=== PATIENT | female | born 1955 | race Caucasian/White ===

== ENCOUNTER 2019-01-04 14:58 | Inpatient (IN) | payer OTHER ==
[~2019-01-04] VITALS: Ht 154.9 cm; Wt 56.3 kg
[2019-01-04] MEDS ORDERED: PIPER-TAZO 3.375 GM IV (PMX) 100 ML IVPB STA (15:16)
[2019-01-04] MEDS ORDERED: SODIUM CHLORIDE 0.9% 1L BAG IV* STA (15:16)
[2019-01-04] MEDS ORDERED: VANCOMYCIN 1 GM (PMX) 250 ML IVPB STA (15:16)
[2019-01-04] MEDS ORDERED: ACETAMINOPHEN 325 MG TAB PO PRN ×2 (18:00→18:30)
[2019-01-04] MEDS ORDERED: INSULIN LISPRO 100 UNIT/ML VIAL SC ONE (18:00)
[2019-01-04] MEDS ORDERED: ONDANSETRON 4 MG INJ IV PRN ×2 (18:00→18:30)
[2019-01-04] MEDS ORDERED: VANCOMYCIN IV PER PHARMACY XX SCH (18:30)
[2019-01-04] MEDS ORDERED: NACL 0.9% 3 ML SYG IV SCH (18:30)
--- NOTE | 2019-01-04 18:31 | HP ---
Date/Time of Note Date/Time of Note DATE: 01/04/19 TIME: 18:13 Assessment/Plan VTE Prophylaxis Pharmacological prophylaxis: NA/contraindicated Pharm contraindication: low risk/ambulating Assessment/Plan Assessment/Plan 63 yo woman with uncontrolled diabetes presents hyperglycemic with foot wounds. #Hyperglycemia #Insulin-dependent diabetes - Aggressive IV fluids, subQ insulin in ED - Unknown home insulin dose. - Will start moderate intensity long-acting and mealtime insulin, titrate up as needed - Check HgbA1C #Foot wounds - Patient says her surgeons are Dr. Perez and Dr. Luis. - For now will consult Dr. Leyva - Link donahue and deon, although on my initial exam there is no evidence of wound infection and she has no signs or symptoms of sepsis on admission. #Peripheral vascular disease - She has a R leg surgical wound which appears to be vascular surgery - Likely needs aspirin and statin. - Will consult case management to determine her living situation and home meds. DVT: heparin GI: None Result Diagram: 01/04/19 1543 01/04/19 1543 HPI/ROS Admit Date/Time Admit Date/Time 04 January 2019 Hx of Present Illness Ms. Tariq is a 63 yo woman with unknown past medical history brought in to the ED by a "friend" who presents with hyperglycemia and chronic foot wounds. The patient is confused and unable to give a reliable history. She reports a friend brought her to the emergency room because "I need insulin and my feet are infected". Apparently in her current living situation she is supposed to be given medicines which she self-administers, but apparently "they haven't given me meds in a week". Normally the patient takes mealtime and long-acting insulin, but hasn't gotten this in a week either. She does report mild fever and chills over the last few days. She has chronic foot wounds including a L foot amputatation and R leg vascular surgery. In the ED she was afebrile, vitals unremarkable. Very hyperglycemic to 600s. Otherwise labs unremarkable. ROS Patient confused, unable to give reliable history. PMH/Family/Social Past Medical History Medical History: diabetes Medications Current Medications Ondansetron HCl (Zofran Inj) 4 mg ER BRIDGE PRN IV NAUSEA/VOMITING; Start 01/04/19 at 18:00; Stop 01/05/19 at 17:59 Acetaminophen (Tylenol Tab) 650 mg ER BRIDGE PRN PO .MILD PAIN 1-3 OR TEMP; Start 01/04/19 at 18:00; Stop 01/05/19 at 17:59 Coded Allergies: No Known Allergy (Unverified , 01/04/19) Past Surgical History L foot amputation R leg vascular surgery Social History Alcohol Use: none Smoking Status: Current every day smoker (Apparently she "quit today". Unknown how many cigarettes per day. ) Drug Use: none Exam/Review of Systems Vital Signs Vitals Vital Signs Date Temp Pulse Resp B/P (MAP) Pulse Ox O2 O2 Flow FiO2 Time Delivery Rate 01/04/19 98.5 85 20 106/58 99 15:05 (74) Exam Exam Gen: Thin elderly woman in no acute distress, lying in bed. Eyes: PERRL, no icterus HEENT: Moist mucous membranes, clear oropharynx. Ketone smell on her breath. Neck: No JVD, no lymphadenopathy, supple Card: Regular rate and rhythm, no murmurs Pulm: Clear to auscultation bilaterally Abd: Soft, nontender, nondistended. Ext: L foot amputation, bandaged. R foot with Achilles tendon wound, scab, crusted dressing in place. Palpable R foot peripheral pulse Skin: warm, dry, well perfused. SAVANNAH SELBY MD Jan 04, 2019 18:26
--- NOTE | 2019-01-04 18:45 | ERD ---
ER Documentation Chief Complaint Chief Complaint R FOOT INFECTION AND NEEDS WOUND CARE AND FEELS LIKE BLOOD SUGAR IS HIGH HPI Patient is a 63-year-old female with diabetes who presents for something about her feet. Please note the history and physical exam is limited as the patient is a poor historian. Her blood sugar was high. She says "they brought me in because of my feet". She says "I need antibiotics". She denies fevers. She has right ankle wound which is foul-smelling and has had previous amputation of her left foot. 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 ROS All systems reviewed and are negative except as per history of present illness. Medications Home Meds Unable to Obtain Active Prescriptions or Reported Meds Allergies Allergies: Coded Allergies: No Known Allergy (Unverified , 01/04/19) PMhx/Soc Positive for diabetes Smoking Status: Current every day smoker (Apparently she "quit today". Unknown how many cigarettes per day. ) FmHx Family History: No diabetes Physical Exam Vitals Vital Signs Date Temp Pulse Resp B/P (MAP) Pulse Ox O2 O2 Flow FiO2 Time Delivery Rate 01/04/19 98.5 85 20 106/58 99 15:05 (74) Physical Exam Const: No acute distress Head: Atraumatic Eyes: Normal Conjunctiva ENT: Normal External Ears, Nose and Mouth. Neck: Full range of motion. No meningismus. Resp: Clear to auscultation bilaterally Cardio: Regular rate and rhythm, no murmurs Abd: Soft, non tender, non distended. Normal bowel sounds Skin: Foul-smelling wound with discharge to the right posterior ankle with cellulitis Back: No midline or flank tenderness Ext: No cyanosis, or edema Neur: Awake and alert Psych: Normal Mood and Affect Result Diagram: 01/04/19 1543 01/04/19 1543 Results 24 hrs Laboratory Tests Test 01/04/19 14:50 01/04/19 15:08 01/04/19 15:43 01/04/19 17:48 Urine Color STRAW Urine Clarity SLIGHTLY CLOUDY Urine pH 6.0 Urine Specific 1.025 [place] Urine Ketones 2+ mg/dL Urine Nitrite NEGATIVE mg/dL Urine Bilirubin NEGATIVE mg/dL Urine NEGATIVE mg/dL Urobilinogen Urine Leukocyte NEGATIVE Marlee/ul Esterase Urine Microscopic 7 /HPF RBC Urine Microscopic 6 /HPF WBC Urine Hemoglobin 1+ mg/dL Urine Glucose 3+ mg/dL Urine Total 1+ mg/dl Protein Bedside Glucose 579 mg/dL 508 mg/dL White Blood Count 7.1 10^3/ul Red Blood Count 4.82 10^6/ul Hemoglobin 13.3 g/dl Hematocrit 42.3 % Mean Corpuscular 87.8 fl Volume Mean Corpuscular 27.6 pg Hemoglobin Mean Corpuscular 31.4 g/dl Hemoglobin Concen t Red Cell 16.4 % Distribution Width Platelet Count 298 10^3/UL Mean Platelet 8.6 fl Volume Immature 0.900 % Granulocytes % Neutrophils % 78.6 % Lymphocytes % 14.3 % Monocytes % 5.5 % Eosinophils % 0.3 % Basophils % 0.4 % Nucleated Red 0.0 /100WBC Blood Cells % Immature 0.060 10^3/ul Granulocytes # Neutrophils # 5.5 10^3/ul Lymphocytes # 1.0 10^3/ul Monocytes # 0.4 10^3/ul Eosinophils # 0.0 10^3/ul Basophils # 0.0 10^3/ul Nucleated Red 0.0 10^3/ul Blood Cells # Prothrombin Time 11.7 Sec Prothrombin Time 0.9 Ratio INR International 0.85 Normalized Ratio Activated 25.8 Sec Partial Thrombopl ast Time Sodium Level 135 mmol/L Potassium Level 3.8 mmol/L Chloride Level 98 mmol/L Carbon Dioxide 18 mmol/L Level Anion Gap 19 Blood Urea 14 mg/dl Nitrogen Creatinine 0.63 mg/dl Est Glomerular > 60 mL/min Filtrat Rate mL/min Glucose Level 604 mg/dl Lactic Acid Level 1.5 mmol/L Calcium Level 9.5 mg/dl Total Bilirubin 0.1 mg/dl Direct Bilirubin 0.00 mg/dl Indirect 0.1 mg/dl Bilirubin Aspartate Amino 155 IU/L Transf (AST/SGOT) Alanine 92 IU/L Aminotransferase (ALT/SGPT) Alkaline 239 IU/L Phosphatase Troponin I < 0.012 ng/ml Total Protein 8.3 g/dl Albumin 3.7 g/dl Globulin 4.60 g/dl Albumin/Globulin 0.80 Ratio Current Medications Medications Dose Sig/Omar Start Time Status Last (Trade) Ordered Route PRN Stop Time Admin Dose Reason Admin Sodium 1,690 ml BOLUS OVER 2 01/04/19 DC 01/04/19 Chloride HOURS STAT 15:16 15:45 (NS) IV* 01/04/19 15:17 Vancomycin 250 ml @ ONCE STAT 01/04/19 DC 01/04/19 HCl 125 mls/hr IVPB 15:16 17:52 01/04/19 17:15 Piperacillin 100 ml @ ONCE STAT 01/04/19 DC 01/04/19 Sod/ 200 mls/hr IVPB 15:16 15:45 Tazobactam 01/04/19 15:45 Sod Insulin 20 unit ONCE ONCE 01/04/19 DC 01/04/19 Human SC 18:00 17:53 Lispro 01/04/19 18:01 (Humalog) Ondansetron 4 mg ER BRIDGE 01/04/19 DC HCl (Zofran PRN IV 18:00 Inj) NAUSEA/VOMITI 01/04/19 18:33 NG 650 mg ER BRIDGE 01/04/19 DC Acetaminophen PRN PO 18:00 (Tylenol .MILD PAIN 01/04/19 18:33 Tab) 1-3 OR TEMP IV Flush 3 ml PER 01/04/19 (NS 3 ml) PROTOCOL IV 18:30 Ondansetron 4 mg Q6H PRN 01/04/19 HCl (Zofran IV 18:30 Inj) NAUSEA/VOMITI NG 650 mg Q6H PRN 01/04/19 Acetaminophen PO .PAIN 1-3 18:30 (Tylenol OR TEMP Tab) Heparin 5,000 unit Q8 SC 01/04/19 Sodium 22:00 (Porcine) (Heparin (5000 Units/1ml)) Piperacillin 100 ml @ Q8 IVPB 01/04/19 Sod/ 200 mls/hr 22:00 Tazobactam Sod Vancomycin VANCOMYCIN PER 01/04/19 UNV HCl (Vanco PER PHARMACY PROTOCOL XX 18:30 Iv Per Pharmacy) Diagnostic 1 ea 02 XX 01/05/19 Test (Pha) 02:00 (Accu-Chek) Insulin 15 units DAILY@199901/04/19 Glargine SC 20:00 (Lantus) Insulin 5 unit WITH MEALS 01/05/19 Aspart SC 08:00 (Novolog Insulin Pen) ONCE ONCE 01/04/19 DC Miscellaneous HYPOGLYCEMIA XX 18:30 PROTOCOL 01/04/19 18:35 Information w... (* Miscellaneous Pharmacy Order) Insulin NOVOLOG WITH MEALS 01/04/19 Aspart *MODERATE* BEDTIME SC 21:00 (Novolog ALGORITHM Insulin Pen) 1 ea NOTE XX 01/04/19 Miscellaneous 19:00 Information Glucose 15 gm Q15M PRN 01/04/19 (Glutose) PO DECREASED 19:00 GLUCOSE Glucose 22.5 gm Q15M PRN 01/04/19 (Glutose) PO DECREASED 19:00 GLUCOSE Dextrose 25 ml Q15M PRN 01/04/19 (D50w IV DECREASED 19:00 Syringe) GLUCOSE Dextrose 50 ml Q15M PRN 01/04/19 (D50w IV DECREASED 19:00 Syringe) GLUCOSE Glucagon 1 mg Q15M PRN 01/04/19 (Glucagen) IM DECREASED 19:00 GLUCOSE Glucose 15 gm Q15M PRN 01/04/19 (Glutose) BUCCAL 19:00 DECREASED GLUCOSE Procedures/MDM Chest x-ray and right ankle x-ray read by radiology. Smoking Cessation Therapy: Pt. was lectured for greater than 3 minutes on the health risks of continued smoking and the benefits of cessation. Patient is a 63-year-old female with diabetes who presents with diabetic leg ulcer and cellulitis. The patient was given broad-spectrum antibiotics with vancomycin and Zosyn. I doubt sepsis at this time. There is no obvious sign of osteomyelitis. The patient will need continued antibiotics and wound care. The patient has hyperglycemia with a sugar of over 600. However at this point I doubt true diabetic ketoacidosis. Bicarbonate was 18 and gap was 19. The patient was given Humalog 20 units subcutaneous and will be admitted to a telemetry bed to the care of Dr. Young. Departure Diagnosis: Primary Impression: Cellulitis Site of cellulitis: extremity Site of cellulitis of extremity: lower extremity Laterality: right Qualified Codes: L03.115 - Cellulitis of right lower limb Additional Impressions: Diabetic foot ulcer Diabetic foot ulcer location: heel Diabetes mellitus type: type 1 Laterality: right Non-pressure ulcer stage: unspecified non-pressure ulcer stage Qualified Codes: E10.621 - Type 1 diabetes mellitus with foot ulcer; L97.419 - Non-pressure chronic ulcer of right heel and midfoot with unspecified severity Hyperglycemia Condition: LESLIE Castillo MD Jan 04, 2019 18:45
[2019-01-04] MEDS ORDERED: GLUCOSE GEL 15 GRAM TUBE BUCCAL PRN (19:00)
[2019-01-04] MEDS ORDERED: DEXTROSE 50% 50 ML SYRINGE IV PRN ×2 (19:00)
[2019-01-04] MEDS ORDERED: GLUCOSE GEL 15 GRAM TUBE PO PRN ×2 (19:00)
[2019-01-04] MEDS ORDERED: GLUCAGON 1 MG INJ IM PRN (19:00)
[2019-01-04] MEDS: INSULIN GLARGINE [LANTus] (100 UNITS/ML) SYG SC SCH (20:03)
[2019-01-04] MEDS: INSULIN ASPART [NOVOLOG] 3 ML PEN SC SCH (20:05)
[2019-01-04 21:59] VITALS: PULSE 63
[2019-01-04 22:47] VITALS: Ht 154.9 cm; Wt 56.3 kg
[2019-01-05] VITALS (12 sets, daily range): BP systolic 105–130; BP diastolic 64–75; PULSE 59–67; RESP 16–18
[2019-01-05] MEDS: PIPER-TAZO 3.375 GM IV (PMX) 100 ML IVPB SCH ×4 (00:50→22:41)
[2019-01-05] MEDS: traMADol 50 MG TAB PO PRN ×3 (00:50→20:59)
[2019-01-05] MEDS: HEPARIN 5,000 UNIT/1 ML VIAL SC SCH ×2 (01:08→06:22)
[2019-01-05] MEDS: ACCU-CHEK XX SCH (02:02)
[2019-01-05] MEDS ORDERED: INSULIN ASPART [NOVOLOG] 3 ML PEN SC ONE ×2 (04:00→08:00)
[2019-01-05] MEDS: VANCOMYCIN 750 MG (PMX) 250 ML IVPB SCH ×2 (06:12→15:44)
[2019-01-05] MEDS: INSULIN ASPART [NOVOLOG] 3 ML PEN SC SCH ×7 (07:56→21:04)
[2019-01-05] MEDS ORDERED: SOD CHLORIDE 0.9% 500 ML IV ONE (08:00)
--- NOTE | 2019-01-05 10:15 | CONS ---
Assessment/Plan Assessment/Plan Assessment/Plan (Daily) bilateral diabetic ulcerations lower extremity Localized cellulitis Concern for osteomyelitis left foot DM2 with peripheral neuropathy PAD Plan: Consent was obtained and performed excisional debridement of skin/subQ of bilateral ulceration sites. Fibrotic tissue, hyperkeratotic tissue, and biofilm was removed from the ulceration sites. Left foot ulcer probes to bone and concern for osteomyelitis. Wound cultures were obtained. Recommend daily dressing changes. Bilateral MRI, X-rays and non invasive arterial studies ordered. Recommend vascular evaluation. Consultation Date/Type/Reason Admit Date/Time 04 January 2019 Date/Time of Note DATE: 01/05/19 TIME: 10:11 Hx of Present Illness 63 y/o diabetic female presents to the floor with bilateral lower extremity ulceration sites. Patient provides an unclear history regarding the etiology of the wounds. Patient states the right foot ulcer has been present for 6-8 months and the left lower extremity ulcer is present for approximately for a year. Patient states she had seen multiple doctors regarding the wounds. Patient reports mild pain to the left lower extremity. She has a previous right lower extremity vascular procedure, but does not know the details. ROS Low grade fevers otherwise negative except for HPI Past Medical History Medical History: diabetes Home Meds Unable to Obtain Active Prescriptions or Reported Meds Medications Current Medications IV Flush (NS 3 ml) 3 ml PER PROTOCOL IV ; Start 01/04/19 at 18:30 Ondansetron HCl (Zofran Inj) 4 mg Q6H PRN IV NAUSEA/VOMITING; Start 01/04/19 at 18:30 Acetaminophen (Tylenol Tab) 650 mg Q6H PRN PO .PAIN 1-3 OR TEMP; Start 01/04/19 at 18:30 Heparin Sodium (Porcine) (Heparin (5000 Units/1ml)) 5,000 unit Q8 SC Last administered on 01/05/19at 06:22; Admin Dose 5,000 UNIT; Start 01/04/19 at 22:00 Piperacillin Sod/ Tazobactam Sod 100 ml @ 200 mls/hr Q8 IVPB Last administered on 01/05/19at 06:13; Admin Dose 200 MLS/HR; Start 01/04/19 at 22:00 Vancomycin HCl (Vanco Iv Per Pharmacy) VANCOMYCIN PER PHARMACY PER PROTOCOL XX ; Start 01/04/19 at 18:30 Diagnostic Test (Pha) (Accu-Chek) XX Last administered on 01/05/19at 02:02; Admin Dose 1 EA; Start 01/05/19 at 02:00 Insulin Glargine (Lantus) 15 units DAILY@2000 SC Last administered on 01/04/19at 20:03; Admin Dose 15 UNITS; Start 01/04/19 at 20:00 Insulin Aspart (Novolog Insulin Pen) 5 unit WITH MEALS SC Last administered on 01/05/19at 07:57; Admin Dose 5 UNIT; Start 01/05/19 at 07:55 Insulin Aspart (Novolog Insulin Pen) NOVOLOG *MODERATE* ALGORITHM WITH MEALS BEDTIME SC Last administered on 01/05/19at 07:56; Admin Dose 12 UNIT; Start 01/04/19 at 21:00 Miscellaneous Information 1 ea NOTE XX ; Start 01/04/19 at 19:00 Glucose (Glutose) 15 gm Q15M PRN PO DECREASED GLUCOSE; Start 01/04/19 at 19:00 Glucose (Glutose) 22.5 gm Q15M PRN PO DECREASED GLUCOSE; Start 01/04/19 at 1 9:00 Dextrose (D50w Syringe) 25 ml Q15M PRN IV DECREASED GLUCOSE; Start 01/04/19 at 19:00 Dextrose (D50w Syringe) 50 ml Q15M PRN IV DECREASED GLUCOSE; Start 01/04/19 at 19:00 Glucagon (Glucagen) 1 mg Q15M PRN IM DECREASED GLUCOSE; Start 01/04/19 at 19:00 Glucose (Glutose) 15 gm Q15M PRN BUCCAL DECREASED GLUCOSE; Start 01/04/19 at 19:00 Vancomycin/Sodium Chloride 250 ml @ 125 mls/hr Q12H IVPB Last administered on 01/05/19at 06:12; Admin Dose 125 MLS/HR; Start 01/05/19 at 04:00 Tramadol HCl (Ultram) 50 mg Q6H PRN PO MODERATE PAIN LEVEL 4-6 Last administered on 01/05/19at 07:41; Admin Dose 50 MG; Start 01/04/19 at 23:30 Influenza Virus Vaccine Quadrival (Fluzone) 0.5 ml ONCE ONCE IM* ; Start 01/07/19 at 10:00; Stop 01/07/19 at 10:01 Allergies: Coded Allergies: No Known Allergy (Unverified , 01/04/19) Past Surgical History right lower extremity vascular bypass surgery Social History Alcohol Use: none Smoking Status: Never smoker Drug Use: none Exam/Review of Systems Exam Vitals Vital Signs Date Temp Pulse Resp B/P (MAP) Pulse Ox O2 O2 Flow FiO2 Time Delivery Rate 01/05/19 59 08:02 01/05/19 99.6 17 129/69 98 07:50 (89) 01/05/19 Room Air 04:25 Intake and Output 01/04/19 01/04/19 01/05/19 1515:00 23:00 07:00 IntakeIntake Total 850 ml BalanceBalance 850 ml Exam Unable to palpate DP/PT and popliteal pulses Skin temperature gradient warm to warm Absent protective sensations Left proximal foot amputation site appreciated Right Posterior Achilles ulceration site fibrogranular wound base does not probe to bone and no tendon sheath exposed measured 3 x 3 x 0.3cm Left plantar foot ulceration site with surrounding hyperkeratotic tissue foul odor and mixed fibrogranular wound with seropurulent drainage appreciated. Measures 5 x 4 x 0.4cm, wound probes to bone Sanguinous drainage noted with debridement Right lower extremity surgical site noted corresponding with a vascular bypass procedure Right proximal anterior leg dry granular wound site 0.5 x 0.2 x 0.1cm no drainage no probing No proximal streaking appreciated, localized erythema to the right foot noted. There is a dried callus hematoma site to the right heel Right X-ray IMPRESSION: Osteopenia. No evidence of osteomyelitis. Results Result Diagram: 01/05/19 0535 01/05/19 0535 Results 24hrs Laboratory Tests Test 01/04/19 14:50 01/04/19 15:08 01/04/19 15:43 01/04/19 17:48 Urine Color STRAW Urine Clarity SLIGHTLY CLOUDY A Urine pH 6.0 Urine Specific 1.025 [place] Urine Ketones 2+ H Urine Nitrite NEGATIVE Urine Bilirubin NEGATIVE Urine NEGATIVE Urobilinogen Urine Leukocyte NEGATIVE Esterase Urine Microscopic 7 H RBC Urine Microscopic 6 H WBC Urine Hemoglobin 1+ H Urine Glucose 3+ H Urine Total 1+ H Protein Bedside Glucose 579 *H 508 *H White Blood Count 7.1 Red Blood Count 4.82 Hemoglobin 13.3 Hematocrit 42.3 Mean Corpuscular 87.8 Volume Mean Corpuscular 27.6 L Hemoglobin Mean Corpuscular 31.4 L Hemoglobin Concen t Red Cell 16.4 H Distribution Width Platelet Count 298 Mean Platelet 8.6 Volume Immature 0.900 H Granulocytes % Neutrophils % 78.6 H Lymphocytes % 14.3 L Monocytes % 5.5 Eosinophils % 0.3 Basophils % 0.4 Nucleated Red 0.0 Blood Cells % Immature 0.060 H Granulocytes # Neutrophils # 5.5 Lymphocytes # 1.0 Monocytes # 0.4 Eosinophils # 0.0 Basophils # 0.0 Nucleated Red 0.0 Blood Cells # Prothrombin Time 11.7 L Prothrombin Time 0.9 Ratio INR International 0.85 Normalized Ratio Activated 25.8 Partial Thrombopl ast Time Sodium Level 135 Potassium Level 3.8 Chloride Level 98 Carbon Dioxide 18 L Level Anion Gap 19 H Blood Urea 14 Nitrogen Creatinine 0.63 Est Glomerular > 60 Filtrat Rate mL/min Glucose Level 604 *H Lactic Acid Level 1.5 Calcium Level 9.5 Total Bilirubin 0.1 L Direct Bilirubin 0.00 Indirect 0.1 Bilirubin Aspartate Amino 155 H Transf (AST/SGOT) Alanine 92 H Aminotransferase (ALT/SGPT) Alkaline 239 H Phosphatase Troponin I < 0.012 Total Protein 8.3 H Albumin 3.7 Globulin 4.60 H Albumin/Globulin 0.80 Ratio Test 01/04/19 19:11 01/04/19 19:32 01/04/19 20:00 01/04/19 21:26 Bedside Glucose 496 *H 426 *H 341 H Lactic Acid Level 2.0 Test 01/04/19 21:37 01/05/19 01:25 01/05/19 05:35 01/05/19 07:41 Lactic Acid Level 2.3 *H Bedside Glucose 372 H 438 *H White Blood Count 6.0 Red Blood Count 4.36 Hemoglobin 12.0 Hematocrit 38.2 Mean Corpuscular 87.6 Volume Mean Corpuscular 27.5 L Hemoglobin Mean Corpuscular 31.4 L Hemoglobin Concen t Red Cell 16.5 H Distribution Width Platelet Count 259 Mean Platelet 9.3 Volume Immature 0.800 H Granulocytes % Neutrophils % 77.7 H Lymphocytes % 14.6 L Monocytes % 6.1 Eosinophils % 0.5 Basophils % 0.3 Nucleated Red 0.0 Blood Cells % Immature 0.050 H Granulocytes # Neutrophils # 4.6 Lymphocytes # 0.9 Monocytes # 0.4 Eosinophils # 0.0 Basophils # 0.0 Nucleated Red 0.0 Blood Cells # Sodium Level 133 L Potassium Level 3.8 Chloride Level 95 L Carbon Dioxide 26 Level Anion Gap 12 # Blood Urea 17 Nitrogen Creatinine 0.63 Est Glomerular > 60 Filtrat Rate mL/min Glucose Level 535 *H Hemoglobin A1c 12.6 H Calcium Level 8.8 Phosphorus Level 3.5 Magnesium Level 1.5 L Total Bilirubin 0.1 L Direct Bilirubin 0.00 Indirect 0.1 Bilirubin Aspartate Amino 158 H Transf (AST/SGOT) Alanine 96 H Aminotransferase (ALT/SGPT) Alkaline 192 H Phosphatase Total Protein 7.0 # Albumin 3.1 L Globulin 3.90 H Albumin/Globulin 0.79 Ratio Thyroid 1.680 Stimulating Hormone (TSH) Test 01/05/19 08:59 Bedside Glucose 369 H Medications Medication Current Medications IV Flush (NS 3 ml) 3 ml PER PROTOCOL IV ; Start 01/04/19 at 18:30 Ondansetron HCl (Zofran Inj) 4 mg Q6H PRN IV NAUSEA/VOMITING; Start 01/04/19 at 18:30 Acetaminophen (Tylenol Tab) 650 mg Q6H PRN PO .PAIN 1-3 OR TEMP; Start 01/04/19 at 18:30 Heparin Sodium (Porcine) (Heparin (5000 Units/1ml)) 5,000 unit Q8 SC Last administered on 01/05/19at 06:22; Admin Dose 5,000 UNIT; Start 01/04/19 at 22:00 Piperacillin Sod/ Tazobactam Sod 100 ml @ 200 mls/hr Q8 IVPB Last administered on 01/05/19at 06:13; Admin Dose 200 MLS/HR; Start 01/04/19 at 22:00 Vancomycin HCl (Vanco Iv Per Pharmacy) VANCOMYCIN PER PHARMACY PER PROTOCOL XX ; Start 01/04/19 at 18:30 Diagnostic Test (Pha) (Accu-Chek) 1 ea 02 XX Last administered on 01/05/19at 02:02; Admin Dose 1 EA; Start 01/05/19 at 02:00 Insulin Glargine (Lantus) 15 units DAILY@2000 SC Last administered on 01/04/19at 20:03; Admin Dose 15 UNITS; Start 01/04/19 at 20:00 Insulin Aspart (Novolog Insulin Pen) 5 unit WITH MEALS SC Last administered on 01/05/19at 07:57; Admin Dose 5 UNIT; Start 01/05/19 at 07:55 Insulin Aspart (Novolog Insulin Pen) NOVOLOG *MODERATE* ALGORITHM WITH MEALS BEDTIME SC Last administered on 01/05/19at 07:56; Admin Dose 12 UNIT; Start 01/04/19 at 21:00 Miscellaneous Information 1 ea NOTE XX ; Start 01/04/19 at 19:00 Glucose (Glutose) 15 gm Q15M PRN PO DECREASED GLUCOSE; Start 01/04/19 at 19:00 Glucose (Glutose) 22.5 gm Q15M PRN PO DECREASED GLUCOSE; Start 01/04/19 at 19:00 Dextrose (D50w Syringe) 25 ml Q15M PRN IV DECREASED GLUCOSE; Start 01/04/19 at 19:00 Dextrose (D50w Syringe) 50 ml Q15M PRN IV DECREASED GLUCOSE; Start 01/04/19 at 19:00 Glucagon (Glucagen) 1 mg Q15M PRN IM DECREASED GLUCOSE; Start 01/04/19 at 19:00 Glucose (Glutose) 15 gm Q15M PRN BUCCAL DECREASED GLUCOSE; Start 01/04/19 at 19:00 Vancomycin/Sodium Chloride 250 ml @ 125 mls/hr Q12H IVPB Last administered on 01/05/19at 06:12; Admin Dose 125 MLS/HR; Start 01/05/19 at 04:00 Tramadol HCl (Ultram) 50 mg Q6H PRN PO MODERATE PAIN LEVEL 4-6 Last administered on 01/05/19at 07:41; Admin Dose 50 MG; Start 01/04/19 at 23:30 Influenza Virus Vaccine Quadrival (Fluzone) 0.5 ml ONCE ONCE IM* ; Start 9 at 10:00; Stop 01/07/19 at 10:01 QASIM CHAPA DPM Jan 05, 2019 10:14
--- NOTE | 2019-01-05 13:00 | PN ---
Date/Time of Note Date/Time of Note DATE: 01/05/19 TIME: 12:55 Assessment/Plan VTE Prophylaxis Risk score (from Ns)>0 risk: 3 SCD applied (from Ns): No SCD contraindicated: low risk/ambulating Pharmacological prophylaxis: LMWH Lines/Catheters IV Catheter Type (from Nrs): Peripheral IV Assessment/Plan Hospital Course Assessment and plan 1. DFI/ ssti, bilat lwr ext; status post local debridement, stable continue wound care 2. Nonadherence, high risk of limb loss. Will re-cosmetic counselor 3. PAD chronic, sp rt lower extremity surgery. mod stable, recheck circulation 4. Tobacco abuse status post counseling offered patch 5. Likely COPD 6. Delirium, presently stable observe 7. 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 Imaging ordered 8. Right foot heel ulcer status post debridement, follow-up on cultures 9. Chronic type 2 diabetes A1c 12.9, 10. Failure to thrive, apparently moving around with friends/family? Recommend sniff for wound care Subjective: No distress mild pain. Oriented to [facility]. Not oriented to city. No cough or diarrhea. Objective: Vital signs stable Physical exam No pallor droop adenopathy regular no murmur rub gallop Clear Bowel sounds present nt nd; no r/r/g; no abd bruits Left TMA status; right foot heel ulcer. Poor pulses bilaterally Result Diagram: 01/05/19 0535 01/05/19 0535 Results 24hrs Laboratory Tests Test 01/04/19 14:50 01/04/19 15:08 01/04/19 15:43 01/04/19 17:48 Urine Color STRAW Urine Clarity SLIGHTLY CLOUDY A Urine pH 6.0 Urine Specific 1.025 [place] Urine Ketones 2+ H Urine Nitrite NEGATIVE Urine Bilirubin NEGATIVE Urine NEGATIVE Urobilinogen Urine Leukocyte NEGATIVE Esterase Urine Microscopic 7 H RBC Urine Microscopic 6 H WBC Urine Hemoglobin 1+ H Urine Glucose 3+ H Urine Total 1+ H Protein Bedside Glucose 579 *H 508 *H White Blood Count 7.1 Red Blood Count 4.82 Hemoglobin 13.3 Hematocrit 42.3 Mean Corpuscular 87.8 Volume Mean Corpuscular 27.6 L Hemoglobin Mean Corpuscular 31.4 L Hemoglobin Concen t Red Cell 16.4 H Distribution Width Platelet Count 298 Mean Platelet 8.6 Volume Immature 0.900 H Granulocytes % Neutrophils % 78.6 H Lymphocytes % 14.3 L Monocytes % 5.5 Eosinophils % 0.3 Basophils % 0.4 Nucleated Red 0.0 Blood Cells % Immature 0.060 H Granulocytes # Neutrophils # 5.5 Lymphocytes # 1.0 Monocytes # 0.4 Eosinophils # 0.0 Basophils # 0.0 Nucleated Red 0.0 Blood Cells # Prothrombin Time 11.7 L Prothrombin Time 0.9 Ratio INR International 0.85 Normalized Ratio Activated 25.8 Partial Thrombopl ast Time Sodium Level 135 Potassium Level 3.8 Chloride Level 98 Carbon Dioxide 18 L Level Anion Gap 19 H Blood Urea 14 Nitrogen Creatinine 0.63 Est Glomerular > 60 Filtrat Rate mL/min Glucose Level 604 *H Lactic Acid Level 1.5 Calcium Level 9.5 Total Bilirubin 0.1 L Direct Bilirubin 0.00 Indirect 0.1 Bilirubin Aspartate Amino 155 H Transf (AST/SGOT) Alanine 92 H Aminotransferase (ALT/SGPT) Alkaline 239 H Phosphatase Troponin I < 0.012 Total Protein 8.3 H Albumin 3.7 Globulin 4.60 H Albumin/Globulin 0.80 Ratio Test 01/04/19 19:11 01/04/19 19:32 01/04/19 20:00 01/04/19 21:26 Bedside Glucose 496 *H 426 *H 341 H Lactic Acid Level 2.0 Test 01/04/19 21:37 01/05/19 01:25 01/05/19 05:35 01/05/19 07:41 Lactic Acid Level 2.3 *H Bedside Glucose 372 H 438 *H White Blood Count 6.0 Red Blood Count 4.36 Hemoglobin 12.0 Hematocrit 38.2 Mean Corpuscular 87.6 Volume Mean Corpuscular 27.5 L Hemoglobin Mean Corpuscular 31.4 L Hemoglobin Concen t Red Cell 16.5 H Distribution Width Platelet Count 259 Mean Platelet 9.3 Volume Immature 0.800 H Granulocytes % Neutrophils % 77.7 H Lymphocytes % 14.6 L Monocytes % 6.1 Eosinophils % 0.5 Basophils % 0.3 Nucleated Red 0.0 Blood Cells % Immature 0.050 H Granulocytes # Neutrophils # 4.6 Lymphocytes # 0.9 Monocytes # 0.4 Eosinophils # 0.0 Basophils # 0.0 Nucleated Red 0.0 Blood Cells # Sodium Level 133 L Potassium Level 3.8 Chloride Level 95 L Carbon Dioxide 26 Level Anion Gap 12 # Blood Urea 17 Nitrogen Creatinine 0.63 Est Glomerular > 60 Filtrat Rate mL/min Glucose Level 535 *H Hemoglobin A1c 12.6 H Calcium Level 8.8 Phosphorus Level 3.5 Magnesium Level 1.5 L Total Bilirubin 0.1 L Direct Bilirubin 0.00 Indirect 0.1 Bilirubin Aspartate Amino 158 H Transf (AST/SGOT) Alanine 96 H Aminotransferase (ALT/SGPT) Alkaline 192 H Phosphatase Total Protein 7.0 # Albumin 3.1 L Globulin 3.90 H Albumin/Globulin 0.79 Ratio Thyroid 1.680 Stimulating Hormone (TSH) Test 01/05/19 08:59 01/05/19 10:22 01/05/19 11:27 01/05/19 11:37 Bedside Glucose 369 H 146 Lactic Acid Level 5.6 *H C-Reactive 1.7 H Protein Exam/Review of Systems Exam Vitals Vital Signs Date Temp Pulse Resp B/P (MAP) Pulse Ox O2 O2 Flow FiO2 Time Delivery Rate 01/05/19 98.7 62 17 115/64 97 11:41 (81) 01/05/19 Room Air 04:25 Intake and Output 01/04/19 01/04/19 01/05/19 1515:00 23:00 07:00 IntakeIntake Total 850 ml BalanceBalance 850 ml Results Results 24hrs Laboratory Tests Test 01/04/19 14:50 01/04/19 15:08 01/04/19 15:43 01/04/19 17:48 Urine Color STRAW Urine Clarity SLIGHTLY CLOUDY A Urine pH 6.0 Urine Specific 1.025 [place] Urine Ketones 2+ H Urine Nitrite NEGATIVE Urine Bilirubin NEGATIVE Urine NEGATIVE Urobilinogen Urine Leukocyte NEGATIVE Esterase Urine Microscopic 7 H RBC Urine Microscopic 6 H WBC Urine Hemoglobin 1+ H Urine Glucose 3+ H Urine Total 1+ H Protein Bedside Glucose 579 *H 508 *H White Blood Count 7.1 Red Blood Count 4.82 Hemoglobin 13.3 Hematocrit 42.3 Mean Corpuscular 87.8 Volume Mean Corpuscular 27.6 L Hemoglobin Mean Corpuscular 31.4 L Hemoglobin Concen t Red Cell 16.4 H Distribution Width Platelet Count 298 Mean Platelet 8.6 Volume Immature 0.900 H Granulocytes % Neutrophils % 78.6 H Lymphocytes % 14.3 L Monocytes % 5.5 Eosinophils % 0.3 Basophils % 0.4 Nucleated Red 0.0 Blood Cells % Immature 0.060 H Granulocytes # Neutrophils # 5.5 Lymphocytes # 1.0 Monocytes # 0.4 Eosinophils # 0.0 Basophils # 0.0 Nucleated Red 0.0 Blood Cells # Prothrombin Time 11.7 L Prothrombin Time 0.9 Ratio INR International 0.85 Normalized Ratio Activated 25.8 Partial Thrombopl ast Time Sodium Level 135 Potassium Level 3.8 Chloride Level 98 Carbon Dioxide 18 L Level Anion Gap 19 H Blood Urea 14 Nitrogen Creatinine 0.63 Est Glomerular > 60 Filtrat Rate mL/min Glucose Level 604 *H Lactic Acid Level 1.5 Calcium Level 9.5 Total Bilirubin 0.1 L Direct Bilirubin 0.00 Indirect 0.1 Bilirubin Aspartate Amino 155 H Transf (AST/SGOT) Alanine 92 H Aminotransferase (ALT/SGPT) Alkaline 239 H Phosphatase Troponin I < 0.012 Total Protein 8.3 H Albumin 3.7 Globulin 4.60 H Albumin/Globulin 0.80 Ratio Test 01/04/19 19:11 01/04/19 19:32 01/04/19 20:00 01/04/19 21:26 Bedside Glucose 496 *H 426 *H 341 H Lactic Acid Level 2.0 Test 01/04/19 21:37 01/05/19 01:25 01/05/19 05:35 01/05/19 07:41 Lactic Acid Level 2.3 *H Bedside Glucose 372 H 438 *H White Blood Count 6.0 Red Blood Count 4.36 Hemoglobin 12.0 Hematocrit 38.2 Mean Corpuscular 87.6 Volume Mean Corpuscular 27.5 L Hemoglobin Mean Corpuscular 31.4 L Hemoglobin Concen t Red Cell 16.5 H Distribution Width Platelet Count 259 Mean Platelet 9.3 Volume Immature 0.800 H Granulocytes % Neutrophils % 77.7 H Lymphocytes % 14.6 L Monocytes % 6.1 Eosinophils % 0.5 Basophils % 0.3 Nucleated Red 0.0 Blood Cells % Immature 0.050 H Granulocytes # Neutrophils # 4.6 Lymphocytes # 0.9 Monocytes # 0.4 Eosinophils # 0.0 Basophils # 0.0 Nucleated Red 0.0 Blood Cells # Sodium Level 133 L Potassium Level 3.8 Chloride Level 95 L Carbon Dioxide 26 Level Anion Gap 12 # Blood Urea 17 Nitrogen Creatinine 0.63 Est Glomerular > 60 Filtrat Rate mL/min Glucose Level 535 *H Hemoglobin A1c 12.6 H Calcium Level 8.8 Phosphorus Level 3.5 Magnesium Level 1.5 L Total Bilirubin 0.1 L Direct Bilirubin 0.00 Indirect 0.1 Bilirubin Aspartate Amino 158 H Transf (AST/SGOT) Alanine 96 H Aminotransferase (ALT/SGPT) Alkaline 192 H Phosphatase Total Protein 7.0 # Albumin 3.1 L Globulin 3.90 H Albumin/Globulin 0.79 Ratio Thyroid 1.680 Stimulating Hormone (TSH) Test 01/05/19 08:59 01/05/19 10:22 01/05/19 11:27 01/05/19 11:37 Bedside Glucose 369 H 146 Lactic Acid Level 5.6 *H C-Reactive 1.7 H Protein Medications Medication Current Medications IV Flush (NS 3 ml) 3 ml PER PROTOCOL IV ; Start 01/04/19 at 18:30 Ondansetron HCl (Zofran Inj) 4 mg Q6H PRN IV NAUSEA/VOMITING; Start 01/04/19 at 18:30 Acetaminophen (Tylenol Tab) 650 mg Q6H PRN PO .PAIN 1-3 OR TEMP; Start 01/04/19 at 18:30 Heparin Sodium (Porcine) (Heparin (5000 Units/1ml)) 5,000 unit Q8 SC Last administered on 01/05/19at 06:22; Admin Dose 5,000 UNIT; Start 01/04/19 at 22:00 Piperacillin Sod/ Tazobactam Sod 100 ml @ 200 mls/hr Q8 IVPB Last administered on 01/05/19at 06:13; Admin Dose 200 MLS/HR; Start 01/04/19 at 22:00 Vancomycin HCl (Vanco Iv Per Pharmacy) VANCOMYCIN PER PHARMACY PER PROTOCOL XX ; Start 01/04/19 at 18:30 Diagnostic Test (Pha) (Accu-Chek) 1 ea 02 XX Last administered on 01/05/19at 02:02; Admin Dose 1 EA; Start 01/05/19 at 02:00 Insulin Glargine (Lantus) 15 units DAILY@2000 SC Last administered on 01/04/19at 20:03; Admin Dose 15 UNITS; Start 01/04/19 at 20:00 Insulin Aspart (Novolog Insulin Pen) 5 unit WITH MEALS SC Last administered on 01/05/19at 11:45; Admin Dose 5 UNIT; Start 01/05/19 at 07:55 Insulin Aspart (Novolog Insulin Pen) NOVOLOG *MODERATE* ALGORITHM WITH MEALS BEDTIME SC Last administered on 01/05/19at 11:45; Admin Dose 2 UNIT; Start 01/04/19 at 21:00 Miscellaneous Information 1 ea NOTE XX ; Start 01/04/19 at 19:00 Glucose (Glutose) 15 gm Q15M PRN PO DECREASED GLUCOSE; Start 01/04/19 at 19:00 Glucose (Glutose) 22.5 gm Q15M PRN PO DECREASED GLUCOSE; Start 01/04/19 at 19:00 Dextrose (D50w Syringe) 25 ml Q15M PRN IV DECREASED GLUCOSE; Start 01/04/19 at 19:00 Dextrose (D50w Syringe) 50 ml Q15M PRN IV DECREASED GLUCOSE; Start 01/04/19 at 19:00 Glucagon (Glucagen) 1 mg Q15M PRN IM DECREASED GLUCOSE; Start 01/04/19 at 19:00 Glucose (Glutose) 15 gm Q15M PRN BUCCAL DECREASED GLUCOSE; Start 01/04/19 at 19 :00 Vancomycin/Sodium Chloride 250 ml @ 125 mls/hr Q12H IVPB Last administered on 01/05/19at 06:12; Admin Dose 125 MLS/HR; Start 01/05/19 at 04:00 Tramadol HCl (Ultram) 50 mg Q6H PRN PO MODERATE PAIN LEVEL 4-6 Last administered on 01/05/19at 07:41; Admin Dose 50 MG; Start 01/04/19 at 23:30 Influenza Virus Vaccine Quadrival (Fluzone) 0.5 ml ONCE ONCE IM* ; Start 01/07/19 at 10:00; Stop 01/07/19 at 10:01 Sodium Hypochlorite (Dakin'S (Dilute 40)) 1 applic DAILY IRR ; Start 01/06/19 at 09:00 Miscellaneous Information (*Rx Drug Level Order Reminder*) 1 ONCE ONCE XX ; Start 01/06/19 at 03:00; Stop 01/06/19 at 03:01 KYLIE STARKEY MD Jan 05, 2019 13:00
[2019-01-05] MEDS: ASPIRIN (EC) 81 MG TAB PO SCH (13:13)
--- NOTE | 2019-01-05 17:06 | CONS ---
DATE OF ADMISSION: 01/04/2019 DATE OF CONSULTATION: 01/05/2019 TYPE OF CONSULTATION: Vascular. REFERRING PHYSICIAN: Qasim Chapa DPM REASON FOR CONSULTATION: Bilateral lower extremity PAD and foot ulcers. HISTORY OF PRESENT ILLNESS: This is a 63-year-old diabetic woman with a long history of peripheral arterial disease and diabetes, very poorly controlled. Hemoglobin A1c is 12.9. She has had a right fem-pop bypass that was done about 6 months ago [facility] by Dr. Camarillo. She has had a left Chopart amputation that has been even longer ago than the bypass. She has an ulcer on the right posterior Achilles region. It is not clear how she got here to [facility]. She has been getting her care at [facility], but it sounds like she is staying with someone who lives here in the [place]. Currently the left foot has gotten worse and had a foul odor. There is a big ulcer on the plantar surface of Chopart and so she came into the emergency room. PAST MEDICAL HISTORY: Significant for diabetes poorly controlled, peripheral arterial disease. She is a long time smoker. She said she stopped today. She has COPD. It is not clear if she is homeless, although she has had trouble with finding a long-term place to stay, but she is currently living in [place]. MEDICATIONS: Consist of: 1. Dakin's. 2. Subcutaneous Lovenox. 3. Aspirin. 4. Insulin. 5. Vancomycin. 6. Tramadol. 7. Zosyn. ALLERGIES: SHE HAS NO KNOWN DRUG ALLERGIES. SOCIAL HISTORY: She is a long-term smoker. She said she stopped it. I asked her when, she said she stopped today because she has not smoked today. She is pack a day smoker for many years prior. PAST SURGICAL HISTORY: Again, significant for the left Chopart amputation, right fem-pop bypass. Denies ever having had any coronary interventions. FAMILY HISTORY: Noncontributory. REVIEW OF SYSTEMS: Denies any chest pain, shortness of breath, nausea, vomiting, diarrhea. No fevers, no chills, no recent weight gain or weight loss. No abdominal or back pain. PHYSICAL EXAMINATION: GENERAL: She is an elderly woman. She speaks [place] fluently. VITAL SIGNS: she has been afebrile. Blood pressure is 105/64, heart rate 66, respiratory rate 18, 96% sat on room air. PERIPHERAL VASCULAR: She has 2+ carotid, radial and brachial pulses bilaterally. LUNGS: Clear. HEART: Regular rate and rhythm. ABDOMEN: Soft, nontender, nondistended. EXTREMITIES: She has 2+ femoral pulses bilaterally. I do not feel popliteal, DP or PT pulses in either lower extremity of the right foot. There is ulcer on the Achilles region. The toes are all intact. There is dependent rubor and elevation pallor. No palpable pedal pulse. On the left, she has Chopart amputation but the entire plantar surface is just all fungating and eating the way, foul odor coming from it. There does not appear to be bone exposed, but it is kind of close to it. DIAGNOSTIC DATA: She had some arterial studies pending. X-ray of the right ankle did not suggest any osteomyelitis of the right foot. LABORATORY DATA: Creatinine is normal. IMPRESSION: Bilateral lower extremity peripheral arterial disease with open ulcers on both feet and left Chopart amputation. I am sure if it is salvageable. It looks really bad on the plantar surface. On the right at the Achilles ulcer is actually fairly clean looking, granulating and has been there for at least 6 months. It is not clear if the bypass is patent. It is possible it is bypass with peroneal runoff, but there are no palpable pedal pulses. I will see her again after the arterial duplex. In the meantime, the left Chopart needs debridement and Dr. Chapa is seeing her and will deal with that. Dictated By: SAVANNAH TERRAZAS/MAIRA Conf#: [id number] DID#: [id number] CC: SAVANNAH SELBY MD; KYLIE STARKEY MD; KURT HENSLEY DPM; QASIM CHAPA DPM;*EndCC* MTDD
[2019-01-05] MEDS: INSULIN GLARGINE [LANTus] (100 UNITS/ML) SYG SC SCH (20:00)
[2019-01-05] MEDS: LACTOBACILLUS RHAMNOSUS CAP PO SCH (20:56)
[2019-01-05] MEDS: ESCITALOPRAM 10 MG TAB PO SCH (20:56)
[2019-01-06] VITALS (11 sets, daily range): BP systolic 108–129; BP diastolic 61–76; PULSE 58–66; RESP 16–18
[2019-01-06] MEDS: ACCU-CHEK XX SCH (02:00)
[2019-01-06] MEDS: VANCOMYCIN 750 MG (PMX) 250 ML IVPB SCH (03:22)
[2019-01-06] MEDS: PIPER-TAZO 3.375 GM IV (PMX) 100 ML IVPB SCH ×3 (05:35→21:41)
[2019-01-06] MEDS: SODIUM HYPOCHLORITE (1/40) 1 LITER BTL IRR SCH (07:54)
[2019-01-06] MEDS: ASPIRIN (EC) 81 MG TAB PO SCH (07:54)
[2019-01-06] MEDS: ESCITALOPRAM 10 MG TAB PO SCH (07:54)
[2019-01-06] MEDS: LACTOBACILLUS RHAMNOSUS CAP PO SCH ×2 (07:54→20:31)
[2019-01-06] MEDS: INSULIN ASPART [NOVOLOG] 3 ML PEN SC SCH ×7 (08:15→20:42)
[2019-01-06] MEDS: ENOXAPARIN 30 MG/0.3 ML SYG SC SCH (08:23)
--- NOTE | 2019-01-06 11:59 | PN ---
Date/Time of Note Date/Time of Note DATE: 01/06/19 TIME: 11:43 Assessment/Plan VTE Prophylaxis Risk score (from Ns)>0 risk: 3 SCD applied (from Ns): No SCD contraindicated: bilateral LE trauma Pharmacological prophylaxis: NA/contraindicated Pharm contraindication: surgical contra Lines/Catheters IV [facility]from [facility] [place] Assessment/Plan Hospital Course Assessment and plan 1. DFI/ ssti, bilat lwr ext; status post local debridement, stable cont wound care 2. Nonadherence, high risk of limb loss. Re-counselled 3. PAD chronic, sp rt lower ext bypass- [facility] ?. mod stable, Angio soon 4. Tobacco abuse status post counseling offered patch 5. Likely COPD 6. Delirium, presently stable observe 7. Lt lower ankle amputation status, stump may have osteo?. Imaging ordered/ refused. 8. Rt heel/Achilles ulcer, sp debridement, follow-up on cultures 9. Chronic type 2 diabetes A1c 12.9! unfortunately not at goal 10. Ftt, moving around in [facility] transitional facilities? Refuses snf. Difficult to break the cycle. Risk of limb loss discussed. Recommend snf for wound care 11. Left plantar ulcer/fungating lesion, continue serial debridement. Line 12. Anemia stable observe S: 01/05: No distress mild pain. Oriented to 2018. Not oriented to city. No cough or diarrhea. 01/06: Mod pain from her extremities. Foul smelling discharge noted. No chest pain dyspnea. oriented to year and month but not city, although she has been mov ing around. Appreciate social service assistance. No family/ friends at bedside. Patient is very vague when asked about any details. Possibly due to rapport. States her family is in [place] but has "health issues." States she is in a transitional facility - [facility]? on and off, but previously had surgery maybe at [facility]. Asked her to consider snf but she refuses/ ~worried about long-term care/ loss of independence? Not sure if we can break what seems to be an ongoing cycle of nonadherence. Poor wound healing and her risk factors of smoking and diabetes are worrisome. High risk of limb loss discussed with patient. Not sure if she is a great candidate for any medical therapy but we can attempt and give her options. At this time since she is oriented, she is free to make her decisions whether they are right or wrong. O: Vital signs stable PE No pallor droop reg no m/r/g Clear Bs+ nt nd; no r/r/g; no abd bruits Lt lwr ankle amputation status; rt foot heel/Achilles ulcer. Poor pulses bilaterally Result Diagram: 01/06/19 0733 01/06/19 0733 Results 24hrs Laboratory Tests Test 01/05/19 16:46 01/05/19 20:53 01/06/19 01:29 01/06/19 02:52 Bedside Glucose 327 H 302 H 291 H Vancomycin Level 9.7 L Trough Test 01/06/19 07:33 01/06/19 07:54 01/06/19 11:40 White Blood Count 5.2 Red Blood Count 4.25 Hemoglobin 11.6 L Hematocrit 36.4 L Mean Corpuscular 85.6 Volume Mean Corpuscular 27.3 L Hemoglobin Mean Corpuscular 31.9 L Hemoglobin Concent Red Cell 16.7 H Distribution Width Platelet Count 233 Mean Platelet Volume 9.2 Immature 1.000 H Granulocytes % Neutrophils % 67.4 Lymphocytes % 22.6 Monocytes % 7.4 Eosinophils % 1.0 Basophils % 0.6 Nucleated Red Blood 0.0 Cells % Immature 0.050 H Granulocytes # Neutrophils # 3.5 Lymphocytes # 1.2 Monocytes # 0.4 Eosinophils # 0.1 Basophils # 0.0 Nucleated Red Blood 0.0 Cells # Sodium Level 135 Potassium Level 3.3 L Chloride Level 98 Carbon Dioxide Level 26 Anion Gap 11 Blood Urea Nitrogen 15 Creatinine 0.52 Est Glomerular > 60 Filtrat Rate mL/min Glucose Level 346 #H Calcium Level 8.6 Total Bilirubin 0.1 L Direct Bilirubin 0.00 Indirect Bilirubin 0.1 Aspartate Amino 179 H Transf (AST/SGOT) Alanine 108 H Aminotransferase (AL T/SGPT) Alkaline Phosphatase 180 H Total Protein 7.0 Albumin 3.1 L Globulin 3.90 H Albumin/Globulin 0.79 Ratio Triglycerides Level 154 H Cholesterol Level 134 LDL Cholesterol, 62 Calculated HDL Cholesterol 41 Cholesterol/HDL 3.2 Ratio Bedside Glucose 310 H 329 H Exam/Review of Systems Exam Vitals Vital Signs Date Temp Pulse Resp B/P (MAP) Pulse Ox O2 O2 Flow FiO2 Time Delivery Rate 01/06/19 58 08:01 01/06/19 98.7 16 129/76 94 Room Air 07:23 (93) Intake and Output 01/05/19 01/05/19 01/06/19 1515:00 23:00 07:00 IntakeIntake Total 1200 ml 1100 ml BalanceBalance 1200 ml 1100 ml Results Results 24hrs Laboratory Tests Test 01/05/19 16:46 01/05/19 20:53 01/06/19 01:29 01/06/19 02:52 Bedside Glucose 327 H 302 H 291 H Vancomycin Level 9.7 L Trough Test 01/06/19 07:33 01/06/19 07:54 01/06/19 11:40 White Blood Count 5.2 Red Blood Count 4.25 Hemoglobin 11.6 L Hematocrit 36.4 L Mean Corpuscular 85.6 Volume Mean Corpuscular 27.3 L Hemoglobin Mean Corpuscular 31.9 L Hemoglobin Concent Red Cell 16.7 H Distribution Width Platelet Count 233 Mean Platelet Volume 9.2 Immature 1.000 H Granulocytes % Neutrophils % 67.4 Lymphocytes % 22.6 Monocytes % 7.4 Eosinophils % 1.0 Basophils % 0.6 Nucleated Red Blood 0.0 Cells % Immature 0.050 H Granulocytes # Neutrophils # 3.5 Lymphocytes # 1.2 Monocytes # 0.4 Eosinophils # 0.1 Basophils # 0.0 Nucleated Red Blood 0.0 Cells # Sodium Level 135 Potassium Level 3.3 L Chloride Level 98 Carbon Dioxide Level 26 Anion Gap 11 Blood Urea Nitrogen 15 Creatinine 0.52 Est Glomerular > 60 Filtrat Rate mL/min Glucose Level 346 #H Calcium Level 8.6 Total Bilirubin 0.1 L Direct Bilirubin 0.00 Indirect Bilirubin 0.1 Aspartate Amino 179 H Transf (AST/SGOT) Alanine 108 H Aminotransferase (AL T/SGPT) Alkaline Phosphatase 180 H Total Protein 7.0 Albumin 3.1 L Globulin 3.90 H Albumin/Globulin 0.79 Ratio Triglycerides Level 154 H Cholesterol Level 134 LDL Cholesterol, 62 Calculated HDL Cholesterol 41 Cholesterol/HDL 3.2 Ratio Bedside Glucose 310 H 329 H Medications Medication Current Medications IV Flush (NS 3 ml) 3 ml PER PROTOCOL IV ; Start 01/04/19 at 18:30 Ondansetron HCl (Zofran Inj) 4 mg Q6H PRN IV NAUSEA/VOMITING; Start 01/04/19 at 18:30 Acetaminophen (Tylenol Tab) 650 mg Q6H PRN PO .PAIN 1-3 OR TEMP; Start 01/04/19 at 18:30 Piperacillin Sod/ Tazobactam Sod 100 ml @ 200 mls/hr Q8 IVPB Last administered on 01/06/19at 05:35; Admin Dose 200 MLS/HR; Start 01/04/19 at 22:00 Vancomycin HCl (Vanco Iv Per Pharmacy) VANCOMYCIN PER PHARMACY PER PROTOCOL XX ; Start 01/04/19 at 18:30 Diagnostic Test (Pha) (Accu-Chek) 1 ea 02 XX Last administered on 01/05/19at 02:02; Admin Dose 1 EA; Start 01/05/19 at 02:00 Insulin Glargine (Lantus) 15 units DAILY@2000 SC Last administered on 01/05/19at 20:00; Admin Dose 15 UNITS; Start 01/04/19 at 20:00 Insulin Aspart (Novolog Insulin Pen) 5 unit WITH MEALS SC Last administered on 01/06/19at 08:15; Admin Dose 5 UNIT; Start 01/05/19 at 07:55 Insulin Aspart (Novolog Insulin Pen) NOVOLOG *MODERATE* ALGORITHM WITH MEALS BEDTIME SC Last administered on 01/06/19at 08:15; Admin Dose 10 UNIT; Start 01/04/19 at 21:00 Miscellaneous Information 1 ea NOTE XX ; Start 01/04/19 at 19:00 Glucose (Glutose) 15 gm Q15M PRN PO DECREASED GLUCOSE; Start 01/04/19 at 19:00 Glucose (Glutose) 22.5 gm Q15M PRN PO DECREASED GLUCOSE; Start 01/04/19 at 19:00 Dextrose (D50w Syringe) 25 ml Q15M PRN IV DECREASED GLUCOSE; Start 01/04/19 at 19:00 Dextrose (D50w Syringe) 50 ml Q15M PRN IV DECREASED GLUCOSE; Start 01/04/19 at 19:00 Glucagon (Glucagen) 1 mg Q15M PRN IM DECREASED GLUCOSE; Start 01/04/19 at 19:00 Glucose (Glutose) 15 gm Q15M PRN BUCCAL DECREASED GLUCOSE; Start 01/04/19 at 19:00 Vancomycin/Sodium Chloride 250 ml @ 125 mls/hr Q12H IVPB Last administered on 01/06/19at 03:22; Admin Dose 125 MLS/HR; Start 01/05/19 at 04:00 Tramadol HCl (Ultram) 50 mg Q6H PRN PO MODERATE PAIN LEVEL 4-6 Last administered on 01/05/19at 20:59; Admin Dose 50 MG; Start 01/04/19 at 23:30 Influenza Virus Vaccine Quadrival (Fluzone) 0.5 ml ONCE ONCE IM* ; Start 01/07/19 at 10:00; Stop 01/07/19 at 10:01 Sodium Hypochlorite (Dakin'S (Dilute )) 1 applic DAILY IRR Last administered on 01/06/19at 07:54; Admin Dose 1 APPLIC; Start 01/06/19 at 09:00 Aspirin (Halfprin) 81 mg DAILY PO Last administered on 01/06/19 07:54; Admin Dose 81 MG; Start 01/05/19 at 13:00 Lactobacillus Acidophilus/ Rhamnosus (Culturelle) 1 cap BID PO Last administ ered on 01/06/19 07:54; Admin Dose 1 CAP; Start 01/05/19 at 21:00 Enoxaparin Sodium (Lovenox) 30 mg DAILY SC Last administered on 01/06/19at 08:23; Admin Dose 30 MG; Start 01/06/19 at 09:00 Escitalopram Oxalate (Lexapro) 10 mg DAILY PO Last administered on 01/06/19 07:54; Admin Dose 10 MG; Start 01/05/19 at 21:00 Vancomycin HCl 250 ml @ 125 mls/hr Q12H IVPB ; Start 01/06/19 at 16:00 KYLIE STARKEY MD Jan 06, 2019 11:58
[2019-01-06] MEDS ORDERED: NICOTINE (14 MG/24 HR) PATCH TRANSDERM PRN (12:00)
[2019-01-06] MEDS: traMADol 50 MG TAB PO PRN ×2 (12:15→20:31)
[2019-01-06] MEDS: POTASSIUM CHLORIDE 20 MEQ POWDER FOR ORAL SOLN PO SCH (12:46)
--- NOTE | 2019-01-06 13:07 | CONS ---
DATE OF ADMISSION: 01/04/2019 DATE OF CONSULTATION: 01/06/2019 TYPE OF CONSULTATION: Infectious disease. REASON FOR CONSULTATION: Antibiotic management. HISTORY OF PRESENT ILLNESS: Saskia Campa is a 63-year-old female with history of diabetes who prese nts with right foot infection and is being seen for antibiotic management. 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 PAST MEDICAL HISTORY: Essentially as outlined. FAMILY HISTORY: Noncontributory. LABORATORY DATA: On admission, white count 7.1, H and H of 13.3 and 42.3, platelet count 298,000. B UN and creatinine 14/0.63, glucose random was 604. Catheter urine showed mixed gram-positive organis ms. Left foot mixed gram-positive organisms. ANCILLARY LABORATORY DATA: White count today is 5.2. Urinalysis showed negative leukocyte esterase, ankle MRI plantar soft tissue ulceration at the level of the anterior calcaneal margin, findings of cellulitis, evidence of early osteomyelitis at the anterior inferior calcaneal margin underlying the ulceration, abnormal bone marrow signal at the navicular seen; early osteomyelitis in this region can not be excluded. Small thin focal area of subcutaneous hyperintensity superficial to the medial liborio cular, which could represent adventitial bursitis versus less likely a small phlegmonous collection. Chest x-ray: Mild increased interstitial changes throughout the lung. No focal infiltrate. HOSPITAL COURSE: The patient was seen by Dr. Lakhani in podiatric consultation. Consent was obtai shanda and she had excisional debridement of skin and subcutaneous bilateral ulceration sites. Left paz t ulcer that probes to bone and concern for osteomyelitis. The patient has bilateral diabetic ulcera tion, localized cellulitis, concern for osteo, diabetes mellitus with peripheral neuropathy, peripher al artery disease. PAST SURGICAL HISTORY: Right lower extremity vascular bypass surgery. SOCIAL HISTORY: She does not smoke, drink or abuse drugs. ALLERGIES: None to penicillin, sulfa or foods. MEDICATIONS: Per chart. REVIEW OF SYSTEMS: As per HPI. PHYSICAL EXAMINATION: GENERAL: The patient is awake, responsive, in no acute distress. VITAL SIGNS: Stable. She is afebrile. SKIN: Without generalized rash. HEENT: Within normal limits. NECK: Supple. LYMPH NODES: None palpable. CHEST: Decreased breath sounds at the bases. HEART: Without murmur or gallop. ABDOMEN: Soft, nontender, without organosplenomegaly or masses. EXTREMITIES: Unable to palpate dorsalis pedis and posterior tibial pulses, popliteal pulses. Skin i s warm to the touch. Extremities otherwise without cyanosis, clubbing, or edema. She has left proxi mal foot amputation, right posterior Achilles ulceration does not probe to bone, left plantar foot ul ceration site with surrounding hyperkeratotic tissue, sanguineous drainage. Right lower extremity hardin rgical site noted corresponding with vascular bypass procedure, right proximal anterior leg dry granu lar wound site 0.5 x 0.2 x 0.1 cm. No proximal streaking appreciated. Osteopenia on x-ray. IMPRESSION AND PLAN: Patient has foul smelling discharge. She has evidence from what we see of oste omyelitis. We will continue her on vancomycin and Zosyn. I will dictate my findings to the hospital ist and Dr. Lakhani. Dictated By: LISA MARCOS MD, JD/MAIRA Conf#: [id number] DID#: [id number] CC: SAVANNAH SELBY MD;*EndCC*
--- NOTE | 2019-01-06 16:03 | CONS ---
Assessment/Plan Assessment/Plan Assessment/Plan (Daily) bilateral diabetic ulcerations lower extremity Localized cellulitis - R foot improving Concern for osteomyelitis left foot DM2 with peripheral neuropathy PAD Plan: Patient refused right ankle MRI, reviewed images for left foot and there are signs of osteomyelitis to the calcaneal region. Wound Cx showing R foot with diptheroids and L foot with mix gram positive cultures. Reviewed non invasive studies and appreciate vascular input. There is a plan for angiogram with Dr. Camacho and appreciate his findings. Patient will likely need PICC line IV abx and appreciate ID recommendations. Patient will be planned for OR debridement after angiogram. Continue with daily dressing changes and offload heels with pillows. Consultation Date/Type/Reason Admit Date/Time Jan 04, 2019 at 17:33 Initial Consult Date Date/Time of Note DATE: 01/06/19 TIME: 16:03 24 HR Interval Summary Free Text/Dictation No acute events overnight. Exam/Review of Systems Exam Vitals Vital Signs Date Temp Pulse Resp B/P (MAP) Pulse Ox O2 O2 Flow FiO2 Time Delivery Rate 01/06/19 98.3 62 16 119/68 99 Room Air 15:36 (85) Intake and Output 01/05/19 01/05/19 01/06/19 1515:00 23:00 07:00 IntakeIntake Total 1200 ml 1100 ml BalanceBalance 1200 ml 1100 ml Exam Unable to palpate DP/PT and popliteal pulses Skin temperature gradient warm to warm Absent protective sensations Left proximal foot amputation site appreciated Right Posterior Achilles ulceration site fibrogranular wound base does not probe to bone and no tendon sheath exposed measured 3 x 3 x 0.3cm Left plantar foot ulceration site with surrounding hyperkeratotic tissue foul odor and mixed fibrogranular wound with seropurulent drainage appreciated. Measures 5 x 4 x 0.4cm, wound probes to bone Sanguinous drainage noted with debridement Right lower extremity surgical site noted corresponding with a vascular bypass procedure Right proximal anterior leg dry granular wound site 0.5 x 0.2 x 0.1cm no drainage no probing No proximal streaking appreciated, localized erythema to the right foot noted. There is a dried callus hematoma site to the right heel Right X-ray IMPRESSION: Osteopenia. No evidence of osteomyelitis. L ankle MRI IMPRESSION: 1. Plantar soft tissue ulceration at the level of the anterior calcaneal margin and findings of cellulitis. 2. Evidence of early osteomyelitis at the anterior inferior calcaneal margin underlying the ulceration. Abnormal bone marrow signal at the navicular seen, early osteomyelitis in this region cannot be excluded. 3. Small, thin focal area of subcutaneous hyperintensity superficial to the medial navicular, which could represent adventitial bursitis versus less likely a small phlegmonous collection. L ankle X-ray IMPRESSION: Question of erosive changes at the anterior inferior calcaneus. Consider MRI if there is concern for osteomyelitis. Non invasive arterial studies IMPRESSION: 1. Diffuse monophasic waveforms in the right lower extremity may be secondary to less severe inflow stenosis in the right iliac arteries. 2. Patent right common femoral artery to popliteal artery bypass graft. 3. Proximally occluded left superficial femoral artery with collateral flow to the distal superficial femoral artery. Consider follow-up imaging with CT angiogram or MR angiogram of the aorta with bilateral lower extremity run off to better characterize. Results Result Diagram: 01/06/19 0733 01/06/19 0733 Results 24hrs Laboratory Tests Test 01/05/19 16:46 01/05/19 20:53 01/06/19 01:29 01/06/19 02:52 Bedside Glucose 327 H 302 H 291 H Vancomycin Level 9.7 L Trough Test 01/06/19 07:33 01/06/19 07:54 01/06/19 11:40 White Blood Count 5.2 Red Blood Count 4.25 Hemoglobin 11.6 L Hematocrit 36.4 L Mean Corpuscular 85.6 Volume Mean Corpuscular 27.3 L Hemoglobin Mean Corpuscular 31.9 L Hemoglobin Concent Red Cell 16.7 H Distribution Width Platelet Count 233 Mean Platelet Volume 9.2 Immature 1.000 H Granulocytes % Neutrophils % 67.4 Lymphocytes % 22.6 Monocytes % 7.4 Eosinophils % 1.0 Basophils % 0.6 Nucleated Red Blood 0.0 Cells % Immature 0.050 H Granulocytes # Neutrophils # 3.5 Lymphocytes # 1.2 Monocytes # 0.4 Eosinophils # 0.1 Basophils # 0.0 Nucleated Red Blood 0.0 Cells # Sodium Level 135 Potassium Level 3.3 L Chloride Level 98 Carbon Dioxide Level 26 Anion Gap 11 Blood Urea Nitrogen 15 Creatinine 0.52 Est Glomerular > 60 Filtrat Rate mL/min Glucose Level 346 #H Calcium Level 8.6 Total Bilirubin 0.1 L Direct Bilirubin 0.00 Indirect Bilirubin 0.1 Aspartate Amino 179 H Transf (AST/SGOT) Alanine 108 H Aminotransferase (AL T/SGPT) Alkaline Phosphatase 180 H Total Protein 7.0 Albumin 3.1 L Globulin 3.90 H Albumin/Globulin 0.79 Ratio Triglycerides Level 154 H Cholesterol Level 134 LDL Cholesterol, 62 Calculated HDL Cholesterol 41 Cholesterol/HDL 3.2 Ratio Bedside Glucose 310 H 329 H Medications Medication Current Medications IV Flush (NS 3 ml) 3 ml PER PROTOCOL IV ; Start 01/04/19 at 18:30 Ondansetron HCl (Zofran Inj) 4 mg Q6H PRN IV NAUSEA/VOMITING; Start 01/04/19 at 18:30 Acetaminophen (Tylenol Tab) 650 mg Q6H PRN PO .PAIN 1-3 OR TEMP; Start 01/04/19 at 18:30 Piperacillin Sod/ Tazobactam Sod 100 ml @ 200 mls/hr Q8 IVPB Last administered on 01/06/19at 14:13; Admin Dose 200 MLS/HR; Start 01/04/19 at 22:00 Vancomycin HCl (Vanco Iv Per Pharmacy) VANCOMYCIN PER PHARMACY PER PROTOCOL XX ; Start 01/04/19 at 18:30 Diagnostic Test (Pha) (Accu-Chek) 1 ea 02 XX Last administered on 01/05/19at 02:02; Admin Dose 1 EA; Start 01/05/19 at 02:00 Insulin Aspart (Novolog Insulin Pen) NOVOLOG *MODERATE* ALGORITHM WITH MEALS BEDTIME SC Last administered on 01/06/19at 11:56; Admin Dose 10 UNIT; Start 01/04/19 at 21:00 Miscellaneous Information 1 ea NOTE XX ; Start 01/04/19 at 19:00 Glucose (Glutose) 15 gm Q15M PRN PO DECREASED GLUCOSE; Start 01/04/19 at 19:00 Glucose (Glutose) 22.5 gm Q15M PRN PO DECREASED GLUCOSE; Start 01/04/19 at 19:00 Dextrose (D50w Syringe) 25 ml Q15M PRN IV DECREASED GLUCOSE; Start 01/04/19 at 19:00 Dextrose (D50w Syringe) 50 ml Q15M PRN IV DECREASED GLUCOSE; Start 01/04/19 at 19:00 Glucagon (Glucagen) 1 mg Q15M PRN IM DECREASED GLUCOSE; Start 01/04/19 at 19:00 Glucose (Glutose) 15 gm Q15M PRN BUCCAL DECREASED GLUCOSE; Start 01/04/19 at 19:00 Tramadol HCl (Ultram) 50 mg Q6H PRN PO MODERATE PAIN LEVEL 4-6 Last administered on 01/06/19at 12:15; Admin Dose 50 MG; Start 01/04/19 at 23:30 Influenza Virus Vaccine Quadrival (Fluzone) 0.5 ml ONCE ONCE IM* ; Start 01/07/19 at 10:00; Stop 01/07/19 at 10:01 Sodium Hypochlorite (Dakin'S (Dilute )) 1 applic DAILY IRR Last administered on 01/06/19 07:54; Admin Dose 1 APPLIC; Start 01/06/19 at 09:00 Aspirin (Halfprin) 81 mg DAILY PO Last administered on 01/06/19 07:54; Admin Dose 81 MG; Start 01/05/19 at 13:00 Lactobacillus Acidophilus/ Rhamnosus (Culturelle) 1 cap BID PO Last administered on 01/06/19at 07:54; Admin Dose 1 CAP; Start 01/05/19 at 21:00 Enoxaparin Sodium (Lovenox) 30 mg DAILY SC Last administered on 01/06/19 08:23; Admin Dose 30 MG; Start 01/06/19 at 09:00 Escitalopram Oxalate (Lexapro) 10 mg DAILY PO Last administered on 01/06/19at 07:54; Admin Dose 10 MG; Start 01/05/19 at 21:00 Vancomycin HCl 250 ml @ 125 mls/hr Q12H IVPB ; Start 01/06/19 at 16:00 Insulin Aspart (Novolog Insulin Pen) 10 unit WITH MEALS SC ; Start 01/06/19 at 17:55 Insulin Glargine (Lantus) 30 units DAILY@2000 SC ; Start 01/06/19 at 20:00 Nicotine (Nicoderm 14 Mg/ 24hr) 1 patch DAILY PRN TRANSDERM CONTROL WITHDRAWAL SYMPTOMS; Start 01/06/19 at 12:00 Potassium Chloride (Potassium Chloride Pwd/Soln) 20 meq DAILY PO Last administered on 01/06/19at 12:46; Admin Dose 20 MEQ; Start 01/06/19 at 12:30 QASIM CHAPA DPM Jan 06, 2019 16:03
[2019-01-06] MEDS: VANCOMYCIN 1 GM 250 ML IVPB SCH (16:43)
[2019-01-06] MEDS: INSULIN GLARGINE [LANTus] (100 UNITS/ML) SYG SC SCH (20:41)
[2019-01-07] VITALS (22 sets, daily range): BP systolic 104–138; BP diastolic 64–74; PULSE 23–80; RESP 11–18
[2019-01-07] MEDS: ACCU-CHEK XX SCH (02:00)
[2019-01-07] MEDS: VANCOMYCIN 1 GM 250 ML IVPB SCH ×2 (03:07→16:41)
[2019-01-07] MEDS: PIPER-TAZO 3.375 GM IV (PMX) 100 ML IVPB SCH ×3 (06:16→21:25)
[2019-01-07] MEDS: INSULIN ASPART [NOVOLOG] 3 ML PEN SC SCH ×7 (07:55→22:00)
[2019-01-07] MEDS: AMMONIUM LACTATE 12% 225 GM LOT TOP SCH (09:00)
[2019-01-07] MEDS: LACTOBACILLUS RHAMNOSUS CAP PO SCH ×2 (09:00→21:24)
[2019-01-07] MEDS: ESCITALOPRAM 10 MG TAB PO SCH (09:00)
[2019-01-07] MEDS ORDERED: AMMONIUM LACTATE 5% TOP SCH (09:00)
[2019-01-07] MEDS: POTASSIUM CHLORIDE 20 MEQ POWDER FOR ORAL SOLN PO SCH (09:00)
[2019-01-07] MEDS: ASPIRIN (EC) 81 MG TAB PO SCH (09:00)
[2019-01-07] MEDS: SODIUM HYPOCHLORITE (1/40) 1 LITER BTL IRR SCH (09:01)
[2019-01-07] MEDS ORDERED: INFLUENZA VIRUS VACCINE 0.5 ML (DISPENSING) IM* ONE (10:00)
--- NOTE | 2019-01-07 11:06 | PN ---
Date/Time of Note Date/Time of Note DATE: 01/07/19 TIME: 11:04 Assessment/Plan VTE Prophylaxis Risk score (from Nsg)>0 risk: 5 SCD applied (from Nsg): No SCD contraindicated: low risk/ambulating Pharmacological prophylaxis: NA/contraindicated Pharm contraindication: surgical contra Lines/Catheters IV Catheter Type (from Nrsg): Saline Lock Assessment/Plan Hospital Course Assessment and plan 1. DFI/ ssti, bilat lwr ext; sp local debridement, stable cont wound care 2. Nonadherence, high risk of limb loss. Re-counselled 3. PAD chronic, sp rt lower ext bypass- [facility] ?. mod stable, Angio 01/07 4. Tobacco abuse status post counseling, offered patch 5. Likely COPD 6. Delirium, presently stable observe 7. 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 MRI findings noted. Consider debridement. 8. Rt heel/Achilles ulcer, sp debridement, follow-up on cultures 9. Chronic type 2 diabetes A1c 12.9! unfortunately not at goal. Diet i ndiscretion 10. Ftt, moving around in [facility] transitional facilities? Refuses snf. Difficult to break the cycle. Risk of limb loss discussed. Recommend snf for wound care 11. Left plantar ulcer/fungating lesion, continue serial debridement. 12. Anemia stable observe 13. Hepatitis C? Confirmatory testing pending. 14. Abnormal LFTs possibly #13. Antibiotic of Zosyn noted. S: 01/05: No distress mild pain. Oriented to 2018. Not oriented to city. No cough or diarrhea. 01/06: Mod pain from her extremities. Foul smelling discharge noted. No chest pain dyspnea. oriented to year and month but not city, although she has been moving around. Appreciate social service assistance. No family/ friends at bedside. Patient is very vague when asked about any details. Possibly due to rapport. States her family is in [place] but has "health issues." States she is in a transitional facility - [facility]? on and off, but previously had surgery maybe at [facility]. Asked her to consider snf but she refuses/ ~worried about long-term care/ loss of independence? Not sure if we can break w hat seems to be an ongoing cycle of nonadherence. Poor wound healing and her risk factors of smoking and diabetes are worrisome. High risk of limb loss discussed with patient. Not sure if she is a great candidate for any medical therapy but we can attempt and give her options. At this time since she is oriented, she is free to make her decisions whether they are right or wrong. 01/07: Not adherent to dietary/medical therapy. No fever or chest pain dyspnea O: Vital signs stable PE No pallor reg no m/r/g Clear Bs+ nt nd; no r/r/g; no abd bruits Lt lwr ankle amputation status; rt foot heel/Achilles ulcer. Poor pulses bilaterally Result Diagram: 01/07/19 0536 01/07/19 0536 Results 24hrs Laboratory Tests Test 01/06/19 11:40 01/06/19 16:44 01/06/19 20:30 01/07/19 02:13 Bedside Glucose 329 H 116 366 H 238 H Test 01/07/19 05:36 01/07/19 08:08 White Blood Count 5.1 Red Blood Count 4.06 L Hemoglobin 11.2 L Hematocrit 35.8 L Mean Corpuscular 88.2 Volume Mean Corpuscular 27.6 L Hemoglobin Mean Corpuscular 31.3 L Hemoglobin Concent Red Cell 16.9 H Distribution Width Platelet Count 207 Mean Platelet Volume 8.9 Immature 1.000 H Granulocytes % Neutrophils % 62.8 Lymphocytes % 25.0 Monocytes % 9.6 Eosinophils % 1.0 Basophils % 0.6 Nucleated Red Blood 0.0 Cells % Immature 0.050 H Granulocytes # Neutrophils # 3.2 Lymphocytes # 1.3 Monocytes # 0.5 Eosinophils # 0.1 Basophils # 0.0 Nucleated Red Blood 0.0 Cells # Sodium Level 136 Potassium Level 3.3 L Chloride Level 103 Carbon Dioxide Level 27 Anion Gap 6 Blood Urea Nitrogen 15 Creatinine 0.55 Est Glomerular > 60 Filtrat Rate mL/min Glucose Level 169 # Calcium Level 8.6 Total Bilirubin 0.1 L Direct Bilirubin 0.00 Indirect Bilirubin 0.1 Aspartate Amino 174 H Transf (AST/SGOT) Alanine 113 H Aminotransferase (AL T/SGPT) Alkaline Phosphatase 161 H Ammonia < 9 L Total Protein 6.8 Albumin 2.9 L Globulin 3.90 H Albumin/Globulin 0.74 Ratio Hepatitis B Surface NEGATIVE Antigen Hepatitis B Core NEGATIVE Total Antibody Hepatitis C Antibody REACTIVE H Bedside Glucose 164 Exam/Review of Systems Exam Vitals Vital Signs Date Temp Pulse Resp B/P (MAP) Pulse Ox O2 O2 Flow FiO2 Time Delivery Rate 01/07/19 98.2 80 18 122/72 95 11:03 (89) 01/07/19 Room Air 07:19 Intake and Output 01/06/19 01/06/19 01/07/19 1515:00 23:00 07:00 IntakeIntake Total 650 ml 480 ml BalanceBalance 650 ml 480 ml Results Results 24hrs Laboratory Tests Test 01/06/19 11:40 01/06/19 16:44 01/06/19 20:30 01/07/19 02:13 Bedside Glucose 329 H 116 366 H 238 H Test 01/07/19 05:36 01/07/19 08:08 White Blood Count 5.1 Red Blood Count 4.06 L Hemoglobin 11.2 L Hematocrit 35.8 L Mean Corpuscular 88.2 Volume Mean Corpuscular 27.6 L Hemoglobin Mean Corpuscular 31.3 L Hemoglobin Concent Red Cell 16.9 H Distribution Width Platelet Count 207 Mean Platelet Volume 8.9 Immature 1.000 H Granulocytes % Neutrophils % 62.8 Lymphocytes % 25.0 Monocytes % 9.6 Eosinophils % 1.0 Basophils % 0.6 Nucleated Red Blood 0.0 Cells % Immature 0.050 H Granulocytes # Neutrophils # 3.2 Lymphocytes # 1.3 Monocytes # 0.5 Eosinophils # 0.1 Basophils # 0.0 Nucleated Red Blood 0.0 Cells # Sodium Level 136 Potassium Level 3.3 L Chloride Level 103 Carbon Dioxide Level 27 Anion Gap 6 Blood Urea Nitrogen 15 Creatinine 0.55 Est Glomerular > 60 Filtrat Rate mL/min Glucose Level 169 # Calcium Level 8.6 Total Bilirubin 0.1 L Direct Bilirubin 0.00 Indirect Bilirubin 0.1 Aspartate Amino 174 H Transf (AST/SGOT) Alanine 113 H Aminotransferase (AL T/SGPT) Alkaline Phosphatase 161 H Ammonia < 9 L Total Protein 6.8 Albumin 2.9 L Globulin 3.90 H Albumin/Globulin 0.74 Ratio Hepatitis B Surface NEGATIVE Antigen Hepatitis B Core NEGATIVE Total Antibody Hepatitis C Antibody REACTIVE H Bedside Glucose 164 Medications Medication Current Medications IV Flush (NS 3 ml) 3 ml PER PROTOCOL IV ; Start 01/04/19 at 18:30 Ondansetron HCl (Zofran Inj) 4 mg Q6H PRN IV NAUSEA/VOMITING; Start 01/04/19 at 18:30 Acetaminophen (Tylenol Tab) 650 mg Q6H PRN PO .PAIN 1-3 OR TEMP; Start 01/04/19 at 18:30 Piperacillin Sod/ Tazobactam Sod 100 ml @ 200 mls/hr Q8 IVPB Last administered on 01/07/19at 06:16; Admin Dose 200 MLS/HR; Start 01/04/19 at 22:00 Vancomycin HCl (Vanco Iv Per Pharmacy) VANCOMYCIN PER PHARMACY PER PROTOCOL XX ; Start 01/04/19 at 18:30 Diagnostic Test (Pha) (Accu-Chek) 1 ea 02 XX Last administered on 01/05/19at 02: 02; Admin Dose 1 EA; Start 01/05/19 at 02:00 Insulin Aspart (Novolog Insulin Pen) NOVOLOG *MODERATE* ALGORITHM WITH MEALS BEDTIME SC Last administered on 01/06/19at 20:42; Admin Dose 4 UNIT; Start at 21:00 Miscellaneous Information 1 ea NOTE XX ; Start 01/04/19 at 19:00 Glucose (Glutose) 15 gm Q15M PRN PO DECREASED GLUCOSE; Start 01/04/19 at 19:00 Glucose (Glutose) 22.5 gm Q15M PRN PO DECREASED GLUCOSE; Start 01/04/19 at 19:00 Dextrose (D50w Syringe) 25 ml Q15M PRN IV DECREASED GLUCOSE; Start 01/04/19 at 19:00 Dextrose (D50w Syringe) 50 ml Q15M PRN IV DECREASED GLUCOSE; Start 01/04/19 at 19:00 Glucagon (Glucagen) 1 mg Q15M PRN IM DECREASED GLUCOSE; Start 01/04/19 at 19:00 Glucose (Glutose) 15 gm Q15M PRN BUCCAL DECREASED GLUCOSE; Start 01/04/19 at 19:00 Tramadol HCl (Ultram) 50 mg Q6H PRN PO MODERATE PAIN LEVEL 4-6 Last administered on 01/06/19at 20:31; Admin Dose 50 MG; Start 01/04/19 at 23:30 Sodium Hypochlorite (Dakin'S (Dilute )) 1 applic DAILY IRR Last adminis tered on 01/07/19at 09:01; Admin Dose 1 APPLIC; Start 01/06/19 at 09:00 Aspirin (Halfprin) 81 mg DAILY PO Last administered on 01/06/19 07:54; Admin Dose 81 MG; Start 01/05/19 at 13:00 Lactobacillus Acidophilus/ Rhamnosus (Culturelle) 1 cap BID PO Last administered on 01/06/19 20:31; Admin Dose 1 CAP; Start 01/05/19 at 21:00 Enoxaparin Sodium (Lovenox) 30 mg DAILY SC Last administered on 01/06/19 08:23; Admin Dose 30 MG; Start 01/06/19 at 09:00 Escitalopram Oxalate (Lexapro) 10 mg DAILY PO Last administered on 01/06/19 07:54; Admin Dose 10 MG; Start 01/05/19 at 21:00 Vancomycin HCl 250 ml @ 125 mls/hr Q12H IVPB Last administered on 01/07/19 03:07; Admin Dose 125 MLS/HR; Start 01/06/19 at 16:00 Insulin Aspart (Novolog Insulin Pen) 10 unit WITH MEALS SC ; Start 01/06/19 at 17:55 Insulin Glargine (Lantus) 30 units DAILY@2000 SC Last administered on 01/06/19 20:41; Admin Dose 30 UNITS; Start 01/06/19 at 20:00 Nicotine (Nicoderm 14 Mg/ 24hr) 1 patch DAILY PRN TRANSDERM CONTROL WITHDRAWAL SYMPTOMS; Start 01/06/19 at 12:00 Potassium Chloride (Potassium Chloride Pwd/Soln) 20 meq DAILY PO Last administered on 01/06/19 12:46; Admin Dose 20 MEQ; Start 01/06/19 at 12:30 Ammonium Lactate (Lac-Hydrin 12% Lotion) 1 applic DAILY TOP Last administered on 01/07/19 09:00; Admin Dose 1 APPLIC; Start 01/07/19 at 09:00 KYLIE STARKEY MD Jan 07, 2019 11:06
[2019-01-07] MEDS ORDERED: POTASSIUM CHLORIDE 100 ML IVPB ONE (11:30)
[2019-01-07] MEDS ORDERED: MIDAZOLAM 1 MG/ML 2 ML INJ ONE ×2 (11:44→12:58)
[2019-01-07] MEDS ORDERED: FENTAnyl 50 MCG/ML VIAL ONE (11:44)
[2019-01-07] MEDS ORDERED: HEPARIN 1000 UNITS/ML 10 ML INJ ONE (11:57)
[2019-01-07] MEDS ORDERED: LIDOCAINE 1% (MDV) 20 ML INJ ONE (12:06)
[2019-01-07] MEDS ORDERED: IODIXANOL LOCM 100 ML BTL ONE (12:06)
[2019-01-07] MEDS ORDERED: HEPARIN 1000 UNITS/NS (A-LINE) 1,000 ML ONE (12:06)
--- NOTE | 2019-01-07 12:46 | SIPON ---
Date/Time of Note Date/Time of Note DATE: 01/07/19 TIME: 12:45 Operative Report Preoperative Diagnosis bilateral foot ulcers Postoperative Diagnosis same Operation/Procedure Performed aortogram, BLE runoff, R common femoral artery angioplasty Surgeon see signature line purchasing assistant none Anesthesia: moderate sedation Estimated blood loss: minimal Transfusion Required none Specimen none Grafts/Implants none Complications none SAVANNAH CAROLINA MD Jan 07, 2019 12:46
[2019-01-07] MEDS ORDERED: MIDAZOLAM 1 MG/ML 2 ML INJ IV ONE (13:30)
--- NOTE | 2019-01-07 14:36 | OPR ---
DATE OF OPERATION: 01/07/2019 PREOPERATIVE DIAGNOSIS: Bilateral foot ulcers. POSTOPERATIVE DIAGNOSIS: Bilateral foot ulcers. PROCEDURES PERFORMED: Abdominal aortogram, bilateral lower extremity runoff, right common femoral ar andie angioplasty. SURGEON: Savannah Camacho MD ANESTHESIA: Local with sedation. ESTIMATED BLOOD LOSS: Minimal. COMPLICATIONS: No intraprocedural complications. INDICATIONS: This is a 63-year-old woman, longtime smoker with severe peripheral arterial disease. She has had a right fem-pop bypass that was done about 6 months ago for Achilles ulcer. The ulcer is still open, but she does not have any rest pain, but there were no palpable pedal pulses and the tib ial flow was really poor on the right leg. 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 She has no pedal pulses and duplex shows SFA occlusion. I brought her i n today for an aortogram, possible intervention. When I examined her right femoral pulse, it was maicol y poor. I can barely feel it so I do not want to stick to right common femoral and I want to see if there is something could be done on the right side as well as interrogating the left side, so I punct ured the left side. DESCRIPTION OF PROCEDURE: The patient was brought to the cardiac catheterization technician, placed on the table in supine pos ition. The groins were prepped and draped in the usual sterile fashion. I began by infiltrating the left common femoral artery using about 10 mL of 1% Xylocaine. I used ultrasound guidance to enter t he left common femoral artery with a micropuncture needle. An 0.018 wire was inserted through the ne edle into the artery and the micropuncture sheath was advanced over the wire into the artery. I then advanced an 0.035 Bentson wire into the abdominal aorta. I changed the micropuncture sheath for 5-F rench sheath over the wire and then advanced the rim catheter into the infrarenal aorta. I did an ao rtogram. I then advanced the rim catheter up and over the bifurcation using an Advantage wire for hardin pport. I advanced the wire down into the profunda and then did runoff down the right lower extremity . FINDINGS OF ANGIOGRAPHY: Infrarenal aorta is patent. The common external and internal iliac arterie s are patent with some mild narrowing in the external iliac, but nothing severe. The right common fe moral artery has a focal area of fairly severe stenosis. I think there may have been a dissection or something from previous angiogram or possibly clamp injury from the bypass. I was right in the prox imal common femoral and I would say visually 75%. Below that, the common femoral was patent. The hardin perficial femoral artery on the right is completely occluded. There is patent fem-pop bypass graft. Distal anastomosis is widely patent and there is 3-vessel runoff on the right and anterior and poste rior tibia was going all the way down into the foot. The left lower extremity angiography showed the common femoral was patent and the iliacs were patent. In the SFA, there was a flush occlusion. The profunda is patent on the left. The SFA is completely occluded and then the popliteal reconstitutes right above the knee. There is single vessel runoff only via the peroneal, goes down to the ankle a nd collateralized this with the posterior tibial artery which reconstitutes above the ankle, but the posterior tibial was patent into the foot. Dorsalis pedis is occluded. Anterior tibial artery looks a good segment of it reconstitutes proximally through collaterals, but it occluded somewhere in the mid calf, so it is not continuous and there is no dorsalis pedis. I decided to go ahead and treat th e right common femoral artery stenosis to improve the perfusion to the right foot to help it heal and also preserve the bypass graft which is coming off below this level. I advanced that Advantage wire . It was already down in the profunda. I gave the patient 5000 units of heparin intravenously, then exchanged the 5-Czech sheath for a 6-Czech 45 cm [place] Destination sheath. I left the tip of t hat in the right external iliac artery. I then angioplastied the common femoral artery first. I use d a 5 x 40 mm balloon to 10 atmospheres for 2 minutes. There is still some residual stenosis, so I t hink the balloon was a little bit undersized, so I went back with a 6 x 40 balloon and angioplastied the common femoral for 2 minutes at 10 atmospheres with no residual stenosis. There was now brisk fl ow into the bypass and into the profunda. I was happy with the result there. I brought the catheter back into the external iliac artery and then I did runoff down the left lower extremity which had al ready previously described. I then used a 6-Czech Angio-Seal device to close the left common femora l artery puncture site with good hemostasis. Sterile dressing was applied and the patient was transf erred to the recovery room in stable condition. We had done a vein mapping on her left leg. She has a good greater saphenous vein. It is long segment, flush occlusion of the SFA. She should do marielena r with the fem-pop. I also offered her the option of just below-knee amputation as there is a pretty extensive ulceration of the Chopart. I just really want to try and save the foot, so we are going t o schedule her for a left fem-pop bypass later in the week. Dictated By: SAVANNAH TERRAZAS/MAIRA Conf#: [id number] DID#: [id number] CC: QASIM CHAPA DPM; KYLIE STARKEY MD; KURT HENSLEY DPM; SAVANNAH SELBY MD; LISA ESPINOZA MD;*EndCC*
[2019-01-07] MEDS: traMADol 50 MG TAB PO PRN ×2 (14:37→21:17)
--- NOTE | 2019-01-07 14:51 | CONS ---
Assessment/Plan Assessment/Plan Hospital Course (Demo Recall) Patient is alert denies pain looks comfortable no fevers overnight, WBC 5.1 platelets 207 neutrophils 62.8 BUN 15 creatinine 0.55 Microbiology: Wound cultures growing gram-negative rods, strep, Corynebacterium species and enterococcus Antimicrobials: Vancomycin, Zosyn Physical examination: Well-developed chronically ill-appearing elderly woman who is alert in no distress. Head atraumatic normocephalic neck is supple chest rise symmetrical breath sounds clear. Heart: S1-S2. Abdomen soft, bowel sounds present. Extremities with bilateral lower extremities dressing intact Assessment: 1. Bilateral lower extremities chronic wounds with cellulitis 2. Left foot osteomyelitis 3. Peripheral arterial disease 4. Diabetes with diabetic neuropathy 5. Transaminitis Plan: Patient remained stable, she is being seen by podiatry and vascular team, status post abdominal aortogram with right common femoral artery angioplasty this afternoon, continue antibiotics and await for final cultures. Patient will likely require 6 weeks IV antibiotics Consultation Date/Type/Reason Admit Date/Time Jan 04, 2019 at 17:33 Initial Consult Date Type of Consult id Date/Time of Note DATE: 01/07/19 TIME: 14:51 Exam/Review of Systems Exam Vitals Vital Signs Date Temp Pulse Resp B/P (MAP) Pulse Ox O2 O2 Flow FiO2 Time Delivery Rate 01/07/19 98.1 55 18 120/64 99 13:46 (82) 01/07/19 Room Air 13:33 Intake and Output 01/06/19 01/06/19 01/07/19 1515:00 23:00 07:00 IntakeIntake Total 650 ml 480 ml BalanceBalance 650 ml 480 ml Results Result Diagram: 01/07/19 0536 01/07/19 0536 Results 24hrs Laboratory Tests Test 01/06/19 16:44 01/06/19 20:30 01/07/19 02:13 01/07/19 05:36 Bedside Glucose 116 366 H 238 H White Blood Count 5.1 Red Blood Count 4.06 L Hemoglobin 11.2 L Hematocrit 35.8 L Mean Corpuscular 88.2 Volume Mean Corpuscular 27.6 L Hemoglobin Mean Corpuscular 31.3 L Hemoglobin Concent Red Cell 16.9 H Distribution Width Platelet Count 207 Mean Platelet Volume 8.9 Immature 1.000 H Granulocytes % Neutrophils % 62.8 Lymphocytes % 25.0 Monocytes % 9.6 Eosinophils % 1.0 Basophils % 0.6 Nucleated Red Blood 0.0 Cells % Immature 0.050 H Granulocytes # Neutrophils # 3.2 Lymphocytes # 1.3 Monocytes # 0.5 Eosinophils # 0.1 Basophils # 0.0 Nucleated Red Blood 0.0 Cells # Sodium Level 136 Potassium Level 3.3 L Chloride Level 103 Carbon Dioxide Level 27 Anion Gap 6 Blood Urea Nitrogen 15 Creatinine 0.55 Est Glomerular > 60 Filtrat Rate mL/min Glucose Level 169 # Calcium Level 8.6 Total Bilirubin 0.1 L Direct Bilirubin 0.00 Indirect Bilirubin 0.1 Aspartate Amino 174 H Transf (AST/SGOT) Alanine 113 H Aminotransferase (AL T/SGPT) Alkaline Phosphatase 161 H Ammonia < 9 L Total Protein 6.8 Albumin 2.9 L Globulin 3.90 H Albumin/Globulin 0.74 Ratio Hepatitis B Surface NEGATIVE Antigen Hepatitis B Core NEGATIVE Total Antibody Hepatitis C Antibody REACTIVE H Test 01/07/19 08:08 Bedside Glucose 164 Medications Medication Current Medications IV Flush (NS 3 ml) 3 ml PER PROTOCOL IV ; Start 01/04/19 at 18:30 Ondansetron HCl (Zofran Inj) 4 mg Q6H PRN IV NAUSEA/VOMITING; Start 01/04/19 at 18:30 Acetaminophen (Tylenol Tab) 650 mg Q6H PRN PO .PAIN 1-3 OR TEMP; Start 01/04/19 at 18:30 Piperacillin Sod/ Tazobactam Sod 100 ml @ 200 mls/hr Q8 IVPB Last administered on 01/07/19at 06:16; Admin Dose 200 MLS/HR; Start 01/04/19 at 22:00 Vancomycin HCl (Vanco Iv Per Pharmacy) VANCOMYCIN PER PHARMACY PER PROTOCOL XX ; Start 01/04/19 at 18:30 Diagnostic Test (Pha) (Accu-Chek) 1 ea 02 XX Last administered on 01/05/19at 02:02; Admin Dose 1 EA; Start 01/05/19 at 02:00 Insulin Aspart (Novolog Insulin Pen) NOVOLOG *MODERATE* ALGORITHM WITH MEALS BEDTIME SC Last administered on 01/06/19at 20:42; Admin Dose 4 UNIT; Start 01/04/19 at 21:00 Miscellaneous Information 1 ea NOTE XX ; Start 01/04/19 at 19:00 Glucose (Glutose) 15 gm Q15M PRN PO DECREASED GLUCOSE; Start 01/04/19 at 19:00 Glucose (Glutose) 22.5 gm Q15M PRN PO DECREASED GLUCOSE; Start 01/04/19 at 19:00 Dextrose (D50w Syringe) 25 ml Q15M PRN IV DECREASED GLUCOSE; Start 01/04/19 at 19:00 Dextrose (D50w Syringe) 50 ml Q15M PRN IV DECREASED GLUCOSE; Start 01/04/19 at 19:00 Glucagon (Glucagen) 1 mg Q15M PRN IM DECREASED GLUCOSE; Start 01/04/19 at 19:00 Glucose (Glutose) 15 gm Q15M PRN BUCCAL DECREASED GLUCOSE; Start 01/04/19 at 19:00 Tramadol HCl (Ultram) 50 mg Q6H PRN PO MODERATE PAIN LEVEL 4-6 Last administered on 01/06/19 20:31; Admin Dose 50 MG; Start 01/04/19 at 23:30 Sodium Hypochlorite (Dakin'S (Dilute )) 1 applic DAILY IRR Last a dministered on 01/07/19 09:01; Admin Dose 1 APPLIC; Start 01/06/19 at 09:00 Aspirin (Halfprin) 81 mg DAILY PO Last administered on 01/06/19 07:54; Admin Dose 81 MG; Start 01/05/19 at 13:00 Lactobacillus Acidophilus/ Rhamnosus (Culturelle) 1 cap BID PO Last administered on 01/06/19 20:31; Admin Dose 1 CAP; Start 01/05/19 at 21:00 Enoxaparin Sodium (Lovenox) 30 mg DAILY SC Last administered on 01/06/19at 08:23; Admin Dose 30 MG; Start 01/06/19 at 09:00 Escitalopram Oxalate (Lexapro) 10 mg DAILY PO Last administered on 01/06/19 07:54; Admin Dose 10 MG; Start 01/05/19 at 21:00 Vancomycin HCl 250 ml @ 125 mls/hr Q12H IVPB Last administered on 01/07/19at 03:07; Admin Dose 125 MLS/HR; Start 01/06/19 at 16:00 Insulin Aspart (Novolog Insulin Pen) 10 unit WITH MEALS SC ; Start 01/06/19 at 17:55 Insulin Glargine (Lantus) 30 units DAILY@2000 SC Last administered on 01/06/19at 20:41; Admin Dose 30 UNITS; Start 01/06/19 at 20:00 Nicotine (Nicoderm 14 Mg/ 24hr) 1 patch DAILY PRN TRANSDERM CONTROL WITHDRAWAL SYMPTOMS; Start 01/06/19 at 12:00 Potassium Chloride (Potassium Chloride Pwd/Soln) 20 meq DAILY PO Last administered on 01/06/19at 12:46; Admin Dose 20 MEQ; Start 01/06/19 at 12:30 Ammonium Lactate (Lac-Hydrin 12% Lotion) 1 applic DAILY TOP Last administered on 01/07/19at 09:00; Admin Dose 1 APPLIC; Start 01/07/19 at 09:00 KENZIE AMBROCIO NP Jan 07, 2019 14:51
[2019-01-07] MEDS: ENOXAPARIN 30 MG/0.3 ML SYG SC SCH (15:27)
[2019-01-07] MEDS ORDERED: ZOLPIDEM 5 MG TAB PO PRN (21:30)
[2019-01-07] MEDS: INSULIN GLARGINE [LANTus] (100 UNITS/ML) SYG SC SCH (22:10)
[2019-01-08] VITALS (10 sets, daily range): BP systolic 118–132; BP diastolic 66–72; PULSE 55–67; RESP 18–20
[2019-01-08] MEDS: ACCU-CHEK XX SCH (02:36)
[2019-01-08] MEDS ORDERED: INSULIN ASPART [NOVOLOG] 3 ML PEN SC ONE (03:00)
[2019-01-08] MEDS: VANCOMYCIN 1 GM 250 ML IVPB SCH ×2 (04:17→16:12)
[2019-01-08] MEDS: PIPER-TAZO 3.375 GM IV (PMX) 100 ML IVPB SCH ×3 (06:14→22:09)
[2019-01-08] MEDS: INSULIN ASPART [NOVOLOG] 3 ML PEN SC SCH ×7 (07:36→21:00)
[2019-01-08] MEDS: LACTOBACILLUS RHAMNOSUS CAP PO SCH ×2 (08:43→20:00)
[2019-01-08] MEDS: ASPIRIN (EC) 81 MG TAB PO SCH (08:43)
[2019-01-08] MEDS: ESCITALOPRAM 10 MG TAB PO SCH (08:43)
[2019-01-08] MEDS: POTASSIUM CHLORIDE 20 MEQ POWDER FOR ORAL SOLN PO SCH (08:44)
[2019-01-08] MEDS: SODIUM HYPOCHLORITE (1/40) 1 LITER BTL IRR SCH (08:44)
[2019-01-08] MEDS: AMMONIUM LACTATE 12% 225 GM LOT TOP SCH (08:44)
[2019-01-08] MEDS: ENOXAPARIN 30 MG/0.3 ML SYG SC SCH (09:15)
[2019-01-08] MEDS: MAGNESIUM OXIDE 400 MG TAB PO SCH ×2 (12:39→20:00)
--- NOTE | 2019-01-08 13:54 | PN ---
Date/Time of Note Date/Time of Note DATE: 01/08/19 TIME: 13:51 Assessment/Plan VTE Prophylaxis Risk score (from Nsg)>0 risk: 6 SCD applied (from Nsg): No SCD contraindicated: low risk/ambulating, other Pharmacological prophylaxis: NA/contraindicated, LMWH Pharm contraindication: surgical contra Lines/Catheters IV Catheter Type (from Nrsg): Peripheral IV Assessment/Plan Hospital Course Assessment and plan 1. DFI/ ssti, bilat lwr ext; sp local debridement, stable cont wound care 2. Nonadherence, high risk of limb (s) loss. Re-counselled 3. PAD chronic, sp rt lower ext bypass- [facility] ?. mod stable, Angio 01/07. For bypass tomorrow Low intermediate intermediate perioperative risk. No active chest pain/ dyspnea. Non-cardiothoracic surgery. May proceed forward to surgery for medical management. 2D Echo ordered. 4. Tobacco abuse status post counseling, offered patch 5. Likely COPD 6. Delirium, presently stable observe 7. 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 MRI findings noted. Consider debridement /picc. 8. Rt heel/Achilles ulcer, sp debridement, follow-up on cultures 9. Chronic type 2 diabetes A1c 12.9! unfortunately not at goal. Diet indiscretion 10. [facility] Refuses snf. Difficult to break the cycle. Risk of limb loss discussed. Recommend snf for wound care 11. Left plantar ulcer/fungating lesion, continue serial debridement. 12. Anemia stable observe 13. Hepatitis C? Confirmatory testing pending. 14. Abnormal LFTs possibly #13. Antibiotic/ Zosyn noted. S: 01/05: No distress mild pain. Oriented to 2018. Not oriented to city. No cough or diarrhea. 01/06: Mod pain from her extremities. Foul smelling discharge noted. No chest pain dyspnea. oriented to year and month but not city, although she has been moving around. Appreciate social service assistance. No family/ friends at bedside. Patient is very vague when asked about any details. Possibly due to rapport. States her family is in [place] but has "health issues." States she is in a transitional facility - [facility]? on and off, but previously had surger y maybe at [facility]. Asked her to consider snf but she refuses/ ~worried about long-term care/ loss of independence? Not sure if we can break what seems to be an ongoing cycle of nonadherence. Poor wound healing and her risk factors of smoking and diabetes are worrisome. High risk of limb loss discussed with patient. Not sure if she is a great candidate for any medical therapy but we can attempt and give her options. At this time since she is oriented, she is free to make her decisions whether they are right or wrong. 01/07: Not adherent to dietary/medical therapy. No fever or chest pain dyspnea 01/08: No distress chest pain dyspnea fever. Again not adherent to dietary or activity instructions. updated regarding the npo requirement for surgery. O: Vital signs stable PE No pallor reg no m/r/g Clear Bs+ nt nd; no r/r/g; no abd bruits Lt lwr ankle amputation status; rt foot heel/Achilles ulcer. Poor pulses bilaterally Result Diagram: 01/08/19 0322 01/08/19 0322 Results 24hrs Laboratory Tests Test 01/07/19 17:46 01/07/19 20:02 01/08/19 02:08 01/08/19 03:22 Bedside Glucose 354 H 183 400 H White Blood Count 5.2 Red Blood Count 4.02 L Hemoglobin 11.0 L Hematocrit 35.6 L Mean Corpuscular 88.6 Volume Mean Corpuscular 27.4 L Hemoglobin Mean Corpuscular 30.9 L Hemoglobin Concent Red Cell 16.9 H Distribution Width Platelet Count 190 Mean Platelet Volume 9.2 Immature 0.600 H Granulocytes % Neutrophils % 73.4 Lymphocytes % 17.8 Monocytes % 6.8 Eosinophils % 1.0 Basophils % 0.4 Nucleated Red Blood 0.0 Cells % Immature 0.030 Granulocytes # Neutrophils # 3.8 Lymphocytes # 0.9 Monocytes # 0.4 Eosinophils # 0.1 Basophils # 0.0 Nucleated Red Blood 0.0 Cells # Sodium Level 137 Potassium Level 3.3 L Chloride Level 102 Carbon Dioxide Level 28 Anion Gap 7 Blood Urea Nitrogen 16 Creatinine 0.66 Est Glomerular > 60 Filtrat Rate mL/min Glucose Level 297 #H Calcium Level 8.6 Magnesium Level 1.6 L Total Bilirubin 0.1 L Direct Bilirubin 0.00 Indirect Bilirubin 0.1 Aspartate Amino 230 H Transf (AST/SGOT) Alanine 149 H Aminotransferase (AL T/SGPT) Alkaline Phosphatase 165 H Total Protein 6.8 Albumin 2.9 L Globulin 3.90 H Albumin/Globulin 0.74 Ratio Vancomycin Level 13.3 Trough Test 01/08/19 04:09 01/08/19 07:35 01/08/19 11:56 Bedside Glucose 229 H 125 147 Exam/Review of Systems Exam Vitals Vital Signs Date Temp Pulse Resp B/P (MAP) Pulse Ox O2 O2 Flow FiO2 Time Delivery Rate 01/08/19 59 12:30 01/08/19 97.7 19 132/69 98 11:19 (90) 01/08/19 Room Air 04:13 Intake and Output 01/07/19 01/07/19 01/08/19 1515:00 23:00 07:00 IntakeIntake Total 1100 ml 1200 ml BalanceBalance 1100 ml 1200 ml Results Results 24hrs Laboratory Tests Test 01/07/19 17:46 01/07/19 20:02 01/08/19 02:08 01/08/19 03:22 Bedside Glucose 354 H 183 400 H White Blood Count 5.2 Red Blood Count 4.02 L Hemoglobin 11.0 L Hematocrit 35.6 L Mean Corpuscular 88.6 Volume Mean Corpuscular 27.4 L Hemoglobin Mean Corpuscular 30.9 L Hemoglobin Concent Red Cell 16.9 H Distribution Width Platelet Count 190 Mean Platelet Volume 9.2 Immature 0.600 H Granulocytes % Neutrophils % 73.4 Lymphocytes % 17.8 Monocytes % 6.8 Eosinophils % 1.0 Basophils % 0.4 Nucleated Red Blood 0.0 Cells % Immature 0.030 Granulocytes # Neutrophils # 3.8 Lymphocytes # 0.9 Monocytes # 0.4 Eosinophils # 0.1 Basophils # 0.0 Nucleated Red Blood 0.0 Cells # Sodium Level 137 Potassium Level 3.3 L Chloride Level 102 Carbon Dioxide Level 28 Anion Gap 7 Blood Urea Nitrogen 16 Creatinine 0.66 Est Glomerular > 60 Filtrat Rate mL/min Glucose Level 297 #H Calcium Level 8.6 Magnesium Level 1.6 L Total Bilirubin 0.1 L Direct Bilirubin 0.00 Indirect Bilirubin 0.1 Aspartate Amino 230 H Transf (AST/SGOT) Alanine 149 H Aminotransferase (AL T/SGPT) Alkaline Phosphatase 165 H Total Protein 6.8 Albumin 2.9 L Globulin 3.90 H Albumin/Globulin 0.74 Ratio Vancomycin Level 13.3 Trough Test 01/08/19 04:09 01/08/19 07:35 01/08/19 11:56 Bedside Glucose 229 H 125 147 Medications Medication Current Medications IV Flush (NS 3 ml) 3 ml PER PROTOCOL IV ; Start 01/04/19 at 18:30 Ondansetron HCl (Zofran Inj) 4 mg Q6H PRN IV NAUSEA/VOMITING; Start 01/04/19 at 18:30 Acetaminophen (Tylenol Tab) 650 mg Q6H PRN PO .PAIN 1-3 OR TEMP; Start 01/04/19 at 18:30 Piperacillin Sod/ Tazobactam Sod 100 ml @ 200 mls/hr Q8 IVPB Last administered on 01/08/19at 06:14; Admin Dose 200 MLS/HR; Start 01/04/19 at 22:00 Vancomycin HCl (Vanco Iv Per Pharmacy) VANCOMYCIN PER PHARMACY PER PROTOCOL XX ; Start 01/04/19 at 18:30 Diagnostic Test (Pha) (Accu-Chek) 1 ea 02 XX Last administered on 01/08/19at 02:36; Admin Dose 1 EA; Start 01/05/19 at 02:00 Insulin Aspart (Novolog Insulin Pen) NOVOLOG *MODERATE* ALGORITHM WITH MEALS BEDTIME SC Last administered on 01/08/19at 12:23; Admin Dose 2 UNIT; Start 01/04/19 at 21:00 Miscellaneous Information 1 ea NOTE XX ; Start 01/04/19 at 19:00 Glucose (Glutose) 15 gm Q15M PRN PO DECREASED GLUCOSE; Start 01/04/19 at 19:00 Glucose (Glutose) 22.5 gm Q15M PRN PO DECREASED GLUCOSE; Start 01/04/19 at 19:00 Dextrose (D50w Syringe) 25 ml Q15M PRN IV DECREASED GLUCOSE; Start 01/04/19 at 19:00 Dextrose (D50w Syringe) 50 ml Q15M PRN IV DECREASED GLUCOSE; Start 01/04/19 at 19:00 Glucagon (Glucagen) 1 mg Q15M PRN IM DECREASED GLUCOSE; Start 01/04/19 at 19:00 Glucose (Glutose) 15 gm Q15M PRN BUCCAL DECREASED GLUCOSE; Start 01/04/19 at 19:00 Tramadol HCl (Ultram) 50 mg Q6H PRN PO MODERATE PAIN LEVEL 4-6 Last administered on 01/07/19 21:17; Admin Dose 50 MG; Start 01/04/19 at 23:30 Sodium Hypochlorite (Dakin'S (Dilute )) 1 applic DAILY IRR Last administered on 01/08/19 08:44; Admin Dose 1 APPLIC; Start 01/06/19 at 09:00 Aspirin (Halfprin) 81 mg DAILY PO Last administered on 01/08/19 08:43; Admin Dose 81 MG; Start 01/05/19 at 13:00 Lactobacillus Acidophilus/ Rhamnosus (Culturelle) 1 cap BID PO Last administered on 01/08/19 08:43; Admin Dose 1 CAP; Start 01/05/19 at 21:00 Enoxaparin Sodium (Lovenox) 30 mg DAILY SC Last administered on 01/08/19 09:15; Admin Dose 30 MG; Start 01/06/19 at 09:00 Escitalopram Oxalate (Lexapro) 10 mg DAILY PO Last administered on 01/08/19 08:43; Admin Dose 10 MG; Start 01/05/19 at 21:00 Vancomycin HCl 250 ml @ 125 mls/hr Q12H IVPB Last administered on 01/08/19 04:17; Admin Dose 125 MLS/HR; Start 01/06/19 at 16:00 Insulin Aspart (Novolog Insulin Pen) 10 unit WITH MEALS SC Last administered on 01/08/19 12:23; Admin Dose 10 UNIT; Start 01/06/19 at 17:55 Insulin Glargine (Lantus) 30 units DAILY@2000 SC Last administered on 01/07/19 22:10; Admin Dose 30 UNITS; Start 01/06/19 at 20:00 Nicotine (Nicoderm 14 Mg/ 24hr) 1 patch DAILY PRN TRANSDERM CONTROL WITHDRAWAL SYMPTOMS; Start 01/06/19 at 12:00 Potassium Chloride (Potassium Chloride Pwd/Soln) 20 meq DAILY PO Last administered on 01/08/19 08:44; Admin Dose 20 MEQ; Start 01/06/19 at 12:30 Ammonium Lactate (Lac-Hydrin 12% Lotion) 1 applic DAILY TOP Last administered on 01/08/19 08:44; Admin Dose 1 APPLIC; Start 01/07/19 at 09:00 Magnesium Oxide (Mag-Ox 400) 400 mg TID PO Last administered on 3/28/19at 12:39; Admin Dose 400 MG; Start 01/08/19 at 13:00 KYLIE STARKEY MD Jan 08, 2019 13:54
--- NOTE | 2019-01-08 15:11 | PREAC ---
Date/Time of Note Date/Time of Note DATE: 01/08/19 TIME: 15:09 Anesthesia Eval and Record Evaluation Time Pre-Procedure Interview DATE: 01/08/19 TIME: 15:09 Age 63 Sex female NPO: 8 hrs Preoperative diagnosis Bilateral lower extremities chronic wounds with cellulitis Planned procedure LEFT FEMORAL POPLITEAL BYPASS Past Medical History Past Medical History: Includes Cardio: HTN, Dyslipidemia, Other (peripheral arterial disease) Endo: Diabetes Pulm: Smoking Hx Surgery & Anesthesia Issues No known issue Meds Anticoagulation: No Beta Brinda within 24 hr: No Reason Beta Brinda not given: Pt. not on B-Brinda Unable to Obtain Active Prescriptions or Reported Meds Current Medications IV Flush (NS 3 ml) 3 ml PER PROTOCOL IV ; Start 01/04/19 at 18:30 Ondansetron HCl (Zofran Inj) 4 mg Q6H PRN IV NAUSEA/VOMITING; Start 01/04/19 at 18:30 Acetaminophen (Tylenol Tab) 650 mg Q6H PRN PO .PAIN 1-3 OR TEMP; Start 01/04/19 at 18:30 Piperacillin Sod/ Tazobactam Sod 100 ml @ 200 mls/hr Q8 IVPB Last administered on 01/08/19at 14:03; Admin Dose 200 MLS/HR; Start 01/04/19 at 22:00 Vancomycin HCl (Vanco Iv Per Pharmacy) VANCOMYCIN PER PHARMACY PER PROTOCOL XX ; Start 01/04/19 at 18:30 Diagnostic Test (Pha) (Accu-Chek) 1 ea 02 XX Last administered on 01/08/19at 02:36; Admin Dose 1 EA; Start 01/05/19 at 02:00 Insulin Aspart (Novolog Insulin Pen) NOVOLOG *MODERATE* ALGORITHM WITH MEALS BEDTIME SC Last administered on 01/08/19at 12:23; Admin Dose 2 UNIT; Start 01/04/19 at 21:00 Miscellaneous Information 1 ea NOTE XX ; Start 01/04/19 at 19:00 Glucose (Glutose) 15 gm Q15M PRN PO DECREASED GLUCOSE; Start 01/04/19 at 19:00 Glucose (Glutose) 22.5 gm Q15M PRN PO DECREASED GLUCOSE; Start 01/04/19 at 19:00 Dextrose (D50w Syringe) 25 ml Q15M PRN IV DECREASED GLUCOSE; Start 01/04/19 at 19:00 Dextrose (D50w Syringe) 50 ml Q15M PRN IV DECREASED GLUCOSE; Start 01/04/19 at 19:00 Glucagon (Glucagen) 1 mg Q15M PRN IM DECREASED GLUCOSE; Start 01/04/19 at 19:00 Glucose (Glutose) 15 gm Q15M PRN BUCCAL DECREASED GLUCOSE; Start 01/04/19 at 19:00 Tramadol HCl (Ultram) 50 mg Q6H PRN PO MODERATE PAIN LEVEL 4-6 Last administered on 01/07/19 21:17; Admin Dose 50 MG; Start 01/04/19 at 23:30 Sodium Hypochlorite (Dakin'S (Dilute )) 1 applic DAILY IRR Last administered on 01/08/19 08:44; Admin Dose 1 APPLIC; Start 01/06/19 at 09:00 Aspirin (Halfprin) 81 mg DAILY PO Last administered on 01/08/19 08:43; Admin Dose 81 MG; Start 01/05/19 at 13:00 Lactobacillus Acidophilus/ Rhamnosus (Culturelle) 1 cap BID PO Last administered on 01/08/19 08:43; Admin Dose 1 CAP; Start 01/05/19 at 21:00 Escitalopram Oxalate (Lexapro) 10 mg DAILY PO Last administered on 01/08/19 08:43; Admin Dose 10 MG; Start 01/05/19 at 21:00 Vancomycin HCl 250 ml @ 125 mls/hr Q12H IVPB Last administered on 01/08/19 04:17; Admin Dose 125 MLS/HR; Start 01/06/19 at 16:00 Insulin Aspart (Novolog Insulin Pen) 10 unit WITH MEALS SC Last administered on 01/08/19 12:23; Admin Dose 10 UNIT; Start 01/06/19 at 17:55 Insulin Glargine (Lantus) 30 units DAILY@2000 SC Last administered on 01/07/19 22:10; Admin Dose 30 UNITS; Start 01/06/19 at 20:00 Nicotine (Nicoderm 14 Mg/ 24hr) 1 patch DAILY PRN TRANSDERM CONTROL WITHDRAWAL SYMPTOMS; Start 01/06/19 at 12:00 Potassium Chloride (Potassium Chloride Pwd/Soln) 20 meq DAILY PO Last administered on 01/08/19 08:44; Admin Dose 20 MEQ; Start 01/06/19 at 12:30 Ammonium Lactate (Lac-Hydrin 12% Lotion) 1 applic DAILY TOP Last administered on 01/08/19at 08:44; Admin Dose 1 APPLIC; Start 01/07/19 at 09:00 Magnesium Oxide (Mag-Ox 400) 400 mg TID PO Last administered on 01/08/19at 12:39; Admin Dose 400 MG; Start 01/08/19 at 13:00 Meds reviewed: Yes Allergies Coded Allergies: No Known Allergy (Unverified , 01/04/19) Allergies Reviewed: Yes Labs/Studies Labs Reviewed: Reviewed by anesthesiologist (01/08 last blood sugar 147) Result Diagram: 01/08/19 0322 01/08/19 0322 Laboratory Tests 01/08/19 03:22 test: N/A Studies: CXR (Mild increased interstitial changes throughout the lungs.), 2D Echo Pre-procedure Exam Last vitals Vital Signs Date Temp Pulse Resp B/P (MAP) Pulse Ox O2 O2 Flow FiO2 Time Delivery Rate 01/08/19 59 12:30 01/08/19 97.7 19 132/69 98 11:19 (90) 01/08/19 Room Air 04:13 Airway: Adequate mouth opening Mallampati: Mallampati II Teeth: Normal Lung: Normal Heart: Normal ASA Physical Status ASA physical status: 3 Emergency: None Planned Anesthetic General/MAC: ETT Pre-operative Attestations Prior to commencing anesthesia and surgery, the patient was re-evaluated, there was verification of: *The patient's identity *The results of appropriate recent lab work and preoperative vital signs *The above evaluation not changing prior to induction *Anesthetic plan, risk benefits, alternative and complications discussed with patient/family; questions answered; patient/family understands, accepts and wishes to proceed. MARTHA CHAKRABORTY Jan 08, 2019 15:11
--- NOTE | 2019-01-08 17:23 | CONS ---
Assessment/Plan Assessment/Plan Hospital Course (Demo Recall) No acute changes patient is sleeping no fevers overnight WBC today 5.2 no shift no bands BUN 16 creatinine 0.66 Microbiology: Cultures of the wound growing Enterobacter cloaca, enterococcus species, Corynebacterium species and strep galactorrhea Antimicrobials: Vancomycin, Zosyn Physical examination: Well-developed chronically ill-appearing elderly woman who is in no distress. Head atraumatic normocephalic neck is supple chest rise symmetrical breath sounds clear. Heart: S1-S2. Abdomen soft, bowel sounds present. Extremities with bilateral lower extremities dressing intact Assessment: 1. Bilateral lower extremities chronic wounds with cellulitis 2. Left foot osteomyelitis 3. Peripheral arterial disease ==> status post abdominal aortogram with right common femoral artery angioplasty 01/07/19 4. Diabetes with diabetic neuropathy 5. Transaminitis Plan: Patient remained stable, continue antibiotics, follow podiatry and vascular surgery recommendations Consultation Date/Type/Reason Admit Date/Time Jan 04, 2019 at 17:33 Initial Consult Date Type of Consult id Date/Time of Note DATE: 01/08/19 TIME: 17:22 Exam/Review of Systems Exam Vitals Vital Signs Date Temp Pulse Resp B/P (MAP) Pulse Ox O2 O2 Flow FiO2 Time Delivery Rate 01/08/19 57 16:25 01/08/19 98.0 19 122/72 96 16:03 (89) 01/08/19 Room Air 04:13 Intake and Output 01/07/19 01/07/19 01/08/19 1414:59 22:59 06:59 IntakeIntake Total 1100 ml 1200 ml BalanceBalance 1100 ml 1200 ml Results Result Diagram: 01/08/19 0322 01/08/19 0322 Results 24hrs Laboratory Tests Test 01/07/19 17:46 01/07/19 20:02 01/08/19 02:08 01/08/19 03:22 Bedside Glucose 354 H 183 400 H White Blood Count 5.2 Red Blood Count 4.02 L Hemoglobin 11.0 L Hematocrit 35.6 L Mean Corpuscular 88.6 Volume Mean Corpuscular 27.4 L Hemoglobin Mean Corpuscular 30.9 L Hemoglobin Concent Red Cell 16.9 H Distribution Width Platelet Count 190 Mean Platelet Volume 9.2 Immature 0.600 H Granulocytes % Neutrophils % 73.4 Lymphocytes % 17.8 Monocytes % 6.8 Eosinophils % 1.0 Basophils % 0.4 Nucleated Red Blood 0.0 Cells % Immature 0.030 Granulocytes # Neutrophils # 3.8 Lymphocytes # 0.9 Monocytes # 0.4 Eosinophils # 0.1 Basophils # 0.0 Nucleated Red Blood 0.0 Cells # Sodium Level 137 Potassium Level 3.3 L Chloride Level 102 Carbon Dioxide Level 28 Anion Gap 7 Blood Urea Nitrogen 16 Creatinine 0.66 Est Glomerular > 60 Filtrat Rate mL/min Glucose Level 297 #H Calcium Level 8.6 Magnesium Level 1.6 L Total Bilirubin 0.1 L Direct Bilirubin 0.00 Indirect Bilirubin 0.1 Aspartate Amino 230 H Transf (AST/SGOT) Alanine 149 H Aminotransferase (AL T/SGPT) Alkaline Phosphatase 165 H Total Protein 6.8 Albumin 2.9 L Globulin 3.90 H Albumin/Globulin 0.74 Ratio Vancomycin Level 13.3 Trough Test 01/08/19 04:09 01/08/19 07:35 01/08/19 11:56 Bedside Glucose 229 H 125 147 Medications Medication Current Medications IV Flush (NS 3 ml) 3 ml PER PROTOCOL IV ; Start 01/04/19 at 18:30 Ondansetron HCl (Zofran Inj) 4 mg Q6H PRN IV NAUSEA/VOMITING; Start 01/04/19 at 18:30 Acetaminophen (Tylenol Tab) 650 mg Q6H PRN PO .PAIN 1-3 OR TEMP; Start 01/04/19 at 18:30 Piperacillin Sod/ Tazobactam Sod 100 ml @ 200 mls/hr Q8 IVPB Last administered on 01/08/19at 14:03; Admin Dose 200 MLS/HR; Start 01/04/19 at 22:00 Vancomycin HCl (Vanco Iv Per Pharmacy) VANCOMYCIN PER PHARMACY PER PROTOCOL XX ; Start 01/04/19 at 18:30 Diagnostic Test (Pha) (Accu-Chek) 1 ea 02 XX Last administered on 01/08/19at 0 2:36; Admin Dose 1 EA; Start 01/05/19 at 02:00 Insulin Aspart (Novolog Insulin Pen) NOVOLOG *MODERATE* ALGORITHM WITH MEALS BEDTIME SC Last administered on 01/08/19at 12:23; Admin Dose 2 UNIT; Start 01/04/19 at 21:00 Miscellaneous Information 1 ea NOTE XX ; Start 01/04/19 at 19:00 Glucose (Glutose) 15 gm Q15M PRN PO DECREASED GLUCOSE; Start 01/04/19 at 19:00 Glucose (Glutose) 22.5 gm Q15M PRN PO DECREASED GLUCOSE; Start 01/04/19 at 19:00 Dextrose (D50w Syringe) 25 ml Q15M PRN IV DECREASED GLUCOSE; Start 01/04/19 at 19:00 Dextrose (D50w Syringe) 50 ml Q15M PRN IV DECREASED GLUCOSE; Start 01/04/19 at 19:00 Glucagon (Glucagen) 1 mg Q15M PRN IM DECREASED GLUCOSE; Start 01/04/19 at 19:00 Glucose (Glutose) 15 gm Q15M PRN BUCCAL DECREASED GLUCOSE; Start 01/04/19 at 19:00 Tramadol HCl (Ultram) 50 mg Q6H PRN PO MODERATE PAIN LEVEL 4-6 Last administered on 01/07/19 21:17; Admin Dose 50 MG; Start 01/04/19 at 23:30 Sodium Hypochlorite (Dakin'S (Dilute )) 1 applic DAILY IRR Last admin istered on 01/08/19 08:44; Admin Dose 1 APPLIC; Start 01/06/19 at 09:00 Aspirin (Halfprin) 81 mg DAILY PO Last administered on 01/08/19 08:43; Admin Dose 81 MG; Start 01/05/19 at 13:00 Lactobacillus Acidophilus/ Rhamnosus (Culturelle) 1 cap BID PO Last administered on 01/08/19 08:43; Admin Dose 1 CAP; Start 01/05/19 at 21:00 Escitalopram Oxalate (Lexapro) 10 mg DAILY PO Last administered on 01/08/19 08:43; Admin Dose 10 MG; Start 01/05/19 at 21:00 Vancomycin HCl 250 ml @ 125 mls/hr Q12H IVPB Last administered on 01/08/19 16:12; Admin Dose 125 MLS/HR; Start 01/06/19 at 16:00 Insulin Aspart (Novolog Insulin Pen) 10 unit WITH MEALS SC Last administered on 01/08/19 12:23; Admin Dose 10 UNIT; Start 01/06/19 at 17:55 Insulin Glargine (Lantus) 30 units DAILY@2000 SC Last administered on 01/07/19 22:10; Admin Dose 30 UNITS; Start 01/06/19 at 20:00 Nicotine (Nicoderm 14 Mg/ 24hr) 1 patch DAILY PRN TRANSDERM CONTROL WITHDRAWAL SYMPTOMS; Start 01/06/19 at 12:00 Potassium Chloride (Potassium Chloride Pwd/Soln) 20 meq DAILY PO Last administered on 01/08/19at 08:44; Admin Dose 20 MEQ; Start 01/06/19 at 12:30 Ammonium Lactate (Lac-Hydrin 12% Lotion) 1 applic DAILY TOP Last administered on 01/08/19at 08:44; Admin Dose 1 APPLIC; Start 01/07/19 at 09:00 Magnesium Oxide (Mag-Ox 400) 400 mg TID PO Last administered on 01/08/19at 12:39; Admin Dose 400 MG; Start 01/08/19 at 13:00 KENZIE AMBROCIO NP Jan 08, 2019 17:23
--- NOTE | 2019-01-08 17:57 | RADRPT ---
Echocardiogram Report Patient Name: Peter SALEStient ID: [id number] : 1955 (63y 2m)Study Date: 01/08/2019 3:08:38 PM Gender: FAccession #: [id number] Tech: SN Location: Ref.Physician: KYLIE STARKEY Height(Cm): BSA: Weight(Kg): Quality: AdequateAccount #: Procedures: Echocardiographic Report: Transthoracic echocardiogram with complete 2D, M-Mode, and doppler examination. Indications: Pre-op. Measurements: 2D/M Mode Doppler Measurement Value Normal Range Measurement Value Normal Range LVIDd 2D 4.4 [ 3.8 - 5.2 ] cm AV Peak David 1.3 [ 100.0 - 170.0 ] cm/sec LVIDs 2D 2.7 [ 2.2 - 3.5 ] cm AV Peak PG 7.0 [ 2.0 - 9.0 ] mmHg LVPWd 2D 0.9 [ 0.6 - 0.9 ] cm LVOT Peak David 1.0 [ 70.0 - 110.0 ] cm/sec IVSd 2D 0.8 [ 0.6 - 0.9 ] cm LVOT Peak PG 4.0 [ 2.0 - 6.0 ] mmHg AoR Diam 2D 3.3 [ 2.3 - 3.1 ] cm MV E Peak David 0.7 [ 60.0 - 130.0 ] cm/sec EDV 2D 90.1 [ 46.0 - 106.0 ] ml MV A Peak David 0.7 [ 100.0 - 120.0 ] cm/sec ESV 2D 28.0 [ 14.0 - 42.0 ] ml MV E/A 1.0 [ 0.8 - 1.5 ] ratio EF 2D 68.9 [ 54.0 - 74.0 ] percent MV Decel Time 190 [ 104 - 258 ] msec LA Dimen 2D 3.4 [ 2.7 - 3.8 ] cm Lat E` David 0.2 [ 10.0 - 15.0 ] cm/sec Lateral E/E` 4.8 [ 1.0 - 2.0 ] ratio MV E/A 1.0 [ 0.8 - 1.5 ] ratio TR Peak David 2.2 [ 100.0 - 280.0 ] cm/sec TR Peak PG 19.0 mmHg RVSP 22.0 [ 10.0 - 36.0 ] mmHg Findings: Left Ventricle: Normal left ventricular systolic function. Normal left ventricular cavity size. Normal left ventricular wall thickness. Ejection fraction is visually estimated at 65 %. Abnormal Diastolic Function. Right Ventricle: Normal right ventricular size. Normal right ventricular systolic function. Left Atrium: The left atrium is normal in size. Right Atrium: The right atrium is normal in size. Mitral Valve: Mild mitral leaflet calcification. Mild mitral annular calcification. Trace mitral regurgitation. Aortic Valve: No hemodynamically significant aortic stenosis by doppler. Aortic cusps appear mildly calcified. Mild aortic valve regurgitation. Tricuspid Valve: Normal appearance of the tricuspid valve. Estimated peak PA systolic pressure 22 mmHg. There is trace tricuspid regurgitation. Pulmonic Valve: Normal pulmonic valve appearance. Pericardium: Normal pericardium with no significant pericardial effusion. Aorta: Normal aortic root. IVC: Normal size and normal respiratory collapse consistent with normal right atrial pressure. Conclusions: Normal left ventricular systolic function. Normal left ventricular cavity size. Normal left ventricular wall thickness. Ejection fraction is visually estimated at 65 %. Abnormal Diastolic Function. Normal right ventricular size. Normal right ventricular systolic function. The left atrium is normal in size. The right atrium is normal in size. No hemodynamically significant aortic stenosis by doppler. Mild aortic valve regurgitation. No significant valvular stenosis or regurgitation seen of remaining visualized valves. Normal pericardium with no significant pericardial effusion. Electronically Signed By: Barrett Trejo 2019-01-08 17:56:49 PDT
[2019-01-08] MEDS ORDERED: LORAZEPAM 2 MG INJ IV ONE (20:00)
[2019-01-08] MEDS: INSULIN GLARGINE [LANTus] (100 UNITS/ML) SYG SC SCH (21:51)
[2019-01-09] VITALS (30 sets, daily range): BP systolic 96–135; BP diastolic 44–60; PULSE 52–78; RESP 10–36
[2019-01-09] MEDS: ACCU-CHEK XX SCH (02:00)
[2019-01-09] MEDS: VANCOMYCIN 1 GM 250 ML IVPB SCH (04:15)
[2019-01-09] MEDS: PIPER-TAZO 3.375 GM IV (PMX) 100 ML IVPB SCH ×3 (06:00→21:00)
[2019-01-09] MEDS ORDERED: CA CHLORIDE 10% 10 ML SYRINGE ONE (07:00)
[2019-01-09] MEDS ORDERED: NA BICARBONATE 8.4% 50 ML SYG ONE (07:00)
[2019-01-09] MEDS ORDERED: ALBUMIN HUMAN 25% 100 ML INJ ONE (07:00)
[2019-01-09] MEDS ORDERED: CEFAZOLIN 1 GM INJ ONE (07:00)
--- NOTE | 2019-01-09 07:13 | HPN ---
Date/Time of Note Date/Time of Note DATE: 01/09/19 TIME: 07:13 Interval H&P Admission Note Pt. seen H&P reviewed: No system changes SAVANNAH CAROLINA MD Jan 09, 2019 07:13
[2019-01-09] MEDS ORDERED: HEPARIN 1000 UNITS/ML 10 ML INJ ONE ×2 (07:54→10:11)
[2019-01-09] MEDS ORDERED: GELATIN SIZE 100 SPONGE ONE (07:54)
[2019-01-09] MEDS ORDERED: THROMBIN (BOVINE) 5,000 UNIT VIAL TP ONE ×3 (07:54→11:36)
[2019-01-09] MEDS: INSULIN ASPART [NOVOLOG] 3 ML PEN SC SCH ×7 (07:55→20:59)
[2019-01-09] MEDS ORDERED: MIDAZOLAM 1 MG/ML 2 ML INJ ONE (08:05)
[2019-01-09] MEDS ORDERED: FENTAnyl 50 MCG/ML VIAL ONE (08:05)
[2019-01-09] MEDS ORDERED: LIDOCAINE 2% (SDV) 5 ML INJ ONE (08:06)
[2019-01-09] MEDS ORDERED: ETOMIDATE 20 MG INJ ONE (08:06)
[2019-01-09] MEDS ORDERED: MIDAZOLAM 1 MG/ML 2 ML INJ IV PRN (08:30)
[2019-01-09] MEDS ORDERED: LEVALBUTEROL (NEB) 1.25 MG/0.5 ML AMP HHN PRN (08:30)
[2019-01-09] MEDS ORDERED: MEPERIDINE 25 MG INJ IV PRN (08:30)
[2019-01-09] MEDS ORDERED: LABETALOL HCL 20MG INJ IV PRN (08:30)
[2019-01-09] MEDS ORDERED: DIPHENHYDRAMINE 50 MG INJ IV PRN (08:30)
[2019-01-09] MEDS ORDERED: ONDANSETRON 4 MG INJ IV PRN (08:30)
[2019-01-09] MEDS ORDERED: IPRATROPIUM (NEB) 0.5 MG/2.5 ML AMP HHN PRN (08:30)
[2019-01-09] MEDS ORDERED: HYDROmorphONE 1 MG/5 ML IV SYRINGE IV PRN ×2 (08:30)
[2019-01-09] MEDS ORDERED: hydrALAzine 20 MG INJ IV PRN (08:30)
[2019-01-09] MEDS ORDERED: FENTAnyl 50 MCG/ML VIAL IV PRN ×2 (08:30)
[2019-01-09] MEDS ORDERED: HEPARIN 1000 UNITS/ML 10 ML INJ IRR ONE (08:45)
[2019-01-09] MEDS: AMMONIUM LACTATE 12% 225 GM LOT TOP SCH (09:00)
[2019-01-09] MEDS: POTASSIUM CHLORIDE 20 MEQ POWDER FOR ORAL SOLN PO SCH ×2 (09:00→16:46)
[2019-01-09] MEDS: ESCITALOPRAM 10 MG TAB PO SCH (09:00)
[2019-01-09] MEDS: LACTOBACILLUS RHAMNOSUS CAP PO SCH ×2 (09:00→20:51)
[2019-01-09] MEDS: MAGNESIUM OXIDE 400 MG TAB PO SCH ×3 (09:00→16:46)
[2019-01-09] MEDS: SODIUM HYPOCHLORITE (1/40) 1 LITER BTL IRR SCH (09:00)
[2019-01-09] MEDS ORDERED: ROCURONIUM 50 MG INJ ONE (09:55)
[2019-01-09] MEDS ORDERED: METOCLOPRAMIDE 10 MG INJ ONE (09:55)
[2019-01-09] MEDS ORDERED: SUCCINYLCHOLINE CHLORIDE 100 MG/5 ML SYG IV ONE (09:55)
[2019-01-09] MEDS ORDERED: GELATIN SIZE 100 SPONGE TOP ONE (11:05)
[2019-01-09] MEDS ORDERED: PROTAMINE 250 MG INJ ONE (11:31)
--- NOTE | 2019-01-09 12:02 | SIPON ---
Date/Time of Note Date/Time of Note DATE: 01/09/19 TIME: 12:01 Operative Report Preoperative Diagnosis L foot non healing ulcer Postoperative Diagnosis same Operation/Procedure Performed L fem-AK pop bypass with in-situ GSV Surgeon see signature line retail administrative assistant CANDACE Giles Anesthesia: general Estimated blood loss: 150 - 200 ml's Transfusion Required none Specimen none Grafts/Implants none Complications none SAVANNAH CAROLINA MD Jan 09, 2019 12:02
--- NOTE | 2019-01-09 12:23 | PN ---
Date/Time of Note Date/Time of Note DATE: 01/09/19 TIME: 12:22 Assessment/Plan VTE Prophylaxis Risk score (from Nsg)>0 risk: 5 SCD applied (from Nsg): No SCD contraindicated: low risk/ambulating Pharmacological prophylaxis: NA/contraindicated Pharm contraindication: surgical contra Lines/Catheters IV Catheter Type (from Nrsg): Peripheral IV Assessment/Plan Hospital Course Assessment and plan 1. DFI/ ssti, bilat lwr ext; sp local debridement, stable cont wound care 2. Nonadherence, high risk of limb (s) loss. Re-counselled 3. PAD chronic, sp rt lower ext bypass- [facility] ?. mod stable, s/p Angio 01/07; POD 0: Lt Fem-AK pop bypass w in-situ GSV 4. Tobacco abuse sp counseling, offered patch 5. Likely COPD 6. Delirium, presently stable observe 7. 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 MRI findings noted. Consider debridement /picc. 8. Rt heel/Achilles ulcer, sp debridement, follow-up on cultures 9. Chronic type 2 diabetes A1c 12.9! unfortunately not at goal. Diet indiscretion 10. Ftt, moving around in [facility] transitional facilities? Refuses snf. Difficult to break the cycle. Risk of limb loss discussed. Recommend snf for wound care 11. Left plantar ulcer/fungating lesion, continue serial debridement. 12. Anemia stable observe 13. Hepatitis C? Confirmatory testing pending. 14. Abnormal LFTs possibly #13. Hep C viremia, [place]. Antibiotic/ Zosyn noted. S: 01/05: No distress mild pain. Oriented to 2018. Not oriented to city. No cough or diarrhea. 01/06: Mod pain from her extremities. Foul smelling discharge noted. No chest pain dyspnea. oriented to year and month but not city, although she has been moving around. Appreciate social service assistance. No family/ friends at [facility]. Patient is very vague when asked about any details. Possibly due to rapport. States her family is in [place] but has "health issues." States she is in a transitional facility - [facility]? on and off, but previously had surgery maybe at [facility]. Asked her to consider snf but she refuses/ ~worried about long-term care/ loss of independence? Not sure if we can break what seems to be an ongoing cycle of nonadherence. Poor wound healing and her risk factors of smoking and diabetes are worrisome. High risk of limb loss discussed with patient. Not sure if she is a great candidate for any medical therapy but we can attempt and give her options. At this time since she is espinoza ented, she is free to make her decisions whether they are right or wrong. 01/07: Not adherent to dietary/medical therapy. No fever or chest pain dyspnea 01/08: No distress chest pain dyspnea fever. Again not adherent to dietary or activity instructions. updated regarding the npo requirement for surgery. 01/09: Patient in OR O: Vital signs stable PE -Deferred patient in OR Result Diagram: 01/08/19 0322 01/08/19 0322 Results 24hrs Laboratory Tests Test 01/08/19 17:44 01/08/19 19:59 01/09/19 05:45 Bedside Glucose 226 H 152 107 Exam/Review of Systems Exam Vitals Vital Signs Date Temp Pulse Resp B/P (MAP) Pulse Ox O2 O2 Flow FiO2 Time Delivery Rate 01/09/19 52 06:19 01/09/19 98.5 18 113/59 97 04:00 (77) 01/08/19 Room Air 04:13 Intake and Output 01/08/19 01/08/19 01/09/19 1515:00 23:00 07:00 IntakeIntake Total 100 ml 800 ml 550 ml BalanceBalance 100 ml 800 ml 550 ml Results Results 24hrs Laboratory Tests Test 01/08/19 17:44 01/08/19 19:59 01/09/19 05:45 Bedside Glucose 226 H 152 107 Medications Medication Current Medications IV Flush (NS 3 ml) 3 ml PER PROTOCOL IV ; Start 01/04/19 at 18:30 Ondansetron HCl (Zofran Inj) 4 mg Q6H PRN IV NAUSEA/VOMITING; Start 01/04/19 at 18:30 Acetaminophen (Tylenol Tab) 650 mg Q6H PRN PO .PAIN 1-3 OR TEMP; Start 01/04/19 at 18:30 Piperacillin Sod/ Tazobactam Sod 100 ml @ 200 mls/hr Q8 IVPB Last administered on 01/08/19at 22:09; Admin Dose 200 MLS/HR; Start 01/04/19 at 22:00 Vancomycin HCl (Vanco Iv Per Pharmacy) VANCOMYCIN PER PHARMACY PER PROTOCOL XX ; Start 01/04/19 at 18:30 Diagnostic Test (Pha) (Accu-Chek) 1 ea 02 XX Last administered on 01/08/19at 02:36; Admin Dose 1 EA; Start 01/05/19 at 02:00 Insulin Aspart (Novolog Insulin Pen) NOVOLOG *MODERATE* ALGORITHM WITH MEALS BEDTIME SC Last administered on 01/08/19at 17:51; Admin Dose 6 UNIT; Start 01/04/19 at 21:00 Miscellaneous Information 1 ea NOTE XX ; Start 01/04/19 at 19:00 Glucose (Glutose) 15 gm Q15M PRN PO DECREASED GLUCOSE; Start 01/04/19 at 19:00 Glucose (Glutose) 22.5 gm Q15M PRN PO DECREASED GLUCOSE; Start 01/04/19 at 19:00 Dextrose (D50w Syringe) 25 ml Q15M PRN IV DECREASED GLUCOSE; Start 01/04/19 at 19:00 Dextrose (D50w Syringe) 50 ml Q15M PRN IV DECREASED GLUCOSE; Start 01/04/19 at 19:00 Glucagon (Glucagen) 1 mg Q15M PRN IM DECREASED GLUCOSE; Start 01/04/19 at 19:00 Glucose (Glutose) 15 gm Q15M PRN BUCCAL DECREASED GLUCOSE; Start 01/04/19 at 19:00 Tramadol HCl (Ultram) 50 mg Q6H PRN PO MODERATE PAIN LEVEL 4-6 Last administered on 01/07/19at 21:17; Admin Dose 50 MG; Start 01/04/19 at 23:30 Sodium Hypochlorite (Dakin'S (Dilute )) 1 applic DAILY IRR Last a dministered on 01/08/19 08:44; Admin Dose 1 APPLIC; Start 01/06/19 at 09:00 Aspirin (Halfprin) 81 mg DAILY PO Last administered on 01/08/19 08:43; Admin Dose 81 MG; Start 01/05/19 at 13:00 Lactobacillus Acidophilus/ Rhamnosus (Culturelle) 1 cap BID PO Last administered on 01/08/19at 20:00; Admin Dose 1 CAP; Start 01/05/19 at 21:00 Escitalopram Oxalate (Lexapro) 10 mg DAILY PO Last administered on 01/08/19 08:43; Admin Dose 10 MG; Start 01/05/19 at 21:00 Vancomycin HCl 250 ml @ 125 mls/hr Q12H IVPB Last administered on 01/09/19 04:15; Admin Dose 125 MLS/HR; Start 01/06/19 at 16:00 Insulin Aspart (Novolog Insulin Pen) 10 unit WITH MEALS SC Last administered on 01/08/19 17:52; Admin Dose 10 UNIT; Start 01/06/19 at 17:55 Insulin Glargine (Lantus) 30 units DAILY@2000 SC Last administered on 01/08/19 21:51; Admin Dose 30 UNITS; Start 01/06/19 at 20:00 Nicotine (Nicoderm 14 Mg/ 24hr) 1 patch DAILY PRN TRANSDERM CONTROL WITHDRAWAL SYMPTOMS; Start 01/06/19 at 12:00 Potassium Chloride (Potassium Chloride Pwd/Soln) 20 meq DAILY PO Last administered on 01/08/19 08:44; Admin Dose 20 MEQ; Start 01/06/19 at 12:30 Ammonium Lactate (Lac-Hydrin 12% Lotion) 1 applic DAILY TOP Last administered on 01/08/19 08:44; Admin Dose 1 APPLIC; Start 01/07/19 at 09:00 Magnesium Oxide (Mag-Ox 400) 400 mg TID PO Last administered on 01/08/19 20:00; Admin Dose 400 MG; Start 01/08/19 at 13:00 Hydromorphone HCl (Dilaudid) 0.2 mg PACU PRN IV MILD PAIN 1-3; Start 01/09/19 at 08:30; Stop 01/09/19 at 16:00 Hydromorphone HCl (Dilaudid) 0.4 mg PACU PRN IV MOD PAIN 4-6; Start 01/09/19 at 08:30; Stop 01/09/19 at 16:00 Fentanyl (Sublimaze) 25 mcg PACU ORDER PRN IV MILD PAIN 1-3; Start 01/09/19 at 08:30; Stop 01/09/19 at 16:00 Fentanyl (Sublimaze) 50 mcg PACU ORDER PRN IV MOD PAIN 4-6; Start 01/09/19 at 08:30; Stop 01/09/19 at 16:00 Ondansetron HCl (Zofran Inj) 4 mg PACU ORDER PRN IV NAUSEA/VOMITING; Start 01/09/19 at 08:30; Stop 01/09/19 at 16:00 Labetalol HCl (Labetalol) 5 mg PACU ORDER PRN IV HIGH BLOOD PRESSURE; Start 01/09/19 at 08:30; Stop 01/09/19 at 16:00 Hydralazine HCl (Apresoline) 5 mg PACU ORDER PRN IV HIGH BLOOD PRESSURE; Start 01/09/19 at 08:30; Stop 01/09/19 at 16:00 Levalbuterol (Xopenex Neb) 1.25 mg PACU ORDER PRN HHN .WHEEZING; Start 01/09/19 at 08:30; Stop 01/09/19 at 16:00 Ipratropium Wilson (Atrovent 0.02% (Neb)) 0.5 mg PACU ORDER PRN HHN .WHEEZING; Start 01/09/19 at 08:30; Stop 01/09/19 at 16:00 Meperidine HCl (Demerol) 25 mg PACU ORDER PRN IV .RIGORS; Start 01/09/19 at 08:30; Stop 01/09/19 at 16:00 Diphenhydramine HCl (Benadryl) 25 mg PACU ORDER PRN IV .PRURITUS; Start 01/09/19 at 08:30; Stop 01/09/19 at 16:00 Midazolam HCl (Versed) 0.5 mg PACU ORDER PRN IV .ANXIETY; Start 01/09/19 at 08:30; Stop 01/09/19 at 16:00 Aspirin (Aspirin) 325 mg DAILY PO ; Start 01/09/19 at 12:30; Status KYLIE MCPHERSON MD Jan 09, 2019 12:23
--- NOTE | 2019-01-09 12:25 | CONS ---
Assessment/Plan Assessment/Plan Hospital Course (Demo Recall) All noted, no fevers Microbiology: Cultures of the wound growing Enterobacter cloaca, enterococcus species, Corynebacterium species and strep galactorrhea Antimicrobials: Vancomycin, Zosyn Physical examination: Well-developed chronically ill-appearing elderly woman who is in no distress. Head atraumatic normocephalic neck is supple chest rise symmetrical breath sounds clear. Heart: S1-S2. Abdomen soft, bowel sounds present. Extremities with bilateral lower extremities dressing intact Assessment: 1. Bilateral lower extremities chronic wounds with cellulitis 2. Left foot osteomyelitis 3. Peripheral arterial disease ==> status post abdominal aortogram with right common femoral artery angioplasty 01/07/19 4. Diabetes with diabetic neuropathy 5. Transaminitis Plan: dc Beata, continue Zosyn, follow podiatry and vascular surgery recommendations, plan for LLE bypass surgery Consultation Date/Type/Reason Admit Date/Time Jan 04, 2019 at 17:33 Initial Consult Date Type of Consult id Date/Time of Note DATE: 01/09/19 TIME: 12:23 Exam/Review of Systems Exam Vitals Vital Signs Date Temp Pulse Resp B/P (MAP) Pulse Ox O2 O2 Flow FiO2 Time Delivery Rate 01/09/19 52 06:19 01/09/19 98.5 18 113/59 97 04:00 (77) 01/08/19 Room Air 04:13 Intake and Output 01/08/19 01/08/19 01/09/19 1515:00 23:00 07:00 IntakeIntake Total 100 ml 800 ml 550 ml BalanceBalance 100 ml 800 ml 550 ml Results Result Diagram: 01/08/19 0322 01/08/19 0322 Results 24hrs Laboratory Tests Test 01/08/19 17:44 01/08/19 19:59 01/09/19 05:45 Bedside Glucose 226 H 152 107 Medications Medication Current Medications IV Flush (NS 3 ml) 3 ml PER PROTOCOL IV ; Start 01/04/19 at 18:30 Ondansetron HCl (Zofran Inj) 4 mg Q6H PRN IV NAUSEA/VOMITING; Start 01/04/19 at 18:30 Acetaminophen (Tylenol Tab) 650 mg Q6H PRN PO .PAIN 1-3 OR TEMP; Start 01/04/19 at 18:30 Piperacillin Sod/ Tazobactam Sod 100 ml @ 200 mls/hr Q8 IVPB Last administered on 01/08/19at 22:09; Admin Dose 200 MLS/HR; Start 01/04/19 at 22:00 Vancomycin HCl (Vanco Iv Per Pharmacy) VANCOMYCIN PER PHARMACY PER PROTOCOL XX ; Start 01/04/19 at 18:30 Diagnostic Test (Pha) (Accu-Chek) 1 ea 02 XX Last administered on 01/08/19at 02:36; Admin Dose 1 EA; Start 01/05/19 at 02:00 Insulin Aspart (Novolog Insulin Pen) NOVOLOG *MODERATE* ALGORITHM WITH MEALS BEDTIME SC Last administered on 01/08/19 17:51; Admin Dose 6 UNIT; Start 01/04/19 at 21:00 Miscellaneous Information 1 ea NOTE XX ; Start 01/04/19 at 19:00 Glucose (Glutose) 15 gm Q15M PRN PO DECREASED GLUCOSE; Start 01/04/19 at 19:00 Glucose (Glutose) 22.5 gm Q15M PRN PO DECREASED GLUCOSE; Start 01/04/19 at 19:00 Dextrose (D50w Syringe) 25 ml Q15M PRN IV DECREASED GLUCOSE; Start 01/04/19 at 19:00 Dextrose (D50w Syringe) 50 ml Q15M PRN IV DECREASED GLUCOSE; Start 01/04/19 at 19:00 Glucagon (Glucagen) 1 mg Q15M PRN IM DECREASED GLUCOSE; Start 01/04/19 at 19:00 Glucose (Glutose) 15 gm Q15M PRN BUCCAL DECREASED GLUCOSE; Start 01/04/19 at 19:00 Tramadol HCl (Ultram) 50 mg Q6H PRN PO MODERATE PAIN LEVEL 4-6 Last administered on 01/07/19at 21:17; Admin Dose 50 MG; Start 01/04/19 at 23:30 Sodium Hypochlorite (Dakin'S (Dilute )) 1 applic DAILY IRR Last administered on 01/08/19at 08:44; Admin Dose 1 APPLIC; Start 01/06/19 at 09:00 Aspirin (Halfprin) 81 mg DAILY PO Last administered on 01/08/19 08:43; Admin Dose 81 MG; Start 01/05/19 at 13:00 Lactobacillus Acidophilus/ Rhamnosus (Culturelle) 1 cap BID PO Last administered on 01/08/19at 20:00; Admin Dose 1 CAP; Start 01/05/19 at 21:00 Escitalopram Oxalate (Lexapro) 10 mg DAILY PO Last administered on 01/08/19 08:43; Admin Dose 10 MG; Start 01/05/19 at 21:00 Vancomycin HCl 250 ml @ 125 mls/hr Q12H IVPB Last administered on 01/09/19at 04:15; Admin Dose 125 MLS/HR; Start 01/06/19 at 16:00 Insulin Aspart (Novolog Insulin Pen) 10 unit WITH MEALS SC Last administered on 01/08/19at 17:52; Admin Dose 10 UNIT; Start 01/06/19 at 17:55 Insulin Glargine (Lantus) 30 units DAILY@2000 SC Last administered on 01/08/19at 21:51; Admin Dose 30 UNITS; Start 01/06/19 at 20:00 Nicotine (Nicoderm 14 Mg/ 24hr) 1 patch DAILY PRN TRANSDERM CONTROL WITHDRAWAL SYMPTOMS; Start 01/06/19 at 12:00 Potassium Chloride (Potassium Chloride Pwd/Soln) 20 meq DAILY PO Last administered on 01/08/19at 08:44; Admin Dose 20 MEQ; Start 01/06/19 at 12:30 Ammonium Lactate (Lac-Hydrin 12% Lotion) 1 applic DAILY TOP Last administered on 01/08/19at 08:44; Admin Dose 1 APPLIC; Start 01/07/19 at 09:00 Magnesium Oxide (Mag-Ox 400) 400 mg TID PO Last administered on 01/08/19at 20:00; Admin Dose 400 MG; Start 01/08/19 at 13:00 Hydromorphone HCl (Dilaudid) 0.2 mg PACU PRN IV MILD PAIN 1-3; Start 01/09/19 at 08:30; Stop 01/09/19 at 16:00 Hydromorphone HCl (Dilaudid) 0.4 mg PACU PRN IV MOD PAIN 4-6; Start 01/09/19 at 08:30; Stop 01/09/19 at 16:00 Fentanyl (Sublimaze) 25 mcg PACU ORDER PRN IV MILD PAIN 1-3; Start 01/09/19 at 08:30; Stop 01/09/19 at 16:00 Fentanyl (Sublimaze) 50 mcg PACU ORDER PRN IV MOD PAIN 4-6; Start 01/09/19 at 08:30; Stop 01/09/19 at 16:00 Ondansetron HCl (Zofran Inj) 4 mg PACU ORDER PRN IV NAUSEA/VOMITING; Start 01/09/19 at 08:30; Stop 01/09/19 at 16:00 Labetalol HCl (Labetalol) 5 mg PACU ORDER PRN IV HIGH BLOOD PRESSURE; Start 01/09/19 at 08:30; Stop 01/09/19 at 16:00 Hydralazine HCl (Apresoline) 5 mg PACU ORDER PRN IV HIGH BLOOD PRESSURE; Start 01/09/19 at 08:30; Stop 01/09/19 at 16:00 Levalbuterol (Xopenex Neb) 1.25 mg PACU ORDER PRN HHN .WHEEZING; Start 01/09/19 at 08:30; Stop 01/09/19 at 16:00 Ipratropium [place] (Atrovent 0.02% (Neb)) 0.5 mg PACU ORDER PRN HHN .WHEEZING; Start 01/09/19 at 08:30; Stop 01/09/19 at 16:00 Meperidine HCl (Demerol) 25 mg PACU ORDER PRN IV .RIGORS; Start 01/09/19 at 08:30; Stop 01/09/19 at 16:00 Diphenhydramine HCl (Benadryl) 25 mg PACU ORDER PRN IV .PRURITUS; Start 01/09/19 at 08:30; Stop 01/09/19 at 16:00 Midazolam HCl (Versed) 0.5 mg PACU ORDER PRN IV .ANXIETY; Start 01/09/19 at 08:30; Stop 01/09/19 at 16:00 Aspirin (Aspirin) 325 mg DAILY PO ; Start 01/09/19 at 12:30; Status KENZIE GOFF NP Jan 09, 2019 12:25
--- NOTE | 2019-01-09 14:02 | OPR ---
DATE OF OPERATION: 01/09/2019 PREOPERATIVE DIAGNOSIS: Left foot nonhealing ulcer. POSTOPERATIVE DIAGNOSIS: Left foot nonhealing ulcer. PROCEDURE PERFORMED: Left femoral to above-knee popliteal artery bypass using in situ greater saphenous vein. SURGEON: Savannah Camacho MD OFFICE CHAIR ASSEMBLER: Lin Cheng PA-C ESTIMATED BLOOD LOSS: 150 mL. COMPLICATIONS: No intraprocedural complications. INDICATIONS: A 63-year-old long-term smoker. 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 She had a bypass about 6 months ago for in the Achilles region. The bypass in the right looks okay. It is patent and I angioplastied the severe common femoral stenosis on the right several days ago. When I did angiogram on the left leg, it showed the left SFA is completely occluded and there is popliteal artery reconstitution above the knee with single vessel runoff through the peroneal down and then it reconstitutes posterior tibial down at the ankle through the peroneal, so I brought her in today for fem-pop above knee bypass with in situ great saphenous vein. PROCEDURE IN DETAILS: The patient was brought to the operating room and placed on the table in supine position. Left leg was prepped and draped in the usual sterile fashion. I already marked the great saphenous vein on the medial aspect of the thigh all the way from the groin down to the knee, marked it on the skin and marked where all the side branches were. Once she was prepped and draped in the usual sterile fashion, I made an incision over the great saphenous vein, starting right about the knee and extending 5 cm more superiorly. I dissected out the great saphenous vein, ligated all the side branches with 3-0 silk ties and divided them, so skeletonizing the vein. I then cut the fascia overlying the medial thigh muscles and retracted them posteriorly, just came across the nerve and then there is a very scarred in popliteal vein overlying the popliteal artery as I carefully dissected it away. I was able to dissect out the popliteal artery right above the knee. It was soft and patent there. In the groin, I made an incision over the great saphenous vein extending all the way up to the groin. 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 The profunda was patent with good pulse, so I dissected out the profunda and the SFA, common femoral was so scarred in, I did not even try to dissect it out, so I decided to come off of the profunda. As I can tell, the great saphenous vein was too short to reach the common femoral as well, so I carefully dissected out the great saphenous vein and the groin and dissected down to the saphenofemoral junction. I put a Satinsky clamp across saphenofemoral junction and transected it and oversewed the venotomy and the femoral vein with 5-0 Prolene suture in a running standard vascular surgical fashion. I removed the clamp. There was good hemostasis again to the vein and then would reach over to the profunda. Now, the profunda was completely dissected out and had a good pulse. We then gave the patient 5000 units of heparin intravenously. I clamped the profunda proximally and distally. I made about a cm long anterior arteriotomy in the profunda. I spatulated the proximal end of the vein to fit the arteriotomy and anastomosed the upper end of the vein to the side of the profunda using 5-0 Prolene suture in a running standard vascular surgical fashion. I cut the first 2 valves that I could see in the great saphenous vein under direct vision prior to doing the anastomosis. I removed the clamps and there was a good pulse in the vein although there was no outflow distally. From below now, I ligated the great saphenous vein just at the knee with 2-0 silk tie and divided it. I then passed a LeMaitre valvulotome from below and made several passes and cut all the valves. There still was not much bleeding from the distal end, so I then went back where I marked the branches. I made an incision in the mid thigh where there were 3 large branches. I dissected those out and clipped them with surgical clips and divided them. I then clipped the large branch of the great saphenous vein that was stump in the upper thigh through the groin incision as well and there was excellent flow through the distal end of the great saphenous vein. I now clamped the popliteal artery just above the knee and then a little bit higher. I made an anterior arteriotomy about 1 cm in length. Surprisingly, there was some fresh thrombus there so I passed 4-Macedonian Storm down and proximally pulled out some thrombosis in the popliteal right at the knee area. It got good backflow. I then passed 3 Storm down from above as well. I passed all the way down to the foot all the way down into the distal peroneal and pulled it back. There was no thrombus and now there was good backbleeding. I instilled some heparinized saline then clamped the artery. Again, I spatulated the distal end of the vein to fit the arteriotomy and I anastomosed the distal end of vein to the side of the artery using 6-0 Prolene suture in a running standard vascular surgical fashion. I removed the clamps. There was good hemostasis. Excellent pulse in the popliteal. I listened with the Doppler. There was a good Doppler signal in the popliteal. Doppler signal went away completely when I clamped the graft. There was posterior tibial pulse. I could it hear as well on top. There was some little oozing, so we gave 50 protamine and stopped the oozing. We packed some thrombin Gelfoam around the anastomosis and then I closed all the incisions in 2 layers using an inner layer of 3-0 Vicryl. Surgical stacey were used for the thigh incisions and 4-0 Monocryl suture was used for the groin incision. Sterile dressing was applied. The patient was extubated in the operating room and transferred to the ICU in stable condition. She tolerated this procedure well without any complications. Dictated By: SAVANNAH TERRAZAS/MAIRA Conf#: [id number] DID#: [id number] CC: SAVANNAH SELBY MD; QASIM CHAPA DPM; KURT HENSLEY DPM; KYLIE STARKEY MD;*EndCC* MTDD
--- NOTE | 2019-01-09 14:55 | PAC ---
Date/Time of Note Date/Time of Note DATE: 01/09/19 TIME: 14:55 Post-Anesthesia Notes Post-Anesthesia Note Last documented vital signs Vital Signs Date Temp Pulse Resp B/P (MAP) Pulse Ox O2 O2 Flow FiO2 Time Delivery Rate 01/09/19 78 21 100 14:29 01/09/19 110/48 14:14 (68) 01/09/19 Nasal 2.0 14:08 Cannula 01/09/19 98.5 12:52 Activity: WNL Respiratory function: WNL Cardiovascular function: WNL Mental status: Baseline Pain reasonably controlled: Yes Hydration appropriate: Yes Nausea/Vomiting absent: Yes LORRAINE ESCALONA MD Jan 09, 2019 14:55
[2019-01-09] MEDS: morphine 2 MG INJ IV PRN ×3 (16:08→21:50)
[2019-01-09] MEDS: ASPIRIN 325 MG TAB PO SCH (16:46)
[2019-01-09] MEDS ORDERED: INSULIN GLARGINE [LANTus] (100 UNITS/ML) SYG SC ONE (19:00)
[2019-01-09] MEDS: INSULIN GLARGINE [LANTus] (100 UNITS/ML) SYG SC SCH (20:53)
[2019-01-10] VITALS (22 sets, daily range): BP systolic 103–133; BP diastolic 45–65; PULSE 64–76; RESP 13–21
[2019-01-10] MEDS: ACCU-CHEK XX SCH (02:51)
[2019-01-10] MEDS: PIPER-TAZO 3.375 GM IV (PMX) 100 ML IVPB SCH ×3 (05:47→20:11)
[2019-01-10] MEDS: INSULIN ASPART [NOVOLOG] 3 ML PEN SC SCH ×7 (07:35→20:11)
[2019-01-10] MEDS: MAGNESIUM OXIDE 400 MG TAB PO SCH ×3 (08:31→20:11)
[2019-01-10] MEDS: ASPIRIN 325 MG TAB PO SCH (08:31)
[2019-01-10] MEDS: LACTOBACILLUS RHAMNOSUS CAP PO SCH ×2 (08:31→20:10)
[2019-01-10] MEDS: POTASSIUM CHLORIDE 20 MEQ POWDER FOR ORAL SOLN PO SCH (08:31)
[2019-01-10] MEDS: ESCITALOPRAM 10 MG TAB PO SCH (08:31)
[2019-01-10] MEDS: AMMONIUM LACTATE 12% 225 GM LOT TOP SCH (08:40)
[2019-01-10] MEDS: SODIUM HYPOCHLORITE (1/40) 1 LITER BTL IRR SCH (08:40)
--- NOTE | 2019-01-10 09:47 | PN ---
Date/Time of Note Date/Time of Note DATE: 01/10/19 TIME: 09:44 Assessment/Plan Lines/Catheters IV Catheter Type (from Nrsg): Central Line [place] in Place (from Nrsg): Yes Assessment/Plan Assessment/Plan POD#1 s/p L fem-AK pop bypass by Dr. Camacho - doing well Plan: -Appreciate medical management -Ok to transfer to step down -Cont wound care as per podiatry recommendations -Will follow Subjective 24 Hr Interval Summary No events o/n, no complaints, pt notes less pain to LLE except for incision sites, says L foot is warmer HCT 30, good UOP Exam/Review of Systems Vital Signs Vitals Vital Signs Date Temp Pulse Resp B/P (MAP) Pulse Ox O2 O2 Flow FiO2 Time Delivery Rate 01/10/19 70 19 128/51 96 Room Air 07:00 (76) 01/10/19 98.4 04:00 01/09/19 2.0 14:08 Intake and Output 01/09/19 01/09/19 01/10/19 1515:00 23:00 07:00 IntakeIntake Total 2370 ml 1500 ml 620 ml OutputOutput Total 1220 ml 1070 ml 800 ml BalanceBalance 1150 ml 430 ml -180 ml Exam Free Text/Dictation Gen: AAOx3, NAD Heart: Reg Abd: soft, NT, ND Extr: BLE warm, R foot dressed - c/d/i; LLE incisions c/d/i w/ PATRICIO wrap, L foot warm w/ multiphasic doppler signal at L peroneal at distal lower leg Results Result Diagram: 01/09/19 1530 01/09/19 1530 DIANE BAUER MD Jan 10, 2019 09:47
[2019-01-10] MEDS: morphine 2 MG INJ IV PRN ×2 (09:54→19:05)
[2019-01-10] MEDS: ENOXAPARIN 30 MG/0.3 ML SYG SC SCH (10:30)
--- NOTE | 2019-01-10 10:35 | CONS ---
Assessment/Plan Assessment/Plan Hospital Course (Demo Recall) ID PROGRESS NOTE CURRENT ABX: DAY # 6 => Zosyn s/p Vanco IV #5 days 01/09/19 1530 01/09/19 1530 24H INTERVAL SUMMARY * POD #1 -> S/P 01/09/19 Left femoral to above-knee popliteal artery bypass using in situ greater saphenous vein. * PRE & POST-OPERATIVE DIAGNOSIS: Left foot nonhealing ulcer. * A/A/O -- reports pain in foot, coping OK, without distress * Denies all the following: f/c/n/v/d/cp/sob/dysuria/abd pain DIAGNOSTIC IMAGING * 01/10/19 CXR: MICRO/OTHER * 01/05/19 RIGHT FOOT WOUND CX (+) * WOUND CULTURE Final Organism 1 CORYNEBACTERIUM SPECIES QUANTITY 1+ Organism 2 STREP AGALACTIAE - (GROUP B) QUANTITY SCANT GROWTH * 01/05/19 LEFT FOOT WOUND CX (+) POLYMICROBIAL PATHOGENS * WOUND CULTURE Final Organism 1 ENTEROBACTER CLOACAE COMPLEX QUANTITY ISOLATED FROM BROTH ONLY Organism 2 ENTEROCOCCUS SPECIES QUANTITY 2+ Organism 3 STREP AGALACTIAE - (GROUP B) QUANTITY 2+ Organism 4 CORYNEBACTERIUM SPECIES QUANTITY 3+ Organism 5 ESCHERICHIA COLI QUANTITY ISOLATED FROM BROTH ONLY * 01/04/19 URINE Cx: Mixed GP * 01/04/19 BCx (-) PHYSICAL EXAMINATION: GENERAL: VSS, NAD, A/A/O HEENT: AT, NC, anicteric, NECK: Supple, R-IJ TLC CHEST: Equal chest rise bilaterally, without dyspnea on observation HEART: Pulse RRR ABDOMEN: Soft / NT : FC w/clear yellow urine EXTREMITIES: Warm, dry = BLE warm, R foot dressed - c/d/i; LLE incisions c/d/i w/ PATRICIO wrap, SKIN: No rash, no diaphoresis ID ASSESSMENT 63 yo F admit with: 1. Bilateral lower extremities chronic wounds with cellulitis 2. Left foot osteomyelitis per MRI 3. Peripheral arterial disease ==> status post abdominal aortogram with right common femoral artery angioplasty 01/07/19 4. Diabetes with diabetic neuropathy 5. Transaminitis (-)MRSA Nares ABX ALLERGIES: KNDA INVASIVES: PIV CURRENT ABX: DAY # 6 => Zosyn s/p Vanco IV #5 days ID RECOMMENDATIONS/PLAN: 1. Continue current ABX Consultation Date/Type/Reason Admit Date/Time Jan 04, 2019 at 17:33 Initial Consult Date Date/Time of Note DATE: 01/10/19 TIME: 10:35 Exam/Review of Systems Exam Vitals Vital Signs Date Temp Pulse Resp B/P (MAP) Pulse Ox O2 O2 Flow FiO2 Time Delivery Rate 01/10/19 67 18 104/47 97 Room Air 10:00 (66) 01/10/19 98.7 08:00 01/09/19 2.0 14:08 Intake and Output 01/09/19 01/09/19 01/10/19 1515:00 23:00 07:00 IntakeIntake Total 2370 ml 1500 ml 620 ml OutputOutput Total 1220 ml 1070 ml 800 ml BalanceBalance 1150 ml 430 ml -180 ml Results Result Diagram: 01/09/19 1530 01/09/19 1530 Results 24hrs Laboratory Tests Test 01/09/19 12:33 01/09/19 15:30 01/09/19 18:18 01/09/19 20:51 Bedside Glucose 175 324 H 217 White Blood Count 8.7 # Red Blood Count 3.43 L Hemoglobin 9.5 L Hematocrit 30.5 L Mean Corpuscular 88.9 Volume Mean Corpuscular 27.7 L Hemoglobin Mean Corpuscular 31.1 L Hemoglobin Concent Red Cell 17.0 H Distribution Width Platelet Count 129 #L Mean Platelet Volume 8.4 Immature 0.700 H Granulocytes % Neutrophils % 80.1 H Lymphocytes % 12.6 L Monocytes % 5.6 Eosinophils % 0.7 Basophils % 0.3 Nucleated Red Blood 0.0 Cells % Immature 0.060 H Granulocytes # Neutrophils # 7.0 Lymphocytes # 1.1 Monocytes # 0.5 Eosinophils # 0.1 Basophils # 0.0 Nucleated Red Blood 0.0 Cells # Prothrombin Time 13.0 Prothrombin Time 1.0 Ratio INR International 0.97 Normalized Ratio Sodium Level 138 Potassium Level 3.4 L Chloride Level 102 Carbon Dioxide Level 25 Anion Gap 11 Blood Urea Nitrogen 13 Creatinine 0.51 Est Glomerular > 60 Filtrat Rate mL/min Glucose Level 256 H Calcium Level 8.4 Test 01/10/19 02:25 01/10/19 07:46 01/10/19 08:01 Bedside Glucose 167 65 L 84 Medications Medication Current Medications IV Flush (NS 3 ml) 3 ml PER PROTOCOL IV ; Start 01/04/19 at 18:30 Ondansetron HCl (Zofran Inj) 4 mg Q6H PRN IV NAUSEA/VOMITING Last administered on 01/09/19at 13:28; Admin Dose 4 MG; Start 01/04/19 at 18:30 Acetaminophen (Tylenol Tab) 650 mg Q6H PRN PO .PAIN 1-3 OR TEMP; Start 01/04/19 at 18:30 Piperacillin Sod/ Tazobactam Sod 100 ml @ 200 mls/hr Q8 IVPB Last administered on 01/10/19 05:47; Admin Dose 200 MLS/HR; Start 01/04/19 at 22:00 Diagnostic Test (Pha) (Accu-Chek) 1 ea 02 XX Last administered on 01/10/19 02:51; Admin Dose 1 EA; Start 01/05/19 at 02:00 Insulin Aspart (Novolog Insulin Pen) NOVOLOG *MODERATE* ALGORITHM WITH MEALS BEDTIME SC Last administered on 01/09/19at 20:59; Admin Dose 1 UNIT; Start 01/04/19 at 21:00 Miscellaneous Information 1 ea NOTE XX ; Start 01/04/19 at 19:00 Glucose (Glutose) 15 gm Q15M PRN PO DECREASED GLUCOSE; Start 01/04/19 at 19:00 Glucose (Glutose) 22.5 gm Q15M PRN PO DECREASED GLUCOSE; Start 01/04/19 at 19:00 Dextrose (D50w Syringe) 25 ml Q15M PRN IV DECREASED GLUCOSE; Start 01/04/19 at 19:00 Dextrose (D50w Syringe) 50 ml Q15M PRN IV DECREASED GLUCOSE; Start 01/04/19 at 19:00 Glucagon (Glucagen) 1 mg Q15M PRN IM DECREASED GLUCOSE; Start 01/04/19 at 19:00 Glucose (Glutose) 15 gm Q15M PRN BUCCAL DECREASED GLUCOSE; Start 01/04/19 at 19:00 Tramadol HCl (Ultram) 50 mg Q6H PRN PO MODERATE PAIN LEVEL 4-6 Last administered on 01/07/19at 21:17; Admin Dose 50 MG; Start 01/04/19 at 23:30 Sodium Hypochlorite (Dakin'S (Dilute 1/40)) 1 applic DAILY IRR Last administered on 01/10/19 08:40; Admin Dose 1 APPLIC; Start 01/06/19 at 09:00 Lactobacillus Acidophilus/ Rhamnosus (Culturelle) 1 cap BID PO Last administered on 01/10/19 08:31; Admin Dose 1 CAP; Start 01/05/19 at 21:00 Escitalopram Oxalate (Lexapro) 10 mg DAILY PO Last administered on 01/10/19 08:31; Admin Dose 10 MG; Start 01/05/19 at 21:00 Insulin Aspart (Novolog Insulin Pen) 10 unit WITH MEALS SC Last administered on 01/09/19 18:58; Admin Dose 10 UNIT; Start 01/06/19 at 17:55 Insulin Glargine (Lantus) 30 units DAILY@2000 SC Last administered on 01/09/19 20:53; Admin Dose 30 UNITS; Start 01/06/19 at 20:00 Nicotine (Nicoderm 14 Mg/ 24hr) 1 patch DAILY PRN TRANSDERM CONTROL WITHDRAWAL SYMPTOMS; Start 01/06/19 at 12:00 Potassium Chloride (Potassium Chloride Pwd/Soln) 20 meq DAILY PO Last administered on 01/10/19 08:31; Admin Dose 20 MEQ; Start 01/06/19 at 12:30 Ammonium Lactate (Lac-Hydrin 12% Lotion) 1 applic DAILY TOP Last administered on 01/10/19 08:40; Admin Dose 1 APPLIC; Start 01/07/19 at 09:00 Magnesium Oxide (Mag-Ox 400) 400 mg TID PO Last administered on 01/10/19 08:31; Admin Dose 400 MG; Start 01/08/19 at 13:00 Aspirin (Aspirin) 325 mg DAILY PO Last administered on 01/10/19 08:31; Admin Dose 325 MG; Start 01/09/19 at 12:30 Morphine Sulfate (morphine) 2 mg Q2H PRN IV SEVERE PAIN LEVEL 7-10 Last administered on 01/10/19 09:54; Admin Dose 2 MG; Start 01/09/19 at 16:00 Enoxaparin Sodium (Lovenox) 30 mg DAILY SC ; Start 01/10/19 at 10:30 DEBBIE FRANKS NP Jan 10, 2019 10:35
--- NOTE | 2019-01-10 14:16 | PN ---
Date/Time of Note Date/Time of Note DATE: 01/10/19 TIME: 14:14 Assessment/Plan VTE Prophylaxis Risk score (from Nsg)>0 risk: 7 SCD applied (from Nsg): No SCD contraindicated: low risk/ambulating Pharmacological prophylaxis: LMWH Lines/Catheters IV Catheter Type (from Nrsg): A Line Urinary Cath still in place: Yes Reason Cath still needed: urinary retention Assessment/Plan Hospital Course Assessment and plan 1. DFI/ ssti, bilat lwr ext; sp local debridement, stable cont wound care 2. Nonadherence, high risk of limb (s) loss. Re-counselled 3. PAD chronic, sp rt lower ext bypass- [facility] ?. mod stable, s/p Angio 01/07; POD 1: Lt Fem-AK pop bypass w in-situ GSV 4. Tobacco abuse sp counseling, offered patch 5. Likely COPD 6. Delirium, presently stable observe 7. 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 MRI noted. Consider debridement /picc. 8. Rt heel/Achilles ulcer, sp debridement, follow-up on cultures 9. Chronic type 2 diabetes A1c 12.9! unfortunately not at goal. Diet ind iscretion 10. Ftt, [facility]? Refuses snf. Difficult to break the cycle. Risk of limb loss discussed. Recommend snf for wound care 11. Left plantar ulcer/fungating lesion, continue serial debridement. 12. Anemia stable observe 13. Hepatitis C? Confirmatory testing pending. 14. Abnormal LFTs possibly #13. Hep C viremia, [place]. Antibiotic/ Zosyn noted. S: 01/05: No distress mild pain. Oriented to 2018. Not oriented to city. No cough or diarrhea. 01/06: Mod pain from her extremities. Foul smelling discharge noted. No chest pain dyspnea. oriented to year and month but not city, although she has been moving around. Appreciate social service assistance. No family/ friends at bedside. Patient is very vague when asked about any details. Possibly due to rapport. States her family is in [place] but has "health issues." States she is in a transitional facility - [facility]? on and off, but previously had surgery maybe at [facility]. Asked her to consider snf but she refuses/ ~worried about long-term care/ loss of independence? Not sure if we can break what seems to be an ongoing cycle of nonadherence. Poor wound healing and her risk factors of smoking and diabetes are worrisome. High risk of limb loss discussed with patient. Not sure if she is a great candidate for any medical therapy but we can attempt and give her options. At this time since she is oriented, she is free to make her decisions whether they are right or wrong. 01/07: Not adherent to dietary/medical therapy. No fever or chest pain dyspnea 01/08: No distress chest pain dyspnea fever. Again not adherent to dietary or activity instructions. updated regarding the npo requirement for surgery. 01/09: Patient in OR 01/10: Urine output good/ patient stable, but not adherent to diet and care instructions O: Vital signs stable PE No pallor Regular no m/r/g Clear Benign Minimal pulses/ usual; lle- ankle amputation status; rt foot dressed Result Diagram: 01/09/19 1530 01/09/19 1530 Results 24hrs Laboratory Tests Test 01/09/19 15:30 01/09/19 18:18 01/09/19 20:51 01/10/19 02:25 White Blood Count 8.7 # Red Blood Count 3.43 L Hemoglobin 9.5 L Hematocrit 30.5 L Mean Corpuscular 88.9 Volume Mean Corpuscular 27.7 L Hemoglobin Mean Corpuscular 31.1 L Hemoglobin Concent Red Cell 17.0 H Distribution Width Platelet Count 129 #L Mean Platelet Volume 8.4 Immature 0.700 H Granulocytes % Neutrophils % 80.1 H Lymphocytes % 12.6 L Monocytes % 5.6 Eosinophils % 0.7 Basophils % 0.3 Nucleated Red Blood 0.0 Cells % Immature 0.060 H Granulocytes # Neutrophils # 7.0 Lymphocytes # 1.1 Monocytes # 0.5 Eosinophils # 0.1 Basophils # 0.0 Nucleated Red Blood 0.0 Cells # Prothrombin Time 13.0 Prothrombin Time 1.0 Ratio INR International 0.97 Normalized Ratio Sodium Level 138 Potassium Level 3.4 L Chloride Level 102 Carbon Dioxide Level 25 Anion Gap 11 Blood Urea Nitrogen 13 Creatinine 0.51 Est Glomerular > 60 Filtrat Rate mL/min Glucose Level 256 H Calcium Level 8.4 Bedside Glucose 324 H 217 167 Test 01/10/19 07:46 01/10/19 08:01 01/10/19 11:21 Bedside Glucose 65 L 84 222 H Exam/Review of Systems Exam Vitals Vital Signs Date Temp Pulse Resp B/P (MAP) Pulse Ox O2 O2 Flow FiO2 Time Delivery Rate 01/10/19 66 15 118/56 97 Room Air 14:00 (76) 01/10/19 98.6 12:01 01/09/19 2.0 14:08 Intake and Output 01/09/19 01/09/19 01/10/19 1515:00 23:00 07:00 IntakeIntake Total 2370 ml 1500 ml 620 ml OutputOutput Total 1220 ml 1070 ml 800 ml BalanceBalance 1150 ml 430 ml -180 ml Results Results 24hrs Laboratory Tests Test 01/09/19 15:30 01/09/19 18:18 01/09/19 20:51 01/10/19 02:25 White Blood Count 8.7 # Red Blood Count 3.43 L Hemoglobin 9.5 L Hematocrit 30.5 L Mean Corpuscular 88.9 Volume Mean Corpuscular 27.7 L Hemoglobin Mean Corpuscular 31.1 L Hemoglobin Concent Red Cell 17.0 H Distribution Width Platelet Count 129 #L Mean Platelet Volume 8.4 Immature 0.700 H Granulocytes % Neutrophils % 80.1 H Lymphocytes % 12.6 L Monocytes % 5.6 Eosinophils % 0.7 Basophils % 0.3 Nucleated Red Blood 0.0 Cells % Immature 0.060 H Granulocytes # Neutrophils # 7.0 Lymphocytes # 1.1 Monocytes # 0.5 Eosinophils # 0.1 Basophils # 0.0 Nucleated Red Blood 0.0 Cells # Prothrombin Time 13.0 Prothrombin Time 1.0 Ratio INR International 0.97 Normalized Ratio Sodium Level 138 Potassium Level 3.4 L Chloride Level 102 Carbon Dioxide Level 25 Anion Gap 11 Blood Urea Nitrogen 13 Creatinine 0.51 Est Glomerular > 60 Filtrat Rate mL/min Glucose Level 256 H Calcium Level 8.4 Bedside Glucose 324 H 217 167 Test 01/10/19 07:46 01/10/19 08:01 01/10/19 11:21 Bedside Glucose 65 L 84 222 H Medications Medication Current Medications IV Flush (NS 3 ml) 3 ml PER PROTOCOL IV ; Start 01/04/19 at 18:30 Ondansetron HCl (Zofran Inj) 4 mg Q6H PRN IV NAUSEA/VOMITING Last administered on 01/09/19at 13:28; Admin Dose 4 MG; Start 01/04/19 at 18:30 Acetaminophen (Tylenol Tab) 650 mg Q6H PRN PO .PAIN 1-3 OR TEMP; Start 01/04/19 at 18:30 Piperacillin Sod/ Tazobactam Sod 100 ml @ 200 mls/hr Q8 IVPB Last administered on 01/10/19 13:45; Admin Dose 200 MLS/HR; Start 01/04/19 at 22:00 Diagnostic Test (Pha) (Accu-Chek) 1 ea 02 XX Last administered on 01/10/19 02:51; Admin Dose 1 EA; Start 01/05/19 at 02:00 Insulin Aspart (Novolog Insulin Pen) NOVOLOG *MODERATE* ALGORITHM WITH MEALS BEDTIME SC Last administered on 01/10/19 11:23; Admin Dose 6 UNIT; Start 01/04/19 at 21:00 Miscellaneous Information 1 ea NOTE XX ; Start 01/04/19 at 19:00 Glucose (Glutose) 15 gm Q15M PRN PO DECREASED GLUCOSE; Start 01/04/19 at 19:00 Glucose (Glutose) 22.5 gm Q15M PRN PO DECREASED GLUCOSE; Start 01/04/19 at 19:00 Dextrose (D50w Syringe) 25 ml Q15M PRN IV DECREASED GLUCOSE; Start 01/04/19 at 19:00 Dextrose (D50w Syringe) 50 ml Q15M PRN IV DECREASED GLUCOSE; Start 01/04/19 at 19:00 Glucagon (Glucagen) 1 mg Q15M PRN IM DECREASED GLUCOSE; Start 01/04/19 at 19:00 Glucose (Glutose) 15 gm Q15M PRN BUCCAL DECREASED GLUCOSE; Start 01/04/19 at 19:00 Tramadol HCl (Ultram) 50 mg Q6H PRN PO MODERATE PAIN LEVEL 4-6 Last administered on 01/07/19 21:17; Admin Dose 50 MG; Start 01/04/19 at 23:30 Sodium Hypochlorite (Dakin'S (Dilute )) 1 applic DAILY IRR Last administered on 01/10/19 08:40; Admin Dose 1 APPLIC; Start 01/06/19 at 09:00 Lactobacillus Acidophilus/ Rhamnosus (Culturelle) 1 cap BID PO Last administered on 01/10/19 08:31; Admin Dose 1 CAP; Start 01/05/19 at 21:00 Escitalopram Oxalate (Lexapro) 10 mg DAILY PO Last administered on 01/10/19 08:31; Admin Dose 10 MG; Start 01/05/19 at 21:00 Insulin Aspart (Novolog Insulin Pen) 10 unit WITH MEALS SC Last administered on 01/10/19 11:24; Admin Dose 10 UNIT; Start 01/06/19 at 17:55 Insulin Glargine (Lantus) 30 units DAILY@2000 SC Last administered on 01/09/19 20:53; Admin Dose 30 UNITS; Start 01/06/19 at 20:00 Nicotine (Nicoderm 14 Mg/ 24hr) 1 patch DAILY PRN TRANSDERM CONTROL WITHDRAWAL SYMPTOMS; Start 01/06/19 at 12:00 Potassium Chloride (Potassium Chloride Pwd/Soln) 20 meq DAILY PO Last administered on 01/10/19 08:31; Admin Dose 20 MEQ; Start 01/06/19 at 12:30 Ammonium Lactate (Lac-Hydrin 12% Lotion) 1 applic DAILY TOP Last administered on 01/10/19 08:40; Admin Dose 1 APPLIC; Start 01/07/19 at 09:00 Magnesium Oxide (Mag-Ox 400) 400 mg TID PO Last administered on 01/10/19 12:38; Admin Dose 400 MG; Start 01/08/19 at 13:00 Aspirin (Aspirin) 325 mg DAILY PO Last administered on 01/10/19 08:31; Admin Dose 325 MG; Start 01/09/19 at 12:30 Morphine Sulfate (morphine) 2 mg Q2H PRN IV SEVERE PAIN LEVEL 7-10 Last administered on 01/10/19 09:54; Admin Dose 2 MG; Start 01/09/19 at 16:00 Enoxaparin Sodium (Lovenox) 30 mg DAILY SC ; Start 01/10/19 at 10:30 KYLIE STARKEY MD Jan 10, 2019 14:16
[2019-01-10] MEDS: INSULIN GLARGINE [LANTus] (100 UNITS/ML) SYG SC SCH (20:21)
[2019-01-11] VITALS (11 sets, daily range): BP systolic 113–132; BP diastolic 56–68; PULSE 56–77; RESP 16–17
[2019-01-11] MEDS ORDERED: ZOLPIDEM 5 MG TAB PO ONE (01:00)
[2019-01-11] MEDS: ACCU-CHEK XX SCH (02:00)
[2019-01-11] MEDS: PIPER-TAZO 3.375 GM IV (PMX) 100 ML IVPB SCH ×3 (05:45→21:05)
[2019-01-11] MEDS: INSULIN ASPART [NOVOLOG] 3 ML PEN SC SCH ×7 (08:00→21:27)
[2019-01-11] MEDS: LACTOBACILLUS RHAMNOSUS CAP PO SCH ×2 (08:27→21:04)
[2019-01-11] MEDS: POTASSIUM CHLORIDE 20 MEQ POWDER FOR ORAL SOLN PO SCH (08:27)
[2019-01-11] MEDS: ESCITALOPRAM 10 MG TAB PO SCH (08:27)
[2019-01-11] MEDS: MAGNESIUM OXIDE 400 MG TAB PO SCH ×3 (08:28→21:04)
[2019-01-11] MEDS: ASPIRIN 325 MG TAB PO SCH (08:28)
[2019-01-11] MEDS: SODIUM HYPOCHLORITE (1/40) 1 LITER BTL IRR SCH (08:29)
[2019-01-11] MEDS: AMMONIUM LACTATE 12% 225 GM LOT TOP SCH (08:29)
[2019-01-11] MEDS: ENOXAPARIN 30 MG/0.3 ML SYG SC SCH (09:21)
--- NOTE | 2019-01-11 13:56 | CONS ---
Assessment/Plan Assessment/Plan Hospital Course (Demo Recall) ID PROGRESS NOTE CURRENT ABX: DAY # 7 => Zosyn s/p Vanco IV #5 days 01/11/19 0458 01/11/19 0458 24H INTERVAL SUMMARY * POD #2 -> S/P 01/09/19 Left femoral to above-knee popliteal artery bypass using in situ greater saphenous vein. * PRE & POST-OPERATIVE DIAGNOSIS: Left foot nonhealing ulcer. * Currently taking a nap -- pain meds onboard, she was more awake earlier and yesterday * No fevers, VSS, NAD, WBC normal DIAGNOSTIC IMAGING * 01/10/19 CXR: MICRO/OTHER * 01/05/19 RIGHT FOOT WOUND CX (+) * WOUND CULTURE Final Organism 1 CORYNEBACTERIUM SPECIES QUANTITY 1+ Organism 2 STREP AGALACTIAE - (GROUP B) QUANTITY SCANT GROWTH * 01/05/19 LEFT FOOT WOUND CX (+) POLYMICROBIAL PATHOGENS * WOUND CULTURE Final Organism 1 ENTEROBACTER CLOACAE COMPLEX QUANTITY ISOLATED FROM BROTH ONLY Organism 2 ENTEROCOCCUS SPECIES QUANTITY 2+ Organism 3 STREP AGALACTIAE - (GROUP B) QUANTITY 2+ Organism 4 CORYNEBACTERIUM SPECIES QUANTITY 3+ Organism 5 ESCHERICHIA COLI QUANTITY ISOLATED FROM BROTH ONLY * 01/04/19 URINE Cx: Mixed GP * 01/04/19 BCx (-) PHYSICAL EXAMINATION: GENERAL: VSS, NAD, A/A/O HEENT: AT, NC, anicteric, NECK: Supple, R-IJ TLC CHEST: Equal chest rise bilaterally, without dyspnea on observation HEART: Pulse RRR ABDOMEN: Soft / NT : FC w/clear yellow urine EXTREMITIES: Warm, dry = BLE warm, R foot dressed - c/d/i; LLE incisions c/d/i w/ PATRICIO wrap, SKIN: No rash, no diaphoresis ID ASSESSMENT 63 yo F admit with: 1. Bilateral lower extremities chronic wounds with cellulitis 2. Left foot osteomyelitis per MRI 3. Peripheral arterial disease ==> status post abdominal aortogram with right common femoral artery angioplasty 01/07/19 4. Diabetes with diabetic neuropathy 5. Transaminitis (-)MRSA Nares ABX ALLERGIES: KNDA INVASIVES: PIV CURRENT ABX: DAY # 7 => Zosyn s/p Vanco IV #5 days ID RECOMMENDATIONS/PLAN: 1. Continue current ABX -- ID colleague to f/u Saturday Consultation Date/Type/Reason Admit Date/Time Jan 04, 2019 at 17:33 Initial Consult Date Date/Time of Note DATE: 01/11/19 TIME: 13:54 Exam/Review of Systems Exam Vitals Vital Signs Date Temp Pulse Resp B/P (MAP) Pulse Ox O2 O2 Flow FiO2 Time Delivery Rate 01/11/19 62 12:10 01/11/19 97.9 16 116/62 95 11:20 (80) 01/10/19 Room Air 14:17 01/09/19 2.0 14:08 Intake and Output 01/10/19 01/10/19 01/11/19 1414:59 22:59 06:59 IntakeIntake Total 920 ml 450 ml 600 ml OutputOutput Total 525 ml 600 ml 2600 ml BalanceBalance 395 ml -150 ml -2000 ml Results Result Diagram: 01/11/19 0458 01/11/19 0458 Results 24hrs Laboratory Tests Test 01/10/19 17:13 01/10/19 20:10 01/11/19 04:58 01/11/19 07:50 Bedside Glucose 238 H 162 92 White Blood Count 7.5 Red Blood Count 3.15 L Hemoglobin 8.8 L Hematocrit 27.9 L Mean Corpuscular 88.6 Volume Mean Corpuscular 27.9 L Hemoglobin Mean Corpuscular 31.5 L Hemoglobin Concent Red Cell 17.6 H Distribution Width Platelet Count 154 Mean Platelet Volume 9.6 Immature 0.800 H Granulocytes % Neutrophils % 70.7 Lymphocytes % 17.3 Monocytes % 9.9 Eosinophils % 1.2 Basophils % 0.1 Nucleated Red Blood 0.0 Cells % Immature 0.060 H Granulocytes # Neutrophils # 5.3 Lymphocytes # 1.3 Monocytes # 0.7 Eosinophils # 0.1 Basophils # 0.0 Nucleated Red Blood 0.0 Cells # Sodium Level 137 Potassium Level 3.1 L Chloride Level 103 Carbon Dioxide Level 26 Anion Gap 8 Blood Urea Nitrogen 18 Creatinine 0.57 Est Glomerular > 60 Filtrat Rate mL/min Glucose Level 96 # Calcium Level 8.3 L Phosphorus Level 3.0 Magnesium Level 1.9 Test 01/11/19 12:45 Bedside Glucose 135 Medications Medication Current Medications IV Flush (NS 3 ml) 3 ml PER PROTOCOL IV ; Start 01/04/19 at 18:30 Ondansetron HCl (Zofran Inj) 4 mg Q6H PRN IV NAUSEA/VOMITING Last administered on 01/09/19 13:28; Admin Dose 4 MG; Start 01/04/19 at 18:30 Acetaminophen (Tylenol Tab) 650 mg Q6H PRN PO .PAIN 1-3 OR TEMP; Start 01/04/19 at 18:30 Piperacillin Sod/ Tazobactam Sod 100 ml @ 200 mls/hr Q8 IVPB Last administered on 01/11/19 13:31; Admin Dose 200 MLS/HR; Start 01/04/19 at 22:00 Diagnostic Test (Pha) (Accu-Chek) 1 ea 02 XX Last administered on 01/10/19 02:51; Admin Dose 1 EA; Start 01/05/19 at 02:00 Insulin Aspart (Novolog Insulin Pen) NOVOLOG *MODERATE* ALGORITHM WITH MEALS BEDTIME SC Last administered on 01/10/19 17:18; Admin Dose 6 UNIT; Start 01/04/19 at 21:00 Miscellaneous Information 1 ea NOTE XX ; Start 01/04/19 at 19:00 Glucose (Glutose) 15 gm Q15M PRN PO DECREASED GLUCOSE; Start 01/04/19 at 19:00 Glucose (Glutose) 22.5 gm Q15M PRN PO DECREASED GLUCOSE; Start 01/04/19 at 19:00 Dextrose (D50w Syringe) 25 ml Q15M PRN IV DECREASED GLUCOSE; Start 01/04/19 at 19:00 Dextrose (D50w Syringe) 50 ml Q15M PRN IV DECREASED GLUCOSE; Start 01/04/19 at 19:00 Glucagon (Glucagen) 1 mg Q15M PRN IM DECREASED GLUCOSE; Start 01/04/19 at 19:00 Glucose (Glutose) 15 gm Q15M PRN BUCCAL DECREASED GLUCOSE; Start 01/04/19 at 19:00 Tramadol HCl (Ultram) 50 mg Q6H PRN PO MODERATE PAIN LEVEL 4-6 Last administered on 01/07/19 21:17; Admin Dose 50 MG; Start 01/04/19 at 23:30 Sodium Hypochlorite (Dakin'S (Dilute 40)) 1 applic DAILY IRR Last administered on 01/11/19 08:29; Admin Dose 1 APPLIC; Start 01/06/19 at 09:00 Lactobacillus Acidophilus/ Rhamnosus (Culturelle) 1 cap BID PO Last administered on 01/11/19 08:27; Admin Dose 1 CAP; Start 01/05/19 at 21:00 Escitalopram Oxalate (Lexapro) 10 mg DAILY PO Last administered on 01/11/19 08:27; Admin Dose 10 MG; Start 01/05/19 at 21:00 Insulin Aspart (Novolog Insulin Pen) 10 unit WITH MEALS SC Last administered on 01/11/19 13:02; Admin Dose 10 UNIT; Start 01/06/19 at 17:55 Insulin Glargine (Lantus) 30 units DAILY@2000 SC Last administered on 01/10/19 20:21; Admin Dose 30 UNITS; Start 01/06/19 at 20:00 Nicotine (Nicoderm 14 Mg/ 24hr) 1 patch DAILY PRN TRANSDERM CONTROL WITHDRAWAL SYMPTOMS; Start 01/06/19 at 12:00 Potassium Chloride (Potassium Chloride Pwd/Soln) 20 meq DAILY PO Last administered on 01/11/19 08:27; Admin Dose 20 MEQ; Start 01/06/19 at 12:30 Ammonium Lactate (Lac-Hydrin 12% Lotion) 1 applic DAILY TOP Last administered on 01/11/19 08:29; Admin Dose 1 APPLIC; Start 01/07/19 at 09:00 Magnesium Oxide (Mag-Ox 400) 400 mg TID PO Last administered on 01/11/19 13:31; Admin Dose 400 MG; Start 01/08/19 at 13:00 Aspirin (Aspirin) 325 mg DAILY PO Last administered on 01/11/19 08:28; Admin Dose 325 MG; Start 01/09/19 at 12:30 Morphine Sulfate (morphine) 2 mg Q2H PRN IV SEVERE PAIN LEVEL 7-10 Last administered on 01/10/19 19:05; Admin Dose 2 MG; Start 01/09/19 at 16:00 Enoxaparin Sodium (Lovenox) 30 mg DAILY SC Last administered on 01/11/19 09:21; Admin Dose 30 MG; Start 01/10/19 at 10:30 DEBBIE FRANKS NP Jan 11, 2019 13:56
--- NOTE | 2019-01-11 14:08 | PN ---
Date/Time of Note Date/Time of Note DATE: 01/11/19 TIME: 14:06 Assessment/Plan VTE Prophylaxis Risk score (from Nsg)>0 risk: 7 SCD applied (from Ns): No SCD contraindicated: low risk/ambulating, bilateral LE trauma Pharmacological prophylaxis: LMWH Lines/Catheters IV Catheter Type (from Nrsg): Central Line Central line still needed: Yes Urinary Cath still in place: Yes Reason Cath still needed: pres ulcer contaminated by urine, skin wounds contaminated by urine Assessment/Plan Hospital Course Assessment and plan 1. DFI/ ssti, bilat lwr ext; sp local debridement, stable cont wound care 2. Nonadherence, high risk of limb (s) loss. Re-counselled 3. PAD chronic, sp rt lower ext bypass- [facility] ?. mod stable, s/p Angio 01/07; POD 3: Lt Fem-AK pop bypass w in-situ GSV 4. Tobacco abuse sp counseling, offered patch 5. Likely COPD 6. Delirium, presently stable observe 7. 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 MRI noted. Consider debridement /picc. 8. Rt heel/Achilles ulcer, sp debridement, follow-up on cultures 9. Chronic type 2 diabetes A1c 12.9! unfortunately not at goal. Diet indiscretion 10. Ftt, moving around in [facility] transitional facilities? Refuses snf. Difficult to break the cycle. Risk of limb loss discussed. Recommend snf for wound care 11. Left plantar ulcer/fungating lesion, continue serial debridement. 12. Anemia stable observe 13. Hepatitis C? Confirmatory testing pending. 14. Abnormal LFTs possibly #13. Hep C viremia, [place]. Antibiotic/ Zosyn noted. S: 01/05: No distress mild pain. Oriented to 2018. Not oriented to city. No cough or diarrhea. 01/06: Mod pain from her extremities. Foul smelling discharge noted. No chest pain dyspnea. oriented to year and month but not city, although she has been moving around. Appreciate social service assistance. No family/ friends at bedside. Patient is very vague when asked about any details. Possibly due to rapport. States her family is in [place] but has "health issues." States she is in a transitional facility - [facility]? on and off, but previously had surgery maybe at [facility]. Asked her to consider snf but she refuses/ ~worried about long-term care/ loss of independence? Not sure if we can break what seems to be an ongoing cycle of nonadherence. Poor wound healing and her risk factors of smoking and diabetes are worrisome. High risk of limb loss discussed with patient. Not sure if she is a great candidate for any medical therapy but we can attempt and give her options. At this time since she is oriented, she is free to make her decisions whether they are right or wrong. 01/07: Not adherent to dietary/medical therapy. No fever or chest pain dyspnea 01/08: No distress chest pain dyspnea fever. Again not adherent to dietary or activity instructions. updated regarding the npo requirement for surgery. 01/09: Patient in OR 01/10: Urine output good/ patient stable, but not adherent to diet and care instructions 01/11: No distress. Sugars improved today. If debridements have finished potentially may be able to be discharged to sniff with antibiotics soon. O: Vss PE No pallor Regular no m/r/g Clear Benign Minimal pulses/ usual; lle- ankle amputation status; rt foot dressed Result Diagram: 01/11/19 0458 01/11/19 0458 Results 24hrs Laboratory Tests Test 01/10/19 17:13 01/10/19 20:10 01/11/19 04:58 01/11/19 07:50 Bedside Glucose 238 H 162 92 White Blood Count 7.5 Red Blood Count 3.15 L Hemoglobin 8.8 L Hematocrit 27.9 L Mean Corpuscular 88.6 Volume Mean Corpuscular 27.9 L Hemoglobin Mean Corpuscular 31.5 L Hemoglobin Concent Red Cell 17.6 H Distribution Width Platelet Count 154 Mean Platelet Volume 9.6 Immature 0.800 H Granulocytes % Neutrophils % 70.7 Lymphocytes % 17.3 Monocytes % 9.9 Eosinophils % 1.2 Basophils % 0.1 Nucleated Red Blood 0.0 Cells % Immature 0.060 H Granulocytes # Neutrophils # 5.3 Lymphocytes # 1.3 Monocytes # 0.7 Eosinophils # 0.1 Basophils # 0.0 Nucleated Red Blood 0.0 Cells # Sodium Level 137 Potassium Level 3.1 L Chloride Level 103 Carbon Dioxide Level 26 Anion Gap 8 Blood Urea Nitrogen 18 Creatinine 0.57 Est Glomerular > 60 Filtrat Rate mL/min Glucose Level 96 # Calcium Level 8.3 L Phosphorus Level 3.0 Magnesium Level 1.9 Test 01/11/19 12:45 Bedside Glucose 135 Exam/Review of Systems Exam Vitals Vital Signs Date Temp Pulse Resp B/P (MAP) Pulse Ox O2 O2 Flow FiO2 Time Delivery Rate 01/11/19 62 12:10 01/11/19 97.9 16 116/62 95 11:20 (80) 01/10/19 Room Air 14:17 01/09/19 2.0 14:08 Intake and Output 01/10/19 01/10/19 01/11/19 1515:00 23:00 07:00 IntakeIntake Total 800 ml 450 ml 600 ml OutputOutput Total 465 ml 600 ml 2600 ml BalanceBalance 335 ml -150 ml -2000 ml Results Results 24hrs Laboratory Tests Test 01/10/19 17:13 01/10/19 20:10 01/11/19 04:58 01/11/19 07:50 Bedside Glucose 238 H 162 92 White Blood Count 7.5 Red Blood Count 3.15 L Hemoglobin 8.8 L Hematocrit 27.9 L Mean Corpuscular 88.6 Volume Mean Corpuscular 27.9 L Hemoglobin Mean Corpuscular 31.5 L Hemoglobin Concent Red Cell 17.6 H Distribution Width Platelet Count 154 Mean Platelet Volume 9.6 Immature 0.800 H Granulocytes % Neutrophils % 70.7 Lymphocytes % 17.3 Monocytes % 9.9 Eosinophils % 1.2 Basophils % 0.1 Nucleated Red Blood 0.0 Cells % Immature 0.060 H Granulocytes # Neutrophils # 5.3 Lymphocytes # 1.3 Monocytes # 0.7 Eosinophils # 0.1 Basophils # 0.0 Nucleated Red Blood 0.0 Cells # Sodium Level 137 Potassium Level 3.1 L Chloride Level 103 Carbon Dioxide Level 26 Anion Gap 8 Blood Urea Nitrogen 18 Creatinine 0.57 Est Glomerular > 60 Filtrat Rate mL/min Glucose Level 96 # Calcium Level 8.3 L Phosphorus Level 3.0 Magnesium Level 1.9 Test 01/11/19 12:45 Bedside Glucose 135 Medications Medication Current Medications IV Flush (NS 3 ml) 3 ml PER PROTOCOL IV ; Start 01/04/19 at 18:30 Ondansetron HCl (Zofran Inj) 4 mg Q6H PRN IV NAUSEA/VOMITING Last administered on 01/09/19at 13:28; Admin Dose 4 MG; Start 01/04/19 at 18:30 Acetaminophen (Tylenol Tab) 650 mg Q6H PRN PO .PAIN 1-3 OR TEMP; Start 01/04/19 at 18:30 Piperacillin Sod/ Tazobactam Sod 100 ml @ 200 mls/hr Q8 IVPB Last administered on 01/11/19 13:31; Admin Dose 200 MLS/HR; Start 01/04/19 at 22:00 Diagnostic Test (Pha) (Accu-Chek) 1 ea 02 XX Last administered on 01/10/19at 02:51; Admin Dose 1 EA; Start 01/05/19 at 02:00 Insulin Aspart (Novolog Insulin Pen) NOVOLOG *MODERATE* ALGORITHM WITH MEALS BEDTIME SC Last administered on 01/10/19 17:18; Admin Dose 6 UNIT; Start 01/04/19 at 21:00 Miscellaneous Information 1 ea NOTE XX ; Start 01/04/19 at 19:00 Glucose (Glutose) 15 gm Q15M PRN PO DECREASED GLUCOSE; Start 01/04/19 at 19:00 Glucose (Glutose) 22.5 gm Q15M PRN PO DECREASED GLUCOSE; Start 01/04/19 at 19:00 Dextrose (D50w Syringe) 25 ml Q15M PRN IV DECREASED GLUCOSE; Start 01/04/19 at 19:00 Dextrose (D50w Syringe) 50 ml Q15M PRN IV DECREASED GLUCOSE; Start 01/04/19 at 19:00 Glucagon (Glucagen) 1 mg Q15M PRN IM DECREASED GLUCOSE; Start 01/04/19 at 19:00 Glucose (Glutose) 15 gm Q15M PRN BUCCAL DECREASED GLUCOSE; Start 01/04/19 at 19:00 Tramadol HCl (Ultram) 50 mg Q6H PRN PO MODERATE PAIN LEVEL 4-6 Last administered on 01/07/19at 21:17; Admin Dose 50 MG; Start 01/04/19 at 23:30 Sodium Hypochlorite (Dakin'S (Dilute )) 1 applic DAILY IRR Last administered on 01/11/19at 08:29; Admin Dose 1 APPLIC; Start 01/06/19 at 09:00 Lactobacillus Acidophilus/ Rhamnosus (Culturelle) 1 cap BID PO Last administered on 01/11/19at 08:27; Admin Dose 1 CAP; Start 01/05/19 at 21:00 Escitalopram Oxalate (Lexapro) 10 mg DAILY PO Last administered on 01/11/19 08:27; Admin Dose 10 MG; Start 01/05/19 at 21:00 Insulin Aspart (Novolog Insulin Pen) 10 unit WITH MEALS SC Last administered on 01/11/19 13:02; Admin Dose 10 UNIT; Start 01/06/19 at 17:55 Insulin Glargine (Lantus) 30 units DAILY@2000 SC Last administered on 01/10/19 20:21; Admin Dose 30 UNITS; Start 01/06/19 at 20:00 Nicotine (Nicoderm 14 Mg/ 24hr) 1 patch DAILY PRN TRANSDERM CONTROL WITHDRAWAL SYMPTOMS; Start 01/06/19 at 12:00 Potassium Chloride (Potassium Chloride Pwd/Soln) 20 meq DAILY PO Last administered on 01/11/19 08:27; Admin Dose 20 MEQ; Start 01/06/19 at 12:30 Ammonium Lactate (Lac-Hydrin 12% Lotion) 1 applic DAILY TOP Last administered on 01/11/19 08:29; Admin Dose 1 APPLIC; Start 01/07/19 at 09:00 Magnesium Oxide (Mag-Ox 400) 400 mg TID PO Last administered on 01/11/19 13:31; Admin Dose 400 MG; Start 01/08/19 at 13:00 Aspirin (Aspirin) 325 mg DAILY PO Last administered on 01/11/19 08:28; Admin Dose 325 MG; Start 01/09/19 at 12:30 Morphine Sulfate (morphine) 2 mg Q2H PRN IV SEVERE PAIN LEVEL 7-10 Last administered on 01/10/19 19:05; Admin Dose 2 MG; Start 01/09/19 at 16:00 Enoxaparin Sodium (Lovenox) 30 mg DAILY SC Last administered on 01/11/19 09:21; Admin Dose 30 MG; Start 01/10/19 at 10:30 KYLIE STARKEY MD Jan 11, 2019 14:08
[2019-01-11] MEDS: morphine 2 MG INJ IV PRN ×2 (14:42→21:05)
[2019-01-11] MEDS: INSULIN GLARGINE [LANTus] (100 UNITS/ML) SYG SC SCH (21:28)
[2019-01-12] VITALS (12 sets, daily range): BP systolic 96–128; BP diastolic 52–71; PULSE 58–71; RESP 16–18
[2019-01-12] MEDS: ACCU-CHEK XX SCH (02:25)
[2019-01-12] MEDS: morphine 2 MG INJ IV PRN ×3 (02:29→19:38)
[2019-01-12] MEDS: PIPER-TAZO 3.375 GM IV (PMX) 100 ML IVPB SCH ×3 (06:04→21:06)
[2019-01-12] MEDS: INSULIN ASPART [NOVOLOG] 3 ML PEN SC SCH ×7 (07:58→20:17)
[2019-01-12] MEDS: AMMONIUM LACTATE 12% 225 GM LOT TOP SCH (08:43)
[2019-01-12] MEDS: ASPIRIN 325 MG TAB PO SCH (08:43)
[2019-01-12] MEDS: ESCITALOPRAM 10 MG TAB PO SCH (08:43)
[2019-01-12] MEDS: MAGNESIUM OXIDE 400 MG TAB PO SCH ×3 (08:43→20:09)
[2019-01-12] MEDS: SODIUM HYPOCHLORITE (1/40) 1 LITER BTL IRR SCH (08:43)
[2019-01-12] MEDS: POTASSIUM CHLORIDE 20 MEQ POWDER FOR ORAL SOLN PO SCH (08:43)
[2019-01-12] MEDS: LACTOBACILLUS RHAMNOSUS CAP PO SCH ×2 (08:43→20:09)
[2019-01-12] MEDS: ENOXAPARIN 30 MG/0.3 ML SYG SC SCH (08:53)
--- NOTE | 2019-01-12 10:19 | PN ---
Date/Time of Note Date/Time of Note DATE: 01/12/19 TIME: 10:14 Assessment/Plan Lines/Catheters IV Catheter Type (from Nrsg): Peripheral IV [place] in Place (from Nrsg): Yes Assessment/Plan Assessment/Plan Doing well s/p L fem-pop and R [employer] angioplasty, feet well perfused - Wound care / debridement per Dr. Tejada - OK for SNF transfer from my standpoint - will need f/u appt at [facility] next week for staple removal if discharged Subjective 24 Hr Interval Summary No c/o. No pain. Exam/Review of Systems Vital Signs Vitals Vital Signs Date Temp Pulse Resp B/P (MAP) Pulse Ox O2 O2 Flow FiO2 Time Delivery Rate 01/12/19 68 08:00 01/12/19 98.1 18 110/57 97 Room Air 07:10 (74) 01/09/19 2.0 14:08 Intake and Output 01/11/19 01/11/19 01/12/19 1515:00 23:00 07:00 IntakeIntake Total 1400 ml 500 ml OutputOutput Total 1800 ml 1800 ml BalanceBalance -400 ml -1300 ml Exam Free Text/Dictation R foot warm, 2+ DP pulse, Achilles wound is clean and granulating L leg incisions CDI, no bleeding or hematoma, L foot is warm and hyperemic Results Result Diagram: 01/12/19 0545 01/12/19 0545 SAVANNAH CAROLINA MD Jan 12, 2019 10:19
--- NOTE | 2019-01-12 14:24 | CONS ---
Assessment/Plan Assessment/Plan Hospital Course (Demo Recall) Awake, looks comfortable, no fevers Microbiology: Cultures of the wound growing Enterobacter cloaca, enterococcus species, Corynebacterium species and strep galactorrhea Antimicrobials: Zosyn Physical examination: Well-developed chronically ill-appearing elderly woman who is in no distress. Head atraumatic normocephalic neck is supple chest rise symmetrical breath sounds clear. Heart: S1-S2. Abdomen soft, bowel sounds present. Extremities with bilateral lower extremities dressing intact Assessment: 1. Bilateral lower extremities chronic wounds 2. Left foot osteomyelitis 3. Peripheral arterial disease ==> status post abdominal aortogram with right common femoral artery angioplasty 01/07/19 4. Diabetes with diabetic neuropathy 5. Transaminitis Plan: Stable, continue abx, s/p left femoral to above-knee popliteal artery bypass using in situ greater saphenous vein 01/09/19, will follow podiatry and vascular surgery recommendations Consultation Date/Type/Reason Admit Date/Time Jan 04, 2019 at 17:33 Initial Consult Date Type of Consult id Date/Time of Note DATE: 01/12/19 TIME: 14:22 Exam/Review of Systems Exam Vitals Vital Signs Date Temp Pulse Resp B/P (MAP) Pulse Ox O2 O2 Flow FiO2 Time Delivery Rate 01/12/19 60 12:00 01/12/19 98.7 16 128/59 98 Room Air 11:26 (82) 01/09/19 2.0 14:08 Intake and Output 01/11/19 01/11/19 01/12/19 1414:59 22:59 06:59 IntakeIntake Total 1400 ml 500 ml OutputOutput Total 1800 ml 1800 ml BalanceBalance -400 ml -1300 ml Results Result Diagram: 01/12/19 0545 01/12/19 0545 Results 24hrs Laboratory Tests Test 01/11/19 17:23 01/11/19 21:04 01/12/19 02:24 01/12/19 05:45 Bedside Glucose 215 190 204 White Blood Count 6.7 Red Blood Count 3.14 L Hemoglobin 8.7 L Hematocrit 27.9 L Mean Corpuscular 88.9 Volume Mean Corpuscular 27.7 L Hemoglobin Mean Corpuscular 31.2 L Hemoglobin Concent Red Cell 17.9 H Distribution Width Platelet Count 170 Mean Platelet Volume 9.3 Immature 0.800 H Granulocytes % Neutrophils % Segmented 76 Neutrophils % (Manual) Band Neutrophils % 1 (Manual) Lymphocytes % Lymphocytes % 19 (Manual) Monocytes % Monocytes % (Manual) 4 Eosinophils % Basophils % Nucleated Red Blood 0.0 Cells % Immature 0.050 H Granulocytes # Neutrophils # Neutrophils # 5.1 (Manual) Band Neutrophils # 0.0 Lymphocytes (Manual) 1.2 Lymphocytes # Monocytes # Monocytes # (Manual) 0.2 L Eosinophils # Basophils # Nucleated Red Blood Cells # Platelet Estimate NORMAL Polychromasia 2+ Anisocytosis 1+ Microcytosis 1+ Ovalocytes 1+ Sodium Level 137 Potassium Level 3.3 L Chloride Level 103 Carbon Dioxide Level 28 Anion Gap 6 Blood Urea Nitrogen 17 Creatinine 0.54 Est Glomerular > 60 Filtrat Rate mL/min Glucose Level 135 Calcium Level 8.3 L Test 01/12/19 07:57 01/12/19 11:06 01/12/19 11:48 Bedside Glucose 131 165 Lab Scanned Report REFERENCE LAB Medications Medication Current Medications IV Flush (NS 3 ml) 3 ml PER PROTOCOL IV ; Start 01/04/19 at 18:30 Ondansetron HCl (Zofran Inj) 4 mg Q6H PRN IV NAUSEA/VOMITING Last administered on 01/09/19at 13:28; Admin Dose 4 MG; Start 01/04/19 at 18:30 Acetaminophen (Tylenol Tab) 650 mg Q6H PRN PO .PAIN 1-3 OR TEMP; Start 01/04/19 at 18:30 Piperacillin Sod/ Tazobactam Sod 100 ml @ 200 mls/hr Q8 IVPB Last administered on 01/12/19at 06:04; Admin Dose 200 MLS/HR; Start 01/04/19 at 22:00 Diagnostic Test (Pha) (Accu-Chek) 1 ea 02 XX Last administered on 01/12/19at 02:25; Admin Dose 1 EA; Start 01/05/19 at 02:00 Insulin Aspart (Novolog Insulin Pen) NOVOLOG *MODERATE* ALGORITHM WITH MEALS BEDTIME SC Last administered on 01/12/19at 11:50; Admin Dose 2 UNIT; Start 01/04/19 at 21:00 Miscellaneous Information 1 ea NOTE XX ; Start 01/04/19 at 19:00 Glucose (Glutose) 15 gm Q15M PRN PO DECREASED GLUCOSE; Start 01/04/19 at 19:00 Glucose (Glutose) 22.5 gm Q15M PRN PO DECREASED GLUCOSE; Start 01/04/19 at 19:00 Dextrose (D50w Syringe) 25 ml Q15M PRN IV DECREASED GLUCOSE; Start 01/04/19 at 19:00 Dextrose (D50w Syringe) 50 ml Q15M PRN IV DECREASED GLUCOSE; Start 01/04/19 at 19:00 Glucagon (Glucagen) 1 mg Q15M PRN IM DECREASED GLUCOSE; Start 01/04/19 at 19:00 Glucose (Glutose) 15 gm Q15M PRN BUCCAL DECREASED GLUCOSE; Start 01/04/19 at 19:00 Tramadol HCl (Ultram) 50 mg Q6H PRN PO MODERATE PAIN LEVEL 4-6 Last administered on 01/07/19 21:17; Admin Dose 50 MG; Start 01/04/19 at 23:30 Sodium Hypochlorite (Dakin'S (Dilute )) 1 applic DAILY IRR Last administered on 01/12/19 08:43; Admin Dose 1 APPLIC; Start 01/06/19 at 09:00 Lactobacillus Acidophilus/ Rhamnosus (Culturelle) 1 cap BID PO Last adm inistered on 01/12/19 08:43; Admin Dose 1 CAP; Start 01/05/19 at 21:00 Escitalopram Oxalate (Lexapro) 10 mg DAILY PO Last administered on 01/12/19 08:43; Admin Dose 10 MG; Start 01/05/19 at 21:00 Insulin Aspart (Novolog Insulin Pen) 10 unit WITH MEALS SC Last administered on 01/12/19at 11:50; Admin Dose 10 UNIT; Start 01/06/19 at 17:55 Insulin Glargine (Lantus) 30 units DAILY@2000 SC Last administered on 01/11/19 21:28; Admin Dose 30 UNITS; Start 01/06/19 at 20:00 Nicotine (Nicoderm 14 Mg/ 24hr) 1 patch DAILY PRN TRANSDERM CONTROL WITHDRAWAL SYMPTOMS; Start 01/06/19 at 12:00 Ammonium Lactate (Lac-Hydrin 12% Lotion) 1 applic DAILY TOP Last administered on 01/12/19 08:43; Admin Dose 1 APPLIC; Start 01/07/19 at 09:00 Magnesium Oxide (Mag-Ox 400) 400 mg TID PO Last administered on 01/12/19 08:43; Admin Dose 400 MG; Start 01/08/19 at 13:00 Aspirin (Aspirin) 325 mg DAILY PO Last administered on 01/12/19 08:43; Admin Dose 325 MG; Start 01/09/19 at 12:30 Morphine Sulfate (morphine) 2 mg Q2H PRN IV SEVERE PAIN LEVEL 7-10 Last administered on 01/12/19 11:43; Admin Dose 2 MG; Start 01/09/19 at 16:00 Enoxaparin Sodium (Lovenox) 30 mg DAILY SC Last administered on 01/12/19 08:53; Admin Dose 30 MG; Start 01/10/19 at 10:30 Potassium Chloride (Potassium Chloride Pwd/Soln) 40 meq DAILY PO Last administered on 01/12/19 08:43; Admin Dose 40 MEQ; Start 01/12/19 at 09:00 KENZIE AMBROCIO NP Jan 12, 2019 14:24
--- NOTE | 2019-01-12 14:31 | CONS ---
Assessment/Plan Assessment/Plan Assessment/Plan (Daily) bilateral diabetic ulcerations lower extremity Localized cellulitis - R foot improving Concern for osteomyelitis left foot DM2 with peripheral neuropathy PAD -s/p bypass Plan: Patient refused right ankle MRI, reviewed images for left foot and there are signs of osteomyelitis to the calcaneal region. Wound Cx showing polymicrobial results. Reviewed non invasive studies and appreciate vascular input. Patient had previous bypass procedure by vascular surgery. Patient will likely need PICC line IV abx and appreciate ID recommendations. Patient planned for OR debridement tomorrow morning. NPO after midnight tonight and consent prepared. Will adjust dressing changes after debridement, continue to offload heels with pillows. Consultation Date/Type/Reason Admit Date/Time Jan 04, 2019 at 17:33 Initial Consult Date Date/Time of Note DATE: 01/12/19 TIME: 14:31 24 HR Interval Summary Free Text/Dictation No acute events overnight. Exam/Review of Systems Exam Vitals Vital Signs Date Temp Pulse Resp B/P (MAP) Pulse Ox O2 O2 Flow FiO2 Time Delivery Rate 01/12/19 60 12:00 01/12/19 98.7 16 128/59 98 Room Air 11:26 (82) 01/09/19 2.0 14:08 Intake and Output 01/11/19 01/11/19 01/12/19 1515:00 23:00 07:00 IntakeIntake Total 1400 ml 500 ml OutputOutput Total 1800 ml 1800 ml BalanceBalance -400 ml -1300 ml Exam Unable to palpate DP/PT and popliteal pulses Skin temperature gradient warm to warm Absent protective sensations Left proximal foot amputation site appreciated Right Posterior Achilles ulceration site fibrogranular wound base does not probe to bone and no tendon sheath exposed measured 3 x 3 x 0.3cm Left plantar foot ulceration site with surrounding hyperkeratotic tissue foul odor and mixed fibrogranular wound with seropurulent drainage appreciated. Measures 5 x 4 x 0.4cm, wound probes to bone Sanguinous drainage noted with debridement Right lower extremity surgical site noted corresponding with a vascular bypass procedure Right proximal anterior leg dry granular wound site 0.5 x 0.2 x 0.1cm no drainage no probing No proximal streaking appreciated, localized erythema to the right foot noted. There is a dried callus hematoma site to the right heel Right X-ray IMPRESSION: Osteopenia. No evidence of osteomyelitis. L ankle MRI IMPRESSION: 1. Plantar soft tissue ulceration at the level of the anterior calcaneal margin and findings of cellulitis. 2. Evidence of early osteomyelitis at the anterior inferior calcaneal margin underlying the ulceration. Abnormal bone marrow signal at the navicular seen, early osteomyelitis in this region cannot be excluded. 3. Small, thin focal area of subcutaneous hyperintensity superficial to the me dial navicular, which could represent adventitial bursitis versus less likely a small phlegmonous collection. L ankle X-ray IMPRESSION: Question of erosive changes at the anterior inferior calcaneus. Consider MRI if there is concern for osteomyelitis. Non invasive arterial studies IMPRESSION: 1. Diffuse monophasic waveforms in the right lower extremity may be secondary to less severe inflow stenosis in the right iliac arteries. 2. Patent right common femoral artery to popliteal artery bypass graft. 3. Proximally occluded left superficial femoral artery with collateral flow to the distal superficial femoral artery. Consider follow-up imaging with CT angiogram or MR angiogram of the aorta with bilateral lower extremity run off to better characterize. Results Result Diagram: 01/12/19 0545 01/12/19 0545 Results 24hrs Laboratory Tests Test 01/11/19 17:23 01/11/19 21:04 01/12/19 02:24 01/12/19 05:45 Bedside Glucose 215 190 204 White Blood Count 6.7 Red Blood Count 3.14 L Hemoglobin 8.7 L Hematocrit 27.9 L Mean Corpuscular 88.9 Volume Mean Corpuscular 27.7 L Hemoglobin Mean Corpuscular 31.2 L Hemoglobin Concent Red Cell 17.9 H Distribution Width Platelet Count 170 Mean Platelet Volume 9.3 Immature 0.800 H Granulocytes % Neutrophils % Segmented 76 Neutrophils % (Manual) Band Neutrophils % 1 (Manual) Lymphocytes % Lymphocytes % 19 (Manual) Monocytes % Monocytes % (Manual) 4 Eosinophils % Basophils % Nucleated Red Blood 0.0 Cells % Immature 0.050 H Granulocytes # Neutrophils # Neutrophils # 5.1 (Manual) Band Neutrophils # 0.0 Lymphocytes (Manual) 1.2 Lymphocytes # Monocytes # Monocytes # (Manual) 0.2 L Eosinophils # Basophils # Nucleated Red Blood Cells # Platelet Estimate NORMAL Polychromasia 2+ Anisocytosis 1+ Microcytosis 1+ Ovalocytes 1+ Sodium Level 137 Potassium Level 3.3 L Chloride Level 103 Carbon Dioxide Level 28 Anion Gap 6 Blood Urea Nitrogen 17 Creatinine 0.54 Est Glomerular > 60 Filtrat Rate mL/min Glucose Level 135 Calcium Level 8.3 L Test 01/12/19 07:57 01/12/19 11:06 01/12/19 11:48 Bedside Glucose 131 165 Lab Scanned Report REFERENCE LAB Medications Medication Current Medications IV Flush (NS 3 ml) 3 ml PER PROTOCOL IV ; Start 01/04/19 at 18:30 Ondansetron HCl (Zofran Inj) 4 mg Q6H PRN IV NAUSEA/VOMITING Last administered on 01/09/19at 13:28; Admin Dose 4 MG; Start 01/04/19 at 18:30 Acetaminophen (Tylenol Tab) 650 mg Q6H PRN PO .PAIN 1-3 OR TEMP; Start 01/04/19 at 18:30 Piperacillin Sod/ Tazobactam Sod 100 ml @ 200 mls/hr Q8 IVPB Last administered on 01/12/19at 06:04; Admin Dose 200 MLS/HR; Start 01/04/19 at 22:00 Diagnostic Test (Pha) (Accu-Chek) 1 ea 02 XX Last administered on 01/12/19at 02:25; Admin Dose 1 EA; Start 01/05/19 at 02:00 Insulin Aspart (Novolog Insulin Pen) NOVOLOG *MODERATE* ALGORITHM WITH MEALS BEDTIME SC Last administered on 01/12/19at 11:50; Admin Dose 2 UNIT; Start 01/04/19 at 21:00 Miscellaneous Information 1 ea NOTE XX ; Start 01/04/19 at 19:00 Glucose (Glutose) 15 gm Q15M PRN PO DECREASED GLUCOSE; Start 01/04/19 at 19:00 Glucose (Glutose) 22.5 gm Q15M PRN PO DECREASED GLUCOSE; Start 01/04/19 at 19:00 Dextrose (D50w Syringe) 25 ml Q15M PRN IV DECREASED GLUCOSE; Start 01/04/19 at 19:00 Dextrose (D50w Syringe) 50 ml Q15M PRN IV DECREASED GLUCOSE; Start 01/04/19 at 19:00 Glucagon (Glucagen) 1 mg Q15M PRN IM DECREASED GLUCOSE; Start 01/04/19 at 19:00 Glucose (Glutose) 15 gm Q15M PRN BUCCAL DECREASED GLUCOSE; Start 01/04/19 at 19:00 Tramadol HCl (Ultram) 50 mg Q6H PRN PO MODERATE PAIN LEVEL 4-6 Last administered on 01/07/19 21:17; Admin Dose 50 MG; Start 01/04/19 at 23:30 Sodium Hypochlorite (Dakin'S (Dilute )) 1 applic DAILY IRR Last administered on 01/12/19 08:43; Admin Dose 1 APPLIC; Start 01/06/19 at 09:00 Lactobacillus Acidophilus/ Rhamnosus (Culturelle) 1 cap BID PO Last administered on 01/12/19 08:43; Admin Dose 1 CAP; Start 01/05/19 at 21:00 Escitalopram Oxalate (Lexapro) 10 mg DAILY PO Last administered on 01/12/19 08:43; Admin Dose 10 MG; Start 01/05/19 at 21:00 Insulin Aspart (Novolog Insulin Pen) 10 unit WITH MEALS SC Last administered on 01/12/19 11:50; Admin Dose 10 UNIT; Start 01/06/19 at 17:55 Insulin Glargine (Lantus) 30 units DAILY@2000 SC Last administered on 01/11/19 21:28; Admin Dose 30 UNITS; Start 01/06/19 at 20:00 Nicotine (Nicoderm 14 Mg/ 24hr) 1 patch DAILY PRN TRANSDERM CONTROL WITHDRAWAL SYMPTOMS; Start 01/06/19 at 12:00 Ammonium Lactate (Lac-Hydrin 12% Lotion) 1 applic DAILY TOP Last administered on 01/12/19 08:43; Admin Dose 1 APPLIC; Start 01/07/19 at 09:00 Magnesium Oxide (Mag-Ox 400) 400 mg TID PO Last administered on 01/12/19 08:43; Admin Dose 400 MG; Start 01/08/19 at 13:00 Aspirin (Aspirin) 325 mg DAILY PO Last administered on 01/12/19 08:43; Admin Dose 325 MG; Start 01/09/19 at 12:30 Morphine Sulfate (morphine) 2 mg Q2H PRN IV SEVERE PAIN LEVEL 7-10 Last administered on 01/12/19 11:43; Admin Dose 2 MG; Start 01/09/19 at 16:00 Enoxaparin Sodium (Lovenox) 30 mg DAILY SC Last administered on 01/12/19 08:53; Admin Dose 30 MG; Start 01/10/19 at 10:30 Potassium Chloride (Potassium Chloride Pwd/Soln) 40 meq DAILY PO Last administered on 01/12/19at 08:43; Admin Dose 40 MEQ; Start 01/12/19 at 09:00 QASIM CHAPA DPM Jan 12, 2019 14:31
--- NOTE | 2019-01-12 15:59 | PN ---
Date/Time of Note Date/Time of Note DATE: 01/12/19 TIME: 15:59 Assessment/Plan VTE Prophylaxis Risk score (from Nsg)>0 risk: 5 SCD applied (from Ns): No SCD contraindicated: other Pharmacological prophylaxis: LMWH Lines/Catheters IV Catheter Type (from Nrsg): Peripheral IV Urinary Cath still in place: Yes Reason Cath still needed: other (indicate) Assessment/Plan Hospital Course SUBJECTIVE: Denies any pain in bilateral lower extremities. OBJECTIVE: Physical Exam General: Adequately build 63 year-old female lying in bed in no apparent distress. HEENT: Normocephalic, atraumatic. Eyes: Anicteric sclerae, conjunctivae clear. ENT: Nasal septum midline, oral mucosa moist. Neck supple, no JVD noticed. Respiratory: Bilaterally clear breath sounds. No use of accessory muscles of respiration. No adventitious breath sounds. Cardiovascular: S1, S2 heard. Regular rate and rhythm. Abdomen: Soft, nontender, and nondistended. Bowel sounds positive in all 4 quadrants. Genitourinary: Deferred. Extremities: No cyanosis, no clubbing. Left foot status post transmetatarsal amputation. Left heel wound dressing. Right foot wound dressing. Neurologic: Cranial nerves II through XII grossly intact. The patient is awake, alert, and oriented. Labs & Vitals per chart ASSESSMENT & PLAN 63-year-old female with comorbidities including diabetes mellitus and chronic bilateral lower extremity wounds. The patient was brought into the emergency room by her significant other because of hyperglycemia and chronic wounds. The patient was noticed to have a blood sugar of 579 in the emergency room. The pa tient also had underlying transaminitis without hyperbilirubinemia. The patient's x-ray of the left foot was showing erosive changes in the anterior calcaneus amputation site, possibly representing osteomyelitis. The patient's right ankle x-ray was showing osteopenia with no evidence of osteomyelitis. The patient was transferred to inpatient setting for further treatment and evaluation. 1. Diabetes mellitus. -Uncontrolled. -Hemoglobin A1c 12.6. -Continue sliding scale insulin along with basal insulin and pre-meal insulin. 2. Nonhealing left foot ulcer. -Status post left femoral to above-knee popliteal artery bypass using in situ greater saphenous vein on 01/09/2019. 3. Possible left foot osteomyelitis in the calcaneum. -Patient refusing MRI. -Continue antimicrobials as per ID. 4. Right foot diabetic foot ulcer. -Wound culture positive for Corynebacterium species and Strep agalactiae. -Continue antimicrobials as per ID. 5. Left foot diabetic ulcer. -Wound culture positive for polymicrobials. -Continue antimicrobials as per ID. 6. Nicotine use. -Continue nicotine patch. 7. Fluids, electrolytes, and nutrition. -Carbohydrate controlled diet. 8. DVT prophylaxis. -Subcutaneous Lovenox. 9. Plan. -Continue antimicrobials as per ID. -Plan for further debridement of the left foot on 01/13/2019 by podiatry. -Transfer the patient to Med/Surg. The patient was seen in collaboration with Dr. Young. Result Diagram: 01/12/19 0545 01/12/19 0545 Results 24hrs Laboratory Tests Test 01/11/19 17:23 01/11/19 21:04 01/12/19 02:24 01/12/19 05:45 Bedside Glucose 215 190 204 White Blood Count 6.7 Red Blood Count 3.14 L Hemoglobin 8.7 L Hematocrit 27.9 L Mean Corpuscular 88.9 Volume Mean Corpuscular 27.7 L Hemoglobin Mean Corpuscular 31.2 L Hemoglobin Concent Red Cell 17.9 H Distribution Width Platelet Count 170 Mean Platelet Volume 9.3 Immature 0.800 H Granulocytes % Neutrophils % Segmented 76 Neutrophils % (Manual) Band Neutrophils % 1 (Manual) Lymphocytes % Lymphocytes % 19 (Manual) Monocytes % Monocytes % (Manual) 4 Eosinophils % Basophils % Nucleated Red Blood 0.0 Cells % Immature 0.050 H Granulocytes # Neutrophils # Neutrophils # 5.1 (Manual) Band Neutrophils # 0.0 Lymphocytes (Manual) 1.2 Lymphocytes # Monocytes # Monocytes # (Manual) 0.2 L Eosinophils # Basophils # Nucleated Red Blood Cells # Platelet Estimate NORMAL Polychromasia 2+ Anisocytosis 1+ Microcytosis 1+ Ovalocytes 1+ Sodium Level 137 Potassium Level 3.3 L Chloride Level 103 Carbon Dioxide Level 28 Anion Gap 6 Blood Urea Nitrogen 17 Creatinine 0.54 Est Glomerular > 60 Filtrat Rate mL/min Glucose Level 135 Calcium Level 8.3 L Test 01/12/19 07:57 01/12/19 11:06 01/12/19 11:48 Bedside Glucose 131 165 Lab Scanned Report REFERENCE LAB Exam/Review of Systems Exam Vitals Vital Signs Date Temp Pulse Resp B/P (MAP) Pulse Ox O2 O2 Flow FiO2 Time Delivery Rate 01/12/19 98.2 58 18 112/58 98 Room Air 15:05 (76) 01/09/19 2.0 14:08 Intake and Output 01/11/19 01/11/19 01/12/19 1515:00 23:00 07:00 IntakeIntake Total 1400 ml 500 ml OutputOutput Total 1800 ml 1800 ml BalanceBalance -400 ml -1300 ml Results Results 24hrs Laboratory Tests Test 01/11/19 17:23 01/11/19 21:04 01/12/19 02:24 01/12/19 05:45 Bedside Glucose 215 190 204 White Blood Count 6.7 Red Blood Count 3.14 L Hemoglobin 8.7 L Hematocrit 27.9 L Mean Corpuscular 88.9 Volume Mean Corpuscular 27.7 L Hemoglobin Mean Corpuscular 31.2 L Hemoglobin Concent Red Cell 17.9 H Distribution Width Platelet Count 170 Mean Platelet Volume 9.3 Immature 0.800 H Granulocytes % Neutrophils % Segmented 76 Neutrophils % (Manual) Band Neutrophils % 1 (Manual) Lymphocytes % Lymphocytes % 19 (Manual) Monocytes % Monocytes % (Manual) 4 Eosinophils % Basophils % Nucleated Red Blood 0.0 Cells % Immature 0.050 H Granulocytes # Neutrophils # Neutrophils # 5.1 (Manual) Band Neutrophils # 0.0 Lymphocytes (Manual) 1.2 Lymphocytes # Monocytes # Monocytes # (Manual) 0.2 L Eosinophils # Basophils # Nucleated Red Blood Cells # Platelet Estimate NORMAL Polychromasia 2+ Anisocytosis 1+ Microcytosis 1+ Ovalocytes 1+ Sodium Level 137 Potassium Level 3.3 L Chloride Level 103 Carbon Dioxide Level 28 Anion Gap 6 Blood Urea Nitrogen 17 Creatinine 0.54 Est Glomerular > 60 Filtrat Rate mL/min Glucose Level 135 Calcium Level 8.3 L Test 01/12/19 07:57 01/12/19 11:06 01/12/19 11:48 Bedside Glucose 131 165 Lab Scanned Report REFERENCE LAB Medications Medication Current Medications IV Flush (NS 3 ml) 3 ml PER PROTOCOL IV ; Start 01/04/19 at 18:30 Ondansetron HCl (Zofran Inj) 4 mg Q6H PRN IV NAUSEA/VOMITING Last administered on 01/09/19at 13:28; Admin Dose 4 MG; Start 01/04/19 at 18:30 Acetaminophen (Tylenol Tab) 650 mg Q6H PRN PO .PAIN 1-3 OR TEMP; Start 01/04/19 at 18:30 Piperacillin Sod/ Tazobactam Sod 100 ml @ 200 mls/hr Q8 IVPB Last administered on 01/12/19at 15:17; Admin Dose 200 MLS/HR; Start 01/04/19 at 22:00 Diagnostic Test (Pha) (Accu-Chek) 1 ea 02 XX Last administered on 01/12/19at 02:25; Admin Dose 1 EA; Start 01/05/19 at 02:00 Insulin Aspart (Novolog Insulin Pen) NOVOLOG *MODERATE* ALGORITHM WITH MEALS BEDTIME SC Last administered on 01/12/19at 11:50; Admin Dose 2 UNIT; Start 01/04/19 at 21:00 Miscellaneous Information 1 ea NOTE XX ; Start 01/04/19 at 19:00 Glucose (Glutose) 15 gm Q15M PRN PO DECREASED GLUCOSE; Start 01/04/19 at 19:00 Glucose (Glutose) 22.5 gm Q15M PRN PO DECREASED GLUCOSE; Start 01/04/19 at 19:00 Dextrose (D50w Syringe) 25 ml Q15M PRN IV DECREASED GLUCOSE; Start 01/04/19 at 19:00 Dextrose (D50w Syringe) 50 ml Q15M PRN IV DECREASED GLUCOSE; Start 01/04/19 at 19:00 Glucagon (Glucagen) 1 mg Q15M PRN IM DECREASED GLUCOSE; Start 01/04/19 at 19:00 Glucose (Glutose) 15 gm Q15M PRN BUCCAL DECREASED GLUCOSE; Start 01/04/19 at 1 9:00 Tramadol HCl (Ultram) 50 mg Q6H PRN PO MODERATE PAIN LEVEL 4-6 Last administered on 01/07/19at 21:17; Admin Dose 50 MG; Start 01/04/19 at 23:30 Sodium Hypochlorite (Dakin'S (Dilute )) 1 applic DAILY IRR Last administered on 01/12/19 08:43; Admin Dose 1 APPLIC; Start 01/06/19 at 09:00 Lactobacillus Acidophilus/ Rhamnosus (Culturelle) 1 cap BID PO Last administered on 01/12/19at 08:43; Admin Dose 1 CAP; Start 01/05/19 at 21:00 Escitalopram Oxalate (Lexapro) 10 mg DAILY PO Last administered on 01/12/19 08:43; Admin Dose 10 MG; Start 01/05/19 at 21:00 Insulin Aspart (Novolog Insulin Pen) 10 unit WITH MEALS SC Last administered on 01/12/19 11:50; Admin Dose 10 UNIT; Start 01/06/19 at 17:55 Insulin Glargine (Lantus) 30 units DAILY@2000 SC Last administered on 01/11/19 21:28; Admin Dose 30 UNITS; Start 01/06/19 at 20:00 Nicotine (Nicoderm 14 Mg/ 24hr) 1 patch DAILY PRN TRANSDERM CONTROL WITHDRAWAL SYMPTOMS; Start 01/06/19 at 12:00 Ammonium Lactate (Lac-Hydrin 12% Lotion) 1 applic DAILY TOP Last administered on 01/12/19 08:43; Admin Dose 1 APPLIC; Start 01/07/19 at 09:00 Magnesium Oxide (Mag-Ox 400) 400 mg TID PO Last administered on 01/12/19 15:17; Admin Dose 400 MG; Start 01/08/19 at 13:00 Aspirin (Aspirin) 325 mg DAILY PO Last administered on 01/12/19 08:43; Admin Do se 325 MG; Start 01/09/19 at 12:30 Morphine Sulfate (morphine) 2 mg Q2H PRN IV SEVERE PAIN LEVEL 7-10 Last administered on 01/12/19 11:43; Admin Dose 2 MG; Start 01/09/19 at 16:00 Enoxaparin Sodium (Lovenox) 30 mg DAILY SC Last administered on 01/12/19 08:53; Admin Dose 30 MG; Start 01/10/19 at 10:30 Potassium Chloride (Potassium Chloride Pwd/Soln) 40 meq DAILY PO Last administered on 01/12/19 08:43; Admin Dose 40 MEQ; Start 01/12/19 at 09:00 EDWARD ARORA NP Jan 12, 2019 15:59
[2019-01-12] MEDS ORDERED: POTASSIUM CHLORIDE (SR) 20 MEQ TAB PO STA (16:13)
--- NOTE | 2019-01-12 17:33 | PREAC ---
Date/Time of Note Date/Time of Note DATE: 01/12/19 TIME: 17:32 Anesthesia Eval and Record Evaluation Time Pre-Procedure Interview DATE: 01/12/19 TIME: 17:32 Age 63 Sex female NPO: 8 hrs Preoperative diagnosis bilateral diabetic ulcerations lower extremity Planned procedure BILATERAL LOWER EXTREMITY DEBRIDEMENT Past Medical History Past Medical History: Includes Cardio: HTN, Dyslipidemia, Other (peripheral arterial disease) Pulm: Smoking Hx Surgery & Anesthesia Issues No known issue Meds Anticoagulation: No Beta Brinda within 24 hr: No Reason Beta Brinda not given: Pt. not on B-Brinda Unable to Obtain Active Prescriptions or Reported Meds Current Medications IV Flush (NS 3 ml) 3 ml PER PROTOCOL IV ; Start 01/04/19 at 18:30 Ondansetron HCl (Zofran Inj) 4 mg Q6H PRN IV NAUSEA/VOMITING Last administered on 01/09/19at 13:28; Admin Dose 4 MG; Start 01/04/19 at 18:30 Acetaminophen (Tylenol Tab) 650 mg Q6H PRN PO .PAIN 1-3 OR TEMP; Start 01/04/19 at 18:30 Piperacillin Sod/ Tazobactam Sod 100 ml @ 200 mls/hr Q8 IVPB Last administered on 01/12/19at 15:17; Admin Dose 200 MLS/HR; Start 01/04/19 at 22:00 Diagnostic Test (Pha) (Accu-Chek) 1 ea 02 XX Last administered on 01/12/19at 02:25; Admin Dose 1 EA; Start 01/05/19 at 02:00 Insulin Aspart (Novolog Insulin Pen) NOVOLOG *MODERATE* ALGORITHM WITH MEALS BEDTIME SC Last administered on 01/12/19at 11:50; Admin Dose 2 UNIT; Start 01/04/19 at 21:00 Miscellaneous Information 1 ea NOTE XX ; Start 01/04/19 at 19:00 Glucose (Glutose) 15 gm Q15M PRN PO DECREASED GLUCOSE; Start 01/04/19 at 19:00 Glucose (Glutose) 22.5 gm Q15M PRN PO DECREASED GLUCOSE; Start 01/04/19 at 19:00 Dextrose (D50w Syringe) 25 ml Q15M PRN IV DECREASED GLUCOSE; Start 01/04/19 at 19:00 Dextrose (D50w Syringe) 50 ml Q15M PRN IV DECREASED GLUCOSE; Start 01/04/19 at 19:00 Glucagon (Glucagen) 1 mg Q15M PRN IM DECREASED GLUCOSE; Start 01/04/19 at 19:00 Glucose (Glutose) 15 gm Q15M PRN BUCCAL DECREASED GLUCOSE; Start 01/04/19 at 19:00 Tramadol HCl (Ultram) 50 mg Q6H PRN PO MODERATE PAIN LEVEL 4-6 Last administered on 01/07/19 21:17; Admin Dose 50 MG; Start 01/04/19 at 23:30 Sodium Hypochlorite (Dakin'S (Dilute )) 1 applic DAILY IRR Last administered on 01/12/19 08:43; Admin Dose 1 APPLIC; Start 01/06/19 at 09:00 Lactobacillus Acidophilus/ Rhamnosus (Culturelle) 1 cap BID PO Last administered on 01/12/19 08:43; Admin Dose 1 CAP; Start 01/05/19 at 21:00 Escitalopram Oxalate (Lexapro) 10 mg DAILY PO Last administered on 01/12/19 08:43; Admin Dose 10 MG; Start 01/05/19 at 21:00 Insulin Aspart (Novolog Insulin Pen) 10 unit WITH MEALS SC Last administered on 01/12/19 11:50; Admin Dose 10 UNIT; Start 01/06/19 at 17:55 Insulin Glargine (Lantus) 30 units DAILY@2000 SC Last administered on 01/11/19 21:28; Admin Dose 30 UNITS; Start 01/06/19 at 20:00 Nicotine (Nicoderm 14 Mg/ 24hr) 1 patch DAILY PRN TRANSDERM CONTROL WITHDRAWAL SYMPTOMS; Start 01/06/19 at 12:00 Ammonium Lactate (Lac-Hydrin 12% Lotion) 1 applic DAILY TOP Last administered on 01/12/19 08:43; Admin Dose 1 APPLIC; Start 01/07/19 at 09:00 Magnesium Oxide (Mag-Ox 400) 400 mg TID PO Last administered on 01/12/19 15:17; Admin Dose 400 MG; Start 01/08/19 at 13:00 Aspirin (Aspirin) 325 mg DAILY PO Last administered on 01/12/19 08:43; Admin Dose 325 MG; Start 01/09/19 at 12:30 Morphine Sulfate (morphine) 2 mg Q2H PRN IV SEVERE PAIN LEVEL 7-10 Last administered on 01/12/19at 11:43; Admin Dose 2 MG; Start 01/09/19 at 16:00 Enoxaparin Sodium (Lovenox) 30 mg DAILY SC Last administered on 01/12/19at 08:53; Admin Dose 30 MG; Start 01/10/19 at 10:30 Potassium Chloride (Potassium Chloride Pwd/Soln) 40 meq DAILY PO Last administered on 01/12/19at 08:43; Admin Dose 40 MEQ; Start 01/12/19 at 09:00 Meds reviewed: Yes Allergies Coded Allergies: No Known Allergy (Unverified , 01/04/19) Allergies Reviewed: Yes Labs/Studies Labs Reviewed: Reviewed by anesthesiologist Result Diagram: 01/12/19 0545 01/12/19 0545 Laboratory Tests 01/12/19 05:45 test: N/A Studies: CXR (Mild increased interstitial changes throughout the lungs.) Pre-procedure Exam Last vitals Vital Signs Date Temp Pulse Resp B/P (MAP) Pulse Ox O2 O2 Flow FiO2 Time Delivery Rate 01/12/19 58 16:00 01/12/19 98.2 18 112/58 98 Room Air 15:05 (76) 01/09/19 2.0 14:08 Airway: Adequate mouth opening Mallampati: Mallampati II Teeth: Normal Lung: Normal Heart: Normal ASA Physical Status ASA physical status: 3 Emergency: None Planned Anesthetic General/MAC: ETT Pre-operative Attestations Prior to commencing anesthesia and surgery, the patient was re-evaluated, there was verification of: *The patient's identity *The results of appropriate recent lab work and preoperative vital signs *The above evaluation not changing prior to induction *Anesthetic plan, risk benefits, alternative and complications discussed with patient/family; questions answered; patient/family understands, accepts and wishes to proceed. MARTHA CHAKRABORTY Jan 12, 2019 17:33
[2019-01-12] MEDS: traZODone 50 MG TAB PO SCH (20:09)
[2019-01-12] MEDS: INSULIN GLARGINE [LANTus] (100 UNITS/ML) SYG SC SCH (20:18)
[2019-01-13] VITALS (15 sets, daily range): BP systolic 91–115; BP diastolic 53–63; PULSE 58–69; RESP 10–18
[2019-01-13] MEDS: ACCU-CHEK XX SCH (02:00)
--- NOTE | 2019-01-13 02:13 | PN ---
DATE: 01/09/2019 SUBJECTIVE: The patient is being followed for left foot ulceration. She is in the immediately postop from vascular surgery. She had a left fem to above-knee popliteal artery bypass with in situ greater saphenous vein. The patient is eating food. PHYSICAL EXAMINATION: VITAL SIGNS: Temperature 98.3, pulse 69, respiratory rate 16, blood pressure 129/59, pulse ox is 98% on room air. EXTREMITIES: Left lower extremity is warmth. Dressings present. The patient relates pain with movement of left lower extremity. No signs of bleeding. Left foot midfoot amputation. No signs of ascending cellulitis or lymphangitis. LABORATORIES: WBC 8.7, hemoglobin 9.5, hematocrit 30.5, platelets 129. ASSESSMENT: 1. Bilateral diabetic foot ulceration. 2. Differential diagnosis of left foot osteomyelitis. 3. History of mid foot amputation. 4. Diabetes with peripheral neuropathy. 5. Peripheral arterial disease status post left femoral to above-knee popliteal artery bypass with in situ greater saphenous vein. PLAN: Dressings are not changed. Improved skin temperature. The patient's education was provided. She will be requiring foot surgical intervention. No signs of bleeding noted. We will further coordinate next procedure time. I will recommend offloading of the heels, at risk for developing pressure sores. Dictated By: KURT OVEIDO/MAIRA Conf#: [id number] DID#: [id number] CC: KYLIE STARKEY MD; SAVANNAH SELBY MD;*EndCC* MTDD
[2019-01-13] MEDS: PIPER-TAZO 3.375 GM IV (PMX) 100 ML IVPB SCH ×3 (05:34→22:19)
[2019-01-13] MEDS ORDERED: MINERAL OIL LIGHT 10 ML VIAL ONE (06:45)
[2019-01-13] MEDS ORDERED: LIDOCAINE 1% (MPF) 30 ML INJ ONE (06:45)
[2019-01-13] MEDS ORDERED: MIDAZOLAM 1 MG/ML 2 ML INJ ONE (07:02)
[2019-01-13] MEDS ORDERED: FENTAnyl 50 MCG/ML VIAL ONE (07:02)
[2019-01-13] MEDS ORDERED: PROPOFOL 20 ML ONE (07:02)
[2019-01-13] MEDS ORDERED: LIDOCAINE 2% (SDV) 5 ML INJ ONE (07:02)
[2019-01-13] MEDS ORDERED: POLYMYXIN/BACITRACIN 1L IRRIG IRR ONE (07:30)
[2019-01-13] MEDS ORDERED: BUPIVACAINE 0.25% (MPF) 10 ML 10 ML VIAL INJ ONE (07:30)
[2019-01-13] MEDS ORDERED: LIDOCAINE 1% (MPF) 30 ML INJ INJ ONE (07:30)
--- NOTE | 2019-01-13 07:49 | HPN ---
Date/Time of Note Date/Time of Note DATE: 01/13/19 TIME: 07:49 Interval H&P Admission Note Pt. seen H&P reviewed: No system changes QASIM CHAPA DPValery Jan 13, 2019 07:49
[2019-01-13] MEDS: INSULIN ASPART [NOVOLOG] 3 ML PEN SC SCH ×7 (08:00→20:25)
[2019-01-13] MEDS ORDERED: BUPIVACAINE 0.25% (MPF) 30 ML INJ ONE (08:02)
[2019-01-13] MEDS: MAGNESIUM OXIDE 400 MG TAB PO SCH ×4 (09:00→20:37)
[2019-01-13] MEDS ORDERED: ONDANSETRON 4 MG INJ IV PRN (09:00)
[2019-01-13] MEDS: SODIUM HYPOCHLORITE (1/40) 1 LITER BTL IRR SCH (09:00)
[2019-01-13] MEDS ORDERED: ATROPINE 1 MG/10 ML SYRINGE IV PRN (09:00)
[2019-01-13] MEDS ORDERED: ALBUTEROL 0.083% (NEB) 2.5 MG/3 ML AMP HHN PRN (09:00)
[2019-01-13] MEDS ORDERED: hydrALAzine 20 MG INJ IV PRN (09:00)
[2019-01-13] MEDS ORDERED: OXYCODONE/ACETAMINOPHEN (5/325) TAB PO PRN (09:00)
[2019-01-13] MEDS ORDERED: HYDROmorphONE 1 MG/5 ML IV SYRINGE IV PRN (09:00)
[2019-01-13] MEDS ORDERED: DIPHENHYDRAMINE 50 MG INJ IV PRN (09:00)
[2019-01-13] MEDS ORDERED: EPHEDrine SULFATE 50 MG/5 ML SYG IV PRN (09:00)
[2019-01-13] MEDS ORDERED: LABETALOL HCL 20MG INJ IV PRN (09:00)
[2019-01-13] MEDS ORDERED: FENTAnyl 50 MCG/ML VIAL IV PRN (09:00)
[2019-01-13] MEDS ORDERED: morphine (1 MG/ML) 10ML SYRINGE IV PRN (09:00)
--- NOTE | 2019-01-13 09:01 | SIPON ---
Date/Time of Note Date/Time of Note DATE: 01/13/19 TIME: 09:01 Operative Report Preoperative Diagnosis bilateral diabetic foot ulcers Left foot osteomyelitis DM2 with peripheral neuropathy Hx of left foot chopart amputation PAD Postoperative Diagnosis bilateral diabetic foot ulcers Left foot osteomyelitis DM2 with peripheral neuropathy Hx of left foot chopart amputation PAD Operation/Procedure Performed excisional debridement of bilateral feet bone biopsy left foot application of skin allograft Surgeon see signature line circulation assistant Damon Leyva DPM Anesthesia: MAC Estimated blood loss: 0 - 10 ml's Transfusion Required none Specimen bilateral foot ulcer wound culture Left foot bone biopsy Grafts/Implants none Complications none QASIM CHAPA DPM Jan 13, 2019 09:01
--- NOTE | 2019-01-13 09:08 | PAC ---
Date/Time of Note Date/Time of Note DATE: 01/13/19 TIME: 09:06 Post-Anesthesia Notes Post-Anesthesia Note Last documented vital signs Vital Signs Date Temp Pulse Resp B/P (MAP) Pulse Ox O2 O2 Flow FiO2 Time Delivery Rate 01/13/19 98.3 100 65 66 18 16 115/63 96 96 RA 01:28 090 (80) 98/5 2 9 01/12/19 Room Air 15:05 01/09/19 2.0 14:08 Activity: WNL Respiratory function: WNL Cardiovascular function: WNL Mental status: Baseline Pain reasonably controlled: Yes Hydration appropriate: Yes Nausea/Vomiting absent: Yes JUSTO MCGRATH Jan 13, 2019 09:07
--- NOTE | 2019-01-13 09:12 | OPR ---
Date/Time of Note Date/Time of Note DATE: 01/13/19 TIME: 09:12 Operative Report Preoperative Diagnosis bilateral diabetic foot ulcers Left foot osteomyelitis DM2 with peripheral neuropathy Hx of left foot chopart amputation PAD Postoperative Diagnosis bilateral diabetic foot ulcers Left foot osteomyelitis DM2 with peripheral neuropathy Hx of left foot chopart amputation PAD Operation/Procedure Performed excisional debridement of bilateral feet bone biopsy left foot application of skin allograft Surgeon see signature line Gas Meter Checker Damon Leyva DPM Anesthesia Type: MAC Estimated Blood Loss: 0 - 10 ml's Transfusion none Specimen bilateral foot ulcer wound culture Left foot bone biopsy Grafts/Implants Integra bilayer allograft Complications none Indications 63 y/o diabetic female patient with chronic diabetic ulcers to bilateral feet. Patient has history of previous left foot amputation. Patient has failed local wound care and is amenable to surgical debridement and application of allografts. There was concern for osteomyelitis to the left foot and bone biopsy to be obtained. Addressed all of patient's questions and concerns. No promises or guarantees given. Procedure Description Patient was brought into the OR and kept in the bed in the supine position. Bilateral lower extremities were scrubbed, prepped, and draped in the usual aseptic manner. A formal time out was conducted. Attention was directed to the left foot. Local anesthesia was administered in an ankle block fashion. There are two ulceration sites noted to the left foot. The distal ulcer measured 1 x 1 x 0.5cm, there was tunneling noted to the proximal medial aspect, unable to probe to bone. Scant purulence appreciated. Copious antibiotic infused saline was used and wound cultures were obtained. Excisional debridement of skin/subQ of the distal ulceration site was performed using a scalpel and curette. Purulence fibrotic tissue and non viable tissue wa s removed. 1cm2 of area was debrided. 1/4in iodoform packing was placed into the ulcer site. Next ulcer site was the left plantar heel portion which measured 3.5 x 2 x 0.5cm. This was the area of concern for osteomyelitis noted on imaging and bone biopsy was performed at this site. Also excisional debridement of skin/subQ/muscle/fascia of the left heel diabetic ulcer using scalpel and curette. Hyperkeratotic tissue, biofilm, and fibrotic tissue was removed. 7cm2 of area was debrided Subsequently, the right posterior achilles ulceration site which measured 3.5 x 2 x 0.2cm was addressed. There was no tunneling or tracking to the achilles tendon. Wound base was granular with no purulence noted. Excisional debridement of skin/subQ of the right lower extremity ulceration site was performed using a scalpel and curette. Biofilm and non viable tissue was removed. 7cm2 of area was debrided. Wound cultures of the right foot were obtained. Total of 15cm2 of area debrided. Copious antibiotic infused saline irrigated at ulcer sites. Integran bilayer skin allograft was applied to the ulceration sites and secured with suture and skin stacey. Xeroform and dry sterile dressings were applied to bilateral surgical sites. Patient was transferred to the PACU with vital signs stable and neurovascular status intact. QASIM CHAPA DPM Jan 13, 2019 09:12
[2019-01-13] MEDS: LACTOBACILLUS RHAMNOSUS CAP PO SCH ×2 (10:48→20:37)
[2019-01-13] MEDS: ESCITALOPRAM 10 MG TAB PO SCH (10:48)
[2019-01-13] MEDS: POTASSIUM CHLORIDE 20 MEQ POWDER FOR ORAL SOLN PO SCH (10:48)
[2019-01-13] MEDS: AMMONIUM LACTATE 12% 225 GM LOT TOP SCH (10:50)
[2019-01-13] MEDS: ENOXAPARIN 30 MG/0.3 ML SYG SC SCH (10:56)
--- NOTE | 2019-01-13 11:54 | CONS ---
Assessment/Plan Assessment/Plan Hospital Course (Demo Recall) No events, looks comfortable, no fevers Microbiology: Cultures of the wound growing Enterobacter cloaca, enterococcus species, Corynebacterium species and strep galactorrhea Antimicrobials: Zosyn Physical examination: Well-developed chronically ill-appearing elderly woman who is in no distress. Head atraumatic normocephalic neck is supple chest rise symmetrical breath sounds clear. Heart: S1-S2. Abdomen soft, bowel sounds present. Extremities with bilateral lower extremities dressing intact Assessment: 1. Bilateral lower extremities chronic wounds 2. Left foot osteomyelitis, s/p I/D, L foot bone bx with skin graft 3. Peripheral arterial disease ==> status post abdominal aortogram with right common femoral artery angioplasty 01/07/19. S/p left femoral to above-knee popliteal artery bypass using in situ greater saphenous vein 01/09/19 4. Diabetes with diabetic neuropathy 5. Transaminitis Plan: Stable, continue abx, follow intraoperative cx and bone bx, podiatry recommendations Consultation Date/Type/Reason Admit Date/Time Jan 04, 2019 at 17:33 Initial Consult Date Type of Consult id Date/Time of Note DATE: 01/13/19 TIME: 11:52 Exam/Review of Systems Exam Vitals Vital Signs Date Temp Pulse Resp B/P (MAP) Pulse Ox O2 O2 Flow FiO2 Time Delivery Rate 01/13/19 98.0 60 18 108/56 98 10:07 (73) 01/13/19 Room Air 09:48 01/09/19 2.0 14:08 Intake and Output 01/12/19 01/12/19 01/13/19 1515:00 23:00 07:00 IntakeIntake Total 1300 ml 600 ml OutputOutput Total 1800 ml BalanceBalance 1300 ml -1200 ml Results Result Diagram: 01/13/19 0503 01/13/19 0503 Results 24hrs Laboratory Tests Test 01/12/19 17:08 01/12/19 20:08 01/13/19 05:03 01/13/19 06:52 Bedside Glucose 113 218 128 White Blood Count 5.2 # Red Blood Count 3.10 L Hemoglobin 8.7 L Hematocrit 27.9 L Mean Corpuscular Volume 90.0 Mean Corpuscular 28.1 L Hemoglobin Mean Corpuscular 31.2 L Hemoglobin Concent Red Cell Distribution 17.9 H Width Platelet Count 205 # Mean Platelet Volume 9.2 Immature Granulocytes % 0.600 H Neutrophils % 67.8 Lymphocytes % 18.7 Monocytes % 9.6 Eosinophils % 2.9 Basophils % 0.4 Nucleated Red Blood 0.0 Cells % Immature Granulocytes # 0.030 Neutrophils # 3.6 Lymphocytes # 1.0 Monocytes # 0.5 Eosinophils # 0.2 Basophils # 0.0 Nucleated Red Blood 0.0 Cells # Sodium Level 138 Potassium Level 3.9 Chloride Level 106 Carbon Dioxide Level 28 Anion Gap 4 L Blood Urea Nitrogen 17 Creatinine 0.61 Est Glomerular Filtrat > 60 Rate mL/min Glucose Level 165 Calcium Level 8.5 Phosphorus Level 3.3 Magnesium Level 2.2 Test 01/13/19 10:46 Bedside Glucose 108 Medications Medication Current Medications IV Flush (NS 3 ml) 3 ml PER PROTOCOL IV ; Start 01/04/19 at 18:30 Ondansetron HCl (Zofran Inj) 4 mg Q6H PRN IV NAUSEA/VOMITING Last administered on 01/09/19at 13:28; Admin Dose 4 MG; Start 01/04/19 at 18:30 Acetaminophen (Tylenol Tab) 650 mg Q6H PRN PO .PAIN 1-3 OR TEMP; Start 01/04/19 at 18:30 Piperacillin Sod/ Tazobactam Sod 100 ml @ 200 mls/hr Q8 IVPB Last administered on 01/13/19at 05:34; Admin Dose 200 MLS/HR; Start 01/04/19 at 22:00 Diagnostic Test (Pha) (Accu-Chek) 1 ea 02 XX Last administered on 01/12/19at 02:25; Admin Dose 1 EA; Start 01/05/19 at 02:00 Insulin Aspart (Novolog Insulin Pen) NOVOLOG *MODERATE* ALGORITHM WITH MEALS BEDTIME SC Last administered on 01/12/19at 20:17; Admin Dose 1 UNIT; Start 01/04/19 at 21:00 Miscellaneous Information 1 ea NOTE XX ; Start 01/04/19 at 19:00 Glucose (Glutose) 15 gm Q15M PRN PO DECREASED GLUCOSE; Start 01/04/19 at 19:00 Glucose (Glutose) 22.5 gm Q15M PRN PO DECREASED GLUCOSE; Start 01/04/19 at 19:00 Dextrose (D50w Syringe) 25 ml Q15M PRN IV DECREASED GLUCOSE; Start 01/04/19 at 19:00 Dextrose (D50w Syringe) 50 ml Q15M PRN IV DECREASED GLUCOSE; Start 01/04/19 at 19:00 Glucagon (Glucagen) 1 mg Q15M PRN IM DECREASED GLUCOSE; Start 01/04/19 at 19:00 Glucose (Glutose) 15 gm Q15M PRN BUCCAL DECREASED GLUCOSE; Start 01/04/19 at 19:00 Tramadol HCl (Ultram) 50 mg Q6H PRN PO MODERATE PAIN LEVEL 4-6 Last administered on 01/07/19 21:17; Admin Dose 50 MG; Start 01/04/19 at 23:30 Sodium Hypochlorite (Dakin'S (Dilute )) 1 applic DAILY IRR Last administered on 01/12/19 08:43; Admin Dose 1 APPLIC; Start 01/06/19 at 09:00 Lactobacillus Acidophilus/ Rhamnosus (Culturelle) 1 cap BID PO Last administered on 01/13/19 10:48; Admin Dose 1 CAP; Start 01/05/19 at 21:00 Escitalopram Oxalate (Lexapro) 10 mg DAILY PO Last administered on 01/13/19 10:48; Admin Dose 10 MG; Start 01/05/19 at 21:00 Insulin Aspart (Novolog Insulin Pen) 10 unit WITH MEALS SC Last administered on 01/12/19 17:16; Admin Dose 10 UNIT; Start 01/06/19 at 17:55 Insulin Glargine (Lantus) 30 units DAILY@2000 SC Last administered on 01/12/19 20:18; Admin Dose 30 UNITS; Start 01/06/19 at 20:00 Nicotine (Nicoderm 14 Mg/ 24hr) 1 patch DAILY PRN TRANSDERM CONTROL WITHDRAWAL SYMPTOMS; Start 01/06/19 at 12:00 Ammonium Lactate (Lac-Hydrin 12% Lotion) 1 applic DAILY TOP Last administered on 01/13/19 10:50; Admin Dose 1 APPLIC; Start 01/07/19 at 09:00 Magnesium Oxide (Mag-Ox 400) 400 mg TID PO Last administered on 01/12/19 20:09; Admin Dose 400 MG; Start 01/08/19 at 13:00 Aspirin (Aspirin) 325 mg DAILY PO Last administered on 01/12/19 08:43; Admin Dose 325 MG; Start 01/09/19 at 12:30 Morphine Sulfate (morphine) 2 mg Q2H PRN IV SEVERE PAIN LEVEL 7-10 Last administered on 01/12/19at 19:38; Admin Dose 2 MG; Start 01/09/19 at 16:00 Enoxaparin Sodium (Lovenox) 30 mg DAILY SC Last administered on 01/13/19at 10:56; Admin Dose 30 MG; Start 01/10/19 at 10:30 Potassium Chloride (Potassium Chloride Pwd/Soln) 40 meq DAILY PO Last administered on 01/13/19at 10:48; Admin Dose 40 MEQ; Start 01/12/19 at 09:00 Trazodone HCl (Desyrel) 25 mg HS PO Last administered on 01/12/19at 20:09; Admin Dose 25 MG; Start 01/12/19 at 21:00 Morphine Sulfate (morphine (REC)) 2 mg PACU ORDER PRN IV MILD PAIN 1-3; Start 01/13/19 at 09:00; Stop 01/13/19 at 15:00 Hydromorphone HCl (Dilaudid) 0.2 mg PACU PRN IV MILD PAIN 1-3 Last administered on 01/13/19at 09:34; Admin Dose 0.2 MG; Start 01/13/19 at 09:00; Stop 01/13/19 at 15:00 Fentanyl (Sublimaze) 25 mcg PACU ORDER PRN IV MILD PAIN 1-3; Start 01/13/19 at 09:00; Stop 01/13/19 at 15:00 Oxycodone/ Acetaminophen (Percocet (5/ 325)) 1 tab PACU ORDER PRN PO .PAIN 1-5; Start 01/13/19 at 09:00; Stop 01/13/19 at 15:00 Ondansetron HCl (Zofran Inj) 4 mg PACU ORDER PRN IV NAUSEA/VOMITING; Start 01/13/19 at 09:00; Stop 01/13/19 at 15:00 Labetalol HCl (Labetalol) 5 mg PACU ORDER PRN IV HIGH BLOOD PRESSURE; Start 01/13/19 at 09:00; Stop 01/13/19 at 15:00 Hydralazine HCl (Apresoline) 5 mg PACU ORDER PRN IV HIGH BLOOD PRESSURE; Start 01/13/19 at 09:00; Stop 01/13/19 at 15:00 Ephedrine Sulfate 5 mg PACU ORDER PRN IV BLOOD PRESSURE SUPPORT; Start 01/13/19 at 09:00; Stop 01/13/19 at 15:00 Atropine Sulfate (Atropine (Syringe)) 0.1 mg PACU ORDER PRN IV .HR 50 OR LESS; Start 01/13/19 at 09:00; Stop 01/13/19 at 15:00 Albuterol (Proventil 0.083% (Neb)) 2.5 mg PACU ORDER PRN HHN .WHEEZING; Start 01/13/19 at 09:00; Stop 01/13/19 at 15:00 Diphenhydramine HCl (Benadryl) 25 mg PACU ORDER PRN IV .PRURITUS; Start 01/13/19 at 09:00; Stop 01/13/19 at 15:00 KENZIE AMBROCIO NP Jan 13, 2019 11:54
[2019-01-13] MEDS: ASPIRIN 325 MG TAB PO SCH (13:32)
[2019-01-13] MEDS: morphine 2 MG INJ IV PRN ×3 (13:52→19:48)
--- NOTE | 2019-01-13 15:22 | PN ---
Date/Time of Note Date/Time of Note DATE: 01/13/19 TIME: 15:20 Assessment/Plan VTE Prophylaxis Risk score (from Nsg)>0 risk: 6 SCD applied (from Ns): No SCD contraindicated: other Pharmacological prophylaxis: LMWH Lines[facility] Line Central line still needed: Yes Urinary Cath still in place: Yes Reason Cath still needed: other (indicate) Assessment/Plan Hospital Course SUBJECTIVE: Denies any pain in bilateral lower extremities. OBJECTIVE: Physical Exam General: Adequately build 63 year-old female lying in bed in no apparent distress. HEENT: Normocephalic, atraumatic. Eyes: Anicteric sclerae, conjunctivae clear. ENT: Nasal septum midline, oral mucosa moist. Neck supple, no JVD noticed. Respiratory: Bilaterally clear breath sounds. No use of accessory muscles of respiration. No adventitious breath sounds. Cardiovascular: S1, S2 heard. Regular rate and rhythm. Abdomen: Soft, nontender, and nondistended. Bowel sounds positive in all 4 quadrants. Genitourinary: Deferred. Extremities: No cyanosis, no clubbing. Left foot status post transmetatarsal amputation. Left heel wound dressing. Right foot wound dressing. Neurologic: Cranial nerves II through XII grossly intact. The patient is awake, alert, and oriented. Labs & Vitals per chart ASSESSMENT & PLAN 63-year-old female with comorbidities including diabetes mellitus and chronic bilateral lower extremity wounds. The patient was brought into the emergency room by her significant other because of hyperglycemia and chronic wounds. The patient was noticed to have a blood sugar of 579 in the emergency room. The patient also had underlying transaminitis without hyperbilirubinemia. The patient's x-ray of the left foot was showing erosive changes in the anterior calcaneus amputation site, possibly representing osteomyelitis. The patient's right ankle x-ray was showing osteopenia with no evidence of osteomyelitis. The patient was transferred to inpatient setting for further treatment and evaluation. 1. Diabetes mellitus. -Uncontrolled. -Hemoglobin A1c 12.6. -Continue sliding scale insulin along with basal insulin and pre-meal insulin. 2. Nonhealing left foot ulcer. -Status post left femoral to above-knee popliteal artery bypass using in situ greater saphenous vein on 01/09/2019. 3. Possible left foot osteomyelitis in the calcaneum. -Patient refusing MRI. -Continue antimicrobials as per ID. 4. Right foot diabetic foot ulcer. -Wound culture positive for Corynebacterium species and Strep agalactiae. -Continue antimicrobials as per ID. -Status post excisional debridement of bilateral feet, bone biopsy of left foot, and application of allograft on 01/13/2019. 5. Left foot diabetic ulcer. -Wound culture positive for polymicrobials. -Continue antimicrobials as per ID. -Status post excisional debridement of bilateral feet, bone biopsy of left foot, and application of allograft on 01/13/2019. 6. Nicotine use. -Continue nicotine patch. 7. Fluids, electrolytes, and nutrition. -Carbohydrate controlled diet. 8. DVT prophylaxis. -Subcutaneous Lovenox. 9. Plan. -Continue antimicrobials as per ID. -Await clinical improvement. The patient was seen in collaboration with Dr. Young. Result Diagram: 01/13/19 0503 01/13/19 0503 Results 24hrs Laboratory Tests Test 01/12/19 17:08 01/12/19 20:08 01/13/19 05:03 01/13/19 06:52 Bedside Glucose 113 218 128 White Blood Count 5.2 # Red Blood Count 3.10 L Hemoglobin 8.7 L Hematocrit 27.9 L Mean Corpuscular Volume 90.0 Mean Corpuscular 28.1 L Hemoglobin Mean Corpuscular 31.2 L Hemoglobin Concent Red Cell Distribution 17.9 H Width Platelet Count 205 # Mean Platelet Volume 9.2 Immature Granulocytes % 0.600 H Neutrophils % 67.8 Lymphocytes % 18.7 Monocytes % 9.6 Eosinophils % 2.9 Basophils % 0.4 Nucleated Red Blood 0.0 Cells % Immature Granulocytes # 0.030 Neutrophils # 3.6 Lymphocytes # 1.0 Monocytes # 0.5 Eosinophils # 0.2 Basophils # 0.0 Nucleated Red Blood 0.0 Cells # Sodium Level 138 Potassium Level 3.9 Chloride Level 106 Carbon Dioxide Level 28 Anion Gap 4 L Blood Urea Nitrogen 17 Creatinine 0.61 Est Glomerular Filtrat > 60 Rate mL/min Glucose Level 165 Calcium Level 8.5 Phosphorus Level 3.3 Magnesium Level 2.2 Test 01/13/19 10:46 01/13/19 13:30 Bedside Glucose 108 205 Exam/Review of Systems Exam Vitals Vital Signs Date Temp Pulse Resp B/P (MAP) Pulse Ox O2 O2 Flow FiO2 Time Delivery Rate 01/13/19 98.0 60 18 108/56 98 10:07 (73) 01/13/19 Room Air 09:48 01/09/19 2.0 14:08 Intake and Output 01/12/19 01/12/19 01/13/19 1515:00 23:00 07:00 IntakeIntake Total 1300 ml 600 ml OutputOutput Total 1800 ml BalanceBalance 1300 ml -1200 ml Results Results 24hrs Laboratory Tests Test 01/12/19 17:08 01/12/19 20:08 01/13/19 05:03 01/13/19 06:52 Bedside Glucose 113 218 128 White Blood Count 5.2 # Red Blood Count 3.10 L Hemoglobin 8.7 L Hematocrit 27.9 L Mean Corpuscular Volume 90.0 Mean Corpuscular 28.1 L Hemoglobin Mean Corpuscular 31.2 L Hemoglobin Concent Red Cell Distribution 17.9 H Width Platelet Count 205 # Mean Platelet Volume 9.2 Immature Granulocytes % 0.600 H Neutrophils % 67.8 Lymphocytes % 18.7 Monocytes % 9.6 Eosinophils % 2.9 Basophils % 0.4 Nucleated Red Blood 0.0 Cells % Immature Granulocytes # 0.030 Neutrophils # 3.6 Lymphocytes # 1.0 Monocytes # 0.5 Eosinophils # 0.2 Basophils # 0.0 Nucleated Red Blood 0.0 Cells # Sodium Level 138 Potassium Level 3.9 Chloride Level 106 Carbon Dioxide Level 28 Anion Gap 4 L Blood Urea Nitrogen 17 Creatinine 0.61 Est Glomerular Filtrat > 60 Rate mL/min Glucose Level 165 Calcium Level 8.5 Phosphorus Level 3.3 Magnesium Level 2.2 Test 01/13/19 10:46 01/13/19 13:30 Bedside Glucose 108 205 Medications Medication Current Medications IV Flush (NS 3 ml) 3 ml PER PROTOCOL IV ; Start 01/04/19 at 18:30 Ondansetron HCl (Zofran Inj) 4 mg Q6H PRN IV NAUSEA/VOMITING Last administered on 01/09/19at 13:28; Admin Dose 4 MG; Start 01/04/19 at 18:30 Acetaminophen (Tylenol Tab) 650 mg Q6H PRN PO .PAIN 1-3 OR TEMP; Start 01/04/19 at 18:30 Piperacillin Sod/ Tazobactam Sod 100 ml @ 200 mls/hr Q8 IVPB Last administered on 01/13/19 13:33; Admin Dose 200 MLS/HR; Start 01/04/19 at 22:00 Diagnostic Test (Pha) (Accu-Chek) 1 ea 02 XX Last administered on 01/12/19 02:25; Admin Dose 1 EA; Start 01/05/19 at 02:00 Insulin Aspart (Novolog Insulin Pen) NOVOLOG *MODERATE* ALGORITHM WITH MEALS BEDTIME SC Last administered on 01/13/19 14:01; Admin Dose 4 UNIT; Start 01/04/19 at 21:00 Miscellaneous Information 1 ea NOTE XX ; Start 01/04/19 at 19:00 Glucose (Glutose) 15 gm Q15M PRN PO DECREASED GLUCOSE; Start 01/04/19 at 19:00 Glucose (Glutose) 22.5 gm Q15M PRN PO DECREASED GLUCOSE; Start 01/04/19 at 19:00 Dextrose (D50w Syringe) 25 ml Q15M PRN IV DECREASED GLUCOSE; Start 01/04/19 at 19:00 Dextrose (D50w Syringe) 50 ml Q15M PRN IV DECREASED GLUCOSE; Start 01/04/19 at 19:00 Glucagon (Glucagen) 1 mg Q15M PRN IM DECREASED GLUCOSE; Start 01/04/19 at 19:00 Glucose (Glutose) 15 gm Q15M PRN BUCCAL DECREASED GLUCOSE; Start 01/04/19 at 19:00 Tramadol HCl (Ultram) 50 mg Q6H PRN PO MODERATE PAIN LEVEL 4-6 Last administered on 01/07/19 21:17; Admin Dose 50 MG; Start 01/04/19 at 23:30 Sodium Hypochlorite (Dakin'S (Dilute )) 1 applic DAILY IRR Last administered on 01/12/19 08:43; Admin Dose 1 APPLIC; Start 01/06/19 at 09:00 Lactobacillus Acidophilus/ Rhamnosus (Culturelle) 1 cap BID PO Last administered on 01/13/19 10:48; Admin Dose 1 CAP; Start 01/05/19 at 21:00 Escitalopram Oxalate (Lexapro) 10 mg DAILY PO Last administered on 01/13/19 10:48; Admin Dose 10 MG; Start 01/05/19 at 21:00 Insulin Aspart (Novolog Insulin Pen) 10 unit WITH MEALS SC Last administered on 01/13/19 14:01; Admin Dose 10 UNIT; Start 01/06/19 at 17:55 Insulin Glargine (Lantus) 30 units DAILY@2000 SC Last administered on 01/12/19 20:18; Admin Dose 30 UNITS; Start 01/06/19 at 20:00 Nicotine (Nicoderm 14 Mg/ 24hr) 1 patch DAILY PRN TRANSDERM CONTROL WITHDRAWAL SYMPTOMS; Start 01/06/19 at 12:00 Ammonium Lactate (Lac-Hydrin 12% Lotion) 1 applic DAILY TOP Last administered on 01/13/19 10:50; Admin Dose 1 APPLIC; Start 01/07/19 at 09:00 Magnesium Oxide (Mag-Ox 400) 400 mg TID PO Last administered on 01/13/19 13:47; Admin Dose 400 MG; Start 01/08/19 at 13:00 Aspirin (Aspirin) 325 mg DAILY PO Last administered on 01/13/19 13:32; Admin Dose 325 MG; Start 01/09/19 at 12:30 Morphine Sulfate (morphine) 2 mg Q2H PRN IV SEVERE PAIN LEVEL 7-10 Last administered on 01/13/19 13:52; Admin Dose 2 MG; Start 01/09/19 at 16:00 Enoxaparin Sodium (Lovenox) 30 mg DAILY SC Last administered on 01/13/19 10:56; Admin Dose 30 MG; Start 01/10/19 at 10:30 Potassium Chloride (Potassium Chloride Pwd/Soln) 40 meq DAILY PO Last administered on 01/13/19 10:48; Admin Dose 40 MEQ; Start 01/12/19 at 09:00 Trazodone HCl (Desyrel) 25 mg HS PO Last administered on 01/12/19 20:09; Admin Dose 25 MG; Start 01/12/19 at 21:00 EDWARD ARORA NP Jan 13, 2019 15:21
[2019-01-13] MEDS: traZODone 50 MG TAB PO SCH (20:37)
[2019-01-13] MEDS: INSULIN GLARGINE [LANTus] (100 UNITS/ML) SYG SC SCH (20:40)
[2019-01-14] MEDS: ACCU-CHEK XX SCH (01:14)
[2019-01-14 02:00] VITALS: BP 111/58; PULSE 69; RESP 19
[2019-01-14] MEDS: morphine 2 MG INJ IV PRN ×7 (05:05→20:58)
[2019-01-14] MEDS: PIPER-TAZO 3.375 GM IV (PMX) 100 ML IVPB SCH ×2 (05:05→14:18)
[2019-01-14 07:41] VITALS: BP 116/63; PULSE 58; RESP 18
[2019-01-14] MEDS: ESCITALOPRAM 10 MG TAB PO SCH (08:06)
[2019-01-14] MEDS: LACTOBACILLUS RHAMNOSUS CAP PO SCH ×2 (08:07→20:51)
[2019-01-14] MEDS: MAGNESIUM OXIDE 400 MG TAB PO SCH ×3 (08:07→20:50)
[2019-01-14] MEDS: POTASSIUM CHLORIDE 20 MEQ POWDER FOR ORAL SOLN PO SCH (08:08)
[2019-01-14] MEDS: ASPIRIN 325 MG TAB PO SCH (08:08)
[2019-01-14] MEDS: INSULIN ASPART [NOVOLOG] 3 ML PEN SC SCH ×7 (08:13→21:00)
[2019-01-14] MEDS: ENOXAPARIN 30 MG/0.3 ML SYG SC SCH (08:14)
[2019-01-14] MEDS: SODIUM HYPOCHLORITE (1/40) 1 LITER BTL IRR SCH (08:15)
[2019-01-14] MEDS: AMMONIUM LACTATE 12% 225 GM LOT TOP SCH (08:15)
--- NOTE | 2019-01-14 10:50 | PN ---
Date/Time of Note Date/Time of Note DATE: 01/14/19 TIME: 10:50 Assessment/Plan VTE Prophylaxis Risk score (from Nsg)>0 risk: 5 SCD applied (from Ns): No SCD contraindicated: other Pharmacological prophylaxis: LMWH Lines/Catheters IV Catheter Type (from Nrsg): Central Line Central line still needed: Yes Urinary Cath still in place: Yes Reason Cath still needed: other (indicate) Assessment/Plan Hospital Course SUBJECTIVE: Denies any pain in bilateral lower extremities. OBJECTIVE: Physical Exam General: Adequately build 63 year-old female lying in bed in no apparent distress. HEENT: Normocephalic, atraumatic. Eyes: Anicteric sclerae, conjunctivae clear. ENT: Nasal septum midline, oral mucosa moist. Neck supple, no JVD noticed. Respiratory: Bilaterally clear breath sounds. No use of accessory muscles of respiration. No adventitious breath sounds. Cardiovascular: S1, S2 heard. Regular rate and rhythm. Abdomen: Soft, nontender, and nondistended. Bowel sounds positive in all 4 quadrants. Genitourinary: Deferred. Extremities: No cyanosis, no clubbing. Left foot status post transmetatarsal amputation. Left heel wound dressing. Right foot wound dressing. Neurologic: Cranial nerves II through XII grossly intact. The patient is awake, alert, and oriented. Labs & Vitals per chart ASSESSMENT & PLAN 63-year-old female with comorbidities including diabetes mellitus and chronic bilateral lower extremity wounds. The patient was brought into the emergency room by her significant other because of hyperglycemia and chronic wounds. The patient was noticed to have a blood sugar of 579 in the emergency room. The patient also had underlying transaminitis without hyperbilirubinemia. The patient's x-ray of the left foot was showing erosive changes in the anterior calcaneus amputation site, possibly representing osteomyelitis. The patient's right ankle x-ray was showing osteopenia with no evidence of osteomyelitis. The patient was transferred to inpatient setting for further treatment and evaluation. 1. Diabetes mellitus. -Uncontrolled. -Hemoglobin A1c 12.6. -Continue sliding scale insulin along with basal insulin and pre-meal insulin. 2. Nonhealing left foot ulcer. -Status post left femoral to above-knee popliteal artery bypass using in situ greater saphenous vein on 01/09/2019. 3. Possible left foot osteomyelitis in the calcaneum. -Patient refusing MRI. -Continue antimicrobials as per ID. 4. Right foot diabetic foot ulcer. -Wound culture positive for Corynebacterium species and Strep agalactiae. -Continue antimicrobials as per ID. -Status post excisional debridement of bilateral feet, bone biopsy of left foot, and application of allograft on 01/13/2019. 5. Left foot diabetic ulcer. -Wound culture positive for polymicrobials. -Continue antimicrobials as per ID. -Status post excisional debridement of bilateral feet, bone biopsy of left foot, and application of allograft on 01/13/2019. 6. Nicotine use. -Continue nicotine patch. 7. Fluids, electrolytes, and nutrition. -Carbohydrate controlled diet. 8. DVT prophylaxis. -Subcutaneous Lovenox. 9. Plan. -Continue antimicrobials as per ID. -Await clinical improvement. The patient was seen in collaboration with Dr. Young. Result Diagram: 01/14/19 0434 01/14/19 0434 Results 24hrs Laboratory Tests Test 01/13/19 13:30 01/13/19 17:32 01/13/19 20:23 01/14/19 04:34 Bedside Glucose 205 156 118 White Blood Count 5.1 Red Blood Count 2.98 L Hemoglobin 8.4 L Hematocrit 27.3 L Mean Corpuscular Volume 91.6 Mean Corpuscular 28.2 L Hemoglobin Mean Corpuscular 30.8 L Hemoglobin Concent Red Cell Distribution 18.2 H Width Platelet Count 241 Mean Platelet Volume 9.4 Immature Granulocytes % 0.400 Neutrophils % 63.2 Lymphocytes % 23.4 Monocytes % 9.3 Eosinophils % 3.1 Basophils % 0.6 Nucleated Red Blood 0.0 Cells % Immature Granulocytes # 0.020 Neutrophils # 3.2 Lymphocytes # 1.2 Monocytes # 0.5 Eosinophils # 0.2 Basophils # 0.0 Nucleated Red Blood 0.0 Cells # Sodium Level 137 Potassium Level 4.4 Chloride Level 104 Carbon Dioxide Level 29 Anion Gap 4 L Blood Urea Nitrogen 19 Creatinine 0.77 Est Glomerular Filtrat > 60 Rate mL/min Glucose Level 118 # Calcium Level 8.6 Phosphorus Level 4.4 Magnesium Level 2.1 Test 01/14/19 08:05 Bedside Glucose 167 Exam/Review of Systems Exam Vitals Vital Signs Date Temp Pulse Resp B/P (MAP) Pulse Ox O2 O2 Flow FiO2 Time Delivery Rate 01/14/19 98.6 58 18 116/63 98 07:41 (80) 01/14/19 Room Air 02:00 Intake and Output 01/13/19 01/13/19 01/14/19 1515:00 23:00 07:00 IntakeIntake Total 1250 ml 780 ml 200 ml OutputOutput Total 5 ml 900 ml 1300 ml BalanceBalance 1245 ml -120 ml -1100 ml Results Results 24hrs Laboratory Tests Test 01/13/19 13:30 01/13/19 17:32 01/13/19 20:23 01/14/19 04:34 Bedside Glucose 205 156 118 White Blood Count 5.1 Red Blood Count 2.98 L Hemoglobin 8.4 L Hematocrit 27.3 L Mean Corpuscular Volume 91.6 Mean Corpuscular 28.2 L Hemoglobin Mean Corpuscular 30.8 L Hemoglobin Concent Red Cell Distribution 18.2 H Width Platelet Count 241 Mean Platelet Volume 9.4 Immature Granulocytes % 0.400 Neutrophils % 63.2 Lymphocytes % 23.4 Monocytes % 9.3 Eosinophils % 3.1 Basophils % 0.6 Nucleated Red Blood 0.0 Cells % Immature Granulocytes # 0.020 Neutrophils # 3.2 Lymphocytes # 1.2 Monocytes # 0.5 Eosinophils # 0.2 Basophils # 0.0 Nucleated Red Blood 0.0 Cells # Sodium Level 137 Potassium Level 4.4 Chloride Level 104 Carbon Dioxide Level 29 Anion Gap 4 L Blood Urea Nitrogen 19 Creatinine 0.77 Est Glomerular Filtrat > 60 Rate mL/min Glucose Level 118 # Calcium Level 8.6 Phosphorus Level 4.4 Magnesium Level 2.1 Test 01/14/19 08:05 Bedside Glucose 167 Medications Medication Current Medications IV Flush (NS 3 ml) 3 ml PER PROTOCOL IV ; Start 01/04/19 at 18:30 Ondansetron HCl (Zofran Inj) 4 mg Q6H PRN IV NAUSEA/VOMITING Last administered on 01/09/19at 13:28; Admin Dose 4 MG; Start 01/04/19 at 18:30 Acetaminophen (Tylenol Tab) 650 mg Q6H PRN PO .PAIN 1-3 OR TEMP; Start 01/04/19 at 18:30 Piperacillin Sod/ Tazobactam Sod 100 ml @ 200 mls/hr Q8 IVPB Last administered on 01/14/19at 05:05; Admin Dose 200 MLS/HR; Start 01/04/19 at 22:00 Diagnostic Test (Pha) (Accu-Chek) 1 ea 02 XX Last administered on 01/12/19at 02:25; Admin Dose 1 EA; Start 01/05/19 at 02:00 Insulin Aspart (Novolog Insulin Pen) NOVOLOG *MODERATE* ALGORITHM WITH MEALS BEDTIME SC Last administered on 01/14/19 08:14; Admin Dose 2 UNIT; Start 01/04/19 at 21:00 Miscellaneous Information 1 ea NOTE XX ; Start 01/04/19 at 19:00 Glucose (Glutose) 15 gm Q15M PRN PO DECREASED GLUCOSE; Start 01/04/19 at 19:00 Glucose (Glutose) 22.5 gm Q15M PRN PO DECREASED GLUCOSE; Start 01/04/19 at 19:00 Dextrose (D50w Syringe) 25 ml Q15M PRN IV DECREASED GLUCOSE; Start 01/04/19 at 19:00 Dextrose (D50w Syringe) 50 ml Q15M PRN IV DECREASED GLUCOSE; Start 01/04/19 at 19:00 Glucagon (Glucagen) 1 mg Q15M PRN IM DECREASED GLUCOSE; Start 01/04/19 at 19:00 Glucose (Glutose) 15 gm Q15M PRN BUCCAL DECREASED GLUCOSE; Start 01/04/19 at 19:00 Tramadol HCl (Ultram) 50 mg Q6H PRN PO MODERATE PAIN LEVEL 4-6 Last administered on 01/07/19at 21:17; Admin Dose 50 MG; Start 01/04/19 at 23:30 Sodium Hypochlorite (Dakin'S (Dilute 40)) 1 applic DAILY IRR Last administered on 01/12/19at 08:43; Admin Dose 1 APPLIC; Start 01/06/19 at 09:00 Lactobacillus Acidophilus/ Rhamnosus (Culturelle) 1 cap BID PO Last administered on 01/14/19 08:07; Admin Dose 1 CAP; Start 01/05/19 at 21:00 Escitalopram Oxalate (Lexapro) 10 mg DAILY PO Last administered on 01/14/19 08:06; Admin Dose 10 MG; Start 01/05/19 at 21:00 Insulin Aspart (Novolog Insulin Pen) 10 unit WITH MEALS SC Last administered on 01/14/19 08:13; Admin Dose 10 UNIT; Start 01/06/19 at 17:55 Insulin Glargine (Lantus) 30 units DAILY@2000 SC Last administered on 01/13/19 20:40; Admin Dose 30 UNITS; Start 01/06/19 at 20:00 Nicotine (Nicoderm 14 Mg/ 24hr) 1 patch DAILY PRN TRANSDERM CONTROL WITHDRAWAL SYMPTOMS; Start 01/06/19 at 12:00 Ammonium Lactate (Lac-Hydrin 12% Lotion) 1 applic DAILY TOP Last administered on 01/13/19 10:50; Admin Dose 1 APPLIC; Start 01/07/19 at 09:00 Magnesium Oxide (Mag-Ox 400) 400 mg TID PO Last administered on 01/14/19 08:07; Admin Dose 400 MG; Start 01/08/19 at 13:00 Aspirin (Aspirin) 325 mg DAILY PO Last administered on 01/14/19 08:08; Admin D ose 325 MG; Start 01/09/19 at 12:30 Morphine Sulfate (morphine) 2 mg Q2H PRN IV SEVERE PAIN LEVEL 7-10 Last administered on 01/14/19 08:41; Admin Dose 2 MG; Start 01/09/19 at 16:00 Enoxaparin Sodium (Lovenox) 30 mg DAILY SC Last administered on 01/14/19 08:14; Admin Dose 30 MG; Start 01/10/19 at 10:30 Potassium Chloride (Potassium Chloride Pwd/Soln) 40 meq DAILY PO Last administered on 01/14/19 08:08; Admin Dose 40 MEQ; Start 01/12/19 at 09:00 Trazodone HCl (Desyrel) 25 mg HS PO Last administered on 01/13/19 20:37; Admin Dose 25 MG; Start 01/12/19 at 21:00 EDWARD ARORA NP Jan 14, 2019 10:50
--- NOTE | 2019-01-14 12:33 | CONS ---
Assessment/Plan Assessment/Plan Hospital Course (Demo Recall) No events, looks comfortable, no fevers Microbiology: Cultures of the wound growing Enterobacter cloaca, enterococcus species, Corynebacterium species and strep galactorrhea Antimicrobials: Zosyn Physical examination: Well-developed chronically ill-appearing elderly woman who is in no distress. Head atraumatic normocephalic neck is supple chest rise symmetrical breath sounds clear. Heart: S1-S2. Abdomen soft, bowel sounds present. Extremities with bilateral lower extremities dressing intact Assessment: 1. Bilateral lower extremities chronic wounds 2. Left foot osteomyelitis, s/p I/D, L foot bone bx with skin graft 3. Peripheral arterial disease ==> status post abdominal aortogram with right common femoral artery angioplasty 01/07/19. S/p left femoral to above-knee popliteal artery bypass using in situ greater saphenous vein 01/09/19 4. Diabetes with diabetic neuropathy 5. Transaminitis Plan: Clinically unchanged, stable, continue abx, follow bone bx, per podiatry pt will require 6 weeks IV abx Consultation Date/Type/Reason Admit Date/Time Jan 04, 2019 at 17:33 Initial Consult Date Type of Consult id Date/Time of Note DATE: 01/14/19 TIME: 12:32 Exam/Review of Systems Exam Vitals Vital Signs Date Temp Pulse Resp B/P (MAP) Pulse Ox O2 O2 Flow FiO2 Time Delivery Rate 01/14/19 98.6 58 18 116/63 98 07:41 (80) 01/14/19 Room Air 02:00 Intake and Output 01/13/19 01/13/19 01/14/19 1515:00 23:00 07:00 IntakeIntake Total 1250 ml 780 ml 200 ml OutputOutput Total 5 ml 900 ml 1300 ml BalanceBalance 1245 ml -120 ml -1100 ml Results Result Diagram: 01/14/19 0434 01/14/19 0434 Results 24hrs Laboratory Tests Test 01/13/19 13:30 01/13/19 17:32 01/13/19 20:23 01/14/19 04:34 Bedside Glucose 205 156 118 White Blood Count 5.1 Red Blood Count 2.98 L Hemoglobin 8.4 L Hematocrit 27.3 L Mean Corpuscular Volume 91.6 Mean Corpuscular 28.2 L Hemoglobin Mean Corpuscular 30.8 L Hemoglobin Concent Red Cell Distribution 18.2 H Width Platelet Count 241 Mean Platelet Volume 9.4 Immature Granulocytes % 0.400 Neutrophils % 63.2 Lymphocytes % 23.4 Monocytes % 9.3 Eosinophils % 3.1 Basophils % 0.6 Nucleated Red Blood 0.0 Cells % Immature Granulocytes # 0.020 Neutrophils # 3.2 Lymphocytes # 1.2 Monocytes # 0.5 Eosinophils # 0.2 Basophils # 0.0 Nucleated Red Blood 0.0 Cells # Sodium Level 137 Potassium Level 4.4 Chloride Level 104 Carbon Dioxide Level 29 Anion Gap 4 L Blood Urea Nitrogen 19 Creatinine 0.77 Est Glomerular Filtrat > 60 Rate mL/min Glucose Level 118 # Calcium Level 8.6 Phosphorus Level 4.4 Magnesium Level 2.1 Test 01/14/19 08:05 Bedside Glucose 167 Medications Medication Current Medications IV Flush (NS 3 ml) 3 ml PER PROTOCOL IV ; Start 01/04/19 at 18:30 Ondansetron HCl (Zofran Inj) 4 mg Q6H PRN IV NAUSEA/VOMITING Last administered on 01/09/19at 13:28; Admin Dose 4 MG; Start 01/04/19 at 18:30 Acetaminophen (Tylenol Tab) 650 mg Q6H PRN PO .PAIN 1-3 OR TEMP; Start 01/04/19 at 18:30 Piperacillin Sod/ Tazobactam Sod 100 ml @ 200 mls/hr Q8 IVPB Last administered on 01/14/19at 05:05; Admin Dose 200 MLS/HR; Start 01/04/19 at 22:00 Diagnostic Test (Pha) (Accu-Chek) 1 ea 02 XX Last administered on 01/12/19at 02:25; Admin Dose 1 EA; Start 01/05/19 at 02:00 Insulin Aspart (Novolog Insulin Pen) NOVOLOG *MODERATE* ALGORITHM WITH MEALS BEDTIME SC Last administered on 01/14/19at 08:14; Admin Dose 2 UNIT; Start 01/04/19 at 21:00 Miscellaneous Information 1 ea NOTE XX ; Start 01/04/19 at 19:00 Glucose (Glutose) 15 gm Q15M PRN PO DECREASED GLUCOSE; Start 01/04/19 at 19:00 Glucose (Glutose) 22.5 gm Q15M PRN PO DECREASED GLUCOSE; Start 01/04/19 at 19:00 Dextrose (D50w Syringe) 25 ml Q15M PRN IV DECREASED GLUCOSE; Start 01/04/19 at 19:00 Dextrose (D50w Syringe) 50 ml Q15M PRN IV DECREASED GLUCOSE; Start 01/04/19 at 19:00 Glucagon (Glucagen) 1 mg Q15M PRN IM DECREASED GLUCOSE; Start 01/04/19 at 19:00 Glucose (Glutose) 15 gm Q15M PRN BUCCAL DECREASED GLUCOSE; Start 01/04/19 at 19:00 Tramadol HCl (Ultram) 50 mg Q6H PRN PO MODERATE PAIN LEVEL 4-6 Last administered on 01/07/19 21:17; Admin Dose 50 MG; Start 01/04/19 at 23:30 Sodium Hypochlorite (Dakin'S (Dilute )) 1 applic DAILY IRR Last administered on 01/12/19 08:43; Admin Dose 1 APPLIC; Start 01/06/19 at 09:00 Lactobacillus Acidophilus/ Rhamnosus (Culturelle) 1 cap BID PO Last administered on 01/14/19 08:07; Admin Dose 1 CAP; Start 01/05/19 at 21:00 Escitalopram Oxalate (Lexapro) 10 mg DAILY PO Last administered on 01/14/19 08:06; Admin Dose 10 MG; Start 01/05/19 at 21:00 Insulin Aspart (Novolog Insulin Pen) 10 unit WITH MEALS SC Last administered on 01/14/19 08:13; Admin Dose 10 UNIT; Start 01/06/19 at 17:55 Insulin Glargine (Lantus) 30 units DAILY@2000 SC Last administered on 01/13/19 20:40; Admin Dose 30 UNITS; Start 01/06/19 at 20:00 Nicotine (Nicoderm 14 Mg/ 24hr) 1 patch DAILY PRN TRANSDERM CONTROL WITHDRAWAL SYMPTOMS; Start 01/06/19 at 12:00 Ammonium Lactate (Lac-Hydrin 12% Lotion) 1 applic DAILY TOP Last administered on 01/13/19 10:50; Admin Dose 1 APPLIC; Start 01/07/19 at 09:00 Magnesium Oxide (Mag-Ox 400) 400 mg TID PO Last administered on 01/14/19 08:07; Admin Dose 400 MG; Start 01/08/19 at 13:00 Aspirin (Aspirin) 325 mg DAILY PO Last administered on 01/14/19 08:08; Admin Dose 325 MG; Start 01/09/19 at 12:30 Morphine Sulfate (morphine) 2 mg Q2H PRN IV SEVERE PAIN LEVEL 7-10 Last administered on 01/14/19 10:57; Admin Dose 2 MG; Start 01/09/19 at 16:00 Enoxaparin Sodium (Lovenox) 30 mg DAILY SC Last administered on 01/14/19 08:14; Admin Dose 30 MG; Start 01/10/19 at 10:30 Potassium Chloride (Potassium Chloride Pwd/Soln) 40 meq DAILY PO Last administered on 01/14/19 08:08; Admin Dose 40 MEQ; Start 01/12/19 at 09:00 Trazodone HCl (Desyrel) 25 mg HS PO Last administered on 01/13/19 20:37; Admin Dose 25 MG; Start 01/12/19 at 21:00 KENZIE AMBROCIO NP Jan 14, 2019 12:33
[2019-01-14 14:21] VITALS: BP 101/58; PULSE 62; RESP 18
[2019-01-14 20:00] VITALS: BP 133/67; PULSE 60; RESP 18
[2019-01-14] MEDS: traZODone 50 MG TAB PO SCH (20:50)
[2019-01-14] MEDS: INSULIN GLARGINE [LANTus] (100 UNITS/ML) SYG SC SCH (21:28)
[2019-01-15] MEDS: PIPER-TAZO 3.375 GM IV (PMX) 100 ML IVPB SCH ×2 (00:29→06:06)
[2019-01-15 02:00] VITALS: BP 103/60; PULSE 59; RESP 18
[2019-01-15] MEDS: ACCU-CHEK XX SCH (02:00)
[2019-01-15] MEDS: morphine 2 MG INJ IV PRN ×7 (06:08→21:04)
--- NOTE | 2019-01-15 07:41 | PN ---
Date/Time of Note Date/Time of Note DATE: 01/15/19 TIME: 07:41 Assessment/Plan VTE Prophylaxis Risk score (from Nsg)>0 risk: 5 SCD applied (from Ns): No SCD contraindicated: other Pharmacological prophylaxis: LMWH Lines/Catheters IV Catheter Type (from [facility]): Central Line Central line still needed: Yes Urinary Cath still in place: Yes Reason Cath still needed: other (indicate) Assessment/Plan Hospital Course SUBJECTIVE: Denies any pain in bilateral lower extremities. OBJECTIVE: Physical Exam General: Adequately build 63 year-old female lying in bed in no apparent distress. HEENT: Normocephalic, atraumatic. Eyes: Anicteric sclerae, conjunctivae clear. ENT: Nasal septum midline, oral mucosa moist. Neck supple, no JVD noticed. Respiratory: Bilaterally clear breath sounds. No use of accessory muscles of respiration. No adventitious breath sounds. Cardiovascular: S1, S2 heard. Regular rate and rhythm. Abdomen: Soft, nontender, and nondistended. Bowel sounds positive in all 4 quadrants. Genitourinary: Deferred. Extremities: No cyanosis, no clubbing. Left foot status post transmetatarsal amputation. Left heel wound dressing. Right foot wound dressing. Neurologic: Cranial nerves II through XII grossly intact. The patient is awake, alert, and oriented. Labs & Vitals per chart ASSESSMENT & PLAN 63-year-old female with comorbidities including diabetes mellitus and chronic bilateral lower extremity wounds. The patient was brought into the emergency room by her significant other because of hyperglycemia and chronic wounds. The patient was noticed to have a blood sugar of 579 in the emergency room. The patient also had underlying transaminitis without hyperbilirubinemia. The patient's x-ray of the left foot was showing erosive changes in the anterior calcaneus amputation site, possibly representing osteomyelitis. The patient's right ankle x-ray was showing osteopenia with no evidence of osteomyelitis. The patient was transferred to inpatient setting for further treatment and evaluation. 1. Diabetes mellitus. -Uncontrolled. -Hemoglobin A1c 12.6. -Continue sliding scale insulin along with basal insulin and pre-meal insulin. 2. Nonhealing left foot ulcer. -Status post left femoral to above-knee popliteal artery bypass using in situ greater saphenous vein on 01/09/2019. 3. Possible left foot osteomyelitis in the calcaneum. -Patient refusing MRI. -Continue antimicrobials as per ID. 4. Right foot diabetic foot ulcer. -Wound culture positive for Corynebacterium species and Strep agalactiae. -Continue antimicrobials as per ID. -Status post excisional debridement of bilateral feet, bone biopsy of left foot, and application of allograft on 01/13/2019. 5. Left foot diabetic ulcer. -Wound culture positive for polymicrobials. -Continue antimicrobials as per ID. -Status post excisional debridement of bilateral feet, bone biopsy of left foot, and application of allograft on 01/13/2019. 6. Nicotine use. -Continue nicotine patch. 7. Fluids, electrolytes, and nutrition. -Carbohydrate controlled diet. 8. DVT prophylaxis. -Subcutaneous Lovenox. 9. Plan. -Continue antimicrobials as per ID. -Await clinical improvement. -Needs placement to a SNF. -Meanwhile order a PICC line. The patient was seen in collaboration with Dr. Young. Result Diagram: 01/15/19 0453 01/15/19 0453 Results 24hrs Laboratory Tests Test 01/14/19 08:05 01/14/19 12:44 01/14/19 17:38 01/14/19 20:47 Bedside Glucose 167 129 152 51 L Test 01/14/19 21:20 01/15/19 04:53 Bedside Glucose 92 White Blood Count 5.2 Red Blood Count 3.18 L Hemoglobin 8.8 L Hematocrit 28.7 L Mean Corpuscular Volume 90.3 Mean Corpuscular 27.7 L Hemoglobin Mean Corpuscular 30.7 L Hemoglobin Concent Red Cell Distribution 18.2 H Width Platelet Count 249 Mean Platelet Volume 9.2 Immature Granulocytes % 0.400 Neutrophils % Lymphocytes % Monocytes % Eosinophils % Basophils % Nucleated Red Blood 0.0 Cells % Immature Granulocytes # 0.020 Neutrophils # Lymphocytes # Monocytes # Eosinophils # Basophils # Nucleated Red Blood Cells # Sodium Level 138 Potassium Level 4.5 Chloride Level 105 Carbon Dioxide Level 29 Anion Gap 4 L Blood Urea Nitrogen 19 Creatinine 0.67 Est Glomerular Filtrat > 60 Rate mL/min Glucose Level 156 Calcium Level 8.9 Phosphorus Level 4.3 Magnesium Level 2.4 Exam/Review of Systems Exam Vitals Vital Signs Date Temp Pulse Resp B/P (MAP) Pulse Ox O2 O2 Flow FiO2 Time Delivery Rate 01/15/19 98.0 59 18 103/60 97 02:00 (74) 01/14/19 Room Air 02:00 Intake and Output 01/14/19 01/14/19 01/15/19 1515:00 23:00 07:00 IntakeIntake Total 1060 ml 840 ml 440 ml OutputOutput Total 2000 ml 900 ml 1200 ml BalanceBalance -940 ml -60 ml -760 ml Results Results 24hrs Laboratory Tests Test 01/14/19 08:05 01/14/19 12:44 01/14/19 17:38 01/14/19 20:47 Bedside Glucose 167 129 152 51 L Test 01/14/19 21:20 01/15/19 04:53 Bedside Glucose 92 White Blood Count 5.2 Red Blood Count 3.18 L Hemoglobin 8.8 L Hematocrit 28.7 L Mean Corpuscular Volume 90.3 Mean Corpuscular 27.7 L Hemoglobin Mean Corpuscular 30.7 L Hemoglobin Concent Red Cell Distribution 18.2 H Width Platelet Count 249 Mean Platelet Volume 9.2 Immature Granulocytes % 0.400 Neutrophils % Lymphocytes % Monocytes % Eosinophils % Basophils % Nucleated Red Blood 0.0 Cells % Immature Granulocytes # 0.020 Neutrophils # Lymphocytes # Monocytes # Eosinophils # Basophils # Nucleated Red Blood Cells # Sodium Level 138 Potassium Level 4.5 Chloride Level 105 Carbon Dioxide Level 29 Anion Gap 4 L Blood Urea Nitrogen 19 Creatinine 0.67 Est Glomerular Filtrat > 60 Rate mL/min Glucose Level 156 Calcium Level 8.9 Phosphorus Level 4.3 Magnesium Level 2.4 Medications Medication Current Medications IV Flush (NS 3 ml) 3 ml PER PROTOCOL IV ; Start 01/04/19 at 18:30 Ondansetron HCl (Zofran Inj) 4 mg Q6H PRN IV NAUSEA/VOMITING Last administered on 01/09/19at 13:28; Admin Dose 4 MG; Start 01/04/19 at 18:30 Acetaminophen (Tylenol Tab) 650 mg Q6H PRN PO .PAIN 1-3 OR TEMP; Start 01/04/19 at 18:30 Piperacillin Sod/ Tazobactam Sod 100 ml @ 200 mls/hr Q8 IVPB Last administered on 01/15/19at 06:06; Admin Dose 200 MLS/HR; Start 01/04/19 at 22:00 Diagnostic Test (Pha) (Accu-Chek) 1 ea 02 XX Last administered on 01/12/19 02:25; Admin Dose 1 EA; Start 01/05/19 at 02:00 Insulin Aspart (Novolog Insulin Pen) NOVOLOG *MODERATE* ALGORITHM WITH MEALS BEDTIME SC Last administered on 01/14/19 17:41; Admin Dose 2 UNIT; Start 01/04/19 at 21:00 Miscellaneous Information 1 ea NOTE XX ; Start 01/04/19 at 19:00 Glucose (Glutose) 15 gm Q15M PRN PO DECREASED GLUCOSE; Start 01/04/19 at 19:00 Glucose (Glutose) 22.5 gm Q15M PRN PO DECREASED GLUCOSE; Start 01/04/19 at 19:00 Dextrose (D50w Syringe) 25 ml Q15M PRN IV DECREASED GLUCOSE; Start 01/04/19 at 19:00 Dextrose (D50w Syringe) 50 ml Q15M PRN IV DECREASED GLUCOSE; Start 01/04/19 at 19:00 Glucagon (Glucagen) 1 mg Q15M PRN IM DECREASED GLUCOSE; Start 01/04/19 at 19:00 Glucose (Glutose) 15 gm Q15M PRN BUCCAL DECREASED GLUCOSE; Start 01/04/19 at 19:00 Tramadol HCl (Ultram) 50 mg Q6H PRN PO MODERATE PAIN LEVEL 4-6 Last administ ered on 01/07/19 21:17; Admin Dose 50 MG; Start 01/04/19 at 23:30 Sodium Hypochlorite (Dakin'S (Dilute )) 1 applic DAILY IRR Last administered on 01/12/19 08:43; Admin Dose 1 APPLIC; Start 01/06/19 at 09:00 Lactobacillus Acidophilus/ Rhamnosus (Culturelle) 1 cap BID PO Last administered on 01/14/19 20:51; Admin Dose 1 CAP; Start 01/05/19 at 21:00 Escitalopram Oxalate (Lexapro) 10 mg DAILY PO Last administered on 01/14/19 08:06; Admin Dose 10 MG; Start 01/05/19 at 21:00 Insulin Aspart (Novolog Insulin Pen) 10 unit WITH MEALS SC Last administered on 01/14/19 17:40; Admin Dose 10 UNIT; Start 01/06/19 at 17:55 Insulin Glargine (Lantus) 30 units DAILY@2000 SC Last administered on 01/13/19 20:40; Admin Dose 30 UNITS; Start 01/06/19 at 20:00 Nicotine (Nicoderm 14 Mg/ 24hr) 1 patch DAILY PRN TRANSDERM CONTROL WITHDRAWAL SYMPTOMS; Start 01/06/19 at 12:00 Ammonium Lactate (Lac-Hydrin 12% Lotion) 1 applic DAILY TOP Last administered on 01/13/19 10:50; Admin Dose 1 APPLIC; Start 01/07/19 at 09:00 Magnesium Oxide (Mag-Ox 400) 400 mg TID PO Last administered on 01/14/19 20:50; Admin Dose 400 MG; Start 01/08/19 at 13:00 Aspirin (Aspirin) 325 mg DAILY PO Last administered on 01/14/19 08:08; Admin Dose 325 MG; Start 01/09/19 at 12:30 Morphine Sulfate (morphine) 2 mg Q2H PRN IV SEVERE PAIN LEVEL 7-10 Last administered on 01/15/19 06:08; Admin Dose 2 MG; Start 01/09/19 at 16:00 Enoxaparin Sodium (Lovenox) 30 mg DAILY SC Last administered on 01/14/19 08:14; Admin Dose 30 MG; Start 01/10/19 at 10:30 Potassium Chloride (Potassium Chloride Pwd/Soln) 40 meq DAILY PO Last administ ered on 01/14/19 08:08; Admin Dose 40 MEQ; Start 01/12/19 at 09:00 Trazodone HCl (Desyrel) 25 mg HS PO Last administered on 01/14/19 20:50; Admin Dose 25 MG; Start 01/12/19 at 21:00 EDWARD ARORA NP Jan 15, 2019 07:41
[2019-01-15 07:42] VITALS: BP 114/65; PULSE 56; RESP 18
[2019-01-15] MEDS: INSULIN ASPART [NOVOLOG] 3 ML PEN SC SCH ×7 (08:17→20:42)
[2019-01-15] MEDS: ENOXAPARIN 30 MG/0.3 ML SYG SC SCH (08:50)
[2019-01-15] MEDS: MAGNESIUM OXIDE 400 MG TAB PO SCH ×3 (08:50→20:39)
[2019-01-15] MEDS: POTASSIUM CHLORIDE 20 MEQ POWDER FOR ORAL SOLN PO SCH (08:51)
[2019-01-15] MEDS: ASPIRIN 325 MG TAB PO SCH (08:51)
[2019-01-15] MEDS: ESCITALOPRAM 10 MG TAB PO SCH (08:51)
[2019-01-15] MEDS: LACTOBACILLUS RHAMNOSUS CAP PO SCH ×2 (08:51→20:39)
[2019-01-15] MEDS: SODIUM HYPOCHLORITE (1/40) 1 LITER BTL IRR SCH (09:00)
[2019-01-15] MEDS: AMMONIUM LACTATE 12% 225 GM LOT TOP SCH (09:00)
--- NOTE | 2019-01-15 12:50 | CONS ---
Assessment/Plan Assessment/Plan Hospital Course (Demo Recall) No events, looks comfortable, no fevers Microbiology: Cultures of the wound growing Enterobacter cloaca, enterococcus species, Corynebacterium species and strep galactorrhea Antimicrobials: Zosyn Physical examination: Well-developed chronically ill-appearing elderly woman who is in no distress. Head atraumatic normocephalic neck is supple chest rise symmetrical breath sounds clear. Heart: S1-S2. Abdomen soft, bowel sounds present. Extremities with bilateral lower extremities dressing intact Assessment: 1. Bilateral lower extremities chronic wounds 2. Left foot osteomyelitis, s/p I/D, L foot bone bx with skin graft 3. Peripheral arterial disease ==> status post abdominal aortogram with right common femoral artery angioplasty 01/07/19. S/p left femoral to above-knee popliteal artery bypass using in situ greater saphenous vein 01/09/19 4. Diabetes with diabetic neuropathy 5. Transaminitis Plan: Stable, will change abx to Vanco and Invanz and continue for 6 weeks Consultation Date/Type/Reason Admit Date/Time Jan 04, 2019 at 17:33 Initial Consult Date Type of Consult id Date/Time of Note DATE: 01/15/19 TIME: 12:48 Exam/Review of Systems Exam Vitals Vital Signs Date Temp Pulse Resp B/P (MAP) Pulse Ox O2 O2 Flow FiO2 Time Delivery Rate 01/15/19 98.0 56 18 114/65 97 07:42 (81) 01/14/19 Room Air 02:00 Intake and Output 01/14/19 01/14/19 01/15/19 1515:00 23:00 07:00 IntakeIntake Total 1060 ml 840 ml 440 ml OutputOutput Total 2000 ml 900 ml 1200 ml BalanceBalance -940 ml -60 ml -760 ml Results Result Diagram: 01/15/19 0453 01/15/19 0453 Results 24hrs Laboratory Tests Test 01/14/19 17:38 01/14/19 20:47 01/14/19 21:20 01/15/19 04:53 Bedside Glucose 152 51 L 92 White Blood Count 5.2 Red Blood Count 3.18 L Hemoglobin 8.8 L Hematocrit 28.7 L Mean Corpuscular Volume 90.3 Mean Corpuscular 27.7 L Hemoglobin Mean Corpuscular 30.7 L Hemoglobin Concent Red Cell Distribution 18.2 H Width Platelet Count 249 Mean Platelet Volume 9.2 Immature Granulocytes % 0.400 Neutrophils % Segmented Neutrophils 79 H % (Manual) Band Neutrophils % 2 (Manual) Lymphocytes % Lymphocytes % (Manual) 11 L Monocytes % Monocytes % (Manual) 6 Eosinophils % Eosinophils % (Manual) 1 Basophils % Plasma Cells % (manual) 1 Nucleated Red Blood 0.0 Cells % Immature Granulocytes # 0.020 Neutrophils # Neutrophils # (Manual) 4.1 Band Neutrophils # 0.1 Lymphocytes (Manual) 0.5 L Lymphocytes # Monocytes # Monocytes # (Manual) 0.3 Eosinophils # Basophils # Plasma Cells # (manual) 0.0 Nucleated Red Blood Cells # Platelet Estimate NORMAL Hypochromasia 1+ Anisocytosis 1+ Macrocytosis 1+ Sodium Level 138 Potassium Level 4.5 Chloride Level 105 Carbon Dioxide Level 29 Anion Gap 4 L Blood Urea Nitrogen 19 Creatinine 0.67 Est Glomerular Filtrat > 60 Rate mL/min Glucose Level 156 Calcium Level 8.9 Phosphorus Level 4.3 Magnesium Level 2.4 Test 01/15/19 08:04 01/15/19 11:17 Bedside Glucose 212 230 H Medications Medication Current Medications IV Flush (NS 3 ml) 3 ml PER PROTOCOL IV ; Start 01/04/19 at 18:30 Ondansetron HCl (Zofran Inj) 4 mg Q6H PRN IV NAUSEA/VOMITING Last administered on 01/09/19at 13:28; Admin Dose 4 MG; Start 01/04/19 at 18:30 Acetaminophen (Tylenol Tab) 650 mg Q6H PRN PO .PAIN 1-3 OR TEMP; Start 01/04/19 at 18:30 Piperacillin Sod/ Tazobactam Sod 100 ml @ 200 mls/hr Q8 IVPB Last administered on 01/15/19at 06:06; Admin Dose 200 MLS/HR; Start 01/04/19 at 22:00 Diagnostic Test (Pha) (Accu-Chek) 1 ea 02 XX Last administered on 01/12/19at 02:25; Admin Dose 1 EA; Start 01/05/19 at 02:00 Insulin Aspart (Novolog Insulin Pen) NOVOLOG *MODERATE* ALGORITHM WITH MEALS BEDTIME SC Last administered on 01/15/19at 08:17; Admin Dose 4 UNIT; Start 01/04/19 at 21:00 Miscellaneous Information 1 ea NOTE XX ; Start 01/04/19 at 19:00 Glucose (Glutose) 15 gm Q15M PRN PO DECREASED GLUCOSE; Start 01/04/19 at 19:00 Glucose (Glutose) 22.5 gm Q15M PRN PO DECREASED GLUCOSE; Start 01/04/19 at 19: 00 Dextrose (D50w Syringe) 25 ml Q15M PRN IV DECREASED GLUCOSE; Start 01/04/19 at 19:00 Dextrose (D50w Syringe) 50 ml Q15M PRN IV DECREASED GLUCOSE; Start 01/04/19 at 19:00 Glucagon (Glucagen) 1 mg Q15M PRN IM DECREASED GLUCOSE; Start 01/04/19 at 19:00 Glucose (Glutose) 15 gm Q15M PRN BUCCAL DECREASED GLUCOSE; Start 01/04/19 at 19:00 Tramadol HCl (Ultram) 50 mg Q6H PRN PO MODERATE PAIN LEVEL 4-6 Last administered on 01/07/19 21:17; Admin Dose 50 MG; Start 01/04/19 at 23:30 Sodium Hypochlorite (Dakin'S (Dilute )) 1 applic DAILY IRR Last administered on 01/12/19 08:43; Admin Dose 1 APPLIC; Start 01/06/19 at 09:00 Lactobacillus Acidophilus/ Rhamnosus (Culturelle) 1 cap BID PO Last a dministered on 01/15/19 08:51; Admin Dose 1 CAP; Start 01/05/19 at 21:00 Escitalopram Oxalate (Lexapro) 10 mg DAILY PO Last administered on 01/15/19 08:51; Admin Dose 10 MG; Start 01/05/19 at 21:00 Insulin Aspart (Novolog Insulin Pen) 10 unit WITH MEALS SC Last administered on 01/15/19 08:18; Admin Dose 10 UNIT; Start 01/06/19 at 17:55 Insulin Glargine (Lantus) 30 units DAILY@2000 SC Last administered on 01/13/19 20:40; Admin Dose 30 UNITS; Start 01/06/19 at 20:00 Nicotine (Nicoderm 14 Mg/ 24hr) 1 patch DAILY PRN TRANSDERM CONTROL WITHDRAWAL SYMPTOMS; Start 01/06/19 at 12:00 Ammonium Lactate (Lac-Hydrin 12% Lotion) 1 applic DAILY TOP Last administered on 01/13/19 10:50; Admin Dose 1 APPLIC; Start 01/07/19 at 09:00 Magnesium Oxide (Mag-Ox 400) 400 mg TID PO Last administered on 01/15/19 08:50; Admin Dose 400 MG; Start 01/08/19 at 13:00 Aspirin (Aspirin) 325 mg DAILY PO Last administered on 01/15/19 08:51; Admin Dose 325 MG; Start 01/09/19 at 12:30 Morphine Sulfate (morphine) 2 mg Q2H PRN IV SEVERE PAIN LEVEL 7-10 Last administered on 01/15/19 11:08; Admin Dose 2 MG; Start 01/09/19 at 16:00 Enoxaparin Sodium (Lovenox) 30 mg DAILY SC Last administered on 01/15/19 08:50; Admin Dose 30 MG; Start 01/10/19 at 10:30 Potassium Chloride (Potassium Chloride Pwd/Soln) 40 meq DAILY PO Last administered on 01/15/19 08:51; Admin Dose 40 MEQ; Start 01/12/19 at 09:00 Trazodone HCl (Desyrel) 25 mg HS PO Last administered on 01/14/19 20:50; Admin Dose 25 MG; Start 01/12/19 at 21:00 KENZIE AMBROCIO NP Jan 15, 2019 12:50
[2019-01-15] MEDS ORDERED: VANCOMYCIN IV PER PHARMACY XX SCH (13:00)
[2019-01-15 13:04] VITALS: BP 140/73; PULSE 64; RESP 18
[2019-01-15] MEDS: ERTAPENEM SODIUM 1 GM in SOD CHLORIDE 0.9% 100 ML IVPB SCH (15:22)
[2019-01-15] MEDS: VANCOMYCIN 1 GM 250 ML IVPB SCH (16:15)
[2019-01-15] MEDS ORDERED: LIDOCAINE 1% (MPF) 5 ML VIAL SC ONE (17:00)
[2019-01-15 20:00] VITALS: BP 107/59; PULSE 66; RESP 18
[2019-01-15] MEDS: INSULIN GLARGINE [LANTus] (100 UNITS/ML) SYG SC SCH (20:39)
[2019-01-15] MEDS: traZODone 50 MG TAB PO SCH (20:39)
[2019-01-16] MEDS: ACCU-CHEK XX SCH (01:20)
[2019-01-16 02:00] VITALS: BP 101/56; PULSE 61; RESP 18
[2019-01-16] MEDS: VANCOMYCIN 1 GM 250 ML IVPB SCH ×2 (02:56→18:04)
[2019-01-16] MEDS: INSULIN ASPART [NOVOLOG] 3 ML PEN SC SCH ×7 (08:13→20:24)
[2019-01-16 08:22] VITALS: BP 125/63; PULSE 64; RESP 18
[2019-01-16] MEDS: ENOXAPARIN 30 MG/0.3 ML SYG SC SCH (08:40)
[2019-01-16] MEDS: morphine 2 MG INJ IV PRN ×4 (08:57→20:26)
[2019-01-16] MEDS: LACTOBACILLUS RHAMNOSUS CAP PO SCH ×2 (08:59→20:23)
[2019-01-16] MEDS: MAGNESIUM OXIDE 400 MG TAB PO SCH ×3 (09:00→20:23)
[2019-01-16] MEDS: ESCITALOPRAM 10 MG TAB PO SCH (09:00)
[2019-01-16] MEDS: POTASSIUM CHLORIDE 20 MEQ POWDER FOR ORAL SOLN PO SCH (09:00)
[2019-01-16] MEDS: ASPIRIN 325 MG TAB PO SCH (09:00)
[2019-01-16] MEDS: AMMONIUM LACTATE 12% 225 GM LOT TOP SCH (09:01)
[2019-01-16] MEDS: SODIUM HYPOCHLORITE (1/40) 1 LITER BTL IRR SCH (09:06)
--- NOTE | 2019-01-16 10:02 | PSY ---
Date/Time of Note Date/Time of Note DATE: 01/16/19 TIME: 09:56 Psychiatric Subjective Eval Consent Pt consented to telemedicine: No Subjective Evaluation Patient location: inpatient Chief Complaint: R FOOT INFECTION AND NEEDS WOUND CARE AND FEELS LIKE BLOOD SUGAR IS HIGH History of present illness Patient is 63 old female admitted to the [facility] unit for bilateral lower extremity ulceration sites. On a [id number] evaluation, patient is angry a very reasonable she admits feeling depressed she is guarded and evasive at some point patient refused to answer questions states she is hopeless and also she needs to tell interviewer. She however denies suicidal ideation and contracted for safety. Discussed risk and benefits of her medications the SSRIs and she was very adamant with no response Hospitalization: no Medical history Problems Medical Problems: (1) Cellulitis Status: Acute (2) Diabetic foot ulcer Status: Acute (3) Hyperglycemia Status: Acute Allergies: Coded Allergies: No Known Allergy (Unverified , 01/04/19) Substance Abuse Substance use: No known substance abuse Substance abuse history: No Prior substance abuse treatmen: No Social History Marital status: other DPA/Conservatorship: No Psychiatric Objective Eval Review of Systems: Review of Systems: Not Applicable Physical Examination: Physical Examination: Not Applicable Interest: Adequate Mental Status Examination: Appearance: Poor Hygiene Eye Contact: Fair Behavior: Agitated Speech: Clear AFFECT: Libile, Anxious Mood: Depressed Though Process: Linear Thought Content: Normal Orientation: x4 Cognition: Alert Insight: Moderate Attention Span: Distractible Laboratory Results Laboratory Tests Test 01/14/19 12:44 01/14/19 17:38 01/14/19 20:47 01/14/19 21:20 Bedside Glucose 129 mg/dL 152 mg/dL 51 mg/dL 92 mg/dL Test 01/15/19 04:53 01/15/19 08:04 01/15/19 11:17 01/15/19 13:10 White Blood Count 5.2 10^3/ul Red Blood Count 3.18 10^6/ul Hemoglobin 8.8 g/dl Hematocrit 28.7 % Mean Corpuscular 90.3 fl Volume Mean Corpuscular 27.7 pg Hemoglobin Mean Corpuscular 30.7 g/dl Hemoglobin Concent Red Cell 18.2 % Distribution Width Platelet Count 249 10^3/UL Mean Platelet Volume 9.2 fl Immature 0.400 % Granulocytes % Neutrophils % % Segmented 79 % Neutrophils % (Manual) Band Neutrophils % 2 % (Manual) Lymphocytes % % Lymphocytes % 11 % (Manual) Monocytes % % Monocytes % (Manual) 6 % Eosinophils % % Eosinophils % 1 % (Manual) Basophils % % Plasma Cells % 1 % (manual) Nucleated Red Blood 0.0 /100WBC Cells % Immature 0.020 10^3/ul Granulocytes # Neutrophils # 10^3/ul Neutrophils # 4.1 10^3/ul (Manual) Band Neutrophils # 0.1 10^3/ul Lymphocytes (Manual) 0.5 10^3/ul Lymphocytes # 10^3/ul Monocytes # 10^3/ul Monocytes # (Manual) 0.3 10^3/ul Eosinophils # 10^3/ul Basophils # 10^3/ul Plasma Cells # 0.0 10^3/ul (manual) Nucleated Red Blood 10^3/ul Cells # Platelet Estimate NORMAL Hypochromasia 1+ Anisocytosis 1+ Macrocytosis 1+ Sodium Level 138 mmol/L Potassium Level 4.5 mmol/L Chloride Level 105 mmol/L Carbon Dioxide Level 29 mmol/L Anion Gap 4 Blood Urea Nitrogen 19 mg/dl Creatinine 0.67 mg/dl Est Glomerular > 60 mL/min Filtrat Rate mL/min Glucose Level 156 mg/dl Calcium Level 8.9 mg/dl Phosphorus Level 4.3 mg/dl Magnesium Level 2.4 mg/dl Bedside Glucose 212 mg/dL 230 mg/dL 208 mg/dL Test 01/15/19 18:08 01/15/19 20:36 01/16/19 05:14 01/16/19 08:08 Bedside Glucose 102 mg/dL 123 mg/dL 149 mg/dL White Blood Count 4.7 10^3/ul Red Blood Count 3.29 10^6/ul Hemoglobin 9.1 g/dl Hematocrit 30.4 % Mean Corpuscular 92.4 fl Volume Mean Corpuscular 27.7 pg Hemoglobin Mean Corpuscular 29.9 g/dl Hemoglobin Concent Red Cell 18.6 % Distribution Width Platelet Count 272 10^3/UL Mean Platelet Volume 8.6 fl Immature 0.400 % Granulocytes % Neutrophils % 67.0 % Lymphocytes % 21.1 % Monocytes % 7.9 % Eosinophils % 3.0 % Basophils % 0.6 % Nucleated Red Blood 0.0 /100WBC Cells % Immature 0.020 10^3/ul Granulocytes # Neutrophils # 3.2 10^3/ul Lymphocytes # 1.0 10^3/ul Monocytes # 0.4 10^3/ul Eosinophils # 0.1 10^3/ul Basophils # 0.0 10^3/ul Nucleated Red Blood 0.0 10^3/ul Cells # Prothrombin Time 12.6 Sec Prothrombin Time 1.0 Ratio INR International 0.93 Normalized Ratio Activated 27.5 Sec Partial Thromboplast Time Sodium Level 139 mmol/L Potassium Level 4.3 mmol/L Chloride Level 107 mmol/L Carbon Dioxide Level 27 mmol/L Anion Gap 5 Blood Urea Nitrogen 20 mg/dl Creatinine 0.58 mg/dl Est Glomerular > 60 mL/min Filtrat Rate mL/min Glucose Level 127 mg/dl Calcium Level 8.9 mg/dl Phosphorus Level 4.1 mg/dl Magnesium Level 2.3 mg/dl Assessment and Plan Assessment/Diagnosis Diagnosis Major depressive 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
--- NOTE | 2019-01-16 12:13 | CONS ---
Assessment/Plan Assessment/Plan Hospital Course (Demo Recall) No events, looks comfortable Microbiology: Cultures of the wound growing Enterobacter cloaca, enterococcus species, Corynebacterium species and strep galactorrhea Antimicrobials: Vanco, Invanz Physical examination: Well-developed chronically ill-appearing elderly woman who is in no distress. Head atraumatic normocephalic neck is supple chest rise symmetrical breath sounds clear. Heart: S1-S2. Abdomen soft, bowel sounds present. Extremities with bilateral lower extremities dressing intact Assessment: 1. Bilateral lower extremities chronic wounds 2. Left foot osteomyelitis, s/p I/D, L foot bone bx with skin graft 3. Peripheral arterial disease ==> status post abdominal aortogram with right common femoral artery angioplasty 01/07/19. S/p left femoral to above-knee popliteal artery bypass using in situ greater saphenous vein 01/09/19 4. Diabetes with diabetic neuropathy 5. Transaminitis Plan: Stable, continue on current abx to complete 6 weeks, f/u podiatry rec-s Consultation Date/Type/Reason Admit Date/Time Jan 04, 2019 at 17:33 Initial Consult Date Type of Consult id Date/Time of Note DATE: 01/16/19 TIME: 12:12 Exam/Review of Systems Exam Vitals Vital Signs Date Temp Pulse Resp B/P (MAP) Pulse Ox O2 O2 Flow FiO2 Time Delivery Rate 01/16/19 97.8 64 18 125/63 97 08:22 (83) 01/14/19 Room Air 02:00 Intake and Output 01/15/19 01/15/19 01/16/19 1414:59 22:59 06:59 IntakeIntake Total 960 ml 710 ml 730 ml OutputOutput Total 1650 ml 1800 ml BalanceBalance -690 ml 710 ml -1070 ml Results Result Diagram: 01/16/19 0514 01/16/19 0514 Results 24hrs Laboratory Tests Test 01/15/19 13:10 01/15/19 18:08 01/15/19 20:36 01/16/19 05:14 Bedside Glucose 208 102 123 White Blood Count 4.7 L Red Blood Count 3.29 L Hemoglobin 9.1 L Hematocrit 30.4 L Mean Corpuscular Volume 92.4 Mean Corpuscular 27.7 L Hemoglobin Mean Corpuscular 29.9 L Hemoglobin Concent Red Cell Distribution 18.6 H Width Platelet Count 272 Mean Platelet Volume 8.6 Immature Granulocytes % 0.400 Neutrophils % 67.0 Lymphocytes % 21.1 Monocytes % 7.9 Eosinophils % 3.0 Basophils % 0.6 Nucleated Red Blood 0.0 Cells % Immature Granulocytes # 0.020 Neutrophils # 3.2 Lymphocytes # 1.0 Monocytes # 0.4 Eosinophils # 0.1 Basophils # 0.0 Nucleated Red Blood 0.0 Cells # Prothrombin Time 12.6 Prothrombin Time Ratio 1.0 INR International 0.93 Normalized Ratio Activated 27.5 Partial Thromboplast Time Sodium Level 139 Potassium Level 4.3 Chloride Level 107 Carbon Dioxide Level 27 Anion Gap 5 Blood Urea Nitrogen 20 Creatinine 0.58 Est Glomerular Filtrat > 60 Rate mL/min Glucose Level 127 Calcium Level 8.9 Phosphorus Level 4.1 Magnesium Level 2.3 Test 01/16/19 08:08 Bedside Glucose 149 Medications Medication Current Medications IV Flush (NS 3 ml) 3 ml PER PROTOCOL IV ; Start 01/04/19 at 18:30 Ondansetron HCl (Zofran Inj) 4 mg Q6H PRN IV NAUSEA/VOMITING Last administered on 01/09/19at 13:28; Admin Dose 4 MG; Start 01/04/19 at 18:30 Acetaminophen (Tylenol Tab) 650 mg Q6H PRN PO .PAIN 1-3 OR TEMP; Start 01/04/19 at 18:30 Diagnostic Test (Pha) (Accu-Chek) 1 ea 02 XX Last administered on 01/12/19at 02:25; Admin Dose 1 EA; Start 01/05/19 at 02:00 Insulin Aspart (Novolog Insulin Pen) NOVOLOG *MODERATE* ALGORITHM WITH MEALS BEDTIME SC Last administered on 01/16/19at 08:13; Admin Dose 2 UNIT; Start 01/04/19 at 21:00 Miscellaneous Information 1 ea NOTE XX ; Start 01/04/19 at 19:00 Glucose (Glutose) 15 gm Q15M PRN PO DECREASED GLUCOSE; Start 01/04/19 at 19:00 Glucose (Glutose) 22.5 gm Q15M PRN PO DECREASED GLUCOSE; Start 01/04/19 at 19:00 Dextrose (D50w Syringe) 25 ml Q15M PRN IV DECREASED GLUCOSE; Start 01/04/19 at 19:00 Dextrose (D50w Syringe) 50 ml Q15M PRN IV DECREASED GLUCOSE; Start 01/04/19 at 19:00 Glucagon (Glucagen) 1 mg Q15M PRN IM DECREASED GLUCOSE; Start 01/04/19 at 19:00 Glucose (Glutose) 15 gm Q15M PRN BUCCAL DECREASED GLUCOSE; Start 01/04/19 at 19:00 Tramadol HCl (Ultram) 50 mg Q6H PRN PO MODERATE PAIN LEVEL 4-6 Last administered on 01/07/19 21:17; Admin Dose 50 MG; Start 01/04/19 at 23:30 Sodium Hypochlorite (Dakin'S (Dilute )) 1 applic DAILY IRR Last administered on 01/16/19 09:06; Admin Dose 1 APPLIC; Start 01/06/19 at 09:00 Lactobacillus Acidophilus/ Rhamnosus (Culturelle) 1 cap BID PO Last administered on 01/16/19 08:59; Admin Dose 1 CAP; Start 01/05/19 at 21:00 Escitalopram Oxalate (Lexapro) 10 mg DAILY PO Last administered on 01/16/19 09:00; Admin Dose 10 MG; Start 01/05/19 at 21:00 Insulin Aspart (Novolog Insulin Pen) 10 unit WITH MEALS SC Last administered on 01/16/19 08:14; Admin Dose 10 UNIT; Start 01/06/19 at 17:55 Insulin Glargine (Lantus) 30 units DAILY@2000 SC Last administered on 01/15/19 20:39; Admin Dose 30 UNITS; Start 01/06/19 at 20:00 Nicotine (Nicoderm 14 Mg/ 24hr) 1 patch DAILY PRN TRANSDERM CONTROL WITHDRAWAL SYMPTOMS; Start 01/06/19 at 12:00 Ammonium Lactate (Lac-Hydrin 12% Lotion) 1 applic DAILY TOP Last administered on 01/16/19 09:01; Admin Dose 1 APPLIC; Start 01/07/19 at 09:00 Magnesium Oxide (Mag-Ox 400) 400 mg TID PO Last administered on 01/16/19 09:00; Admin Dose 400 MG; Start 01/08/19 at 13:00 Aspirin (Aspirin) 325 mg DAILY PO Last administered on 01/16/19 09:00; Admin Dose 325 MG; Start 01/09/19 at 12:30 Morphine Sulfate (morphine) 2 mg Q2H PRN IV SEVERE PAIN LEVEL 7-10 Last admini stered on 01/16/19 08:57; Admin Dose 2 MG; Start 01/09/19 at 16:00 Enoxaparin Sodium (Lovenox) 30 mg DAILY SC Last administered on 01/15/19 08:50; Admin Dose 30 MG; Start 01/10/19 at 10:30 Potassium Chloride (Potassium Chloride Pwd/Soln) 40 meq DAILY PO Last administered on 01/16/19 09:00; Admin Dose 40 MEQ; Start 01/12/19 at 09:00 Trazodone HCl (Desyrel) 25 mg HS PO Last administered on 01/15/19 20:39; Admin Dose 25 MG; Start 01/12/19 at 21:00 Ertapenem 1 gm/ Sodium Chloride 100 ml @ 200 mls/hr Q24H IVPB Last administered on 01/15/19 15:22; Admin Dose 200 MLS/HR; Start 01/15/19 at 14:30 Vancomycin HCl (Vanco Iv Per Pharmacy) VANCOMYCIN PER PHARMACY PER PROTOCOL XX ; Start 01/15/19 at 13:00 Vancomycin HCl 250 ml @ 125 mls/hr Q12H IVPB Last administered on 01/16/19 02:56; Admin Dose 125 MLS/HR; Start 01/15/19 at 15:00 Miscellaneous Information (*Rx Drug Level Order Reminder*) VANCO TROUGH ON @ 400 1400 ONCE XX ; Start 01/17/19 at 14:00; Stop 01/17/19 at 14:01 KENZIE AMBROCIO NP Jan 16, 2019 12:13
--- NOTE | 2019-01-16 13:52 | PN ---
Date/Time of Note Date/Time of Note DATE: 01/16/19 TIME: 13:50 Assessment/Plan VTE Prophylaxis Risk score (from Nsg)>0 risk: 4 SCD applied (from Nsg): Yes Pharmacological prophylaxis: LMWH Lines/Catheters IV Catheter Type (from Nrsg): Central Line Central line still needed: Yes Urinary Cath still in place: Yes Reason Cath still needed: other (indicate) Assessment/Plan Hospital Course SUBJECTIVE: Denies any pain in bilateral lower extremities. OBJECTIVE: Physical Exam General: Adequately build 63 year-old female lying in bed in no apparent distress. HEENT: Normocephalic, atraumatic. Eyes: Anicteric sclerae, conjunctivae clear. ENT: Nasal septum midline, oral mucosa moist. Neck supple, no JVD noticed. Respiratory: Bilaterally clear breath sounds. No use of accessory muscles of respiration. No adventitious breath sounds. Cardiovascular: S1, S2 heard. Regular rate and rhythm. Abdomen: Soft, nontender, and nondistended. Bowel sounds positive in all 4 quadrants. Genitourinary: Deferred. Extremities: No cyanosis, no clubbing. Left foot status post transmetatarsal amputation. Left heel wound dressing. Right foot wound dressing. Neurologic: Cranial nerves II through XII grossly intact. The patient is awake, alert, and oriented. Labs & Vitals per chart ASSESSMENT & PLAN 63-year-old female with comorbidities including diabetes mellitus and chronic bilateral lower extremity wounds. The patient was brought into the emergency room by her significant other because of hyperglycemia and chronic wounds. The patient was noticed to have a blood sugar of 579 in the emergency room. The patient also had underlying transaminitis without hyperbilirubinemia. The patient's x-ray of the left foot was showing erosive changes in the anterior calcaneus amputation site, possibly representing osteomyelitis. The patient's right ankle x-ray was showing osteopenia with no evidence of osteomyelitis. The patient was transferred to inpatient setting for further treatment and evaluation. 1. Diabetes mellitus. -Uncontrolled. -Hemoglobin A1c 12.6. -Continue sliding scale insulin along with basal insulin and pre-meal insulin. 2. Nonhealing left foot ulcer. -Status post left femoral to above-knee popliteal artery bypass using in situ greater saphenous vein on 01/09/2019. 3. Possible left foot osteomyelitis in the calcaneum. -Patient refusing MRI. -Continue antimicrobials as per ID. 4. Right foot diabetic foot ulcer. -Wound culture positive for Corynebacterium species and Strep agalactiae. -Continue antimicrobials as per ID. -Status post excisional debridement of bilateral feet, bone biopsy of left foot, and application of allograft on 01/13/2019. 5. Left foot diabetic ulcer. -Wound culture positive for polymicrobials. -Continue antimicrobials as per ID. -Status post excisional debridement of bilateral feet, bone biopsy of left foot, and application of allograft on 01/13/2019. 6. Nicotine use. -Continue nicotine patch. 7. Fluids, electrolytes, and nutrition. -Carbohydrate controlled diet. 8. DVT prophylaxis. -Subcutaneous Lovenox. 9. Plan. -Continue antimicrobials as per ID. -Await clinical improvement. -Needs placement to a SNF. -S/P PICC line placement on 01/16/2019. -DC right IJ central line. The patient was seen in collaboration with Dr. Young. Result Diagram: 01/16/19 0514 01/16/19 0514 Results 24hrs Laboratory Tests Test 01/15/19 18:08 01/15/19 20:36 01/16/19 05:14 01/16/19 08:08 Bedside Glucose 102 123 149 White Blood Count 4.7 L Red Blood Count 3.29 L Hemoglobin 9.1 L Hematocrit 30.4 L Mean Corpuscular Volume 92.4 Mean Corpuscular 27.7 L Hemoglobin Mean Corpuscular 29.9 L Hemoglobin Concent Red Cell Distribution 18.6 H Width Platelet Count 272 Mean Platelet Volume 8.6 Immature Granulocytes % 0.400 Neutrophils % 67.0 Lymphocytes % 21.1 Monocytes % 7.9 Eosinophils % 3.0 Basophils % 0.6 Nucleated Red Blood 0.0 Cells % Immature Granulocytes # 0.020 Neutrophils # 3.2 Lymphocytes # 1.0 Monocytes # 0.4 Eosinophils # 0.1 Basophils # 0.0 Nucleated Red Blood 0.0 Cells # Prothrombin Time 12.6 Prothrombin Time Ratio 1.0 INR International 0.93 Normalized Ratio Activated 27.5 Partial Thromboplast Time Sodium Level 139 Potassium Level 4.3 Chloride Level 107 Carbon Dioxide Level 27 Anion Gap 5 Blood Urea Nitrogen 20 Creatinine 0.58 Est Glomerular Filtrat > 60 Rate mL/min Glucose Level 127 Calcium Level 8.9 Phosphorus Level 4.1 Magnesium Level 2.3 Test 01/16/19 13:18 Bedside Glucose 216 Exam/Review of Systems Exam Vitals Vital Signs Date Temp Pulse Resp B/P (MAP) Pulse Ox O2 O2 Flow FiO2 Time Delivery Rate 01/16/19 97.8 64 18 125/63 97 08:22 (83) 01/14/19 Room Air 02:00 Intake and Output 01/15/19 01/15/19 01/16/19 1515:00 23:00 07:00 IntakeIntake Total 960 ml 710 ml 730 ml OutputOutput Total 1650 ml 1800 ml BalanceBalance -690 ml 710 ml -1070 ml Results Results 24hrs Laboratory Tests Test 01/15/19 18:08 01/15/19 20:36 01/16/19 05:14 01/16/19 08:08 Bedside Glucose 102 123 149 White Blood Count 4.7 L Red Blood Count 3.29 L Hemoglobin 9.1 L Hematocrit 30.4 L Mean Corpuscular Volume 92.4 Mean Corpuscular 27.7 L Hemoglobin Mean Corpuscular 29.9 L Hemoglobin Concent Red Cell Distribution 18.6 H Width Platelet Count 272 Mean Platelet Volume 8.6 Immature Granulocytes % 0.400 Neutrophils % 67.0 Lymphocytes % 21.1 Monocytes % 7.9 Eosinophils % 3.0 Basophils % 0.6 Nucleated Red Blood 0.0 Cells % Immature Granulocytes # 0.020 Neutrophils # 3.2 Lymphocytes # 1.0 Monocytes # 0.4 Eosinophils # 0.1 Basophils # 0.0 Nucleated Red Blood 0.0 Cells # Prothrombin Time 12.6 Prothrombin Time Ratio 1.0 INR International 0.93 Normalized Ratio Activated 27.5 Partial Thromboplast Time Sodium Level 139 Potassium Level 4.3 Chloride Level 107 Carbon Dioxide Level 27 Anion Gap 5 Blood Urea Nitrogen 20 Creatinine 0.58 Est Glomerular Filtrat > 60 Rate mL/min Glucose Level 127 Calcium Level 8.9 Phosphorus Level 4.1 Magnesium Level 2.3 Test 01/16/19 13:18 Bedside Glucose 216 Medications Medication Current Medications IV Flush (NS 3 ml) 3 ml PER PROTOCOL IV ; Start 01/04/19 at 18:30 Ondansetron HCl (Zofran Inj) 4 mg Q6H PRN IV NAUSEA/VOMITING Last administered on 01/09/19at 13:28; Admin Dose 4 MG; Start 01/04/19 at 18:30 Acetaminophen (Tylenol Tab) 650 mg Q6H PRN PO .PAIN 1-3 OR TEMP; Start 01/04/19 at 18:30 Diagnostic Test (Pha) (Accu-Chek) 1 ea 02 XX Last administered on 01/12/19 02:25; Admin Dose 1 EA; Start 01/05/19 at 02:00 Insulin Aspart (Novolog Insulin Pen) NOVOLOG *MODERATE* ALGORITHM WITH MEALS BEDTIME SC Last administered on 01/16/19 13:20; Admin Dose 4 UNIT; Start 01/04/19 at 21:00 Miscellaneous Information 1 ea NOTE XX ; Start 01/04/19 at 19:00 Glucose (Glutose) 15 gm Q15M PRN PO DECREASED GLUCOSE; Start 01/04/19 at 19:00 Glucose (Glutose) 22.5 gm Q15M PRN PO DECREASED GLUCOSE; Start 01/04/19 at 19:00 Dextrose (D50w Syringe) 25 ml Q15M PRN IV DECREASED GLUCOSE; Start 01/04/19 at 19:00 Dextrose (D50w Syringe) 50 ml Q15M PRN IV DECREASED GLUCOSE; Start 01/04/19 at 19:00 Glucagon (Glucagen) 1 mg Q15M PRN IM DECREASED GLUCOSE; Start 01/04/19 at 19:00 Glucose (Glutose) 15 gm Q15M PRN BUCCAL DECREASED GLUCOSE; Start 01/04/19 at 19:00 Tramadol HCl (Ultram) 50 mg Q6H PRN PO MODERATE PAIN LEVEL 4-6 Last administered on 01/07/19at 21:17; Admin Dose 50 MG; Start 01/04/19 at 23:30 Sodium Hypochlorite (Dakin'S (Dilute 40)) 1 applic DAILY IRR Last administered on 01/16/19 09:06; Admin Dose 1 APPLIC; Start 01/06/19 at 09:00 Lactobacillus Acidophilus/ Rhamnosus (Culturelle) 1 cap BID PO Last administer ed on 01/16/19at 08:59; Admin Dose 1 CAP; Start 01/05/19 at 21:00 Escitalopram Oxalate (Lexapro) 10 mg DAILY PO Last administered on 01/16/19 09:00; Admin Dose 10 MG; Start 01/05/19 at 21:00 Insulin Aspart (Novolog Insulin Pen) 10 unit WITH MEALS SC Last administered on 01/16/19 13:21; Admin Dose 10 UNIT; Start 01/06/19 at 17:55 Insulin Glargine (Lantus) 30 units DAILY@2000 SC Last administered on 01/15/19 20:39; Admin Dose 30 UNITS; Start 01/06/19 at 20:00 Nicotine (Nicoderm 14 Mg/ 24hr) 1 patch DAILY PRN TRANSDERM CONTROL WITHDRAWAL SYMPTOMS; Start 01/06/19 at 12:00 Ammonium Lactate (Lac-Hydrin 12% Lotion) 1 applic DAILY TOP Last administered on 01/16/19 09:01; Admin Dose 1 APPLIC; Start 01/07/19 at 09:00 Magnesium Oxide (Mag-Ox 400) 400 mg TID PO Last administered on 01/16/19 13:24; Admin Dose 400 MG; Start 01/08/19 at 13:00 Aspirin (Aspirin) 325 mg DAILY PO Last administered on 01/16/19 09:00; Admin Dose 325 MG; Start 01/09/19 at 12:30 Morphine Sulfate (morphine) 2 mg Q2H PRN IV SEVERE PAIN LEVEL 7-10 Last administered on 01/16/19 08:57; Admin Dose 2 MG; Start 01/09/19 at 16:00 Enoxaparin Sodium (Lovenox) 30 mg DAILY SC Last administered on 01/15/19 08:50; Admin Dose 30 MG; Start 01/10/19 at 10:30 Potassium Chloride (Potassium Chloride Pwd/Soln) 40 meq DAILY PO Last administered on 01/16/19 09:00; Admin Dose 40 MEQ; Start 01/12/19 at 09:00 Trazodone HCl (Desyrel) 25 mg HS PO Last administered on 01/15/19 20:39; Admin Dose 25 MG; Start 01/12/19 at 21:00 Ertapenem 1 gm/ Sodium Chloride 100 ml @ 200 mls/hr Q24H IVPB Last administered on 01/15/19 15:22; Admin Dose 200 MLS/HR; Start 01/15/19 at 14:30 Vancomycin HCl (Vanco Iv Per Pharmacy) VANCOMYCIN PER PHARMACY PER PROTOCOL XX ; Start 01/15/19 at 13:00 Vancomycin HCl 250 ml @ 125 mls/hr Q12H IVPB Last administered on 4/5/19at 02:56; Admin Dose 125 MLS/HR; Start 01/15/19 at 15:00 Miscellaneous Information (*Rx Drug Level Order Reminder*) VANCO TROUGH ON @ 400 1400 ONCE XX ; Start 01/17/19 at 14:00; Stop 01/17/19 at 14:01 EDWARD ARORA NP Jan 16, 2019 13:52
[2019-01-16 14:02] VITALS: BP 129/62; PULSE 62; RESP 18
[2019-01-16 15:05] VITALS: BP 126/62; PULSE 59; RESP 18
[2019-01-16] MEDS: ERTAPENEM SODIUM 1 GM in SOD CHLORIDE 0.9% 100 ML IVPB SCH (15:48)
[2019-01-16 19:38] VITALS: BP 109/58; PULSE 69; RESP 16
[2019-01-16] MEDS: traZODone 50 MG TAB PO SCH (20:23)
[2019-01-16] MEDS: INSULIN GLARGINE [LANTus] (100 UNITS/ML) SYG SC SCH (20:32)
[2019-01-17] MEDS: morphine 2 MG INJ IV PRN ×5 (00:01→18:23)
[2019-01-17] MEDS: ACCU-CHEK XX SCH (01:08)
[2019-01-17 01:45] VITALS: BP 121/62; PULSE 59; RESP 16
[2019-01-17] MEDS: VANCOMYCIN 1 GM 250 ML IVPB SCH ×2 (02:19→15:23)
[2019-01-17] MEDS: INSULIN ASPART [NOVOLOG] 3 ML PEN SC SCH ×7 (08:00→20:05)
[2019-01-17] MEDS: ENOXAPARIN 30 MG/0.3 ML SYG SC SCH (09:00)
[2019-01-17] MEDS: SODIUM HYPOCHLORITE (1/40) 1 LITER BTL IRR SCH (09:00)
[2019-01-17] MEDS: ESCITALOPRAM 10 MG TAB PO SCH (09:02)
[2019-01-17] MEDS: ASPIRIN 325 MG TAB PO SCH (09:02)
[2019-01-17] MEDS: POTASSIUM CHLORIDE 20 MEQ POWDER FOR ORAL SOLN PO SCH (09:03)
[2019-01-17] MEDS: AMMONIUM LACTATE 12% 225 GM LOT TOP SCH (09:03)
[2019-01-17] MEDS: LACTOBACILLUS RHAMNOSUS CAP PO SCH ×2 (09:03→20:04)
[2019-01-17] MEDS: MAGNESIUM OXIDE 400 MG TAB PO SCH ×3 (09:03→20:05)
[2019-01-17 13:47] VITALS: BP 106/54; PULSE 62; RESP 17
[2019-01-17] MEDS: ERTAPENEM SODIUM 1 GM in SOD CHLORIDE 0.9% 100 ML IVPB SCH (14:27)
--- NOTE | 2019-01-17 15:11 | CONS ---
Assessment/Plan Assessment/Plan Hospital Course (Demo Recall) No events, looks comfortable Microbiology: Cultures of the wound growing Enterobacter cloaca, enterococcus species, Corynebacterium species and strep galactorrhea Antimicrobials: Vanco, Invanz Physical examination: Well-developed chronically ill-appearing elderly woman who is in no distress. Head atraumatic normocephalic neck is supple chest rise symmetrical breath sounds clear. Heart: S1-S2. Abdomen soft, bowel sounds present. Extremities with bilateral lower extremities dressing intact Assessment: 1. Bilateral lower extremities chronic wounds 2. Left foot osteomyelitis, s/p I/D, L foot bone bx with skin graft 3. Peripheral arterial disease ==> status post abdominal aortogram with right common femoral artery angioplasty 01/07/19. S/p left femoral to above-knee popliteal artery bypass using in situ greater saphenous vein 01/09/19 4. Diabetes with diabetic neuropathy 5. Transaminitis Plan: Patho report noted, will keep on abx for 4 weeks, f/u podiatry rec-s Consultation Date/Type/Reason Admit Date/Time Jan 04, 2019 at 17:33 Initial Consult Date Type of Consult id Date/Time of Note DATE: 01/17/19 TIME: 15:10 Exam/Review of Systems Exam Vitals Vital Signs Date Temp Pulse Resp B/P (MAP) Pulse Ox O2 O2 Flow FiO2 Time Delivery Rate 01/17/19 97.5 62 17 106/54 96 13:47 (71) 01/16/19 Room Air 15:05 Intake and Output 01/16/19 01/16/19 01/17/19 1515:00 23:00 07:00 IntakeIntake Total 480 ml 1030 ml 250 ml OutputOutput Total 1200 ml 1825 ml BalanceBalance 480 ml -170 ml -1575 ml Results Result Diagram: 01/17/19 0647 01/17/19 0647 Results 24hrs Laboratory Tests Test 01/16/19 17:19 01/16/19 17:20 01/16/19 20:22 01/17/19 06:47 Bedside Glucose 247 H 282 H 172 White Blood Count 5.1 Red Blood Count 3.08 L Hemoglobin 8.6 L Hematocrit 28.3 L Mean Corpuscular Volume 91.9 Mean Corpuscular 27.9 L Hemoglobin Mean Corpuscular 30.4 L Hemoglobin Concent Red Cell Distribution 18.5 H Width Platelet Count 282 Mean Platelet Volume 8.6 Immature Granulocytes % 0.600 H Neutrophils % 67.0 Lymphocytes % 21.7 Monocytes % 7.5 Eosinophils % 2.8 Basophils % 0.4 Nucleated Red Blood 0.0 Cells % Immature Granulocytes # 0.030 Neutrophils # 3.4 Lymphocytes # 1.1 Monocytes # 0.4 Eosinophils # 0.1 Basophils # 0.0 Nucleated Red Blood 0.0 Cells # Sodium Level 141 Potassium Level 3.8 Chloride Level 109 Carbon Dioxide Level 27 Anion Gap 5 Blood Urea Nitrogen 21 H Creatinine 0.60 Est Glomerular Filtrat > 60 Rate mL/min Glucose Level 81 # Calcium Level 8.8 Phosphorus Level 3.7 Magnesium Level 2.1 Test 01/17/19 08:05 01/17/19 12:23 01/17/19 14:15 Bedside Glucose 92 81 Vancomycin Level Trough 16.9 Medications Medication Current Medications IV Flush (NS 3 ml) 3 ml PER PROTOCOL IV ; Start 01/04/19 at 18:30 Ondansetron HCl (Zofran Inj) 4 mg Q6H PRN IV NAUSEA/VOMITING Last administered on 01/09/19at 13:28; Admin Dose 4 MG; Start 01/04/19 at 18:30 Acetaminophen (Tylenol Tab) 650 mg Q6H PRN PO .PAIN 1-3 OR TEMP; Start 01/04/19 at 18:30 Diagnostic Test (Pha) (Accu-Chek) 1 ea 02 XX Last administered on 01/12/19at 02:25; Admin Dose 1 EA; Start 01/05/19 at 02:00 Insulin Aspart (Novolog Insulin Pen) NOVOLOG *MODERATE* ALGORITHM WITH MEALS BEDTIME SC Last administered on 01/16/19at 17:22; Admin Dose 8 UNIT; Start 01/04/19 at 21:00 Miscellaneous Information 1 ea NOTE XX ; Start 01/04/19 at 19:00 Glucose (Glutose) 15 gm Q15M PRN PO DECREASED GLUCOSE; Start 01/04/19 at 19:00 Glucose (Glutose) 22.5 gm Q15M PRN PO DECREASED GLUCOSE; Start 01/04/19 at 19:00 Dextrose (D50w Syringe) 25 ml Q15M PRN IV DECREASED GLUCOSE; Start 01/04/19 at 19:00 Dextrose (D50w Syringe) 50 ml Q15M PRN IV DECREASED GLUCOSE; Start 01/04/19 at 19:00 Glucagon (Glucagen) 1 mg Q15M PRN IM DECREASED GLUCOSE; Start 01/04/19 at 19:00 Glucose (Glutose) 15 gm Q15M PRN BUCCAL DECREASED GLUCOSE; Start 01/04/19 at 19:00 Tramadol HCl (Ultram) 50 mg Q6H PRN PO MODERATE PAIN LEVEL 4-6 Last administered on 01/07/19 21:17; Admin Dose 50 MG; Start 01/04/19 at 23:30 Sodium Hypochlorite (Dakin'S (Dilute )) 1 applic DAILY IRR Last administered on 01/16/19 09:06; Admin Dose 1 APPLIC; Start 01/06/19 at 09:00 Lactobacillus Acidophilus/ Rhamnosus (Culturelle) 1 cap BID PO Last administered on 01/17/19 09:03; Admin Dose 1 CAP; Start 01/05/19 at 21:00 Escitalopram Oxalate (Lexapro) 10 mg DAILY PO Last administered on 01/17/19 09 :02; Admin Dose 10 MG; Start 01/05/19 at 21:00 Insulin Aspart (Novolog Insulin Pen) 10 unit WITH MEALS SC Last administered on 01/17/19 12:30; Admin Dose 10 UNIT; Start 01/06/19 at 17:55 Insulin Glargine (Lantus) 30 units DAILY@2000 SC Last administered on 01/16/19 20:32; Admin Dose 30 UNITS; Start 01/06/19 at 20:00 Nicotine (Nicoderm 14 Mg/ 24hr) 1 patch DAILY PRN TRANSDERM CONTROL WITHDRAWAL SYMPTOMS; Start 01/06/19 at 12:00 Ammonium Lactate (Lac-Hydrin 12% Lotion) 1 applic DAILY TOP Last administered on 01/17/19 09:03; Admin Dose 1 APPLIC; Start 01/07/19 at 09:00 Magnesium Oxide (Mag-Ox 400) 400 mg TID PO Last administered on 01/17/19 12:30; Admin Dose 400 MG; Start 01/08/19 at 13:00 Aspirin (Aspirin) 325 mg DAILY PO Last administered on 01/17/19 09:02; Admin Dose 325 MG; Start 01/09/19 at 12:30 Morphine Sulfate (morphine) 2 mg Q2H PRN IV SEVERE PAIN LEVEL 7-10 Last administered on 01/17/19at 12:59; Admin Dose 2 MG; Start 01/09/19 at 16:00 Enoxaparin Sodium (Lovenox) 30 mg DAILY SC Last administered on 01/17/19at 09:00; Admin Dose 30 MG; Start 01/10/19 at 10:30 Potassium Chloride (Potassium Chloride Pwd/Soln) 40 meq DAILY PO Last administered on 01/17/19at 09:03; Admin Dose 40 MEQ; Start 01/12/19 at 09:00 Trazodone HCl (Desyrel) 25 mg HS PO Last administered on 01/16/19at 20:23; Admin Dose 25 MG; Start 01/12/19 at 21:00 Ertapenem 1 gm/ Sodium Chloride 100 ml @ 200 mls/hr Q24H IVPB Last administered on 01/17/19at 14:27; Admin Dose 200 MLS/HR; Start 01/15/19 at 14:30 Vancomycin HCl (Vanco Iv Per Pharmacy) VANCOMYCIN PER PHARMACY PER PROTOCOL XX ; Start 01/15/19 at 13:00 Vancomycin HCl 250 ml @ 125 mls/hr Q12H IVPB Last administered on 01/17/19at 02:19; Admin Dose 125 MLS/HR; Start 01/15/19 at 15:00 IV Flush (NS 10 ml) 10 ml PRN PRN IV IV PROTOCOL; Start 01/16/19 at 15:30 KENZIE AMBROCIO NP Jan 17, 2019 15:11
--- NOTE | 2019-01-17 15:56 | PN ---
Date/Time of Note Date/Time of Note DATE: 01/17/19 TIME: 15:54 Assessment/Plan VTE Prophylaxis Risk score (from Nsg)>0 risk: 4 SCD applied (from Ns): No SCD contraindicated: other Pharmacological prophylaxis: LMWH Lines/Catheters IV Catheter Type (from Nrsg): Central Line Central line still needed: Yes Urinary Cath still in place: Yes Reason Cath still needed: other (indicate) Assessment/Plan Hospital Course SUBJECTIVE: Denies any pain in bilateral lower extremities. OBJECTIVE: Physical Exam General: Adequately build 63 year-old female lying in bed in no apparent distress. HEENT: Normocephalic, atraumatic. Eyes: Anicteric sclerae, conjunctivae clear. ENT: Nasal septum midline, oral mucosa moist. Neck supple, no JVD noticed. Respiratory: Bilaterally clear breath sounds. No use of accessory muscles of respiration. No adventitious breath sounds. Cardiovascular: S1, S2 heard. Regular rate and rhythm. Abdomen: Soft, nontender, and nondistended. Bowel sounds positive in all 4 quadrants. Genitourinary: Deferred. Extremities: No cyanosis, no clubbing. Left foot status post transmetatarsal amputation. Left heel wound dressing. Right foot wound dressing. Neurologic: Cranial nerves II through XII grossly intact. The patient is awake, alert, and oriented. Labs & Vitals per chart ASSESSMENT & PLAN 63-year-old female with comorbidities including diabetes mellitus and chronic bilateral lower extremity wounds. The patient was brought into the emergency room by her significant other because of hyperglycemia and chronic wounds. The patient was noticed to have a blood sugar of 579 in the emergency room. The patient also had underlying transaminitis without hyperbilirubinemia. The patient's x-ray of the left foot was showing erosive changes in the anterior calcaneus amputation site, possibly representing osteomyelitis. The patient's right ankle x-ray was showing osteopenia with no evidence of osteomyelitis. The patient was transferred to inpatient setting for further treatment and evaluation. 1. Diabetes mellitus. -Uncontrolled. -Hemoglobin A1c 12.6. -Continue sliding scale insulin along with basal insulin and pre-meal insulin. 2. Nonhealing left foot ulcer. -Status post left femoral to above-knee popliteal artery bypass using in situ greater saphenous vein on 01/09/2019. 3. Possible left foot osteomyelitis in the calcaneum. -Left foot MRI showed evidence of early osteomyelitis at the anterior inferior calcaneal margin underlying the ulceration. -Continue antimicrobials as per ID. 4. Right foot diabetic foot ulcer. -Wound culture positive for Corynebacterium species and Strep agalactiae. -Continue antimicrobials as per ID. -Status post excisional debridement of bilateral feet, bone biopsy of left foot, and application of allograft on 01/13/2019. 5. Left foot diabetic ulcer. -Wound culture positive for polymicrobials. -Continue antimicrobials as per ID. -Status post excisional debridement of bilateral feet, bone biopsy of left foot, and application of allograft on 01/13/2019. 6. Nicotine use. -Continue nicotine patch. 7. Fluids, electrolytes, and nutrition. -Carbohydrate controlled diet. 8. DVT prophylaxis. -Subcutaneous Lovenox. 9. Plan. -Continue antimicrobials as per ID. -Await clinical improvement. -Needs placement to a SNF. -S/P PICC line placement on 01/16/2019. -PT evaluation. The patient was seen in collaboration with Dr. Young. Result Diagram: 01/17/19 0647 01/17/19 0647 Results 24hrs Laboratory Tests Test 01/16/19 17:19 01/16/19 17:20 01/16/19 20:22 01/17/19 06:47 Bedside Glucose 247 H 282 H 172 White Blood Count 5.1 Red Blood Count 3.08 L Hemoglobin 8.6 L Hematocrit 28.3 L Mean Corpuscular Volume 91.9 Mean Corpuscular 27.9 L Hemoglobin Mean Corpuscular 30.4 L Hemoglobin Concent Red Cell Distribution 18.5 H Width Platelet Count 282 Mean Platelet Volume 8.6 Immature Granulocytes % 0.600 H Neutrophils % 67.0 Lymphocytes % 21.7 Monocytes % 7.5 Eosinophils % 2.8 Basophils % 0.4 Nucleated Red Blood 0.0 Cells % Immature Granulocytes # 0.030 Neutrophils # 3.4 Lymphocytes # 1.1 Monocytes # 0.4 Eosinophils # 0.1 Basophils # 0.0 Nucleated Red Blood 0.0 Cells # Sodium Level 141 Potassium Level 3.8 Chloride Level 109 Carbon Dioxide Level 27 Anion Gap 5 Blood Urea Nitrogen 21 H Creatinine 0.60 Est Glomerular Filtrat > 60 Rate mL/min Glucose Level 81 # Calcium Level 8.8 Phosphorus Level 3.7 Magnesium Level 2.1 Test 01/17/19 08:05 01/17/19 12:23 01/17/19 14:15 Bedside Glucose 92 81 Vancomycin Level Trough 16.9 Exam/Review of Systems Exam Vitals Vital Signs Date Temp Pulse Resp B/P (MAP) Pulse Ox O2 O2 Flow FiO2 Time Delivery Rate 01/17/19 97.5 62 17 106/54 96 13:47 (71) 01/16/19 Room Air 15:05 Intake and Output 01/16/19 01/16/19 01/17/19 1515:00 23:00 07:00 IntakeIntake Total 480 ml 1030 ml 250 ml OutputOutput Total 1200 ml 1825 ml BalanceBalance 480 ml -170 ml -1575 ml Results Results 24hrs Laboratory Tests Test 01/16/19 17:19 01/16/19 17:20 01/16/19 20:22 01/17/19 06:47 Bedside Glucose 247 H 282 H 172 White Blood Count 5.1 Red Blood Count 3.08 L Hemoglobin 8.6 L Hematocrit 28.3 L Mean Corpuscular Volume 91.9 Mean Corpuscular 27.9 L Hemoglobin Mean Corpuscular 30.4 L Hemoglobin Concent Red Cell Distribution 18.5 H Width Platelet Count 282 Mean Platelet Volume 8.6 Immature Granulocytes % 0.600 H Neutrophils % 67.0 Lymphocytes % 21.7 Monocytes % 7.5 Eosinophils % 2.8 Basophils % 0.4 Nucleated Red Blood 0.0 Cells % Immature Granulocytes # 0.030 Neutrophils # 3.4 Lymphocytes # 1.1 Monocytes # 0.4 Eosinophils # 0.1 Basophils # 0.0 Nucleated Red Blood 0.0 Cells # Sodium Level 141 Potassium Level 3.8 Chloride Level 109 Carbon Dioxide Level 27 Anion Gap 5 Blood Urea Nitrogen 21 H Creatinine 0.60 Est Glomerular Filtrat > 60 Rate mL/min Glucose Level 81 # Calcium Level 8.8 Phosphorus Level 3.7 Magnesium Level 2.1 Test 01/17/19 08:05 01/17/19 12:23 01/17/19 14:15 Bedside Glucose 92 81 Vancomycin Level Trough 16.9 Medications Medication Current Medications IV Flush (NS 3 ml) 3 ml PER PROTOCOL IV ; Start 01/04/19 at 18:30 Ondansetron HCl (Zofran Inj) 4 mg Q6H PRN IV NAUSEA/VOMITING Last administered on 01/09/19at 13:28; Admin Dose 4 MG; Start 01/04/19 at 18:30 Acetaminophen (Tylenol Tab) 650 mg Q6H PRN PO .PAIN 1-3 OR TEMP; Start 01/04/19 at 18:30 Diagnostic Test (Pha) (Accu-Chek) 1 ea 02 XX Last administered on 01/12/19 02:25; Admin Dose 1 EA; Start 01/05/19 at 02:00 Insulin Aspart (Novolog Insulin Pen) NOVOLOG *MODERATE* ALGORITHM WITH MEALS BEDTIME SC Last administered on 01/16/19 17:22; Admin Dose 8 UNIT; Start 01/04/19 at 21:00 Miscellaneous Information 1 ea NOTE XX ; Start 01/04/19 at 19:00 Glucose (Glutose) 15 gm Q15M PRN PO DECREASED GLUCOSE; Start 01/04/19 at 19:00 Glucose (Glutose) 22.5 gm Q15M PRN PO DECREASED GLUCOSE; Start 01/04/19 at 19:00 Dextrose (D50w Syringe) 25 ml Q15M PRN IV DECREASED GLUCOSE; Start 01/04/19 at 19:00 Dextrose (D50w Syringe) 50 ml Q15M PRN IV DECREASED GLUCOSE; Start 01/04/19 at 19:00 Glucagon (Glucagen) 1 mg Q15M PRN IM DECREASED GLUCOSE; Start 01/04/19 at 19:00 Glucose (Glutose) 15 gm Q15M PRN BUCCAL DECREASED GLUCOSE; Start 01/04/19 at 19:00 Tramadol HCl (Ultram) 50 mg Q6H PRN PO MODERATE PAIN LEVEL 4-6 Last administered on 01/07/19 21:17; Admin Dose 50 MG; Start 01/04/19 at 23:30 Sodium Hypochlorite (Dakin'S (Dilute )) 1 applic DAILY IRR Last administered on 01/16/19 09:06; Admin Dose 1 APPLIC; Start 01/06/19 at 09:00 Lactobacillus Acidophilus/ Rhamnosus (Culturelle) 1 cap BID PO Last administered on 01/17/19 09:03; Admin Dose 1 CAP; Start 01/05/19 at 21:00 Escitalopram Oxalate (Lexapro) 10 mg DAILY PO Last administered on 01/17/19 09:02; Admin Dose 10 MG; Start 01/05/19 at 21:00 Insulin Aspart (Novolog Insulin Pen) 10 unit WITH MEALS SC Last administered on 01/17/19 12:30; Admin Dose 10 UNIT; Start 01/06/19 at 17:55 Insulin Glargine (Lantus) 30 units DAILY@2000 SC Last administered on 01/16/19 20:32; Admin Dose 30 UNITS; Start 01/06/19 at 20:00 Nicotine (Nicoderm 14 Mg/ 24hr) 1 patch DAILY PRN TRANSDERM CONTROL WITHDRAWAL SYMPTOMS; Start 01/06/19 at 12:00 Ammonium Lactate (Lac-Hydrin 12% Lotion) 1 applic DAILY TOP Last administered on 01/17/19 09:03; Admin Dose 1 APPLIC; Start 01/07/19 at 09:00 Magnesium Oxide (Mag-Ox 400) 400 mg TID PO Last administered on 01/17/19 12:30; Admin Dose 400 MG; Start 01/08/19 at 13:00 Aspirin (Aspirin) 325 mg DAILY PO Last administered on 01/17/19 09:02; Admin Dose 325 MG; Start 01/09/19 at 12:30 Morphine Sulfate (morphine) 2 mg Q2H PRN IV SEVERE PAIN LEVEL 7-10 Last administered on 01/17/19 15:26; Admin Dose 2 MG; Start 01/09/19 at 16:00 Enoxaparin Sodium (Lovenox) 30 mg DAILY SC Last administered on 01/17/19 09:00; Admin Dose 30 MG; Start 01/10/19 at 10:30 Potassium Chloride (Potassium Chloride Pwd/Soln) 40 meq DAILY PO Last administered on 01/17/19 09:03; Admin Dose 40 MEQ; Start 01/12/19 at 09:00 Trazodone HCl (Desyrel) 25 mg HS PO Last administered on 01/16/19 20:23; Admin Dose 25 MG; Start 01/12/19 at 21:00 Ertapenem 1 gm/ Sodium Chloride 100 ml @ 200 mls/hr Q24H IVPB Last adminis tered on 01/17/19 14:27; Admin Dose 200 MLS/HR; Start 01/15/19 at 14:30 Vancomycin HCl (Vanco Iv Per Pharmacy) VANCOMYCIN PER PHARMACY PER PROTOCOL XX ; Start 01/15/19 at 13:00 Vancomycin HCl 250 ml @ 125 mls/hr Q12H IVPB Last administered on 01/17/19at 15:23; Admin Dose 125 MLS/HR; Start 01/15/19 at 15:00 IV Flush (NS 10 ml) 10 ml PRN PRN IV IV PROTOCOL; Start 01/16/19 at 15:30 EDWARD ARORA NP Jan 17, 2019 15:56
[2019-01-17 19:40] VITALS: BP 99/59; PULSE 57; RESP 16
[2019-01-17] MEDS: traZODone 50 MG TAB PO SCH (20:04)
[2019-01-17] MEDS: INSULIN GLARGINE [LANTus] (100 UNITS/ML) SYG SC SCH (20:04)
[2019-01-18] MEDS: ACCU-CHEK XX SCH (01:05)
[2019-01-18 01:40] VITALS: BP 111/59; PULSE 56; RESP 18
[2019-01-18] MEDS: VANCOMYCIN 1 GM 250 ML IVPB SCH ×2 (02:01→15:57)
--- NOTE | 2019-01-18 06:46 | PN ---
Date/Time of Note Date/Time of Note DATE: 01/18/19 TIME: 06:45 Assessment/Plan VTE Prophylaxis Risk score (from Nsg)>0 risk: 6 SCD applied (from Ns): No SCD contraindicated: other Pharmacological prophylaxis: LMWH Lines/Catheters IV Catheter Type (from Nrsg): PICC Line Central line still needed: Yes Urinary Cath still in place: Yes Reason Cath still needed: other (indicate) Assessment/Plan Hospital Course SUBJECTIVE: Denies any pain in bilateral lower extremities. OBJECTIVE: Physical Exam General: Adequately build 63 year-old female lying in bed in no apparent distress. HEENT: Normocephalic, atraumatic. Eyes: Anicteric sclerae, conjunctivae clear. ENT: Nasal septum midline, oral mucosa moist. Neck supple, no JVD noticed. Respiratory: Bilaterally clear breath sounds. No use of accessory muscles of respiration. No adventitious breath sounds. Cardiovascular: S1, S2 heard. Regular rate and rhythm. Abdomen: Soft, nontender, and nondistended. Bowel sounds positive in all 4 quadrants. Genitourinary: Deferred. Extremities: No cyanosis, no clubbing. Left foot status post transmetatarsal a mputation. Left heel wound dressing. Right foot wound dressing. Neurologic: Cranial nerves II through XII grossly intact. The patient is awake, alert, and oriented. Labs & Vitals per chart ASSESSMENT & PLAN 63-year-old female with comorbidities including diabetes mellitus and chronic bilateral lower extremity wounds. The patient was brought into the emergency room by her significant other because of hyperglycemia and chronic wounds. The patient was noticed to have a blood sugar of 579 in the emergency room. The patient also had underlying transaminitis without hyperbilirubinemia. The patient's x-ray of the left foot was showing erosive changes in the anterior c alcaneus amputation site, possibly representing osteomyelitis. The patient's right ankle x-ray was showing osteopenia with no evidence of osteomyelitis. The patient was transferred to inpatient setting for further treatment and evaluation. 1. Diabetes mellitus. -Uncontrolled. -Hemoglobin A1c 12.6. -Continue sliding scale insulin along with basal insulin and pre-meal insulin. 2. Nonhealing left foot ulcer. -Status post left femoral to above-knee popliteal artery bypass using in situ greater saphenous vein on 01/09/2019. 3. Possible left foot osteomyelitis in the calcaneum. -Left foot MRI showed evidence of early osteomyelitis at the anterior inferior calcaneal margin underlying the ulceration. -Continue antimicrobials as per ID. 4. Right foot diabetic foot ulcer. -Wound culture positive for Corynebacterium species and Strep agalactiae. -Continue antimicrobials as per ID. -Status post excisional debridement of bilateral feet, bone biopsy of left foot, and application of allograft on 01/13/2019. 5. Left foot diabetic ulcer. -Wound culture positive for polymicrobials. -Continue antimicrobials as per ID. -Status post excisional debridement of bilateral feet, bone biopsy of left foot, and application of allograft on 01/13/2019. 6. Nicotine use. -Continue nicotine patch. 7. Fluids, electrolytes, and nutrition. -Carbohydrate controlled diet. 8. DVT prophylaxis. -Subcutaneous Lovenox. 9. Plan. -Continue antimicrobials as per ID. -Await clinical improvement. -Needs placement to a SNF. -S/P PICC line placement on 01/16/2019. -PT evaluation. The patient was seen in collaboration with Dr. Young. Result Diagram: 01/17/19 0647 01/17/19 0647 Results 24hrs Laboratory Tests Test 01/17/19 06:47 01/17/19 08:05 01/17/19 12:23 01/17/19 14:15 White Blood Count 5.1 Red Blood Count 3.08 L Hemoglobin 8.6 L Hematocrit 28.3 L Mean Corpuscular Volume 91.9 Mean Corpuscular 27.9 L Hemoglobin Mean Corpuscular 30.4 L Hemoglobin Concent Red Cell Distribution 18.5 H Width Platelet Count 282 Mean Platelet Volume 8.6 Immature Granulocytes % 0.600 H Neutrophils % 67.0 Lymphocytes % 21.7 Monocytes % 7.5 Eosinophils % 2.8 Basophils % 0.4 Nucleated Red Blood 0.0 Cells % Immature Granulocytes # 0.030 Neutrophils # 3.4 Lymphocytes # 1.1 Monocytes # 0.4 Eosinophils # 0.1 Basophils # 0.0 Nucleated Red Blood 0.0 Cells # Sodium Level 141 Potassium Level 3.8 Chloride Level 109 Carbon Dioxide Level 27 Anion Gap 5 Blood Urea Nitrogen 21 H Creatinine 0.60 Est Glomerular Filtrat > 60 Rate mL/min Glucose Level 81 # Calcium Level 8.8 Phosphorus Level 3.7 Magnesium Level 2.1 Bedside Glucose 92 81 Vancomycin Level Trough 16.9 Test 4/6/19 17:05 01/17/19 20:02 Bedside Glucose 157 105 Exam/Review of Systems Exam Vitals Vital Signs Date Temp Pulse Resp B/P (MAP) Pulse Ox O2 O2 Flow FiO2 Time Delivery Rate 01/18/19 97.6 56 18 111/59 98 01:40 (76) 01/16/19 Room Air 15:05 Intake and Output 01/17/19 01/17/19 01/18/19 1515:00 23:00 07:00 IntakeIntake Total 1500 ml 490 ml 250 ml OutputOutput Total 800 ml 400 ml 1300 ml BalanceBalance 700 ml 90 ml -1050 ml Results Results 24hrs Laboratory Tests Test 01/17/19 06:47 01/17/19 08:05 01/17/19 12:23 01/17/19 14:15 White Blood Count 5.1 Red Blood Count 3.08 L Hemoglobin 8.6 L Hematocrit 28.3 L Mean Corpuscular Volume 91.9 Mean Corpuscular 27.9 L Hemoglobin Mean Corpuscular 30.4 L Hemoglobin Concent Red Cell Distribution 18.5 H Width Platelet Count 282 Mean Platelet Volume 8.6 Immature Granulocytes % 0.600 H Neutrophils % 67.0 Lymphocytes % 21.7 Monocytes % 7.5 Eosinophils % 2.8 Basophils % 0.4 Nucleated Red Blood 0.0 Cells % Immature Granulocytes # 0.030 Neutrophils # 3.4 Lymphocytes # 1.1 Monocytes # 0.4 Eosinophils # 0.1 Basophils # 0.0 Nucleated Red Blood 0.0 Cells # Sodium Level 141 Potassium Level 3.8 Chloride Level 109 Carbon Dioxide Level 27 Anion Gap 5 Blood Urea Nitrogen 21 H Creatinine 0.60 Est Glomerular Filtrat > 60 Rate mL/min Glucose Level 81 # Calcium Level 8.8 Phosphorus Level 3.7 Magnesium Level 2.1 Bedside Glucose 92 81 Vancomycin Level Trough 16.9 Test 01/17/19 17:05 01/17/19 20:02 Bedside Glucose 157 105 Medications Medication Current Medications IV Flush (NS 3 ml) 3 ml PER PROTOCOL IV ; Start 01/04/19 at 18:30 Ondansetron HCl (Zofran Inj) 4 mg Q6H PRN IV NAUSEA/VOMITING Last administered on 01/09/19at 13:28; Admin Dose 4 MG; Start 01/04/19 at 18:30 Acetaminophen (Tylenol Tab) 650 mg Q6H PRN PO .PAIN 1-3 OR TEMP; Start 01/04/19 at 18:30 Diagnostic Test (Pha) (Accu-Chek) 1 ea 02 XX Last administered on 01/12/19at 02:25; Admin Dose 1 EA; Start 01/05/19 at 02:00 Insulin Aspart (Novolog Insulin Pen) NOVOLOG *MODERATE* ALGORITHM WITH MEALS BEDTIME SC Last administered on 01/17/19at 17:22; Admin Dose 2 UNIT; Start 01/04/19 at 21:00 Miscellaneous Information 1 ea NOTE XX ; Start 01/04/19 at 19:00 Glucose (Glutose) 15 gm Q15M PRN PO DECREASED GLUCOSE; Start 01/04/19 at 19:00 Glucose (Glutose) 22.5 gm Q15M PRN PO DECREASED GLUCOSE; Start 01/04/19 at 19:00 Dextrose (D50w Syringe) 25 ml Q15M PRN IV DECREASED GLUCOSE; Start 01/04/19 at 19:00 Dextrose (D50w Syringe) 50 ml Q15M PRN IV DECREASED GLUCOSE; Start 01/04/19 at 19:00 Glucagon (Glucagen) 1 mg Q15M PRN IM DECREASED GLUCOSE; Start 01/04/19 at 19:00 Glucose (Glutose) 15 gm Q15M PRN BUCCAL DECREASED GLUCOSE; Start 01/04/19 at 19:00 Tramadol HCl (Ultram) 50 mg Q6H PRN PO MODERATE PAIN LEVEL 4-6 Last a dministered on 01/07/19at 21:17; Admin Dose 50 MG; Start 01/04/19 at 23:30 Sodium Hypochlorite (Dakin'S (Dilute 40)) 1 applic DAILY IRR Last administered on 01/16/19 09:06; Admin Dose 1 APPLIC; Start 01/06/19 at 09:00 Lactobacillus Acidophilus/ Rhamnosus (Culturelle) 1 cap BID PO Last administere d on 01/17/19at 20:04; Admin Dose 1 CAP; Start 01/05/19 at 21:00 Escitalopram Oxalate (Lexapro) 10 mg DAILY PO Last administered on 01/17/19at 09:02; Admin Dose 10 MG; Start 01/05/19 at 21:00 Insulin Aspart (Novolog Insulin Pen) 10 unit WITH MEALS SC Last administered on 01/17/19 17:23; Admin Dose 10 UNIT; Start 01/06/19 at 17:55 Insulin Glargine (Lantus) 30 units DAILY@2000 SC Last administered on 01/17/19 20:04; Admin Dose 30 UNITS; Start 01/06/19 at 20:00 Nicotine (Nicoderm 14 Mg/ 24hr) 1 patch DAILY PRN TRANSDERM CONTROL WITHDRAWAL SYMPTOMS; Start 01/06/19 at 12:00 Ammonium Lactate (Lac-Hydrin 12% Lotion) 1 applic DAILY TOP Last administered on 01/17/19 09:03; Admin Dose 1 APPLIC; Start 01/07/19 at 09:00 Magnesium Oxide (Mag-Ox 400) 400 mg TID PO Last administered on 01/17/19 20:05; Admin Dose 400 MG; Start 01/08/19 at 13:00 Aspirin (Aspirin) 325 mg DAILY PO Last administered on 01/17/19 09:02; Admin Dose 325 MG; Start 01/09/19 at 12:30 Enoxaparin Sodium (Lovenox) 30 mg DAILY SC Last administered on 01/17/19 09:00; Admin Dose 30 MG; Start 01/10/19 at 10:30 Potassium Chloride (Potassium Chloride Pwd/Soln) 40 meq DAILY PO Last administered on 01/17/19 09:03; Admin Dose 40 MEQ; Start 01/12/19 at 09:00 Trazodone HCl (Desyrel) 25 mg HS PO Last administered on 01/17/19 20:04; Admin Dose 25 MG; Start 01/12/19 at 21:00 Ertapenem 1 gm/ Sodium Chloride 100 ml @ 200 mls/hr Q24H IVPB Last administered on 01/17/19 14:27; Admin Dose 200 MLS/HR; Start 01/15/19 at 14:30 Vancomycin HCl (Vanco Iv Per Pharmacy) VANCOMYCIN PER PHARMACY PER PROTOCOL XX ; Start 01/15/19 at 13:00 Vancomycin HCl 250 ml @ 125 mls/hr Q12H IVPB Last administered on 01/18/19 02:01; Admin Dose 125 MLS/HR; Start 01/15/19 at 15:00 IV Flush (NS 10 ml) 10 ml PRN PRN IV IV PROTOCOL; Start 01/16/19 at 15:30 Morphine Sulfate (morphine) 2 mg Q3H PRN IV SEVERE PAIN LEVEL 7-10 Last administered on 01/17/19at 18:23; Admin Dose 2 MG; Start 01/17/19 at 16:00 EDWARD ARORA NP Jan 18, 2019 06:46
[2019-01-18] MEDS: INSULIN ASPART [NOVOLOG] 3 ML PEN SC SCH ×7 (08:00→20:15)
[2019-01-18 08:01] VITALS: BP 124/68; PULSE 48; RESP 17
[2019-01-18] MEDS: POTASSIUM CHLORIDE 20 MEQ POWDER FOR ORAL SOLN PO SCH (08:36)
[2019-01-18] MEDS: ASPIRIN 325 MG TAB PO SCH (08:37)
[2019-01-18] MEDS: MAGNESIUM OXIDE 400 MG TAB PO SCH ×3 (08:37→20:17)
[2019-01-18] MEDS: ESCITALOPRAM 10 MG TAB PO SCH (08:37)
[2019-01-18] MEDS: SODIUM HYPOCHLORITE (1/40) 1 LITER BTL IRR SCH (08:37)
[2019-01-18] MEDS: LACTOBACILLUS RHAMNOSUS CAP PO SCH ×2 (08:37→20:17)
[2019-01-18] MEDS: AMMONIUM LACTATE 12% 225 GM LOT TOP SCH (08:38)
[2019-01-18] MEDS: ENOXAPARIN 30 MG/0.3 ML SYG SC SCH (08:40)
[2019-01-18] MEDS: morphine 2 MG INJ IV PRN ×4 (09:30→19:27)
--- NOTE | 2019-01-18 13:10 | CONS ---
Assessment/Plan Assessment/Plan Hospital Course (Demo Recall) No events, awake, looks comfortable, no fevers Microbiology: Cultures of the wound growing Enterobacter cloaca, enterococcus species, Corynebacterium species and strep galactorrhea Antimicrobials: Yesi Cota Physical examination: Well-developed chronically ill-appearing elderly woman who is in no distress. Head atraumatic normocephalic neck is supple chest rise symmetrical breath sounds clear. Heart: S1-S2. Abdomen soft, bowel sounds present. Extremities with bilateral lower extremities dressing intact Assessment: 1. Bilateral lower extremities chronic wounds 2. Left foot osteomyelitis, s/p I/D, L foot bone bx with skin graft 3. Peripheral arterial disease ==> status post abdominal aortogram with right common femoral artery angioplasty 01/07/19. S/p left femoral to above-knee popliteal artery bypass using in situ greater saphenous vein 01/09/19 4. Diabetes with diabetic neuropathy 5. Transaminitis Plan: Stable continue wound care per podiatry rec-s Consultation Date/Type/Reason Admit Date/Time Jan 04, 2019 at 17:33 Initial Consult Date Type of Consult id Date/Time of Note DATE: 01/18/19 TIME: 13:09 Exam/Review of Systems Exam Vitals Vital Signs Date Temp Pulse Resp B/P (MAP) Pulse Ox O2 O2 Flow FiO2 Time Delivery Rate 01/18/19 97.8 48 17 124/68 98 Room Air 08:01 (86) Intake and Output 01/17/19 01/17/19 01/18/19 1515:00 23:00 07:00 IntakeIntake Total 1500 ml 490 ml 250 ml OutputOutput Total 800 ml 400 ml 1300 ml BalanceBalance 700 ml 90 ml -1050 ml Results Result Diagram: 01/18/19 0622 01/18/19 0622 Results 24hrs Laboratory Tests Test 01/17/19 14:15 01/17/19 17:05 01/17/19 20:02 01/18/19 06:22 Vancomycin Level Trough 16.9 Bedside Glucose 157 105 White Blood Count 5.0 Red Blood Count 3.06 L Hemoglobin 8.6 L Hematocrit 28.5 L Mean Corpuscular Volume 93.1 Mean Corpuscular 28.1 L Hemoglobin Mean Corpuscular 30.2 L Hemoglobin Concent Red Cell Distribution 19.2 H Width Platelet Count 274 Mean Platelet Volume 8.6 Immature Granulocytes % 0.600 H Neutrophils % 64.2 Lymphocytes % 23.0 Monocytes % 8.8 Eosinophils % 2.8 Basophils % 0.6 Nucleated Red Blood 0.0 Cells % Immature Granulocytes # 0.030 Neutrophils # 3.2 Lymphocytes # 1.2 Monocytes # 0.4 Eosinophils # 0.1 Basophils # 0.0 Nucleated Red Blood 0.0 Cells # Sodium Level 138 Potassium Level 4.1 Chloride Level 108 Carbon Dioxide Level 27 Anion Gap 3 L Blood Urea Nitrogen 19 Creatinine 0.52 Est Glomerular Filtrat > 60 Rate mL/min Glucose Level 143 # Calcium Level 8.7 Phosphorus Level 3.9 Magnesium Level 2.1 Vitamin D 1,25-Dihydroxy < 12.8 L Test 01/18/19 08:15 01/18/19 12:16 Bedside Glucose 120 142 Medications Medication Current Medications IV Flush (NS 3 ml) 3 ml PER PROTOCOL IV ; Start 01/04/19 at 18:30 Ondansetron HCl (Zofran Inj) 4 mg Q6H PRN IV NAUSEA/VOMITING Last administered on 01/09/19at 13:28; Admin Dose 4 MG; Start 01/04/19 at 18:30 Acetaminophen (Tylenol Tab) 650 mg Q6H PRN PO .PAIN 1-3 OR TEMP; Start 01/04/19 at 18:30 Diagnostic Test (Pha) (Accu-Chek) 1 ea 02 XX Last administered on 01/12/19at 02:25; Admin Dose 1 EA; Start 01/05/19 at 02:00 Insulin Aspart (Novolog Insulin Pen) NOVOLOG *MODERATE* ALGORITHM WITH MEALS BEDTIME SC Last administered on 01/18/19at 12:19; Admin Dose 2 UNIT; Start 01/04/19 at 21:00 Miscellaneous Information 1 ea NOTE XX ; Start 01/04/19 at 19:00 Glucose (Glutose) 15 gm Q15M PRN PO DECREASED GLUCOSE; Start 01/04/19 at 19:00 Glucose (Glutose) 22.5 gm Q15M PRN PO DECREASED GLUCOSE; Start 01/04/19 at 19:00 Dextrose (D50w Syringe) 25 ml Q15M PRN IV DECREASED GLUCOSE; Start 01/04/19 at 19:00 Dextrose (D50w Syringe) 50 ml Q15M PRN IV DECREASED GLUCOSE; Start 01/04/19 at 19:00 Glucagon (Glucagen) 1 mg Q15M PRN IM DECREASED GLUCOSE; Start 01/04/19 at 19:00 Glucose (Glutose) 15 gm Q15M PRN BUCCAL DECREASED GLUCOSE; Start 01/04/19 at 19:00 Tramadol HCl (Ultram) 50 mg Q6H PRN PO MODERATE PAIN LEVEL 4-6 Last administered on 01/07/19 21:17; Admin Dose 50 MG; Start 01/04/19 at 23:30 Sodium Hypochlorite (Dakin'S (Dilute )) 1 applic DAILY IRR Last administered on 01/18/19 08:37; Admin Dose 1 APPLIC; Start 01/06/19 at 09:00 Lactobacillus Acidophilus/ Rhamnosus (Culturelle) 1 cap BID PO Last administered on 01/18/19 08:37; Admin Dose 1 CAP; Start 01/05/19 at 21:00 Escitalopram Oxalate (Lexapro) 10 mg DAILY PO Last administered on 01/18/19 08 :37; Admin Dose 10 MG; Start 01/05/19 at 21:00 Insulin Aspart (Novolog Insulin Pen) 10 unit WITH MEALS SC Last administered on 01/18/19 12:20; Admin Dose 10 UNIT; Start 01/06/19 at 17:55 Insulin Glargine (Lantus) 30 units DAILY@2000 SC Last administered on 01/17/19 20:04; Admin Dose 30 UNITS; Start 01/06/19 at 20:00 Nicotine (Nicoderm 14 Mg/ 24hr) 1 patch DAILY PRN TRANSDERM CONTROL WITHDRAWAL SYMPTOMS; Start 01/06/19 at 12:00 Ammonium Lactate (Lac-Hydrin 12% Lotion) 1 applic DAILY TOP Last administered on 01/18/19 08:38; Admin Dose 1 APPLIC; Start 01/07/19 at 09:00 Magnesium Oxide (Mag-Ox 400) 400 mg TID PO Last administered on 01/18/19 12:20; Admin Dose 400 MG; Start 01/08/19 at 13:00 Aspirin (Aspirin) 325 mg DAILY PO Last administered on 01/18/19 08:37; Admin Dose 325 MG; Start 01/09/19 at 12:30 Enoxaparin Sodium (Lovenox) 30 mg DAILY SC Last administered on 4/7/19at 08:40; Admin Dose 30 MG; Start 01/10/19 at 10:30 Potassium Chloride (Potassium Chloride Pwd/Soln) 40 meq DAILY PO Last administered on 01/18/19at 08:36; Admin Dose 40 MEQ; Start 01/12/19 at 09:00 Trazodone HCl (Desyrel) 25 mg HS PO Last administered on 01/17/19at 20:04; Admin Dose 25 MG; Start 01/12/19 at 21:00 Ertapenem 1 gm/ Sodium Chloride 100 ml @ 200 mls/hr Q24H IVPB Last administered on 01/17/19at 14:27; Admin Dose 200 MLS/HR; Start 01/15/19 at 14:30 Vancomycin HCl (Vanco Iv Per Pharmacy) VANCOMYCIN PER PHARMACY PER PROTOCOL XX ; Start 01/15/19 at 13:00 Vancomycin HCl 250 ml @ 125 mls/hr Q12H IVPB Last administered on 01/18/19at 02:01; Admin Dose 125 MLS/HR; Start 01/15/19 at 15:00 IV Flush (NS 10 ml) 10 ml PRN PRN IV IV PROTOCOL; Start 01/16/19 at 15:30 Morphine Sulfate (morphine) 2 mg Q3H PRN IV SEVERE PAIN LEVEL 7-10 Last administered on 01/18/19at 12:13; Admin Dose 2 MG; Start 01/17/19 at 16:00 Cholecalciferol (Vitamin D) 1,000 unit DAILY PO ; Start 01/19/19 at 09:00 KENZIE AMBROCIO NP Jan 18, 2019 13:10
[2019-01-18 14:00] VITALS: BP 122/68; PULSE 72; RESP 18
[2019-01-18] MEDS: ERTAPENEM SODIUM 1 GM in SOD CHLORIDE 0.9% 100 ML IVPB SCH (15:21)
[2019-01-18] MEDS: traZODone 50 MG TAB PO SCH (20:16)
[2019-01-18] MEDS: INSULIN GLARGINE [LANTus] (100 UNITS/ML) SYG SC SCH (20:16)
[2019-01-18 20:31] VITALS: BP 106/59; PULSE 63; RESP 17
[2019-01-19] MEDS: ACCU-CHEK XX SCH (02:00)
[2019-01-19] MEDS: VANCOMYCIN 1 GM 250 ML IVPB SCH ×2 (02:13→15:32)
[2019-01-19 08:01] VITALS: BP 118/64; PULSE 57; RESP 18
[2019-01-19] MEDS: INSULIN ASPART [NOVOLOG] 3 ML PEN SC SCH ×7 (08:22→20:21)
[2019-01-19] MEDS: ENOXAPARIN 30 MG/0.3 ML SYG SC SCH (08:26)
[2019-01-19] MEDS: LACTOBACILLUS RHAMNOSUS CAP PO SCH ×2 (08:31→20:20)
[2019-01-19] MEDS: ESCITALOPRAM 10 MG TAB PO SCH (08:31)
[2019-01-19] MEDS: POTASSIUM CHLORIDE 20 MEQ POWDER FOR ORAL SOLN PO SCH (08:31)
[2019-01-19] MEDS: MAGNESIUM OXIDE 400 MG TAB PO SCH ×3 (08:31→20:20)
[2019-01-19] MEDS: ASPIRIN 325 MG TAB PO SCH (08:31)
[2019-01-19] MEDS: CHOLECALCIFEROL 1,000 UNIT TAB PO SCH (08:31)
[2019-01-19] MEDS: SODIUM HYPOCHLORITE (1/40) 1 LITER BTL IRR SCH (09:00)
[2019-01-19] MEDS: AMMONIUM LACTATE 12% 225 GM LOT TOP SCH (09:00)
[2019-01-19] MEDS: morphine 2 MG INJ IV PRN ×2 (09:18→20:27)
--- NOTE | 2019-01-19 11:25 | CONS ---
Assessment/Plan Assessment/Plan Assessment/Plan (Daily) bilateral diabetic ulcerations lower extremity Localized cellulitis - R foot improving Concern for osteomyelitis left foot DM2 with peripheral neuropathy PAD -s/p bypass Plan Sutures and skin stacey were removed. Spoke to nursing staff about dressing instructions. Recommend to continue with heel offloading with pillows. Patient would benefit from split thickness skin grafting in the future in the OR setting. Intra-Op patho negative for osteomyelitis. Wound cultures showing scant/rare growth of staph coag (-) Consultation Date/Type/Reason Admit Date/Time Jan 04, 2019 at 17:33 Initial Consult Date Date/Time of Note DATE: 01/19/19 TIME: 11:21 24 HR Interval Summary Free Text/Dictation No acute events overnight. Exam/Review of Systems Exam Vitals Vital Signs Date Temp Pulse Resp B/P (MAP) Pulse Ox O2 O2 Flow FiO2 Time Delivery Rate 01/19/19 98.7 57 18 118/64 98 Room Air 08:01 (82) Intake and Output 01/18/19 01/18/19 01/19/19 1515:00 23:00 07:00 IntakeIntake Total 1360 ml 1350 ml 980 ml OutputOutput Total 500 ml 800 ml 1200 ml BalanceBalance 860 ml 550 ml -220 ml Exam Sutures and skin stacey in place without loosening Left foot with no purulent drainage to distal ulcer site measuring 0.6 x 0.8 x 1.0cm granular wound base which tunnels proximally ~1cm Plantar left foot ulcer with graft in place appearing granular 2 x 1 x 0.4cm no erythema, no proximal streaking, no purulence Right posterior achilles ulcer with graft in place granular wound base 3 x 1.5 x 0.2cm, no proximal streaking, no purulence, no probing to bone Pain with palpation to left foot ulcer sites Grafts in place of wound sites. Intra op pathology Bone left foot: -- Cancellous bone showing subperiosteal bone remodeling with new bone formation, and mild fibrosis in the underlying medullary bone with osteoblastic rimming of bone trabeculae. -- Definite osteomyelitis is not identified. -- There is no evidence of malignancy. Results Result Diagram: 01/19/19 0507 01/19/19 0507 Results 24hrs Laboratory Tests Test 01/18/19 12:16 01/18/19 17:26 01/18/19 20:13 01/19/19 05:07 Bedside Glucose 142 296 H 191 White Blood Count 5.0 Red Blood Count 3.06 L Hemoglobin 8.6 L Hematocrit 28.6 L Mean Corpuscular Volume 93.5 Mean Corpuscular 28.1 L Hemoglobin Mean Corpuscular 30.1 L Hemoglobin Concent Red Cell Distribution 18.7 H Width Platelet Count 282 Mean Platelet Volume 8.8 Immature Granulocytes % 1.000 H Neutrophils % 64.4 Lymphocytes % 23.2 Monocytes % 8.2 Eosinophils % 2.8 Basophils % 0.4 Nucleated Red Blood 0.0 Cells % Immature Granulocytes # 0.050 H Neutrophils # 3.2 Lymphocytes # 1.2 Monocytes # 0.4 Eosinophils # 0.1 Basophils # 0.0 Nucleated Red Blood 0.0 Cells # Sodium Level 140 Potassium Level 3.9 Chloride Level 108 Carbon Dioxide Level 28 Anion Gap 4 L Blood Urea Nitrogen 21 H Creatinine 0.68 Est Glomerular Filtrat > 60 Rate mL/min Glucose Level 202 Calcium Level 8.5 Phosphorus Level 3.9 Magnesium Level 2.0 Test 01/19/19 08:20 Bedside Glucose 220 Medications Medication Current Medications IV Flush (NS 3 ml) 3 ml PER PROTOCOL IV ; Start 01/04/19 at 18:30 Ondansetron HCl (Zofran Inj) 4 mg Q6H PRN IV NAUSEA/VOMITING Last administered on 01/09/19at 13:28; Admin Dose 4 MG; Start 01/04/19 at 18:30 Acetaminophen (Tylenol Tab) 650 mg Q6H PRN PO .PAIN 1-3 OR TEMP; Start 01/04/19 at 18:30 Diagnostic Test (Pha) (Accu-Chek) 1 ea 02 XX Last administered on 01/12/19at 02:25; Admin Dose 1 EA; Start 01/05/19 at 02:00 Insulin Aspart (Novolog Insulin Pen) NOVOLOG *MODERATE* ALGORITHM WITH MEALS BEDTIME SC Last administered on 01/19/19at 08:22; Admin Dose 4 UNIT; Start 01/04/19 at 21:00 Miscellaneous Information 1 ea NOTE XX ; Start 01/04/19 at 19:00 Glucose (Glutose) 15 gm Q15M PRN PO DECREASED GLUCOSE; Start 01/04/19 at 19:00 Glucose (Glutose) 22.5 gm Q15M PRN PO DECREASED GLUCOSE; Start 01/04/19 at 19:00 Dextrose (D50w Syringe) 25 ml Q15M PRN IV DECREASED GLUCOSE; Start 01/04/19 at 19:00 Dextrose (D50w Syringe) 50 ml Q15M PRN IV DECREASED GLUCOSE; Start 01/04/19 at 19:00 Glucagon (Glucagen) 1 mg Q15M PRN IM DECREASED GLUCOSE; Start 01/04/19 at 19:00 Glucose (Glutose) 15 gm Q15M PRN BUCCAL DECREASED GLUCOSE; Start 01/04/19 at 19:00 Tramadol HCl (Ultram) 50 mg Q6H PRN PO MODERATE PAIN LEVEL 4-6 Last administered on 01/07/19 21:17; Admin Dose 50 MG; Start 01/04/19 at 23:30 Sodium Hypochlorite (Dakin'S (Dilute )) 1 applic DAILY IRR Last administered on 01/18/19 08:37; Admin Dose 1 APPLIC; Start 01/06/19 at 09:00 Lactobacillus Acidophilus/ Rhamnosus (Culturelle) 1 cap BID PO Last administered on 01/19/19 08:31; Admin Dose 1 CAP; Start 01/05/19 at 21:00 Escitalopram Oxalate (Lexapro) 10 mg DAILY PO Last administered on 01/19/19 08:31; Admin Dose 10 MG; Start 01/05/19 at 21:00 Insulin Aspart (Novolog Insulin Pen) 10 unit WITH MEALS SC Last administered on 01/19/19 08:23; Admin Dose 10 UNIT; Start 01/06/19 at 17:55 Insulin Glargine (Lantus) 30 units DAILY@2000 SC Last administered on 01/18/19 20:16; Admin Dose 30 UNITS; Start 01/06/19 at 20:00 Nicotine (Nicoderm 14 Mg/ 24hr) 1 patch DAILY PRN TRANSDERM CONTROL WITHDRAWAL SYMPTOMS; Start 01/06/19 at 12:00 Ammonium Lactate (Lac-Hydrin 12% Lotion) 1 applic DAILY TOP Last administered on 01/18/19 08:38; Admin Dose 1 APPLIC; Start 01/07/19 at 09:00 Magnesium Oxide (Mag-Ox 400) 400 mg TID PO Last administered on 01/19/19 08:31; Admin Dose 400 MG; Start 01/08/19 at 13:00 Aspirin (Aspirin) 325 mg DAILY PO Last administered on 01/19/19 08:31; Admin Dose 325 MG; Start 01/09/19 at 12:30 Enoxaparin Sodium (Lovenox) 30 mg DAILY SC Last administered on 01/19/19 08:26; Admin Dose 30 MG; Start 01/10/19 at 10:30 Potassium Chloride (Potassium Chloride Pwd/Soln) 40 meq DAILY PO Last administered on 01/19/19 08:31; Admin Dose 40 MEQ; Start 01/12/19 at 09:00 Trazodone HCl (Desyrel) 25 mg HS PO Last administered on 01/18/19 20:16; Admin Dose 25 MG; Start 01/12/19 at 21:00 Ertapenem 1 gm/ Sodium Chloride 100 ml @ 200 mls/hr Q24H IVPB Last administered on 01/18/19 15:21; Admin Dose 200 MLS/HR; Start 01/15/19 at 14:30 Vancomycin HCl (Vanco Iv Per Pharmacy) VANCOMYCIN PER PHARMACY PER PROTOCOL XX ; Start 01/15/19 at 13:00 Vancomycin HCl 250 ml @ 125 mls/hr Q12H IVPB Last administered on 01/19/19 02:13; Admin Dose 125 MLS/HR; Start 01/15/19 at 15:00 IV Flush (NS 10 ml) 10 ml PRN PRN IV IV PROTOCOL; Start 01/16/19 at 15:30 Morphine Sulfate (morphine) 2 mg Q3H PRN IV SEVERE PAIN LEVEL 7-10 Last administered on 01/19/19 09:18; Admin Dose 2 MG; Start 01/17/19 at 16:00 Cholecalciferol (Vitamin D) 1,000 unit DAILY PO Last administered on 01/19/19 08:31; Admin Dose 1,000 UNIT; Start 01/19/19 at 09:00 QASIM CHAPA DPM Jan 19, 2019 11:25
--- NOTE | 2019-01-19 13:05 | CONS ---
Assessment/Plan Assessment/Plan Hospital Course (Demo Recall) No events, awake, looks comfortable, no fevers Microbiology: Cultures of the wound growing Enterobacter cloaca, enterococcus species, Corynebacterium species and strep galactorrhea Antimicrobials: Milao, Yesi Physical examination: Well-developed chronically ill-appearing elderly woman who is in no distress. Head atraumatic normocephalic neck is supple chest rise symmetrical breath sounds clear. Heart: S1-S2. Abdomen soft, bowel sounds present. Extremities with bilateral lower extremities dressing intact Assessment: 1. Bilateral lower extremities chronic wounds 2. Left foot osteomyelitis, s/p I/D, L foot bone bx with skin graft 3. Peripheral arterial disease ==> status post abdominal aortogram with right common femoral artery angioplasty 01/07/19. S/p left femoral to above-knee popliteal artery bypass using in situ greater saphenous vein 01/09/19 4. Diabetes with diabetic neuropathy 5. Transaminitis Plan: Remains stable, mo OM per patho report, continue abx for 7 more days, wound care per podiatry rec-s Consultation Date/Type/Reason Admit Date/Time Jan 04, 2019 at 17:33 Initial Consult Date Type of Consult id Date/Time of Note DATE: 01/19/19 TIME: 13:04 Exam/Review of Systems Exam Vitals Vital Signs Date Temp Pulse Resp B/P (MAP) Pulse Ox O2 O2 Flow FiO2 Time Delivery Rate 01/19/19 98.7 57 18 118/64 98 Room Air 08:01 (82) Intake and Output 01/18/19 01/18/19 01/19/19 1515:00 23:00 07:00 IntakeIntake Total 1360 ml 1350 ml 980 ml OutputOutput Total 500 ml 800 ml 1200 ml BalanceBalance 860 ml 550 ml -220 ml Results Result Diagram: 01/19/19 0507 01/19/19 0507 Results 24hrs Laboratory Tests Test 01/18/19 17:26 01/18/19 20:13 01/19/19 05:07 01/19/19 08:20 Bedside Glucose 296 H 191 220 White Blood Count 5.0 Red Blood Count 3.06 L Hemoglobin 8.6 L Hematocrit 28.6 L Mean Corpuscular Volume 93.5 Mean Corpuscular 28.1 L Hemoglobin Mean Corpuscular 30.1 L Hemoglobin Concent Red Cell Distribution 18.7 H Width Platelet Count 282 Mean Platelet Volume 8.8 Immature Granulocytes % 1.000 H Neutrophils % 64.4 Lymphocytes % 23.2 Monocytes % 8.2 Eosinophils % 2.8 Basophils % 0.4 Nucleated Red Blood 0.0 Cells % Immature Granulocytes # 0.050 H Neutrophils # 3.2 Lymphocytes # 1.2 Monocytes # 0.4 Eosinophils # 0.1 Basophils # 0.0 Nucleated Red Blood 0.0 Cells # Sodium Level 140 Potassium Level 3.9 Chloride Level 108 Carbon Dioxide Level 28 Anion Gap 4 L Blood Urea Nitrogen 21 H Creatinine 0.68 Est Glomerular Filtrat > 60 Rate mL/min Glucose Level 202 Calcium Level 8.5 Phosphorus Level 3.9 Magnesium Level 2.0 Test 01/19/19 12:34 Bedside Glucose 153 Medications Medication Current Medications IV Flush (NS 3 ml) 3 ml PER PROTOCOL IV ; Start 01/04/19 at 18:30 Ondansetron HCl (Zofran Inj) 4 mg Q6H PRN IV NAUSEA/VOMITING Last administered on 01/09/19at 13:28; Admin Dose 4 MG; Start 01/04/19 at 18:30 Acetaminophen (Tylenol Tab) 650 mg Q6H PRN PO .PAIN 1-3 OR TEMP; Start 01/04/19 at 18:30 Diagnostic Test (Pha) (Accu-Chek) 1 ea 02 XX Last administered on 01/12/19at 02:25; Admin Dose 1 EA; Start 01/05/19 at 02:00 Insulin Aspart (Novolog Insulin Pen) NOVOLOG *MODERATE* ALGORITHM WITH MEALS BEDTIME SC Last administered on 01/19/19at 12:37; Admin Dose 2 UNIT; Start 01/04/19 at 21:00 Miscellaneous Information 1 ea NOTE XX ; Start 01/04/19 at 19:00 Glucose (Glutose) 15 gm Q15M PRN PO DECREASED GLUCOSE; Start 01/04/19 at 19:00 Glucose (Glutose) 22.5 gm Q15M PRN PO DECREASED GLUCOSE; Start 01/04/19 at 19:00 Dextrose (D50w Syringe) 25 ml Q15M PRN IV DECREASED GLUCOSE; Start 01/04/19 at 19:00 Dextrose (D50w Syringe) 50 ml Q15M PRN IV DECREASED GLUCOSE; Start 01/04/19 at 19:00 Glucagon (Glucagen) 1 mg Q15M PRN IM DECREASED GLUCOSE; Start 01/04/19 at 19:00 Glucose (Glutose) 15 gm Q15M PRN BUCCAL DECREASED GLUCOSE; Start 01/04/19 at 19:00 Tramadol HCl (Ultram) 50 mg Q6H PRN PO MODERATE PAIN LEVEL 4-6 Last administered on 01/07/19 21:17; Admin Dose 50 MG; Start 01/04/19 at 23:30 Lactobacillus Acidophilus/ Rhamnosus (Culturelle) 1 cap BID PO Last administered on 01/19/19 08:31; Admin Dose 1 CAP; Start 01/05/19 at 21:00 Escitalopram Oxalate (Lexapro) 10 mg DAILY PO Last administered on 01/19/19 08:31; Admin Dose 10 MG; Start 01/05/19 at 21:00 Insulin Aspart (Novolog Insulin Pen) 10 unit WITH MEALS SC Last administered on 01/19/19 12:40; Admin Dose 10 UNIT; Start 01/06/19 at 17:55 Insulin Glargine (Lantus) 30 units DAILY@2000 SC Last administered on 01/18/19 20:16; Admin Dose 30 UNITS; Start 01/06/19 at 20:00 Nicotine (Nicoderm 14 Mg/ 24hr) 1 patch DAILY PRN TRANSDERM CONTROL WITHDRAWAL SYMPTOMS; Start 01/06/19 at 12:00 Magnesium Oxide (Mag-Ox 400) 400 mg TID PO Last administered on 01/19/19 12:42; Admin Dose 400 MG; Start 01/08/19 at 13:00 Aspirin (Aspirin) 325 mg DAILY PO Last administered on 01/19/19 08:31; Admin Dose 325 MG; Start 01/09/19 at 12:30 Enoxaparin Sodium (Lovenox) 30 mg DAILY SC Last administered on 01/19/19 08:26; Admin Dose 30 MG; Start 01/10/19 at 10:30 Potassium Chloride (Potassium Chloride Pwd/Soln) 40 meq DAILY PO Last administ ered on 01/19/19 08:31; Admin Dose 40 MEQ; Start 01/12/19 at 09:00 Trazodone HCl (Desyrel) 25 mg HS PO Last administered on 01/18/19 20:16; Admin Dose 25 MG; Start 01/12/19 at 21:00 Ertapenem 1 gm/ Sodium Chloride 100 ml @ 200 mls/hr Q24H IVPB Last administered on 01/18/19at 15:21; Admin Dose 200 MLS/HR; Start 01/15/19 at 14:30 Vancomycin HCl (Vanco Iv Per Pharmacy) VANCOMYCIN PER PHARMACY PER PROTOCOL XX ; Start 01/15/19 at 13:00 Vancomycin HCl 250 ml @ 125 mls/hr Q12H IVPB Last administered on 01/19/19at 02:13; Admin Dose 125 MLS/HR; Start 01/15/19 at 15:00 IV Flush (NS 10 ml) 10 ml PRN PRN IV IV PROTOCOL; Start 01/16/19 at 15:30 Morphine Sulfate (morphine) 2 mg Q3H PRN IV SEVERE PAIN LEVEL 7-10 Last administered on 01/19/19at 09:18; Admin Dose 2 MG; Start 01/17/19 at 16:00 Cholecalciferol (Vitamin D) 1,000 unit DAILY PO Last administered on 01/19/19at 08:31; Admin Dose 1,000 UNIT; Start 01/19/19 at 09:00 Miscellaneous Information (*Rx Drug Level Order Reminder*) 1 0200 ONCE XX ; Start 01/20/19 at 02:00; Stop 01/20/19 at 02:01 KENZIE AMBROCIO NP Jan 19, 2019 13:05
[2019-01-19 14:00] VITALS: BP 118/57; PULSE 62; RESP 18
--- NOTE | 2019-01-19 14:47 | PN ---
Date/Time of Note Date/Time of Note DATE: 01/19/19 TIME: 14:46 Assessment/Plan VTE Prophylaxis Risk score (from Nsg)>0 risk: 6 SCD applied (from Nsg): No SCD contraindicated: low risk/ambulating Pharmacological prophylaxis: LMWH Lines/Catheters IV Catheter Type (from Nrsg): PICC Line Central line still needed: Yes Urinary Cath still in place: Yes Reason Cath still needed: urinary retention, pres ulcer contaminated by urine Assessment/Plan Hospital Course Assessment and plan 1. DFI/ ssti, bilat lwr ext; sp local debridement, status post repeat bilateral heel debridement. Stable cont wound care and offloading 2. Nonadherence, high risk of limb (s) loss. Re-counselled 3. PAD chronic, sp rt lower ext bypass- Gavin Sage ?. mod stable, s/p Angio 01/07; POD ~10: Lt Fem-AK pop bypass w in-situ GSV 4. Tobacco abuse sp counseling, offered patch 5. Likely COPD 6. Delirium, presently stable observe 7. Lt lower ankle amputation status, stump may have osteo (prelim -ve?). MRI noted. sp debridement. cont atb/picc. 8. Rt heel/Achilles ulcer, sp debridement, follow-up on cultures 9. Chronic type 2 diabetes A1c 12.9! unfortunately not at goal. Diet indiscretion 10. Ftt, moving around in betw transitional facilities? Refuses snf. Difficult to break the cycle. Risk of limb loss discussed. Recommend snf for wound care 11. Left plantar ulcer/fungating lesion, continue serial debridement. 12. Anemia stable observe 13. Hepatitis C? Confirmatory testing pending. 14. Abnormal LFTs possibly #13. Hep C viremia, [place]. Antibiotic/ Zosyn noted. S: 01/05: No distress mild pain. Oriented to 2018. Not oriented to city. No cough or diarrhea. 01/06: Mod pain from her extremities. Foul smelling discharge noted. No chest pain dyspnea. oriented to year and month but not city, although she has been moving around. Appreciate social service assistance. No family/ friends at be dside. Patient is very vague when asked about any details. Possibly due to rapport. States her family is in [place] but has "health issues." States she is in a transitional facility - [facility]? on and off, but previously had surgery maybe at good [facility]. Asked her to consider snf but she refuses/ ~worried about long-term care/ loss of independence? Not sure if we can break what seems to be an ongoing cycle of nonadherence. Poor wound healing and her risk factors of smoking and diabetes are worrisome. High risk of limb loss discussed with patient. Not sure if she is a great candidate for any medical therapy but we can attempt and give her options. At this time since she is orie nted, she is free to make her decisions whether they are right or wrong. 01/07: Not adherent to dietary/medical therapy. No fever or chest pain dyspnea 01/08: No distress chest pain dyspnea fever. Again not adherent to dietary or activity instructions. updated regarding the npo requirement for surgery. 01/09: Patient in OR 01/10: Urine output good/ patient stable, but not adherent to diet and care i nstructions 01/11: No distress. Sugars improved today. If debridements have finished potentially may be able to be discharged to sniff with antibiotics soon. : No events. Dietary indiscretion remains. No fever dyspnea. O: Vss PE No pallor Regular no m/r/g Clear Benign Minimal pulses/ usual; lle- ankle amputation status; rt foot dressed Result Diagram: 01/19/19 0507 01/19/19 0507 Results 24hrs Laboratory Tests Test 01/18/19 17:26 01/18/19 20:13 01/19/19 05:07 01/19/19 08:20 Bedside Glucose 296 H 191 220 White Blood Count 5.0 Red Blood Count 3.06 L Hemoglobin 8.6 L Hematocrit 28.6 L Mean Corpuscular Volume 93.5 Mean Corpuscular 28.1 L Hemoglobin Mean Corpuscular 30.1 L Hemoglobin Concent Red Cell Distribution 18.7 H Width Platelet Count 282 Mean Platelet Volume 8.8 Immature Granulocytes % 1.000 H Neutrophils % 64.4 Lymphocytes % 23.2 Monocytes % 8.2 Eosinophils % 2.8 Basophils % 0.4 Nucleated Red Blood 0.0 Cells % Immature Granulocytes # 0.050 H Neutrophils # 3.2 Lymphocytes # 1.2 Monocytes # 0.4 Eosinophils # 0.1 Basophils # 0.0 Nucleated Red Blood 0.0 Cells # Sodium Level 140 Potassium Level 3.9 Chloride Level 108 Carbon Dioxide Level 28 Anion Gap 4 L Blood Urea Nitrogen 21 H Creatinine 0.68 Est Glomerular Filtrat > 60 Rate mL/min Glucose Level 202 Calcium Level 8.5 Phosphorus Level 3.9 Magnesium Level 2.0 Test 01/19/19 12:34 Bedside Glucose 153 Exam/Review of Systems Exam Vitals Vital Signs Date Temp Pulse Resp B/P (MAP) Pulse Ox O2 O2 Flow FiO2 Time Delivery Rate 01/19/19 98.7 57 18 118/64 98 Room Air 08:01 (82) Intake and Output 01/18/19 01/18/19 01/19/19 1414:59 22:59 06:59 IntakeIntake Total 1360 ml 1350 ml 980 ml OutputOutput Total 500 ml 800 ml 1200 ml BalanceBalance 860 ml 550 ml -220 ml Results Results 24hrs Laboratory Tests Test 01/18/19 17:26 01/18/19 20:13 01/19/19 05:07 01/19/19 08:20 Bedside Glucose 296 H 191 220 White Blood Count 5.0 Red Blood Count 3.06 L Hemoglobin 8.6 L Hematocrit 28.6 L Mean Corpuscular Volume 93.5 Mean Corpuscular 28.1 L Hemoglobin Mean Corpuscular 30.1 L Hemoglobin Concent Red Cell Distribution 18.7 H Width Platelet Count 282 Mean Platelet Volume 8.8 Immature Granulocytes % 1.000 H Neutrophils % 64.4 Lymphocytes % 23.2 Monocytes % 8.2 Eosinophils % 2.8 Basophils % 0.4 Nucleated Red Blood 0.0 Cells % Immature Granulocytes # 0.050 H Neutrophils # 3.2 Lymphocytes # 1.2 Monocytes # 0.4 Eosinophils # 0.1 Basophils # 0.0 Nucleated Red Blood 0.0 Cells # Sodium Level 140 Potassium Level 3.9 Chloride Level 108 Carbon Dioxide Level 28 Anion Gap 4 L Blood Urea Nitrogen 21 H Creatinine 0.68 Est Glomerular Filtrat > 60 Rate mL/min Glucose Level 202 Calcium Level 8.5 Phosphorus Level 3.9 Magnesium Level 2.0 Test 01/19/19 12:34 Bedside Glucose 153 Medications Medication Current Medications IV Flush (NS 3 ml) 3 ml PER PROTOCOL IV ; Start 01/04/19 at 18:30 Ondansetron HCl (Zofran Inj) 4 mg Q6H PRN IV NAUSEA/VOMITING Last administered on 01/09/19at 13:28; Admin Dose 4 MG; Start 01/04/19 at 18:30 Acetaminophen (Tylenol Tab) 650 mg Q6H PRN PO .PAIN 1-3 OR TEMP; Start 01/04/19 at 18:30 Diagnostic Test (Pha) (Accu-Chek) 1 ea 02 XX Last administered on 01/12/19 02:25; Admin Dose 1 EA; Start 01/05/19 at 02:00 Insulin Aspart (Novolog Insulin Pen) NOVOLOG *MODERATE* ALGORITHM WITH MEALS BEDTIME SC Last administered on 01/19/19at 12:37; Admin Dose 2 UNIT; Start 01/04/19 at 21:00 Miscellaneous Information 1 ea NOTE XX ; Start 01/04/19 at 19:00 Glucose (Glutose) 15 gm Q15M PRN PO DECREASED GLUCOSE; Start 01/04/19 at 19:00 Glucose (Glutose) 22.5 gm Q15M PRN PO DECREASED GLUCOSE; Start 01/04/19 at 19:00 Dextrose (D50w Syringe) 25 ml Q15M PRN IV DECREASED GLUCOSE; Start 01/04/19 at 19:00 Dextrose (D50w Syringe) 50 ml Q15M PRN IV DECREASED GLUCOSE; Start 01/04/19 at 19:00 Glucagon (Glucagen) 1 mg Q15M PRN IM DECREASED GLUCOSE; Start 01/04/19 at 19:00 Glucose (Glutose) 15 gm Q15M PRN BUCCAL DECREASED GLUCOSE; Start 01/04/19 at 19:00 Tramadol HCl (Ultram) 50 mg Q6H PRN PO MODERATE PAIN LEVEL 4-6 Last administered on 01/07/19at 21:17; Admin Dose 50 MG; Start 01/04/19 at 23:30 Lactobacillus Acidophilus/ Rhamnosus (Culturelle) 1 cap BID PO Last administered on 01/19/19 08:31; Admin Dose 1 CAP; Start 01/05/19 at 21:00 Escitalopram Oxalate (Lexapro) 10 mg DAILY PO Last administered on 01/19/19 08:31; Admin Dose 10 MG; Start 01/05/19 at 21:00 Insulin Aspart (Novolog Insulin Pen) 10 unit WITH MEALS SC Last administered on 01/19/19at 12:40; Admin Dose 10 UNIT; Start 01/06/19 at 17:55 Insulin Glargine (Lantus) 30 units DAILY@2000 SC Last administered on 01/18/19 20:16; Admin Dose 30 UNITS; Start 01/06/19 at 20:00 Nicotine (Nicoderm 14 Mg/ 24hr) 1 patch DAILY PRN TRANSDERM CONTROL WITHDRAWAL SYMPTOMS; Start 01/06/19 at 12:00 Magnesium Oxide (Mag-Ox 400) 400 mg TID PO Last administered on 01/19/19 12:42; Admin Dose 400 MG; Start 01/08/19 at 13:00 Aspirin (Aspirin) 325 mg DAILY PO Last administered on 01/19/19 08:31; Admin Dose 325 MG; Start 01/09/19 at 12:30 Enoxaparin Sodium (Lovenox) 30 mg DAILY SC Last administered on 01/19/19 08:26; Admin Dose 30 MG; Start 01/10/19 at 10:30 Potassium Chloride (Potassium Chloride Pwd/Soln) 40 meq DAILY PO Last administered on 01/19/19 08:31; Admin Dose 40 MEQ; Start 01/12/19 at 09:00 Trazodone HCl (Desyrel) 25 mg HS PO Last administered on 01/18/19 20:16; Admin Dose 25 MG; Start 01/12/19 at 21:00 Ertapenem 1 gm/ Sodium Chloride 100 ml @ 200 mls/hr Q24H IVPB Last administered on 01/18/19 15:21; Admin Dose 200 MLS/HR; Start 01/15/19 at 14:30 Vancomycin HCl (Vanco Iv Per Pharmacy) VANCOMYCIN PER PHARMACY PER PROTOCOL XX ; Start 01/15/19 at 13:00 Vancomycin HCl 250 ml @ 125 mls/hr Q12H IVPB Last administered on 01/19/19 02:13; Admin Dose 125 MLS/HR; Start 01/15/19 at 15:00 IV Flush (NS 10 ml) 10 ml PRN PRN IV IV PROTOCOL; Start 01/16/19 at 15:30 Morphine Sulfate (morphine) 2 mg Q3H PRN IV SEVERE PAIN LEVEL 7-10 Last administered on 01/19/19 09:18; Admin Dose 2 MG; Start 01/17/19 at 16:00 Cholecalciferol (Vitamin D) 1,000 unit DAILY PO Last administered on 01/19/19 08:31; Admin Dose 1,000 UNIT; Start 01/19/19 at 09:00 Miscellaneous Information (*Rx Drug Level Order Reminder*) 1 0200 ONCE XX ; Start 01/20/19 at 02:00; Stop 01/20/19 at 02:01 KYLIE STARKEY MD Jan 19, 2019 14:47
[2019-01-19] MEDS: ERTAPENEM SODIUM 1 GM in SOD CHLORIDE 0.9% 100 ML IVPB SCH (14:51)
[2019-01-19 20:00] VITALS: BP 131/60; PULSE 64; RESP 18
[2019-01-19] MEDS: traZODone 50 MG TAB PO SCH (20:20)
[2019-01-19] MEDS: INSULIN GLARGINE [LANTus] (100 UNITS/ML) SYG SC SCH (20:21)
[2019-01-20 02:00] VITALS: BP 119/62; PULSE 78; RESP 19
[2019-01-20] MEDS: ACCU-CHEK XX SCH (02:00)
[2019-01-20] MEDS: VANCOMYCIN 1 GM 250 ML IVPB SCH (03:06)
[2019-01-20] MEDS: morphine 2 MG INJ IV PRN ×3 (07:46→12:34)
[2019-01-20 07:53] VITALS: BP 112/60; PULSE 57; RESP 16
[2019-01-20] MEDS: INSULIN ASPART [NOVOLOG] 3 ML PEN SC SCH ×4 (08:29→12:28)
[2019-01-20] MEDS: ENOXAPARIN 30 MG/0.3 ML SYG SC SCH (08:30)
[2019-01-20] MEDS: POTASSIUM CHLORIDE 20 MEQ POWDER FOR ORAL SOLN PO SCH (08:32)
[2019-01-20] MEDS: CHOLECALCIFEROL 1,000 UNIT TAB PO SCH (08:32)
[2019-01-20] MEDS: ASPIRIN 325 MG TAB PO SCH (08:32)
[2019-01-20] MEDS: LACTOBACILLUS RHAMNOSUS CAP PO SCH (08:32)
[2019-01-20] MEDS: MAGNESIUM OXIDE 400 MG TAB PO SCH ×2 (08:32→12:27)
[2019-01-20] MEDS: ESCITALOPRAM 10 MG TAB PO SCH (08:32)
[2019-01-20 12:31] VITALS: BP 123/60; PULSE 57; RESP 16
--- NOTE | 2019-01-20 13:46 | CONS ---
Assessment/Plan Assessment/Plan Hospital Course (Demo Recall) No events, looks comfortable, no fevers Microbiology: Cultures of the wound growing Enterobacter cloaca, enterococcus species, Corynebacterium species and strep galactorrhea Antimicrobials: Milao, Yesi Physical examination: Well-developed chronically ill-appearing elderly woman who is in no distress. Head atraumatic normocephalic neck is supple chest rise symmetrical breath sounds clear. Heart: S1-S2. Abdomen soft, bowel sounds present. Extremities with bilateral lower extremities dressing intact Assessment: 1. Bilateral lower extremities chronic wounds 2. Left foot osteomyelitis, s/p I/D, L foot bone bx with skin graft 3. Peripheral arterial disease ==> status post abdominal aortogram with right common femoral artery angioplasty 01/07/19. S/p left femoral to above-knee popliteal artery bypass using in situ greater saphenous vein 01/09/19 4. Diabetes with diabetic neuropathy 5. Transaminitis Plan: Remains stable, mo OM per patho report, continue abx till February 26, pending SNF Consultation Date/Type/Reason Admit Date/Time Jan 04, 2019 at 17:33 Initial Consult Date Type of Consult id Date/Time of Note DATE: 01/20/19 TIME: 13:45 Exam/Review of Systems Exam Vitals Vital Signs Date Temp Pulse Resp B/P (MAP) Pulse Ox O2 O2 Flow FiO2 Time Delivery Rate 01/20/19 97.9 57 16 112/60 95 Room Air 07:53 (77) Intake and Output 01/19/19 01/19/19 01/20/19 1515:00 23:00 07:00 IntakeIntake Total 350 ml 610 ml OutputOutput Total 900 ml 1450 ml BalanceBalance -900 ml 350 ml -840 ml Results Result Diagram: 01/20/19 0205 01/20/19 0205 Results 24hrs Laboratory Tests Test 01/19/19 17:18 01/19/19 20:16 01/20/19 02:05 01/20/19 08:28 Bedside Glucose 172 106 141 White Blood Count 4.5 L Red Blood Count 3.02 L Hemoglobin 8.4 L Hematocrit 28.2 L Mean Corpuscular Volume 93.4 Mean Corpuscular 27.8 L Hemoglobin Mean Corpuscular 29.8 L Hemoglobin Concent Red Cell Distribution 18.9 H Width Platelet Count 279 Mean Platelet Volume 8.6 Immature Granulocytes % 0.400 Neutrophils % Segmented Neutrophils 63 % (Manual) Lymphocytes % Lymphocytes % (Manual) 27 Monocytes % Monocytes % (Manual) 5 Eosinophils % Eosinophils % (Manual) 5 Basophils % Nucleated Red Blood 0.0 Cells % Immature Granulocytes # 0.020 Neutrophils # Lymphocytes (Manual) 1.2 Lymphocytes # Monocytes # Monocytes # (Manual) 0.2 L Eosinophils # Basophils # Nucleated Red Blood Cells # Platelet Estimate NORMAL Polychromasia 3+ Sodium Level 141 Potassium Level 3.6 Chloride Level 106 Carbon Dioxide Level 28 Anion Gap 7 Blood Urea Nitrogen 23 H Creatinine 0.65 Est Glomerular Filtrat > 60 Rate mL/min Glucose Level 164 Calcium Level 8.6 Total Bilirubin 0.2 Direct Bilirubin 0.00 Indirect Bilirubin 0.2 Aspartate Amino 216 H Transf (AST/SGOT) Alanine 193 H Aminotransferase (ALT/SG PT) Alkaline Phosphatase 348 H Total Protein 6.9 Albumin 2.8 L Globulin 4.10 H Albumin/Globulin Ratio 0.68 Vancomycin Level Trough 18.6 Test 01/20/19 11:46 01/20/19 12:26 Bedside Glucose 134 141 Medications Medication Current Medications IV Flush (NS 3 ml) 3 ml PER PROTOCOL IV ; Start 01/04/19 at 18:30 Ondansetron HCl (Zofran Inj) 4 mg Q6H PRN IV NAUSEA/VOMITING Last administered on 01/09/19at 13:28; Admin Dose 4 MG; Start 01/04/19 at 18:30 Acetaminophen (Tylenol Tab) 650 mg Q6H PRN PO .PAIN 1-3 OR TEMP; Start 01/04/19 at 18:30 Diagnostic Test (Pha) (Accu-Chek) 1 ea 02 XX Last administered on 01/12/19at 02:25; Admin Dose 1 EA; Start 01/05/19 at 02:00 Insulin Aspart (Novolog Insulin Pen) NOVOLOG *MODERATE* ALGORITHM WITH MEALS BEDTIME SC Last administered on 01/20/19at 12:28; Admin Dose 2 UNIT; Start 01/04/19 at 21:00 Miscellaneous Information 1 ea NOTE XX ; Start 01/04/19 at 19:00 Glucose (Glutose) 15 gm Q15M PRN PO DECREASED GLUCOSE; Start 01/04/19 at 19:00 Glucose (Glutose) 22.5 gm Q15M PRN PO DECREASED GLUCOSE; Start 01/04/19 at 19:00 Dextrose (D50w Syringe) 25 ml Q15M PRN IV DECREASED GLUCOSE; Start 01/04/19 at 19:00 Dextrose (D50w Syringe) 50 ml Q15M PRN IV DECREASED GLUCOSE; Start 01/04/19 at 19:00 Glucagon (Glucagen) 1 mg Q15M PRN IM DECREASED GLUCOSE; Start 01/04/19 at 19:00 Glucose (Glutose) 15 gm Q15M PRN BUCCAL DECREASED GLUCOSE; Start 01/04/19 at 19:00 Tramadol HCl (Ultram) 50 mg Q6H PRN PO MODERATE PAIN LEVEL 4-6 Last administered on 01/07/19 21:17; Admin Dose 50 MG; Start 01/04/19 at 23:30 Lactobacillus Acidophilus/ Rhamnosus (Culturelle) 1 cap BID PO Last administered on 01/20/19 08:32; Admin Dose 1 CAP; Start 01/05/19 at 21:00 Escitalopram Oxalate (Lexapro) 10 mg DAILY PO Last administered on 01/20/19 08:32; Admin Dose 10 MG; Start 01/05/19 at 21:00 Insulin Aspart (Novolog Insulin Pen) 10 unit WITH MEALS SC Last administered on 01/20/19 12:28; Admin Dose 10 UNIT; Start 01/06/19 at 17:55 Insulin Glargine (Lantus) 30 units DAILY@2000 SC Last administered on 01/19/19 20:21; Admin Dose 30 UNITS; Start 01/06/19 at 20:00 Nicotine (Nicoderm 14 Mg/ 24hr) 1 patch DAILY PRN TRANSDERM CONTROL WITHDRAWAL SYMPTOMS; Start 01/06/19 at 12:00 Magnesium Oxide (Mag-Ox 400) 400 mg TID PO Last administered on 01/20/19 12:27; Admin Dose 400 MG; Start 01/08/19 at 13:00 Aspirin (Aspirin) 325 mg DAILY PO Last administered on 01/20/19 08:32; Admin Dose 325 MG; Start 01/09/19 at 12:30 Enoxaparin Sodium (Lovenox) 30 mg DAILY SC Last administered on 01/20/19 08:30; Admin Dose 30 MG; Start 01/10/19 at 10:30 Potassium Chloride (Potassium Chloride Pwd/Soln) 40 meq DAILY PO Last adm inistered on 01/20/19 08:32; Admin Dose 40 MEQ; Start 01/12/19 at 09:00 Trazodone HCl (Desyrel) 25 mg HS PO Last administered on 01/19/19 20:20; Admin Dose 25 MG; Start 01/12/19 at 21:00 Ertapenem 1 gm/ Sodium Chloride 100 ml @ 200 mls/hr Q24H IVPB Last administered on 01/19/19 14:51; Admin Dose 200 MLS/HR; Start 01/15/19 at 14:30 Vancomycin HCl (Vanco Iv Per Pharmacy) VANCOMYCIN PER PHARMACY PER PROTOCOL XX ; Start 01/15/19 at 13:00 IV Flush (NS 10 ml) 10 ml PRN PRN IV IV PROTOCOL; Start 01/16/19 at 15:30 Morphine Sulfate (morphine) 2 mg Q3H PRN IV SEVERE PAIN LEVEL 7-10 Last administered on 01/20/19 12:34; Admin Dose 2 MG; Start 01/17/19 at 16:00 Cholecalciferol (Vitamin D) 1,000 unit DAILY PO Last administered on 01/20/19 08:32; Admin Dose 1,000 UNIT; Start 01/19/19 at 09:00 Vancomycin/Sodium Chloride 250 ml @ 125 mls/hr Q12H IVPB ; Start 01/20/19 at 15:00 KENZIE AMBROCIO NP Jan 20, 2019 13:46
[2019-01-20] MEDS: ERTAPENEM SODIUM 1 GM in SOD CHLORIDE 0.9% 100 ML IVPB SCH (13:58)
--- NOTE | 2019-01-20 14:39 | DS ---
Date/Time of Note Date/Time of Note DATE: 01/20/19 TIME: 14:29 Discharge Summary Admission/Discharge Info Admit Date/Time Jan 04, 2019 at 17:33 Discharge Date/Time Patient Condition: Fair Consults Dr Kar Foreman Social Service Case M Procedures MRI OF THE LEFT ANKLE. IMPRESSION: 1. Plantar soft tissue ulceration at the level of the anterior calcaneal margin and findings of cellulitis. 2. Evidence of early osteomyelitis at the anterior inferior calcaneal margin underlying the ulceration. Abnormal bone marrow signal at the navicular seen, early osteomyelitis in this region cannot be excluded. 3. Small, thin focal area of subcutaneous hyperintensity superficial to the medial navicular, which could represent adventitial bursitis versus less likely a small phlegmonous collection. Ultrasound abdomen IMPRESSION: 1. Hepatomegaly with mild fatty infiltration. 2. Surgically absent gallbladder with extrahepatic common bile duct within normal limits status post cholecystectomy. 3. Prominent central echogenicity in the renal jason bilaterally, which may be related to perirenal fat. No significant hydronephrosis is seen. No definite echogenic foci to suggest renal stones, however CT may be helpful for further evaluation. 1. Lower extremity angiogram 2. Left femoral to above-knee popliteal artery bypass using in situ greater saphenous vein. 3. Operation/Procedure Performed excisional debridement of bilateral feet bone biopsy left foot application of skin allograft Postoperative Diagnosis bilateral diabetic foot ulcers Left foot osteomyelitis DM2 with peripheral neuropathy Hx of left foot chopart amputation PAD Pathology Left heel debridement MICROSCOPIC DIAGNOSIS: Bone left foot: -- Cancellous bone showing subperiosteal bone remodeling with new bone formation, and mild fibrosis in the underlying medullary bone with osteoblastic rimming of bone trabeculae. -- Definite osteomyelitis is not identified. -- There is no evidence of malignancy. Hx of Present Illness 63-year-old female evaluated managed for bilateral heel infections Hospital Course Hospitalist coverage Admitted and evaluated for bilateral lower extremity infection. The left foot was concerning for stump infection. Underwent debridement. Next underwent vascular eval. Next underwent vascular bypass. Then underwent heel debridement. The pathology from this left heel does not show osteomyelitis. Therefore at this time we will treat deep wound infection. Antibiotics with PICC line arranged. May finish treatment at [facility]. The right heel ulcer was also debrided while in the hospital stay. The patient continues to be not adherent to dietary along with wound care along with offloading instructions. He is awake alert oriented to year . I updated her regarding the challenges of healing and the risk of losing her limbs. She is aware but has poor insight and fortunately her management has been challenging. I am concerned that she will acquire more amputation/debridement down the line. No family available. Patient has a smoking and has not been taking care of her wounds or doing wound care instructions were treating her diabetes since the beginning of these lower extremity issues. I think she has been bouncing around between hospitals and nursing homes due to her nonadherence. Aassessment and plan 1. DFI/ ssti, bilat lwr ext; sp local debridement, status post repeat bilateral heel debridement. Stable cont wound care and offloading 2. Nonadherence, high risk of limb (s) loss. Re-counselled 3. PAD chronic, sp rt lower ext bypass- Gavin Sage ?. mod stable, s/p Angio 01/07; POD ~10: Lt Fem-AK pop bypass w in-situ GSV 4. Tobacco abuse sp counseling, offered patch 5. Likely COPD 6. Delirium, presently stable observe 7. Lt lower ankle amputation status, stump may have osteo (prelim -ve?). MRI noted. sp debridement. cont atb/picc. 8. Rt heel/Achilles ulcer, sp debridement, follow-up on cultures 9. Chronic type 2 diabetes A1c 12.9! unfortunately not at goal. Diet indiscretion 10. Ftt, [facility]? Refuses snf. Difficult to break the cycle. Risk of limb loss discussed. Recommend snf for wound care 11. Left plantar ulcer/fungating lesion, continue serial debridement. 12. Anemia stable observe 13. Hepatitis C? Confirmatory testing pending. 14. Abnormal LFTs possibly #13. Hep C viremia, [place]. Antibiotic/ Zosyn noted. S: 01/05: No distress mild pain. Oriented to 2018. Not oriented to city. No cough or diarrhea. 01/06: Mod pain from her extremities. Foul smelling discharge noted. No chest pain dyspnea. oriented to year and month but not city, although she has been moving around. Appreciate social service assistance. No family/ friends at bedside. Patient is very vague when asked about any details. Possibly due to rapport. States her family is in [place] but has "health issues." States she is in a transitional facility - [facility] [place]? on and off, but previously had surgery maybe at [facility]. Asked her to consider snf but she refuses/ ~w orried about long-term care/ loss of independence? Not sure if we can break what seems to be an ongoing cycle of nonadherence. Poor wound healing and her risk factors of smoking and diabetes are worrisome. High risk of limb loss discussed with patient. Not sure if she is a great candidate for any medical therapy but we can attempt and give her options. At this time since she is oriented, she is free to make her decisions whether they are right or wrong. 01/07: Not adherent to dietary/medical therapy. No fever or chest pain dyspnea 01/08: No distress chest pain dyspnea fever. Again not adherent to dietary or activity instructions. updated regarding the npo requirement for surgery. 01/09: Patient in OR 01/10: Urine output good/ patient stable, but not adherent to diet and care instructions 01/11: No distress. Sugars improved today. If debridements have finished potentially may be able to be discharged to [facility] with antibiotics soon. : No events. Dietary indiscretion remains. No fever dyspnea. 01/20 no distress. She is asking me, 'why are you here... there is nothing I need from you.' I told her, I agree, and that her hospital care has finished its course and that she is stable and fit for discharge to snf. She is refusing to leave, stating that she needs more time she will she heals. I reinforced the requirements of 24-hour nursing care at a snf that will take care of her needs. O: Vss PE No pallor Regular no m/r/g Clear Benign Minimal pulses/ usual; lle- ankle amputation status; rt foot dressed Home Meds Unable to Obtain Active Prescriptions or Reported Meds Primary Care Provider Care Physician No Primary Time spent on discharge: > 30 minutes Pending Labs Laboratory Tests Test 01/19/19 17:18 01/19/19 20:16 01/20/19 02:05 01/20/19 08:28 Bedside 172 106 141 Glucose mg/dL (70-220) mg/dL (70-220) mg/dL (70-220) White Blood 4.5 Count 10^3/ul (4.8-1 0.8) Red Blood 3.02 Count 10^6/ul (4.20- 5.40) Hemoglobin 8.4 g/dl (12.0-16. 0) Hematocrit 28.2 % (37.0-47.0) Mean 93.4 Corpuscular fl (82.0-101.0 Volume ) Mean 27.8 Corpuscular pg (29.0-33.0) Hemoglobin Mean 29.8 Corpuscular g/dl (32.0-37. Hemoglobin Conc 0) ent Red Cell 18.9 Distribution % (11.5-14.5) Width Platelet Count 279 10^3/UL (140-4 15) Mean Platelet 8.6 Volume fl (7.4-10.4) Immature 0.400 Granulocytes % % (0.001-0.429 ) Neutrophils % % (39.0-77.0) Segmented 63 % (39-77) Neutrophils % (Manual) Lymphocytes % % (15.0-51.0) Lymphocytes % 27 % (15-51) (Manual) Monocytes % % (0.0-11.0) Monocytes % 5 % (0-11) (Manual) Eosinophils % % (0.0-7.0) Eosinophils % 5 % (0-7) (Manual) Basophils % % (0.0-2.0) Nucleated Red 0.0 Blood Cells % /100WBC (0.0-0 .0) Immature 0.020 Granulocytes # 10^3/ul (0.0-0 .031) Neutrophils # 10^3/ul (1.6-7 .5) Lymphocytes 1.2 (Manual) 10^3/ul (0.8-2 .9) Lymphocytes # 10^3/ul (0.8-2 .9) Monocytes # 10^3/ul (0.3-0 .9) Monocytes # 0.2 (Manual) 10^3/ul (0.3-0 .9) Eosinophils # 10^3/ul (0.0-0 .5) Basophils # 10^3/ul (0.0-0 .1) Nucleated Red 10^3/ul (0.0-0 Blood Cells # .0) Platelet NORMAL Estimate Polychromasia 3+ (0-0) Sodium Level 141 mmol/L (135-14 4) Potassium 3.6 Level mmol/L (3.5-5. 1) Chloride Level 106 mmol/L (97-110 ) Carbon Dioxide 28 Level mmol/L (21-31) Anion Gap 7 (5-13) Blood Urea 23 Nitrogen mg/dl (7-20) Creatinine 0.65 mg/dl (0.44-1. 00) Est Glomerular > 60 Filtrat mL/min (>60) Rate mL/min Glucose Level 164 mg/dl (70-220) Calcium Level 8.6 mg/dl (8.4-10. 2) Total 0.2 Bilirubin mg/dl (0.2-1.3 ) Direct 0.00 Bilirubin mg/dl (0.00-0. 20) Indirect 0.2 Bilirubin mg/dl (0-1.1) Aspartate Amino 216 Transf (AST/SGO IU/L (15-46) T) Alanine 193 Aminotransferas IU/L (13-69) e (ALT/SGPT) Alkaline 348 Phosphatase IU/L (42-121) Total Protein 6.9 g/dl (6.1-8.1) Albumin 2.8 g/dl (3.3-4.9) Globulin 4.10 g/dl (1.3-3.2) Albumin/Globuli 0.68 n Ratio Vancomycin 18.6 Level Trough ug/ml (10.0-20 .0) Test 01/20/19 11:46 01/20/19 12:26 Bedside 134 141 Glucose mg/dL (70-220) mg/dL (70-220) KYLIE STARKEY MD Jan 20, 2019 14:39
--- NOTE | 2019-01-20 14:40 | PDOCDIS ---
Discharge Instructions CONDITION [id number] Patient Condition: [id number] Stable HOME CARE INSTRUCTIONS: [id number] Diet Instructions: [id number] d Activity Restrictions: [id number] Slowly Increase Activity Avoid heavy lifting Do not Drive [id number] Activity Restrictions Comment: [id number] off load heels FOLLOW UP/APPOINTMENTS Follow-up Plan Dr Foreman [address] Lakhani 2wks KYLIE Damon MD Jan 20, 2019 14:40
[2019-01-20] MEDS ORDERED: VANCOMYCIN 750 MG (PMX) 250 ML IVPB SCH (15:00)
== END 2019-01-20 16:40 | DRG 623 ==
LOC: E/R 14:58 → TEL 17:33 → ICU 01-09 07:00 → 6WM 01-10 14:31 → 2NE 01-12 22:20 → 5EC 01-16 15:00
PROVIDERS: ADMIT Internal Medicine; ATTEND Internal Medicine
PROC: 0JBR0ZZ Excision of Left Foot Subcutaneous Tissue and Fascia, Open Approach (ICD-10-PCS; 2019-01-05)
PROC: 0JBQ0ZZ Excision of Right Foot Subcutaneous Tissue and Fascia, Open Approach (ICD-10-PCS; 2019-01-05)
PROC: 047K3ZZ Dilation of Right Femoral Artery, Percutaneous Approach (ICD-10-PCS; 2019-01-07)
PROC: B41DYZZ Fluoroscopy of Aorta and Bilateral Lower Extremity Arteries using Other Contrast (ICD-10-PCS; 2019-01-07)
PROC: 041L09L Bypass Left Femoral Artery to Popliteal Artery with Autologous Venous Tissue, Open Approach (ICD-10-PCS; 2019-01-09)
PROC: 06BQ0ZZ Excision of Left Saphenous Vein, Open Approach (ICD-10-PCS; 2019-01-09)
PROC: 30233N1 Transfusion of Nonautologous Red Blood Cells into Peripheral Vein, Percutaneous Approach (ICD-10-PCS; 2019-01-09)
PROC: 0JBR0ZZ Excision of Left Foot Subcutaneous Tissue and Fascia, Open Approach (ICD-10-PCS; 2019-01-13)
PROC: 0JBR0ZZ Excision of Left Foot Subcutaneous Tissue and Fascia, Open Approach (ICD-10-PCS; 2019-01-13)
PROC: 0QBM0ZX Excision of Left Tarsal, Open Approach, Diagnostic (ICD-10-PCS; 2019-01-13)
PROC: 0HRMXK3 Replacement of Right Foot Skin with Nonautologous Tissue Substitute, Full Thickness, External Approach (ICD-10-PCS; 2019-01-13)
PROC: 0HRNXK3 Replacement of Left Foot Skin with Nonautologous Tissue Substitute, Full Thickness, External Approach (ICD-10-PCS; 2019-01-13)
PROC: 0JBQ0ZZ Excision of Right Foot Subcutaneous Tissue and Fascia, Open Approach (ICD-10-PCS; principal; 2019-01-13 07:30)
PROC: 02HV33Z Insertion of Infusion Device into Superior Vena Cava, Percutaneous Approach (ICD-10-PCS; 2019-01-16)
DX: E11.621 Type 2 diabetes mellitus with foot ulcer (principal); L03.90 Cellulitis, unspecified; L97.429 Non-pressure chronic ulcer of left heel and midfoot with unspecified severity; L97.419 Non-pressure chronic ulcer of right heel and midfoot with unspecified severity; F33.2 Major depressive disorder, recurrent severe without psychotic features; L03.115 Cellulitis of right lower limb; L03.116 Cellulitis of left lower limb; I70.92 Chronic total occlusion of artery of the extremities; E11.51 Type 2 diabetes mellitus with diabetic peripheral angiopathy without gangrene; E11.65 Type 2 diabetes mellitus with hyperglycemia; R62.7 Adult failure to thrive; J44.9 Chronic obstructive pulmonary disease, unspecified; D64.9 Anemia, unspecified; E11.40 Type 2 diabetes mellitus with diabetic neuropathy, unspecified; R41.0 Disorientation, unspecified; B19.20 Unspecified viral hepatitis C without hepatic coma; E11.42 Type 2 diabetes mellitus with diabetic polyneuropathy; F17.200 Nicotine dependence, unspecified, uncomplicated; I70.202 Unspecified atherosclerosis of native arteries of extremities, left leg; Z91.19 Patient's noncompliance with other medical treatment and regimen; Z91.11 Patient's noncompliance with dietary regimen; Z79.4 Long term (current) use of insulin; Z89.432 Acquired absence of left foot
CPT/HCPCS: 36415; 36430; 36569; 37224; 71045; 73610; 73721; 75630; 76700; 76937; 80048; 80053; 80061; 80202; 81001; 82140; 82306; 82652; 82962; 83036; 83605; 83735; 84100; 84443; 84484; 85025; 85610; 85651; 85730; 86140; 86704; 86709; 86803; 86850; 86900; 86901; 86920; 87070; 87075; 87081; 87086; 87116; 87340; 88304; 90686; 93005; 93306; 93922; 93970; 96374; C1725; C1887; C1894; J0690; J1170; J1335; J1644; J1650; J1815; J2060; J2250; J2270; J2405; J2543; J2720; J2765; J3010; J3370; J3480; J7030; J7040; P9016; P9047; Q4104-JC; Q9967